=== PATIENT | male | born 1940 | race Caucasian/White ===

== ENCOUNTER → 2019-04-02 08:19 | Outpatient (CLI) | payer MEDICARE, SELFPAY ==
[2019-04-02 09:55] LABS: Alanine Aminotransferase 50 IU/L (21-72); Albumin 4.2 g/dL (3.5-5.0); Albumin Globulin Ratio 1.4 (1.0-2.8); Alkaline Phosphatase 81 U/L (38-126); Aspartate Aminotransferase 40 IU/L (17-59); Bilirubin Total 0.6 mg/dL (0.2-1.3); Blood Urea Nitrogen 22 mg/dL (9-20); Calcium 9.3 mg/dL (8.4-10.2); Carbon Dioxide 29 mmol/L (22-32); Chloride 101 mmol/L (98-107); Cholesterol 124 mg/dL (140-199); Estimated Glomerular Filt Rate > 60.0 mL/min (>60); Glucose 144 mg/dL (80-110); HDL Cholesterol 32 mg/dL (40-60); HEMOLYSIS < 15 (0-50); LDL Cholesterol Calculated 46 mg/dL (<100); Potassium 4.6 mmol/L (3.4-5.1); Sodium 140 mmol/L (137-145); Total Protein 7.2 g/dL (6.3-8.2); Triglycerides 232 mg/dL (35-150)
[2019-04-02 10:15] LABS: Free T4, Direct Thyroxine 1.04 ng/dL (0.78-2.19)
[2019-04-02 10:21] LABS: Microalbumi Creatinin Ratio Ur 83.7 ug/mg CR (<30); Microalbumin Urine Random 7.2 mg/dL (0-1.6)
[2019-04-02 10:29] LABS: Thyroid Stimulating Hormone 4.95 uIU/mL (0.47-4.68)
== END ==
PROVIDERS: PCP Internal Medicine; Visit Provider Internal Medicine
DX: I10 Essential (primary) hypertension (principal); E03.9 Hypothyroidism, unspecified; E11.9 Type 2 diabetes mellitus without complications
CPT/HCPCS: 36415; 80053; 80061; 82043; 82570; 83036; 84439; 84443

== ENCOUNTER → 2020-01-13 08:52 | Outpatient (CLI) | payer MEDICARE, SELFPAY ==
[2020-01-13 10:01] LABS: Hemoglobin A1C% w Est Avg Glu 6.6 % (4.0-6.0)
[2020-01-13 10:05] LABS: Alanine Aminotransferase 35 IU/L (<50); Albumin 3.9 g/dL (3.5-5.0); Albumin Globulin Ratio 1.4 (1.0-2.8); Alkaline Phosphatase 76 U/L (38-126); Aspartate Aminotransferase 34 IU/L (17-59); BUN Creatinine Ratio 15.3 (6-22); Bilirubin Total 0.4 mg/dL (0.2-1.3); Blood Urea Nitrogen 18 mg/dL (9-20); Calcium 9.7 mg/dL (8.4-10.2); Carbon Dioxide 26 mmol/L (22-32); Chloride 106 mmol/L (98-107); Cholesterol 113 mg/dL (140-199); Estimated Glomerular Filt Rate 59.7 mL/min (>60); Globulin 2.7 g/dL (1.7-4.1); Glucose 139 mg/dL (80-110); HDL Cholesterol 27 mg/dL (40-60); HEMOLYSIS < 15 (0-50); LDL Cholesterol Calculated 33 mg/dL (<100); Potassium 4.8 mmol/L (3.4-5.1); Sodium 139 mmol/L (137-145); Total Protein 6.6 g/dL (6.3-8.2); Triglycerides 265 mg/dL (35-150)
[2020-01-13 10:53] LABS: Free T4, Direct Thyroxine 1.36 ng/dL (0.78-2.19)
[2020-01-13 11:07] LABS: Thyroid Stimulating Hormone 3.32 uIU/mL (0.47-4.68)
== END ==
PROVIDERS: PCP Internal Medicine; Referring Provider Internal Medicine; Visit Provider Internal Medicine
DX: E03.9 Hypothyroidism, unspecified (principal); E11.9 Type 2 diabetes mellitus without complications; E78.2 Mixed hyperlipidemia; I10 Essential (primary) hypertension
CPT/HCPCS: 36415; 80053; 80061; 83036; 84439; 84443

== ENCOUNTER → 2020-06-01 08:23 | Outpatient (CLI) | payer MEDICARE, SELFPAY ==
[2020-06-01 08:58] LABS: Hemoglobin A1C% w Est Avg Glu 6.7 % (4.0-6.0)
[2020-06-01 09:28] LABS: Alanine Aminotransferase 32 IU/L (<50); Albumin 4.2 g/dL (3.5-5.0); Albumin Globulin Ratio 1.7 (1.0-2.8); Alkaline Phosphatase 75 U/L (38-126); Aspartate Aminotransferase 30 IU/L (17-59); BUN Creatinine Ratio 13.9 (6-22); Bilirubin Total 0.5 mg/dL (0.2-1.3); Blood Urea Nitrogen 15 mg/dL (9-20); Calcium 9.3 mg/dL (8.4-10.2); Carbon Dioxide 32 mmol/L (22-32); Chloride 102 mmol/L (98-107); Estimated Glomerular Filt Rate > 60.0 mL/min (>60); Globulin 2.5 g/dL (1.7-4.1); Glucose 124 mg/dL (80-110); HEMOLYSIS < 15 (0-50); Potassium 4.9 mmol/L (3.4-5.1); Sodium 140 mmol/L (137-145); Total Protein 6.7 g/dL (6.3-8.2)
== END ==
PROVIDERS: PCP Internal Medicine; Referring Provider Internal Medicine; Visit Provider Internal Medicine
DX: E03.9 Hypothyroidism, unspecified (principal); E11.9 Type 2 diabetes mellitus without complications; E78.2 Mixed hyperlipidemia; I10 Essential (primary) hypertension
CPT/HCPCS: 36415; 80053; 83036

== ENCOUNTER → 2020-10-26 07:00 | Outpatient (CLI) | payer MEDICARE, SELFPAY ==
[2020-10-26 08:14] LABS: Alanine Aminotransferase 26 IU/L (<50); Albumin Globulin Ratio 1.4 (1.0-2.8); Alkaline Phosphatase 65 U/L (38-126); Aspartate Aminotransferase 26 IU/L (17-59); BUN Creatinine Ratio 18.5 (6-22); Bilirubin Total 0.3 mg/dL (0.2-1.3); Blood Urea Nitrogen 20 mg/dL (9-20); Calcium 9.6 mg/dL (8.4-10.2); Carbon Dioxide 31 mmol/L (22-32); Chloride 103 mmol/L (98-107); Cholesterol 143 mg/dL (140-199); Estimated Glomerular Filt Rate > 60.0 mL/min (>60); Globulin 2.9 g/dL (1.7-4.1); Glucose 69 mg/dL (80-110); HDL Cholesterol 34 mg/dL (40-60); HEMOLYSIS < 15 (0-50); LDL Cholesterol Calculated 75 mg/dL (<100); Potassium 4.3 mmol/L (3.4-5.1); Sodium 141 mmol/L (137-145); Total Protein 6.9 g/dL (6.3-8.2); Triglycerides 172 mg/dL (35-150)
== END ==
PROVIDERS: PCP Internal Medicine; Referring Provider Internal Medicine; Visit Provider Internal Medicine
DX: E11.9 Type 2 diabetes mellitus without complications (principal); E78.2 Mixed hyperlipidemia; I10 Essential (primary) hypertension
CPT/HCPCS: 36415; 80053; 80061; 83036

== ENCOUNTER → 2020-11-16 12:22 | Outpatient (CLI) | payer MEDICARE, SELFPAY ==
--- NOTE | 2020-11-16 12:25 | DI.RAD.S_ITS ---
PROCEDURE: XR HIP W PEL IF DONE RT 2V INDICATIONS: right hip pain TECHNIQUE: AP pelvis with lateral view(s) of the right hip(s). COMPARISON: None. FINDINGS: Bones: No fractures or dislocations. Pelvic ring appears intact. No suspicious bony lesions. Soft tissues: The visualized bowel gas pattern is normal. No suspicious soft tissue calcifications. IMPRESSION: Mild right knee joint degenerative osteoarthritis, near symmetric with that on the left. Dictated by: René Coley M.D. on 11/16/2020 at 13:07 Approved by: René Coley M.D. on 11/16/2020 at 13:08
== END ==
PROVIDERS: PCP Internal Medicine; Referring Provider Chiropractor; Visit Provider Chiropractor
DX: M25.551 Pain in right hip (principal); M16.11 Unilateral primary osteoarthritis, right hip
CPT/HCPCS: 73502

== ENCOUNTER → 2020-11-19 08:47 | Outpatient (CLI) | payer MEDICARE, SELFPAY ==
[2020-11-19 09:47] LABS: COVID19 -Nasal RAPID Negative (Negative)
== END ==
PROVIDERS: PCP Internal Medicine; Referring Provider Internal Medicine; Visit Provider Internal Medicine
DX: Z20.822 Contact with and (suspected) exposure to COVID-19 (principal)
CPT/HCPCS: 87635; C9803

== ENCOUNTER → 2020-11-20 08:53 | Outpatient (CLI) | payer MEDICARE, SELFPAY ==
--- NOTE | 2020-11-25 11:09 | PM.PFT.1 ---
Pulmonary Function Test Referral & Results Date Patient Seen: 11/20/20 Requesting provider: Duglas Brice Results: The spirometry demonstrates an FVC of 2.76 L which is 64% of predicted. The FEV1 was measured at 2.20 L which is 72% of predicted. The FEV1/FVC ratio was 80 which is 110% of predicted. Following the administration of bronchodilator there was a 15% improvement in FEF 25-75%. Lung volumes show an SVC of 2.91 L which is 63% of predicted. The diffusing capacity was measured at 24.48 which is 72% of predicted. No hemoglobin value was provided, so no correction for potential anemia could be made, if appropriate. The maximum voluntary ventilation was normal Interpretation: This study demonstrates perhaps mild obstructive lung disease based on reduction FEV1 although FEV1/FVC ratio is preserved, there was minimal improvement following bronchodilator in small airway flow and shape a flow volume loop does support obstructive lung disease being present. There is a reduction in SVC suggesting mild restrictive lung disease that may explain most of the changes in the FEV1 above There is a moderate reduction in diffusing capacity suggesting element of disease at the capillary alveolar level Compared to PFTs performed in November 2015, current study is essentially unchanged although there is a minimal reduction in diffusing capacity compared to previous study
== END ==
PROVIDERS: PCP Internal Medicine; Referring Provider Internal Medicine; Visit Provider Internal Medicine
DX: J44.9 Chronic obstructive pulmonary disease, unspecified (principal)
CPT/HCPCS: 94060; 94726; 94729

== ENCOUNTER 2021-01-05 06:52 | Emergency (ER) | payer MEDICARE, SELFPAY ==
[2021-01-05 07:02] VITALS: BP 200/90; PULSE 89; RESP 20; TEMP 36.7; O2SAT 98; BMI 27.1
--- NOTE | 2021-01-05 07:04 | DI.RAD.S_ITS ---
PROCEDURE: XR CHEST 1V INDICATIONS: Chest pain TECHNIQUE: One view of the chest was acquired. COMPARISON: [facility], CHEST 2 VIEW, 04/26/2015, 8:20. [facility], CHEST 2 VIEW, 03/01/2012, 11:54. FINDINGS: Surgical changes and devices: None. Lungs and pleura: Lungs are clear. No pleural effusions or pneumothorax. Mediastinum: Mediastinal contours appear normal. Heart size is normal. Bones and chest wall: No suspicious bony lesions. Overlying soft tissues appear unremarkable. IMPRESSION: Normal for age, source of current chest pain symptoms is not seen. Dictated by: René Coley M.D. on 01/05/2021 at 8:20 Approved by: René Coley M.D. on 01/05/2021 at 8:20
--- NOTE | 2021-01-05 07:18 | ED_ITS ---
HPI - General Adult General Chief complaint: Chest Pain Stated complaint: SEVERE BACK AND CHEST PAIN Time Seen by Provider: 01/05/21 07:02 Source: patient Mode of arrival: Ambulatory Limitations: no limitations History of Present Illness HPI narrative: Patient is a 80-year-old male here for evaluation of left-sided back discomfort. He states is been going on for the past 3 days but is been worsening during this time. Does radiate around to the front of his chest. He states he has had a history of pleurisy in this feels very similar to that. It does hurt when he takes a deep breath. It hurts when he stands up straight. It does not get worse when you touch the area. Does seem to be localized to his shoulder blade on the left. Does have a history of high blood pressure. He did not take his medicines this morning. Afebrile. No specific trauma. Related Data Home Medications Medication Instructions Recorded Confirmed ASPIRIN (#ASPIRIN) 81 mg PO #0 03/01/12 11/03/20 albuterol sulfate 90 mcg/actuation 2 puff INHALATION Q4-6H PRN 11/06/18 11/03/20 aerosol inhaler insulin glargine 100 unit/mL (3 50 unit SUBCUT QPM #15 ml 11/06/18 11/03/20 mL) subcutaneous pen insulin lispro 100 unit/mL 20 unit SUBCUT QAC #15 ml 11/06/18 11/03/20 subcutaneous pen levothyroxine 50 mcg tablet 50 mcg PO DAILY #90 tab 11/06/18 11/03/20 losartan 100 mg tablet 100 mg PO DAILY #90 tab 11/06/18 11/03/20 metformin 1,000 mg tablet 1,000 mg PO BID #180 tab 11/06/18 11/03/20 simvastatin 40 mg tablet 40 mg PO DAILY #90 tab 11/06/18 11/03/20 zolpidem 10 mg tablet See Rx Instructions PO .COMPLEX 11/06/18 11/03/20 PRN tab sertraline 25 mg tablet 25 mg PO DAILY tab 04/08/19 11/03/20 carvedilol 3.125 mg tablet 3.125 mg PO BID tab 06/05/20 11/03/20 Previous Rx's Medication Instructions Recorded blood-glucose meter,continuous #1 ea 06/30/20 blood-glucose sensor #3 ea 06/30/20 blood-glucose transmitter #1 ea 06/30/20 fluticasone propionate 220 2 puff INHALATION BID #12 g 11/25/20 mcg/actuation HFA aerosol inhaler tramadol [Ultram] 50 mg PO Q8H PRN #14 tab 01/05/21 Allergies Allergy/AdvReac Type Severity Reaction Status Date / Time prednisone AdvReac Severe Made Verified 11/03/20 10:21 patient Hostile. Review of Systems Constitutional Constitutional: Denies headache(s) ENT Ears, Nose, Mouth, and Throat: Denies headache(s) Cardiovascular Cardiovascular: Reports chest pain (Chest discomfort that is radiating around from the back) Respiratory Respiratory: Denies cough and Reports pain on inspiration Gastrointestinal Gastrointestinal: Denies abdominal pain, Denies nausea and Denies vomiting Musculoskeletal Musculoskeletal: Reports back pain Integumentary/Breasts Skin/Breast: Denies rash Neurologic Neurologic: Denies behavioral changes and Denies headache(s) Psychiatric Psychiatric: Denies behavioral changes Hematologic/Lymphatic On Anticoagulants: No Allergic/Immunologic Allergic/Immunologic: Reports system reviewed and no additional complaints, except as documented Patient History Medical History (Updated 01/05/21 @ 09:18 by Milton Carvalho DO) Acquired hypothyroidism (11/26/15) Asthma Essential hypertension History of adenomatous polyp of colon Mixed hyperlipidemia Type 2 diabetes mellitus without complication (11/26/15) Social History Smoking Status: Never smoker Smoking Status: Never smoker alcohol intake frequency: 0-2 drinks per day Substance Use Type: does not use Exam Initial Vital Signs Initial Vital Signs: Vital Signs Temperature 98.0 F 01/05/21 07:02 Pulse Rate 89 01/05/21 07:02 Respiratory Rate 20 01/05/21 07:02 Blood Pressure 200/90 H 01/05/21 07:02 Pulse Oximetry 98 01/05/21 07:02 Const General: cooperative and comfortable Limitations: mental status not altered HENMT Head: normal to inspection and normocephalic Resp Effort & Inspection: normal respiratory effort Auscultation: clear to auscultation bilaterally Cardio Rate: regular rate Rhythm: regular rhythm Pulses: radial pulses present bilaterally GI Inspection: non-distended Palpation: soft Back/Spine/Pelvis Other: Patient's discomfort is localized during the inferior medial aspect of the left scapula. It is not reproducible with palpation. Skin Lesions: no lesions Rashes: no rashes Neuro General: patient alert and patient awake Cognition: normal cognition Speech: speech normal Extrem General: capillary refill normal Psych Appearance: grossly normal and well kempt Course Orders Ordered: ED Orders 01/05/21 07:04 XR chest 1V Stat EKG-12 Lead Stat 01/05/21 07:26 Complete Blood Count AUTO DIFF Stat Comprehensive Metabolic Panel Stat Lipase Stat Troponin & CK Cardiac Panel Stat 01/05/21 08:10 CT angio chest PE protocol Stat Discontinued Medications Ketorolac Tromethamine (Ketorolac 30 Mg/Ml Vial) 30 mg IV NOW ONE Stop: 01/05/21 07:21 Last Admin: 01/05/21 07:42 Dose: 30 mg Documented by: CECILE Vital Signs Vital signs: Vital Signs - 8 hr 01/05/21 07:02 Temperature 98.0 F Pulse Rate 89 Respiratory Rate 20 Blood Pressure 200/90 H Pulse Oximetry 98 Medical Decision Making Lab Data Lab results reviewed: Yes I reviewed the patient's lab results. Result diagrams: 01/05/21 07:26 01/05/21 07:26 Labs: Lab Results 01/05/21 01/05/21 Range/Units 07:26 07:26 WBC 6.4 (4.5-11.0) X10^3/uL RBC 5.05 (4.5-5.9) X10^6/uL Hgb 12.4 L (13.5-17.5) g/dL Hct 38.0 L (41-53) % MCV 75.3 L (80-100) fL MCH 24.5 L (26-34) PG MCHC 32.6 (30-36) % RDW 16.3 H (11.6-14.8) % Plt Count 192 (150-400) X10^3/uL Neut % (Auto) 66.3 (50-75) % Lymph % (Auto) 20.3 L (25-40) % Mora % (Auto) 9.8 (3-14) % Eos % (Auto) 3.0 (2-4) % Baso % (Auto) 0.6 (0-2) % Neut # (Auto) 4200 (2344-2329) /uL Lymph # (Auto) 1300 (9963-0838) /uL Mora # (Auto) 600 (0-900) /uL Eos # (Auto) 200 (0-450) /uL Baso # (Auto) 0 (0-100) /uL Sodium 141 (137-145) mmol/L Potassium 4.0 (3.4-5.1) mmol/L Chloride 106 (98-107) mmol/L Carbon Dioxide 26 (22-32) mmol/L BUN 20 (9-20) mg/dL Creatinine 1.05 (0.66-1.25) mg/dL Estimated GFR > 60.0 (>60) mL/min BUN/Creatinine Ratio 19.0 (6-22) Glucose 146 H (80-110) mg/dL Calcium 9.5 (8.4-10.2) mg/dL Total Bilirubin 0.3 (0.2-1.3) mg/dL AST 30 (17-59) IU/L ALT 25 (<50) IU/L Alkaline Phosphatase 68 (38-126) U/L Total Creatine Kinase 71 (55-170) U/L CK-MB (CK-2) TNP CK-MB (CK-2) Rel Index TNP Troponin I < 0.012 (0.01-0.034) ng/mL Total Protein 6.7 (6.3-8.2) g/dL Albumin 3.9 (3.5-5.0) g/dL Globulin 2.8 (1.7-4.1) g/dL Albumin/Globulin Ratio 1.4 (1.0-2.8) Lipase 48 (23-300) U/L Imaging Data Chest x-ray: Radiologist's Impression: No acute findings CT scan - chest: Radiologist's Impression: [address] [id number] Scan ReportSigned Patient: Mark Bains [facility]#: [id number]: 2Acct:[id number]/Sex: 80 / MDate of Service: 01/05/21Loc: EDAccession Number: [id number] Procedure: CT angio chest PE protocol Ordering Provider: Milton Carvalho D.O. PROCEDURE: CT ANGIO CHEST PE PROTOCOL INDICATIONS: Left sided pleuritic chest pain TECHNIQUE: After the administration of intravenous contrast, 2 mm thick sections acquired from the pulmonary apices to the posterior costophrenic angles. 3-dimensional maximum intensity projection (MIP) coronal and sagittal reformats were then acquired through the thorax. For radiation dose reduction, the following was used: automated exposure control, adjustment of mA and/or kV according to patient size. COMPARISON: None. FINDINGS: Image quality: Excellent. Pulmonary arteries: Pulmonary arteries are normal in size, and demonstrate no intraluminal filling defects to suggest central pulmonary embolism. Lungs and pleura: 4 mm subpleural nodule within the left upper lobe laterally. Lungs are otherwise clear. No pleural effusions or pneumothorax. Central and peripheral airways are patent. Mediastinum: Heart size is normal, without pericardial effusion. There is mild atherosclerotic calcification of the coronary vasculature. No mediastinal or hilar adenopathy. Thoracic aorta is normal in caliber and enhancement. Esophagus is normal in caliber. Small hiatal hernia. Bones and chest wall: No suspicious bony lesions. Ribs and thoracic spine a ppear intact throughout. Thyroid gland is within normal limits. No axillary or supraclavicular adenopathy. Abdomen: Visualized upper abdominal solid organs appear normal in the early arterial phase of enhancement. IMPRESSION: 1. No acute process. 2. No pulmonary embolus. 3. Left upper lobe pulmonary nodule. Follow-up is recommended as below. Fleischner Society criteria for SOLID lung nodule followup. Nodule size (mm)Low-risk patientHigh-risk patient<6 (single or multiple)No routine followup.Optional CT at 12 months. 6-8 (single or multiple)CT at 6-12 months, then optional CT at 18-24 mo.CT at 6-12 months, then CT at 18-24 months. >8 (single)CT, PET-CT, or biopsy at 3 months. Same as for low-risk pts. >8 (multiple)CT at 3-6 months, then optional CT at 18-24 mo.CT at 3-6 months, then CT at 18-24 months. Recommendations do not apply to lung cancer screening, patients with i mmunosuppression, or patients with known primary cancer. Dictated by: Chapis Black M.D. on 01/05/2021 at 8:27 Approved by: Chapis Black M.D. on 01/05/2021 at 8:30 ECG Data Attestation: I personally reviewed and interpreted this ECG as follows: Prior ECG tracings: not available for review Interpretation: Sinus rhythm Ventricular rate 84 Normal axis Normal QRS Normal QTC No ST T wave changes MDM Narrative Medical decision making narrative: Patient has had constant symptoms for 3 days and his troponin is negative. EKG is unremarkable. He is afebrile. Chest x- ray and CT scan of the chest are unremarkable. Patient has had pleurisy in the past and he states this feels like pleurisy to him. There is no indication for antibiotics. Low suspicion for ACS. This could be muscular. We did discuss the use of anti-inflammatories and will send home with medication to help with the symptoms are it is worse. He was given return precautions. He expressed understanding and agreement. Discharge Plan Departure Patient Disposition: Home Clinical Impression: Pleurisy Instructions: DI for Pleurisy Activity Restrictions/Additional Instructions: I recommend that you continue to your medications as directed. Also recommend that you continue with anti-inflammatories such as Motrin or Naprosyn. Contact your primary provider for follow-up. 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 Misc See Rx Instructions .ROUTE .MEDSUPPLY Qty: 1 RF: 0 (DME) Dexcom G6 Sensor Device See Rx Instructions .ROUTE .MEDSUPPLY Qty: 3 RF: 12 (DME) Dexcom G6 Transmitter Device See Rx Instructions .ROUTE .MEDSUPPLY Qty: 1 RF: 3 Flovent HFA 220 mcg/actuation HFA aerosol inhaler 2 puff inhalation BID Qty: 12 RF: 3 metformin 1,000 mg tablet 1,000 mg PO BID Qty: 180 RF: 0 levothyroxine 50 mcg tablet 50 mcg PO DAILY Qty: 90 RF: 0 simvastatin 40 mg tablet 40 mg PO DAILY Qty: 90 RF: 0 losartan 100 mg tablet 100 mg PO DAILY Qty: 90 RF: 0 insulin glargine 100 unit/mL (3 mL) insulin pen 50 unit SUBCUT QPM Qty: 15 RF: 0 insulin lispro 100 unit/mL insulin pen 20 unit SUBCUT QAC Qty: 15 RF: 0 albuterol sulfate [ProAir HFA] 90 mcg/actuation HFA aerosol inhaler 2 puff INHALATION Q4-6H PRN (Reason: shortness of breath or wheezing) RF: 0 zolpidem 10 mg tablet See Rx Instructions PO .COMPLEX PRN (Reason: insomnia) RF: 0 carvedilol 3.125 mg tablet 3.125 mg PO BID RF: 0 sertraline 25 mg tablet 25 mg PO DAILY RF: 0 Referrals: Duglas Brice MD [Primary Care Provider] -
[2021-01-05 07:34] LABS: Add Manual Diff / Slide Review NO; Basophils Absolute Auto 0 /uL (0-100); Basophils Percent Auto 0.6 % (0-2); Eosinophils Absolute Auto 200 /uL (0-450); Hemoglobin 12.4 g/dL (13.5-17.5); Lymphocytes Absolute Auto 1300 /uL (1100-4500); Lymphocytes Percent Auto 20.3 % (25-40); Mean Corpuscular HGB Conc 32.6 % (30-36); Mean Corpuscular Hemoglobin 24.5 PG (26-34); Mean Corpuscular Volume 75.3 fL (80-100); Monocytes Absolute Auto 600 /uL (0-900); Monocytes Percent Auto 9.8 % (3-14); Neutrophils Absolute Auto 4200 /uL (1500-7000); Neutrophils Percent Auto 66.3 % (50-75); Platelet Count 192 X10^3/uL (150-400); Red Blood Cell Count 5.05 X10^6/uL (4.5-5.9); Red Cell Distribution Width 16.3 % (11.6-14.8); White Blood Cell Count 6.4 X10^3/uL (4.5-11.0)
[2021-01-05] MEDS: KETOROLAC 30 MG/ML VIAL IV (07:42)
[2021-01-05 07:43] LABS: Albumin 3.9 g/dL (3.5-5.0); Albumin Globulin Ratio 1.4 (1.0-2.8); Alkaline Phosphatase 68 U/L (38-126); Aspartate Aminotransferase 30 IU/L (17-59); Bilirubin Total 0.3 mg/dL (0.2-1.3); Blood Urea Nitrogen 20 mg/dL (9-20); Calcium 9.5 mg/dL (8.4-10.2); Carbon Dioxide 26 mmol/L (22-32); Chloride 106 mmol/L (98-107); Creatine Kinase 71 U/L (55-170); Estimated Glomerular Filt Rate > 60.0 mL/min (>60); Globulin 2.8 g/dL (1.7-4.1); Glucose 146 mg/dL (80-110); HEMOLYSIS < 15 (0-50); Lipase 48 U/L (23-300); Sodium 141 mmol/L (137-145); Total Protein 6.7 g/dL (6.3-8.2)
[2021-01-05 07:44] LABS: Alanine Aminotransferase 25 IU/L (<50)
[2021-01-05 07:55] LABS: Troponin I < 0.012 ng/mL (0.01-0.034)
--- NOTE | 2021-01-05 08:10 | DI.CT.S_ITS ---
PROCEDURE: CT ANGIO CHEST PE PROTOCOL INDICATIONS: Left sided pleuritic chest pain TECHNIQUE: After the administration of intravenous contrast, 2 mm thick sections acquired from the pulmonary apices to the posterior costophrenic angles. 3-dimensional maximum intensity projection (MIP) coronal and sagittal reformats were then acquired through the thorax. For radiation dose reduction, the following was used: automated exposure control, adjustment of mA and/or kV according to patient size. COMPARISON: None. FINDINGS: Image quality: Excellent. Pulmonary arteries: Pulmonary arteries are normal in size, and demonstrate no intraluminal filling defects to suggest central pulmonary embolism. Lungs and pleura: 4 mm subpleural nodule within the left upper lobe laterally. Lungs are otherwise clear. No pleural effusions or pneumothorax. Central and peripheral airways are patent. Mediastinum: Heart size is normal, without pericardial effusion. There is mild atherosclerotic calcification of the coronary vasculature. No mediastinal or hilar adenopathy. Thoracic aorta is normal in caliber and enhancement. Esophagus is normal in caliber. Small hiatal hernia. Bones and chest wall: No suspicious bony lesions. Ribs and thoracic spine appear intact throughout. Thyroid gland is within normal limits. No axillary or supraclavicular adenopathy. Abdomen: Visualized upper abdominal solid organs appear normal in the early arterial phase of enhancement. IMPRESSION: 1. No acute process. 2. No pulmonary embolus. 3. Left upper lobe pulmonary nodule. Follow-up is recommended as below. Fleischner Society criteria for SOLID lung nodule followup. Nodule size (mm)Low-risk patientHigh-risk patient<6 (single or multiple)No routine followup.Optional CT at 12 months. 6-8 (single or multiple)CT at 6-12 months, then optional CT at 18-24 mo.CT at 6-12 months, then CT at 18-24 months. >8 (single)CT, PET-CT, or biopsy at 3 months. Same as for low-risk pts. >8 (multiple)CT at 3-6 months, then optional CT at 18-24 mo.CT at 3-6 months, then CT at 18-24 months. Recommendations do not apply to lung cancer screening, patients with immunosuppression, or patients with known primary cancer. Dictated by: Chapis Black M.D. on 01/05/2021 at 8:27 Approved by: Chapis Black M.D. on 01/05/2021 at 8:30
== END 2021-01-05 09:35 | disposition home or self-care (01) ==
PROVIDERS: Emergency Provider Emergency Medicine; PCP Internal Medicine
DX: R09.1 Pleurisy (principal); M54.9 Dorsalgia, unspecified
CPT/HCPCS: 36415; 71045; 71275; 80053; 82550; 83690; 84484; 85025; 93005; 96374; 99284; J1885; Q9967

== ENCOUNTER 2021-02-17 19:24 | Emergency (ER) | payer MEDICARE, SELFPAY ==
[2021-02-17 19:31] VITALS: BP 222/34; PULSE 95; RESP 22; TEMP 37.3; O2SAT 97
--- NOTE | 2021-02-17 19:35 | DI.RAD.S_ITS ---
PROCEDURE: XR CHEST 1V INDICATIONS: chest pain TECHNIQUE: One view of the chest was acquired. COMPARISON: [facility], CR, XR CHEST 1V, 01/05/2021, 7:11. FINDINGS: Surgical changes and devices: None. Lungs and pleura: Low lung volumes, however the lung browne are clear. No visible pneumothorax or pleural effusion. Mediastinum: Mediastinal contours appear normal. Heart size is stable, mildly enlarged. Bones and chest wall: No suspicious bony lesions. Overlying soft tissues appear unremarkable. IMPRESSION: 1. No acute cardiopulmonary disease. 2. Stable, mild cardiomegaly accentuated by low lung volumes. Dictated by: Cat Pack M.D. on 02/17/2021 at 20:47 Approved by: Cat Pack M.D. on 02/17/2021 at 20:47
[2021-02-17 20:01] LABS: Add Manual Diff / Slide Review NO; Basophils Absolute Auto 0 /uL (0-100); Basophils Percent Auto 0.4 % (0-2); Eosinophils Absolute Auto 200 /uL (0-450); Eosinophils Percent Auto 2.4 % (2-4); Hemoglobin 12.3 g/dL (13.5-17.5); Lymphocytes Absolute Auto 1800 /uL (1100-4500); Lymphocytes Percent Auto 22.7 % (25-40); Mean Corpuscular HGB Conc 32.4 % (30-36); Mean Corpuscular Hemoglobin 24.7 PG (26-34); Mean Corpuscular Volume 76.1 fL (80-100); Monocytes Absolute Auto 700 /uL (0-900); Monocytes Percent Auto 8.9 % (3-14); Neutrophils Absolute Auto 5100 /uL (1500-7000); Neutrophils Percent Auto 65.6 % (50-75); Platelet Count 196 X10^3/uL (150-400); Red Cell Distribution Width 15.8 % (11.6-14.8); White Blood Cell Count 7.8 X10^3/uL (4.5-11.0)
[2021-02-17] MEDS: ASPIRIN 81 MG CHEW TAB 324 MG PO (20:01)
[2021-02-17] MEDS: MORPHINE 4 MG/ML INJ IV (20:01)
--- NOTE | 2021-02-17 20:30 | ED_ITS ---
HPI - Chest Pain General Chief Complaint: Chest Pain Stated Complaint: severe back pain Time Seen by Provider: 02/17/21 19:55 Source: patient Mode of arrival: Ambulatory Limitations: no limitations History of Present Illness HPI narrative: 81-year-old male comes emergency department complaint of back pain. Patient has had back pain that is localized to 1/2 dollar area for about a month. He was told he had pleurisy. He was discharged on ibuprofen and tramadol. Patient has continued to have symptoms became significantly worse yesterday it has been constant. It radiates sort of down his left shoulder and blade and back it does not radiate to his front. He denies any radiation down his arm, shoulder or into his jaw. He states that if he takes a big breath it is painful in the back but not in his chest. He has not had any trauma or injuries. No fevers, chills, cold cough or congestion. Certain movements do make it worse. No shortness of breath. No nausea or vomiting. Patient did feel little bit clammy today when it was at its worse. He denies any abdominal pain. No numbness, tingling or weakness. 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 His only allergies are prednisone which makes him very angry. No prior surgeries. No tobacco, alcohol or illicit. His primary care is Dr. Brice. Related Data Home Medications Medication Instructions Recorded Confirmed ASPIRIN (#ASPIRIN) 81 mg PO #0 03/01/12 11/03/20 albuterol sulfate 90 mcg/actuation 2 puff INHALATION Q4-6H PRN 11/06/18 11/03/20 aerosol inhaler (ProAir HFA) Previous Rx's Medication Instructions Recorded blood-glucose meter,continuous #1 ea 06/30/20 (Dexcom G6 Site Safety Manager) blood-glucose sensor (Dexcom G6 #3 ea 06/30/20 Sensor) blood-glucose transmitter (Dexcom #1 ea 06/30/20 G6 Transmitter) fluticasone propionate 220 2 puff INHALATION BID #12 g 11/25/20 mcg/actuation HFA aerosol inhaler (Flovent HFA) tramadol 50 mg tablet (Ultram) 50 mg PO Q8H PRN #14 tab 01/05/21 B-D 5MM Pen [place] #400 ea 01/07/21 carvedilol 3.125 mg tablet 3.125 mg PO BID #180 tab 01/07/21 insulin glargine 100 unit/mL (3 50 unit SUBCUT QPM #45 ml 01/07/21 mL) subcutaneous pen insulin lispro 100 unit/mL 15 unit SUBCUT QAC #45 ml 01/07/21 subcutaneous pen levothyroxine 50 mcg tablet 50 mcg PO DAILY #90 tab 01/07/21 losartan 100 mg tablet 100 mg PO DAILY #90 tab 01/07/21 metformin 1,000 mg tablet 1,000 mg PO BID #180 tab 01/07/21 simvastatin 40 mg tablet 40 mg PO DAILY #90 tab 01/07/21 meloxicam 7.5 mg tablet (Mobic) 7.5 mg PO BID PRN #14 tab 02/17/21 gabapentin 300 mg capsule 300 mg PO BEDTIME #60 cap 02/25/21 Allergies Allergy/AdvReac Type Severity Reaction Status Date / Time prednisone AdvReac Severe Made Verified 02/25/21 14:16 patient Hostile. acetaminophen AdvReac Intermediate Brain fog Verified 02/25/21 14:55 [From Lorcet (hydrocodone)] hydrocodone AdvReac Intermediate Brain fog Verified 02/25/21 14:55 [From Lorcet (hydrocodone)] Review of Systems Review of Systems ROS Unobtainable: All systems reviewed & are unremarkable except as noted in HPI and below Patient History Medical History (Updated 02/19/21 @ 10:18 by Kathleen Hooker DO) Acquired hypothyroidism (11/26/15) Asthma Essential hypertension History of adenomatous polyp of colon Mixed hyperlipidemia Type 2 diabetes mellitus without complication (11/26/15) Social History Smoking Status: Never smoker Smoking Status: Never smoker alcohol intake frequency: 0-2 drinks per day Substance Use Type: does not use Exam Narrative Exam Narrative: GENERAL: Alert and oriented x three, male in moderate distress. HEENT: Head normocephalic, atraumatic, EOMI, pupils reactive, face symmetric, moist mucous membranes NECK: Supple, full range of motion CARDIOVASCULAR: Regular rate and rhythm without murmurs, rubs or gallops. RESPIRATORY: Breath sounds equal bilaterally, no wheezes rales or rhonchi. ABDOMEN: Soft, nontender. Normoactive bowel sounds all 4 quadrants. No guarding or rebound, rigidity, no mass : No CVA tenderness BACK: No cervical, thoracic or lumbar vertebral point tenderness. Patient has left midthoracic fullness and pain localized to a baseball sized area with some mild muscle spasm. Patient states it actually feels better when I pressed directly on that area. It is just medial and below the scapula. Patient has normal range of motion. Patient does appear uncomfortable with movement. Movement of upper extremities, normal sensation. EXTREMITIES: Normal range of motion, no clubbing or edema. Neurovascularly intact NEUROLOGICAL: Cranial nerves II through XII grossly intact. Moving all extremities SKIN: Warm, dry, no petechiae, no rashes or lesions. Initial Vital Signs Initial Vital Signs: Vital Signs Temperature 99.1 F 02/17/21 19:31 Pulse Rate 95 H 02/17/21 19:31 Respiratory Rate 22 02/17/21 19:31 Blood Pressure 222/34 H 02/17/21 19:31 Pulse Oximetry 97 02/17/21 19:31 Course Orders Ordered: Discontinued Medications Aspirin (Aspirin 81 Mg Chew Tab) 324 mg PO NOW ONE Stop: 02/17/21 19:56 Last Admin: 02/17/21 20:01 Dose: 324 mg Documented by: PEDRO Carvedilol (Carvedilol 3.125 Mg Tablet) 3.125 mg PO NOW ONE Stop: 02/17/21 21:58 Last Admin: 02/17/21 22:19 Dose: 3.125 mg Documented by: PEDRO Cyclobenzaprine HCl (Cyclobenzaprine 10 Mg Prepack) 1 bottle [facility] ONE Stop: 02/17/21 22:37 Last Admin: 02/17/21 22:42 Dose: 1 bottle Documented by: TRINITY Diazepam (Diazepam 5 Mg Tablet) 10 mg PO NOW ONE Stop: 02/17/21 20:45 Last Admin: 02/17/21 20:47 Dose: 10 mg Documented by: PEDRO Ketorolac Tromethamine (Ketorolac 30 Mg/Ml Vial) 15 mg IV NOW ONE Stop: 02/17/21 21:58 Last Admin: 02/17/21 22:05 Dose: 15 mg Documented by: PEDRO Morphine Sulfate (Morphine 4 Mg/Ml Inj) 4 mg IV NOW ONE Stop: 02/17/21 19:56 Last Admin: 02/17/21 20:01 Dose: 4 mg Documented by: PEDRO Vital Signs Vital signs: Vital Signs - 8 hr 02/17/21 19:31 02/17/21 21:50 Temperature 99.1 F Pulse Rate 95 H 87 Respiratory Rate 22 12 Blood Pressure 222/34 H 191/77 H Pulse Oximetry 97 98 MDM - Chest Pain Lab Data Result diagrams: 02/17/21 19:40 02/17/21 20:34 Labs: Lab Results 02/17/21 02/17/21 Range/Units 19:40 20:34 WBC 7.8 (4.5-11.0) X10^3/uL RBC 5.00 (4.5-5.9) X10^6/uL Hgb 12.3 L (13.5-17.5) g/dL Hct 38.0 L (41-53) % MCV 76.1 L (80-100) fL MCH 24.7 L (26-34) PG MCHC 32.4 (30-36) % RDW 15.8 H (11.6-14.8) % Plt Count 196 (150-400) X10^3/uL Neut % (Auto) 65.6 (50-75) % Lymph % (Auto) 22.7 L (25-40) % Gray % (Auto) 8.9 (3-14) % Eos % (Auto) 2.4 (2-4) % Baso % (Auto) 0.4 (0-2) % Neut # (Auto) 5100 (7876-9724) /uL Lymph # (Auto) 1800 (3013-1985) /uL Gray # (Auto) 700 (0-900) /uL Eos # (Auto) 200 (0-450) /uL Baso # (Auto) 0 (0-100) /uL Sodium 140 (137-145) mmol/L Potassium 4.3 (3.4-5.1) mmol/L Chloride 105 (98-107) mmol/L Carbon Dioxide 22 (22-32) mmol/L BUN 20 (9-20) mg/dL Creatinine 1.07 (0.66-1.25) mg/dL Estimated GFR > 60.0 (>60) mL/min BUN/Creatinine Ratio 18.7 (6-22) Glucose 156 H (80-110) mg/dL Calcium 9.1 (8.4-10.2) mg/dL Magnesium 1.5 L (1.6-2.3) mg/dL Total Bilirubin 0.3 (0.2-1.3) mg/dL AST 31 (17-59) IU/L ALT 24 (<50) IU/L Alkaline Phosphatase 65 (38-126) U/L Total Creatine Kinase 87 (55-170) U/L CK-MB (CK-2) TNP CK-MB (CK-2) Rel Index TNP Troponin I < 0.012 (0.01-0.034) ng/mL Total Protein 6.7 (6.3-8.2) g/dL Albumin 4.0 (3.5-5.0) g/dL Globulin 2.7 (1.7-4.1) g/dL Albumin/Globulin Ratio 1.5 (1.0-2.8) Lipase 37 (23-300) U/L Imaging Data Chest x-ray: Radiologist's Impression: [address] [id number] ReportSigned Patient: Mark Bains [facility]#: [id number]: 2Acct:[id number]/Sex: 81 / MDate of Service: 02/17/21Loc: EDAccession Number: [id number] Procedure: XR chest 1V Ordering Provider: Isabel Martins D.O. PROCEDURE: XR CHEST 1V INDICATIONS: chest pain TECHNIQUE: One view of the chest was acquired. COMPARISON: [facility], , XR CHEST 1V, 01/05/2021, 7:11. FINDINGS: Surgical changes and devices: None. Lungs and pleura: Low lung volumes, however the lung browne are clear. No visible pneumothorax or pleural effusion. Mediastinum: Mediastinal contours appear normal. Heart size is stable, mildly enlarged. Bones and chest wall: No suspicious bony lesions. Overlying soft tissues appear unremarkable. IMPRESSION: 1. No acute cardiopulmonary disease. 2. Stable, mild cardiomegaly accentuated by low lung volumes. Dictated by: Cat Pack M.D. on 02/17/2021 at 20:47 Approved by: Cat Pack M.D. on 02/17/2021 at 20:47 ECG Data Interpretation: Sinus rhythm left axis deviation, right bundle-branch block. Rate 80 6 W[place] 196 QRS of 132 and QTC of 464. Patient has prior EKG from 01/05/2021 which appears similar. [facility] Narrative Medical decision making narrative: Patient comes in with back pain and quite hypertensive. He actually had a CT angiography to evaluate for PE as well as aneurysm which did not show any acute changes at that time. Patient has not had his evening dose of medications. He is significantly uncomfortable but improves with direct palpation. Cardiac enzymes after greater than 12 hours of symptoms are negative with no new EKG changes. Negative chest x-ray no other lab findings describe his pain. Patient had some improvement with morphine and a little bit more with Valium but his best improvement was with Toradol. Did attempt still technique with minimal improvement. Patient has follow-up scheduled with Dr. Brice and other additional options discussed. Discharge Plan Departure Patient Disposition: Home Clinical Impression: Acute left-sided thoracic back pain Instructions: Thoracic Back Pain Activity Restrictions/Additional Instructions: Follow-up with your physician for recheck. Your blood pressure is quite elevated today. You be given 1 one of your home doses here in the emergency department and I would recommend you take your evening medications. You may take medication as prescribed for pain twice daily. May take muscle relaxer every 8 hours as needed. I would recommend trying massage therapy, possibly trigger point injection or warm tea for your symptoms to see if this is helpful. Please return for fevers, new or changing pain, shortness of breath, lightheadedness or passing out, persistent vomiting, coughing blood, new skin changes or other new or concerning symptoms. Prescriptions: New meloxicam [Mobic] 7.5 mg tablet 7.5 mg PO BID PRN (Reason: pain) Qty: 14 RF: 0 No Action ASPIRIN (#ASPIRIN) 81 mg PO Qty: 0 RF: 0 (DME) Dexcom G6 Site Safety Manager Misc See Rx Instructions .ROUTE .MEDSUPPLY Qty: 1 RF: 0 (DME) Dexcom G6 Sensor Device See Rx Instructions .ROUTE .MEDSUPPLY Qty: 3 RF: 12 (DME) Dexcom G6 Transmitter Device See Rx Instructions .ROUTE .MEDSUPPLY Qty: 1 RF: 3 Flovent HFA 220 mcg/actuation HFA aerosol inhaler 2 puff inhalation BID Qty: 12 RF: 3 insulin lispro 100 unit/mL insulin pen 15 unit SUBCUT QAC Qty: 45 RF: 6 insulin glargine 100 unit/mL (3 mL) insulin pen 50 unit SUBCUT QPM Qty: 45 RF: 6 (DME) B-D 5MM Pen [place] See Rx Instructions .Route .MEDSUPPLY Qty: 400 RF: 6 metformin 1,000 mg tablet 1,000 mg PO BID Qty: 180 RF: 3 losartan 100 mg tablet 100 mg PO DAILY Qty: 90 RF: 3 simvastatin 40 mg tablet 40 mg PO DAILY Qty: 90 RF: 3 levothyroxine 50 mcg tablet 50 mcg PO DAILY Qty: 90 RF: 3 carvedilol 3.125 mg tablet 3.125 mg PO BID Qty: 180 RF: 3 albuterol sulfate [ProAir HFA] 90 mcg/actuation HFA aerosol inhaler 2 puff INHALATION Q4-6H PRN (Reason: shortness of breath or wheezing) RF: 0 gabapentin 300 mg capsule 300 mg PO BEDTIME Qty: 60 RF: 3 tramadol [Ultram] 50 mg tablet 50 mg PO Q8H PRN (Reason: pain) Qty: 14 RF: 0 Referrals: Duglas Brice MD [Primary Care Provider] -
[2021-02-17] MEDS: diazePAM 5 MG TABLET 10 MG PO (20:47)
[2021-02-17 20:58] LABS: Alanine Aminotransferase 24 IU/L (<50); Albumin Globulin Ratio 1.5 (1.0-2.8); Alkaline Phosphatase 65 U/L (38-126); Aspartate Aminotransferase 31 IU/L (17-59); BUN Creatinine Ratio 18.7 (6-22); Bilirubin Total 0.3 mg/dL (0.2-1.3); Blood Urea Nitrogen 20 mg/dL (9-20); Calcium 9.1 mg/dL (8.4-10.2); Carbon Dioxide 22 mmol/L (22-32); Chloride 105 mmol/L (98-107); Creatine Kinase 87 U/L (55-170); Estimated Glomerular Filt Rate > 60.0 mL/min (>60); Globulin 2.7 g/dL (1.7-4.1); Glucose 156 mg/dL (80-110); HEMOLYSIS < 15 (0-50); Lipase 37 U/L (23-300); Magnesium 1.5 mg/dL (1.6-2.3); Potassium 4.3 mmol/L (3.4-5.1); Sodium 140 mmol/L (137-145); Total Protein 6.7 g/dL (6.3-8.2)
[2021-02-17 21:04] LABS: Troponin I < 0.012 ng/mL (0.01-0.034)
[2021-02-17 21:50] VITALS: BP 191/77; PULSE 87; RESP 12; O2SAT 98
[2021-02-17] MEDS: KETOROLAC 30 MG/ML VIAL 15 MG IV (22:05)
[2021-02-17] MEDS: carvediloL 3.125 MG TABLET PO (22:19)
[2021-02-17] MEDS: CYCLOBENZAPRINE 10 MG PREPACK 1 BOTTLE MISC (22:42)
[2021-02-17 22:57] VITALS: BP 162/78; PULSE 96; RESP 20; O2SAT 97
== END 2021-02-17 22:58 | disposition home or self-care (01) ==
PROVIDERS: Emergency Provider Emergency Medicine; PCP Internal Medicine
DX: M54.6 Pain in thoracic spine (principal); I10 Essential (primary) hypertension; I45.10 Unspecified right bundle-branch block
CPT/HCPCS: 36415; 71045; 80053; 82550; 83690; 83735; 84484; 85025; 93005; 93010; 96374; 96375; 99284; J1885; J2270

== ENCOUNTER 2021-02-19 08:03 | Emergency (ER) | payer MEDICARE, SELFPAY ==
--- NOTE | 2021-02-19 08:07 | ED_ITS ---
HPI - Back Pain/Injury General Chief Complaint: Back Pain/Injury Stated Complaint: Back Spasms Time Seen by Provider: 02/19/21 08:07 History of Present Illness HPI Narrative: Patient is a 81-year-old male who presents with left upper back pain ongoing for about 1 month. Seen and evaluated here 2 days ago he had cardiac workup including chest x-ray blood work and EKG diagnosed with muscle spasm discharge home with cyclobenzaprine. Presenting today with increased pain. He is currently quite sleepy but says the sign water pain. His pain sort of radiates out from a central area. Does not really go around his chest. He has no shortness of breath. He has no changes in bowel or bladder habits. No lower back pain it seems to be in his thoracic area. It is not reproduced with arm movement. No fever chills no clear vomiting Related Data Home Medications Medication Instructions Recorded Confirmed ASPIRIN (#ASPIRIN) 81 mg PO #0 03/01/12 11/03/20 albuterol sulfate 90 mcg/actuation 2 puff INHALATION Q4-6H PRN 11/06/18 11/03/20 aerosol inhaler (ProAir HFA) zolpidem 10 mg tablet See Rx Instructions PO .COMPLEX 11/06/18 11/03/20 PRN tab sertraline 25 mg tablet 25 mg PO DAILY tab 04/08/19 11/03/20 Previous Rx's Medication Instructions Recorded blood-glucose meter,continuous #1 ea 06/30/20 (Dexcom G6 Branch Maker) blood-glucose sensor (Dexcom G6 #3 ea 06/30/20 Sensor) blood-glucose transmitter (Dexcom #1 ea 06/30/20 G6 Transmitter) fluticasone propionate 220 2 puff INHALATION BID #12 g 11/25/20 mcg/actuation HFA aerosol inhaler (Flovent HFA) tramadol 50 mg tablet (Ultram) 50 mg PO Q8H PRN #14 tab 01/05/21 B-D 5MM Pen [place] #400 ea 01/07/21 carvedilol 3.125 mg tablet 3.125 mg PO BID #180 tab 01/07/21 insulin glargine 100 unit/mL (3 50 unit SUBCUT QPM #45 ml 01/07/21 mL) subcutaneous pen insulin lispro 100 unit/mL 15 unit SUBCUT QAC #45 ml 01/07/21 subcutaneous pen levothyroxine 50 mcg tablet 50 mcg PO DAILY #90 tab 01/07/21 losartan 100 mg tablet 100 mg PO DAILY #90 tab 01/07/21 metformin 1,000 mg tablet 1,000 mg PO BID #180 tab 01/07/21 simvastatin 40 mg tablet 40 mg PO DAILY #90 tab 01/07/21 meloxicam 7.5 mg tablet (Mobic) 7.5 mg PO BID PRN #14 tab 02/17/21 hydrocodone 5 mg-acetaminophen 325 1 tab PO Q6H PRN #10 tab 02/19/21 mg tablet Allergies Allergy/AdvReac Type Severity Reaction Status Date / Time prednisone AdvReac Severe Made Verified 02/17/21 19:36 patient Hostile. Review of Systems Review of Systems Narrative: GENERAL: Denies chills, fatigue, malaise, fever, sweats, travel HEENT: Denies sinus pain, ear pain, sore throat, difficulty swallowing, neck pain RESPIRATORY: Denies dyspnea, cough, wheezing, hemoptysis, sputum. CARDIOVASCULAR: See HPI GASTROINTESTINAL: Denies nausea, vomiting, abdominal pain, diarrhea, constipation, melena. : Denies dysuria, frequency, incontinence, hematuria, urinary retention, flank pain. MUSCULOSKELETAL: See HPI SKIN: No rash, no erythema, no pruritus NEUROLOGIC: Denies weakness, dizziness, headache, numbness, change in speech, confusion PSYCHIATRIC: No concerning psychosocial issues. 12 point review of systems is negative except for those stated above and HPI Patient History Medical History (Updated 02/19/21 @ 10:18 by Kathleen Hooker DO) Acquired hypothyroidism (11/26/15) Asthma Essential hypertension History of adenomatous polyp of colon Mixed hyperlipidemia Type 2 diabetes mellitus without complication (11/26/15) Social History Smoking Status: Never smoker Smoking Status: Never smoker alcohol intake frequency: 0-2 drinks per day Substance Use Type: does not use Exam Initial Vital Signs Initial Vital Signs: Vital Signs Temperature 98 F 02/19/21 08:16 Pulse Rate 73 02/19/21 08:16 Respiratory Rate 18 02/19/21 08:16 Blood Pressure 200/86 H 02/19/21 08:16 Pulse Oximetry 99 02/19/21 08:16 GENERAL: Alert 81 year male appears comfortable eyes are closed but easily answers questions and in no acute distress. HEENT: Head atraumatic,EOMI, pupils reactive, face symmetric, moist mucous membranes CARDIOVASCULAR: Regular rate and rhythm without murmurs, rubs or gallops. RESPIRATORY: Breath sounds equal bilaterally, no wheezes rales or rhonchi. BACK: No vertebral tenderness tender split shoulder blades some not reproducible. ABDOMEN: Soft, nontender. Normoactive bowel sounds all 4 quadrants. No guarding or rebound. EXTREMITIES: Normal range of motion, no clubbing or edema. Neurovascularly intact. NEUROLOGICAL: Alert and oriented x4.Normal gait and speech. SKIN: Warm, dry, no laceration, no petechiae, no rashes or lesions. Course Orders Ordered: Discontinued Medications Ketorolac Tromethamine (Ketorolac 30 Mg/Ml Vial) 30 mg IV NOW ONE Stop: 02/19/21 08:21 Last Admin: 02/19/21 08:53 Dose: 30 mg Documented by: RADHA Morphine Sulfate (Morphine 4 Mg/Ml Inj) 4 mg IV NOW ONE Stop: 02/19/21 08:21 Last Admin: 02/19/21 08:54 Dose: 4 mg Documented by: RADHA Vital Signs Vital signs: Vital Signs - 8 hr 02/19/21 08:16 02/19/21 08:19 02/19/21 09:00 Temperature 98 F Pulse Rate 73 70 69 Respiratory Rate 18 18 18 Blood Pressure 200/86 H 176/88 H 175/61 H Pulse Oximetry 99 99 99 02/19/21 09:45 Temperature Pulse Rate 73 Respiratory Rate 12 Blood Pressure 180/70 H Pulse Oximetry 100 MDM - Back Pain/Injury Lab Data Result diagrams: 02/19/21 08:24 02/19/21 08:24 Labs: Lab Results 02/19/21 02/19/21 Range/Units 08:24 08:24 WBC 7.0 (4.5-11.0) X10^3/uL RBC 5.08 (4.5-5.9) X10^6/uL Hgb 12.5 L (13.5-17.5) g/dL Hct 38.6 L (41-53) % MCV 75.9 L (80-100) fL MCH 24.6 L (26-34) PG MCHC 32.3 (30-36) % RDW 15.9 H (11.6-14.8) % Plt Count 168 (150-400) X10^3/uL Neut % (Auto) 69.3 (50-75) % Lymph % (Auto) 18.4 L (25-40) % [place] % (Auto) 8.7 (3-14) % Eos % (Auto) 3.2 (2-4) % Baso % (Auto) 0.4 (0-2) % Neut # (Auto) 4900 (8214-3217) /uL Lymph # (Auto) 1300 (2334-5344) /uL [place] # (Auto) 600 (0-900) /uL Eos # (Auto) 200 (0-450) /uL Baso # (Auto) 0 (0-100) /uL Sodium 139 (137-145) mmol/L Potassium 4.1 (3.4-5.1) mmol/L Chloride 104 (98-107) mmol/L Carbon Dioxide 28 (22-32) mmol/L BUN 20 (9-20) mg/dL Creatinine 1.16 (0.66-1.25) mg/dL Estimated GFR > 60.0 (>60) mL/min BUN/Creatinine Ratio 17.2 (6-22) Glucose 118 H (80-110) mg/dL Calcium 8.9 (8.4-10.2) mg/dL Total Bilirubin 0.4 (0.2-1.3) mg/dL AST 32 (17-59) IU/L ALT 26 (<50) IU/L Alkaline Phosphatase 61 (38-126) U/L Total Creatine Kinase 77 (55-170) U/L CK-MB (CK-2) TNP CK-MB (CK-2) Rel Index TNP Troponin I < 0.012 (0.01-0.034) ng/mL Total Protein 6.7 (6.3-8.2) g/dL Albumin 3.8 (3.5-5.0) g/dL Globulin 2.9 (1.7-4.1) g/dL Albumin/Globulin Ratio 1.3 (1.0-2.8) Lipase 64 D (23-300) U/L Imaging Data CT scan - abdomen/pelvis: Radiologist's Impression: PROCEDURE: CT ANGIO CHEST ABDOMEN PELVIS INDICATIONS: severe back pain TECHNIQUE: Precontrast 5 mm thick sections acquired from the lung apices to the iliac crests. After the administration of intravenous contrast, 2.5 mm thick sections again acquired from the lung apices to the iliac crests. Maximum intensity projection (MIP) oblique sagittal and coronal reformats were then acquired. For radiation dose reduction, the f ollowing was used: automated exposure control. COMPARISON: [facility], CT, CT ANGIO CHEST PE PROTOCOL, 01/05/2021, 8:11. [facility], CR, XR CHEST 1V, 02/17/2021, 20:09. FINDINGS: Image quality: Excellent. AORTA: The thoracoabdominal aorta is widely patent, with no significant s tenosis, dissection, or aneurysm. CHEST: Lungs and pleura: Mild diffuse ground-glass pulmonary opacity with basilar predominance. Azygos fissure. No change in subpleural 4 mm nodule within the left upper lobe laterally (series 6, image 82). Mild dependent bilateral lower lobe atelectasis. No pleural effusions or pneumothorax. Central and peripheral airways are patent and normal in caliber. Mediastinum: Heart size is normal. There is mild calcification of the coronary vasculature. No pericardial effusion. No mediastinal or hilar adenopathy by size criteria. Central pulmonary arteries are normal in size. Esophagus is normal in caliber. Small hiatal hernia.. Bones and chest wall: No axillary adenopathy by size criteria. Thyroid gland is grossly unremarkable . No suspicious bony lesions. No vertebral body compression fractures. ABDOMEN: Vasculature: Celiac trunk and mesenteric arteries are patent. Renal arteries are also patent. Solid organs: Liver is normal in size and enhancement. Gallbladder is within normal limits . Biliary system is non dilated. Pancreas enhances normally. Spleen is normal in size and enhancement. No adrenal nodules. Both kidneys are normal in size and enhancement, without hydronephrosis. Peritoneum and bowel: No free fluid or air. Bowel loops are normal in caliber and wall thickness. Nodes and vessels: No retroperitoneal or mesenteric adenopathy by size criteria. Inferior vena cava is normal in morphology. Miscellaneous: No ventral hernias. PELVIS: Genitourinary: Bladder wall thickness is normal. Miscellaneous: No inguinal hernias or adenopathy. No ventral hernias. Bones: No suspicious bony lesions. No vertebral body compression fractures. IMPRESSION: 1. Mild atypical pneumonia. 2. No evidence of aortic dissection. 3. No change in left upper lobe pulmonary nodule. Follow-up is recommended as below. 4. No change in small hiatal hernia. 5. Coronary artery disease. Fleischner Society criteria for SOLID lung nodule followup. Nodule size (mm)Low-risk patientHigh-risk patient<6 (single or multiple)No routine followup.Optional CT at 12 months. 6-8 (single or multiple)CT at 6-12 months, then optional CT at 18-24 mo.CT at 6-12 months, then CT at 18-24 months. >8 (si ngle)CT, PET-CT, or biopsy at 3 months. Same as for low-risk pts. >8 (multiple)CT at 3-6 months, then optional CT at 18-24 mo.CT at 3-6 months, then CT at 18-24 months. Recommendations do not apply to lung cancer screening, patients with immunosuppression, or patients with known primary cancer. Dictated by: Chapis Black M.D. on 02/19/2021 at 9:39 ECG Data Interpretation: Sinus rhythm rate 71 MA interval [address] changes right bundle-branch block noted MDM Narrative Medical decision making narrative: Patient having persistent back pain will do CT angio to rule out any other etiology. Patient's CT does show possible atypical pneumonia however patient has no cough weakness or fever this does not clinically correlate. Patient's pain is significantly better after medications in the emergency department. On Mobic and Valium for pain. However 20 was seen in December for the same he was started on tramadol. At this time will start him on hydrocodone to manage pain at home. Discharge Plan Departure Patient Disposition: Home Clinical Impression: Muscle spasm Instructions: DI for Back Spasm Activity Restrictions/Additional Instructions: *You have been diagnosed with back pain and muscle spasm *What to do: At this time I recommend heating pad massage and chiropractor appointment at schedule *Continue to take medications as directed Continue taking Valium and Mobic as previously prescribed Stop taking tramadol Start taking [place] 1 tablet every 6 hours if needed for severe pain --SENT TO [facility] *Follow up with your primary care provider in 2-3 days *Return to ER if you should have increasing pain, chest pain, shortness of breath, fever, cough or any new, worsening or concerning symptoms Prescriptions: New hydrocodone-acetaminophen 5-325 mg tablet 1 tab PO Q6H PRN (Reason: pain) Qty: 10 RF: 0 No Action ASPIRIN (#ASPIRIN) 81 mg PO Qty: 0 RF: 0 (DME) Dexcom G6 Branch Maker Misc See Rx Instructions .ROUTE .MEDSUPPLY Qty: 1 RF: 0 (DME) Dexcom G6 Sensor Device See Rx Instructions .ROUTE .MEDSUPPLY Qty: 3 RF: 12 (DME) Dexcom G6 Transmitter Device See Rx Instructions .ROUTE .MEDSUPPLY Qty: 1 RF: 3 Flovent HFA 220 mcg/actuation HFA aerosol inhaler 2 puff inhalation BID Qty: 12 RF: 3 insulin lispro 100 unit/mL insulin pen 15 unit SUBCUT QAC Qty: 45 RF: 6 insulin glargine 100 unit/mL (3 mL) insulin pen 50 unit SUBCUT QPM Qty: 45 RF: 6 (DME) B-D 5MM Pen [place] See Rx Instructions .Route .MEDSUPPLY Qty: 400 RF: 6 metformin 1,000 mg tablet 1,000 mg PO BID Qty: 180 RF: 3 losartan 100 mg tablet 100 mg PO DAILY Qty: 90 RF: 3 simvastatin 40 mg tablet 40 mg PO DAILY Qty: 90 RF: 3 levothyroxine 50 mcg tablet 50 mcg PO DAILY Qty: 90 RF: 3 carvedilol 3.125 mg tablet 3.125 mg PO BID Qty: 180 RF: 3 albuterol sulfate [ProAir HFA] 90 mcg/actuation HFA aerosol inhaler 2 puff INHALATION Q4-6H PRN (Reason: shortness of breath or wheezing) RF: 0 zolpidem 10 mg tablet See Rx Instructions PO .COMPLEX PRN (Reason: insomnia) RF: 0 sertraline 25 mg tablet 25 mg PO DAILY RF: 0 tramadol [Ultram] 50 mg tablet 50 mg PO Q8H PRN (Reason: pain) Qty: 14 RF: 0 meloxicam [Mobic] 7.5 mg tablet 7.5 mg PO BID PRN (Reason: pain) Qty: 14 RF: 0 Referrals: Duglas Brice MD [Primary Care Provider] -
[2021-02-19 08:16] VITALS: BP 200/86; PULSE 73; RESP 18; TEMP 36.6; O2SAT 99; BMI 27.1
[2021-02-19 08:19] VITALS: BP 176/88; PULSE 70; RESP 18; O2SAT 99
[2021-02-19 08:27] LABS: Add Manual Diff / Slide Review NO; Basophils Absolute Auto 0 /uL (0-100); Basophils Percent Auto 0.4 % (0-2); Eosinophils Absolute Auto 200 /uL (0-450); Eosinophils Percent Auto 3.2 % (2-4); Hematocrit 38.6 % (41-53); Hemoglobin 12.5 g/dL (13.5-17.5); Lymphocytes Absolute Auto 1300 /uL (1100-4500); Lymphocytes Percent Auto 18.4 % (25-40); Mean Corpuscular HGB Conc 32.3 % (30-36); Mean Corpuscular Hemoglobin 24.6 PG (26-34); Mean Corpuscular Volume 75.9 fL (80-100); Monocytes Absolute Auto 600 /uL (0-900); Monocytes Percent Auto 8.7 % (3-14); Neutrophils Absolute Auto 4900 /uL (1500-7000); Neutrophils Percent Auto 69.3 % (50-75); Platelet Count 168 X10^3/uL (150-400); Red Blood Cell Count 5.08 X10^6/uL (4.5-5.9); Red Cell Distribution Width 15.9 % (11.6-14.8)
[2021-02-19] MEDS: KETOROLAC 30 MG/ML VIAL IV (08:53)
[2021-02-19] MEDS: MORPHINE 4 MG/ML INJ IV (08:54)
[2021-02-19 09:00] VITALS: BP 175/61; PULSE 69; RESP 18; O2SAT 99
[2021-02-19 09:05] LABS: Alanine Aminotransferase 26 IU/L (<50); Albumin 3.8 g/dL (3.5-5.0); Albumin Globulin Ratio 1.3 (1.0-2.8); Alkaline Phosphatase 61 U/L (38-126); Aspartate Aminotransferase 32 IU/L (17-59); BUN Creatinine Ratio 17.2 (6-22); Bilirubin Total 0.4 mg/dL (0.2-1.3); Blood Urea Nitrogen 20 mg/dL (9-20); Calcium 8.9 mg/dL (8.4-10.2); Carbon Dioxide 28 mmol/L (22-32); Chloride 104 mmol/L (98-107); Creatine Kinase 77 U/L (55-170); Estimated Glomerular Filt Rate > 60.0 mL/min (>60); Globulin 2.9 g/dL (1.7-4.1); Glucose 118 mg/dL (80-110); HEMOLYSIS < 15 (0-50); Lipase 64 U/L (23-300); Potassium 4.1 mmol/L (3.4-5.1); Sodium 139 mmol/L (137-145); Total Protein 6.7 g/dL (6.3-8.2)
[2021-02-19 09:17] LABS: Troponin I < 0.012 ng/mL (0.01-0.034)
--- NOTE | 2021-02-19 09:19 | DI.CT.S_ITS ---
PROCEDURE: CT ANGIO CHEST ABDOMEN PELVIS INDICATIONS: severe back pain TECHNIQUE: Precontrast 5 mm thick sections acquired from the lung apices to the iliac crests. After the administration of intravenous contrast, 2.5 mm thick sections again acquired from the lung apices to the iliac crests. Maximum intensity projection (MIP) oblique sagittal and coronal reformats were then acquired. For radiation dose reduction, the following was used: automated exposure control. COMPARISON: [facility], CT, CT ANGIO CHEST PE PROTOCOL, 01/05/2021, 8:11. [facility], CR, XR CHEST 1V, 02/17/2021, 20:09. FINDINGS: Image quality: Excellent. AORTA: The thoracoabdominal aorta is widely patent, with no significant stenosis, dissection, or aneurysm. CHEST: Lungs and pleura: Mild diffuse ground-glass pulmonary opacity with basilar predominance. Azygos fissure. No change in subpleural 4 mm nodule within the left upper lobe laterally (series 6, image 82). Mild dependent bilateral lower lobe atelectasis. No pleural effusions or pneumothorax. Central and peripheral airways are patent and normal in caliber. Mediastinum: Heart size is normal. There is mild calcification of the coronary vasculature. No pericardial effusion. No mediastinal or hilar adenopathy by size criteria. Central pulmonary arteries are normal in size. Esophagus is normal in caliber. Small hiatal hernia.. Bones and chest wall: No axillary adenopathy by size criteria. Thyroid gland is grossly unremarkable . No suspicious bony lesions. No vertebral body compression fractures. ABDOMEN: Vasculature: Celiac trunk and mesenteric arteries are patent. Renal arteries are also patent. Solid organs: Liver is normal in size and enhancement. Gallbladder is within normal limits . Biliary system is non dilated. Pancreas enhances normally. Spleen is normal in size and enhancement. No adrenal nodules. Both kidneys are normal in size and enhancement, without hydronephrosis. Peritoneum and bowel: No free fluid or air. Bowel loops are normal in caliber and wall thickness. Nodes and vessels: No retroperitoneal or mesenteric adenopathy by size criteria. Inferior vena cava is normal in morphology. Miscellaneous: No ventral hernias. PELVIS: Genitourinary: Bladder wall thickness is normal. Miscellaneous: No inguinal hernias or adenopathy. No ventral hernias. Bones: No suspicious bony lesions. No vertebral body compression fractures. IMPRESSION: 1. Mild atypical pneumonia. 2. No evidence of aortic dissection. 3. No change in left upper lobe pulmonary nodule. Follow-up is recommended as below. 4. No change in small hiatal hernia. 5. Coronary artery disease. Fleischner Society criteria for SOLID lung nodule followup. Nodule size (mm)Low-risk patientHigh-risk patient<6 (single or multiple)No routine followup.Optional CT at 12 months. 6-8 (single or multiple)CT at 6-12 months, then optional CT at 18-24 mo.CT at 6-12 months, then CT at 18-24 months. >8 (single)CT, PET-CT, or biopsy at 3 months. Same as for low-risk pts. >8 (multiple)CT at 3-6 months, then optional CT at 18-24 mo.CT at 3-6 months, then CT at 18-24 months. Recommendations do not apply to lung cancer screening, patients with immunosuppression, or patients with known primary cancer. Dictated by: Chapis Black M.D. on 02/19/2021 at 9:39 Approved by: Chapis Black M.D. on 02/19/2021 at 9:42
[2021-02-19 09:45] VITALS: BP 180/70; PULSE 73; RESP 12; O2SAT 100
[2021-02-19 10:00] VITALS: BP 170/80; PULSE 72; RESP 12; O2SAT 100
== END 2021-02-19 10:36 | disposition home or self-care (01) ==
PROVIDERS: Emergency Provider Emergency Medicine; PCP Internal Medicine
DX: M62.830 Muscle spasm of back (principal); M54.6 Pain in thoracic spine
CPT/HCPCS: 36415; 71275; 74174; 80053; 82550; 83690; 84484; 85025; 93005; 93010; 96374; 96375; 99284; J1885; J2270; Q9967

== ENCOUNTER → 2021-03-16 08:01 | Outpatient (CLI) | payer MEDICARE, SELFPAY ==
[2021-03-16 09:13] LABS: Hemoglobin A1C% w Est Avg Glu 6.2 % (4.0-6.0)
[2021-03-16 09:40] LABS: Free T4, Direct Thyroxine 1.11 ng/dL (0.78-2.19)
[2021-03-16 09:46] LABS: Alanine Aminotransferase 23 IU/L (<50); Albumin 3.8 g/dL (3.5-5.0); Albumin Globulin Ratio 1.5 (1.0-2.8); Alkaline Phosphatase 76 U/L (38-126); Aspartate Aminotransferase 26 IU/L (17-59); BUN Creatinine Ratio 14.4 (6-22); Bilirubin Total 0.4 mg/dL (0.2-1.3); Blood Urea Nitrogen 18 mg/dL (9-20); Calcium 9.5 mg/dL (8.4-10.2); Carbon Dioxide 27 mmol/L (22-32); Chloride 108 mmol/L (98-107); Estimated Glomerular Filt Rate 55.7 mL/min (>60); Globulin 2.6 g/dL (1.7-4.1); Glucose 123 mg/dL (80-110); HEMOLYSIS < 15 (0-50); Potassium 4.6 mmol/L (3.4-5.1); Sodium 142 mmol/L (137-145); Total Protein 6.4 g/dL (6.3-8.2)
[2021-03-16 09:54] LABS: Thyroid Stimulating Hormone 2.44 uIU/mL (0.47-4.68)
== END ==
PROVIDERS: PCP Internal Medicine; Referring Provider Internal Medicine; Visit Provider Internal Medicine
DX: E03.9 Hypothyroidism, unspecified (principal); E11.9 Type 2 diabetes mellitus without complications; E78.2 Mixed hyperlipidemia; I10 Essential (primary) hypertension
CPT/HCPCS: 36415; 80053; 83036; 84439; 84443

== ENCOUNTER 2021-06-17 11:36 | Emergency (ER) | payer MEDICARE, SELFPAY ==
[2021-06-17 11:53] VITALS: BP 203/97; PULSE 89; RESP 18; TEMP 36.6; O2SAT 100; BMI 28.7
[2021-06-17 12:15] LABS: RBC Urine 0-1/HPF (0-5/HPF); Squamous Epithelial Cell Urine 1-5 /HPF (0-5/HPF); WBC Urine 5-10/HPF (0-5/HPF)
[2021-06-17 12:16] LABS: Bacteria Urine Few (2-10); Culture Indicated Urine Specimen Cultured
[2021-06-17 12:30] VITALS: BP 192/89; PULSE 82; RESP 15; O2SAT 99
--- NOTE | 2021-06-17 12:38 | ED.BACK ---
HPI - Back Pain/Injury General Chief Complaint: Back Pain/Injury Stated Complaint: BACK SPASMS Time Seen by Provider: 06/17/21 12:01 Source: patient Limitations: no limitations History of Present Illness HPI Narrative: Patient is a 81-year-old male with history of diabetes presenting with muscle spasm in his back. It has been ongoing for last 2-3 days. It hurts every time he takes a breath or moves. He has been taking ibuprofen without much relief. He has tried a heating pad which he says helps. It does not radiate around his chest he has no numbness or tingling his arms or. He denies any fever no abdominal pain no painful or frequent urination, and no lower back pain. He says that he has had this muscle spasm previously and feels similar however it is just going away. Related Data Home Medications Medication Instructions Recorded Confirmed ASPIRIN (#ASPIRIN) 81 mg PO #0 03/01/12 03/19/21 albuterol sulfate 90 mcg/actuation 2 puff INHALATION Q4-6H PRN 11/06/18 03/19/21 aerosol inhaler (ProAir HFA) Previous Rx's Medication Instructions Recorded blood-glucose meter,continuous #1 ea 06/30/20 (Dexcom G6 Alarm Investigator) blood-glucose sensor (Dexcom G6 #3 ea 06/30/20 Sensor) blood-glucose transmitter (Dexcom #1 ea 06/30/20 G6 Transmitter) carvedilol 3.125 mg tablet 3.125 mg PO BID #180 tab 01/07/21 insulin glargine 100 unit/mL (3 50 unit (0.5 mL) SUBCUT QPM #45 ml 01/07/21 mL) subcutaneous pen insulin lispro 100 unit/mL 15 unit (0.15 mL) SUBCUT QAC #45 ml 01/07/21 subcutaneous pen levothyroxine 50 mcg tablet 50 mcg PO DAILY #90 tab 01/07/21 losartan 100 mg tablet 100 mg PO DAILY #90 tab 01/07/21 metformin 1,000 mg tablet 1,000 mg PO BID #180 tab 01/07/21 simvastatin 40 mg tablet 40 mg PO DAILY #90 tab 01/07/21 gabapentin 300 mg capsule 300 mg PO BEDTIME #60 cap 02/25/21 oxycodone 5 mg tablet 5 mg PO Q6H PRN #20 tab 03/16/21 B-D 5MM Pen [place] #400 ea 03/19/21 cyclobenzaprine 5 mg tablet 5 mg PO TID PRN #30 tab 04/15/21 benzonatate 100 mg capsule 100 mg PO BID PRN #20 cap 05/10/21 (Sanya Alex) hydrocodone 5 mg-acetaminophen 325 1 tab PO Q6H PRN #10 tab 06/17/21 mg tablet Allergies Allergy/AdvReac Type Severity Reaction Status Date / Time prednisone AdvReac Severe Made Verified 03/19/21 11:17 patient Hostile. acetaminophen AdvReac Intermediate Brain fog Verified 03/19/21 11:17 [From Lorcet (hydrocodone)] hydrocodone AdvReac Intermediate Brain fog Verified 03/19/21 11:33 [From Lorcet (hydrocodone)] Review of Systems Review of Systems Narrative: GENERAL: Denies chills, fatigue, malaise, fever, sweats, travel HEENT: Denies sinus pain, ear pain, sore throat, difficulty swallowing, neck pain RESPIRATORY: Denies dyspnea, cough, wheezing, hemoptysis, sputum. CARDIOVASCULAR: Denies chest pain, palpitations, orthopnea, edema GASTROINTESTINAL: Denies nausea, vomiting, abdominal pain, diarrhea, constipation, melena. : Denies dysuria, frequency, incontinence, hematuria, urinary retention, flank pain. MUSCULOSKELETAL: See HPI SKIN: No rash, no erythema, no pruritus NEUROLOGIC: Denies weakness, dizziness, headache, numbness, change in speech, confusion PSYCHIATRIC: No concerning psychosocial issues. 12 point review of systems is negative except for those stated above and HPI Patient History Medical History (Updated 06/17/21 @ 12:54 by Kathleen Hooker DO) Acquired hypothyroidism (11/26/15) Asthma Essential hypertension History of adenomatous polyp of colon Mixed hyperlipidemia Type 2 diabetes mellitus without complication (11/26/15) Social History Smoking Status: Never smoker Smoking Status: Never smoker alcohol intake frequency: 0-2 drinks per day Substance Use Type: does not use Exam Initial Vital Signs Initial Vital Signs: Vital Signs Temperature 97.8 F 06/17/21 11:53 Pulse Rate 89 06/17/21 11:53 Respiratory Rate 18 06/17/21 11:53 Blood Pressure 203/97 H 06/17/21 11:53 Pulse Oximetry 100 06/17/21 11:53 GENERAL: Alert well-appearing 81-year-old male and in no acute distress. HEENT: Head atraumatic,EOMI, pupils reactive, face symmetric, moist mucous membranes CARDIOVASCULAR: Regular rate and rhythm without murmurs, rubs or gallops. RESPIRATORY: Breath sounds equal bilaterally, no wheezes rales or rhonchi. ABDOMEN: Soft, nontender. Normoactive bowel sounds all 4 quadrants. No guarding or rebound. BACK: Tender reproducible back pain left thoracic side, no vertebral tenderness no step-off EXTREMITIES: Normal range of motion, no clubbing or edema. Neurovascularly intact NEUROLOGICAL: Alert and oriented x4.Normal gait and speech. SKIN: Warm, dry, no laceration, no petechiae, no rashes or lesions. Course Orders Ordered: ED Orders 06/17/21 11:50 Urine Culture Stat Urine Microscopic Stat Discontinued Medications Ketorolac Tromethamine (Ketorolac 30 Mg/Ml Vial) 30 mg IM NOW ONE Stop: 06/17/21 12:47 Last Admin: 06/17/21 12:54 Dose: 30 mg Documented by: RYAN Vital Signs Vital signs: Vital Signs - 8 hr 06/17/21 11:53 06/17/21 12:30 06/17/21 13:07 Temperature 97.8 F Pulse Rate 89 82 Respiratory Rate 18 15 Blood Pressure 203/97 H 192/89 H 181/83 H Pulse Oximetry 100 99 MDM - Back Pain/Injury Lab Data Labs: Lab Results 06/17/21 Range/Units 11:50 Urine RBC 0-1/hpf (0-5/HPF) Urine WBC 5-10/hpf H (0-5/HPF) Ur Squamous Epith Cells 1-5 /hpf (0-5/HPF) Urine Bacteria Few (2-10) H (None) Ur Culture Indicated? Specimen cultured Urine Dip Bedside Urine Glucose Negative Bedside Urine Bilirubin - Negative Bedside Urine Ketone - Negative Urine Specific [place] 1.025 Bedside Urine Occult Blood - Negative Bedside Urine pH 6.0 Bedside Urine Protein + 30 Bedside Urine Urobilinogen 0.2 Bedside Urine Nitrite - Negative Bedside Urine Leukocytes - Negative Esterase MDM Narrative Medical decision making narrative: Patient is not having tender symptoms of UTI. He has no painful or frequent urination he has no flank pain. At this time wait for culture I have explained this to him and he understands and agrees. He is given toward the emergency department for muscle spasm. He states cyclobenzaprine all ready at night to help him sleep. Recommend he take it during the day if needed for muscle spasm. Pain is certainly reproducible with movement breathing is consistent with muscle spasm. This is unlikely to be cardiac in nature. I do not suspect dissection, although it was considered. Discharge Plan Departure Patient Disposition: Home Clinical Impression: Muscle spasm Instructions: DI for Back Spasm Activity Restrictions/Additional Instructions: *You have been diagnosed with back spasm *What to do: At this time I recommend heating pad, light stretching, *Continue to take medications as directed Ibuprofen 600 mg every 6 hours if needed for [id number] [place] 1 tablet every 6 hours only if needed for severe pain--> [facility] [place] Cyclobenzaprine 5 mg every 8 hours as needed for muscle spasm *Follow up with your primary care provider in 2-3 days *Return to ER if you should have increasing pain, chest pain, shortness breath, or any new, worsening or concerning symptoms CONTROLLED SUBSTANCE DISCHARGE (Narcotoic/benzodiazepine/Flexeril/Phenergan) 1. You have been prescribed narcotic medications, it does have acetaminophen/Tylenol/paracetamol in it, DO NOT TAKE MORE THAN 4,00mg in 24 hours of Tylenol. TRAMADOL DOES NOT CONTAIN TYLENOL 2. Please understand that we cannot provide further refills of narcotics, benzodiazepines or controlled substances through the ED and her pain management will need to be through your provider. 3. While on these medications you cannot drive or operate heavy machinery. 4. You cannot sign legal documents or perform any duties such as this. 5. As long as you're taking opiate pain medications he should also be taking a stool softener such as Colace, Dulcolax, MiraLAX or prune juice, to help avoid constipation. Prescriptions: New hydrocodone-acetaminophen 5-325 mg tablet 1 tab PO Q6H PRN (Reason: pain) Qty: 10 0RF No Action benzonatate [Tessalon Perles] 100 mg capsule 100 mg PO BID PRN (Reason: cough) Qty: 20 0RF ASPIRIN (#ASPIRIN) 81 mg PO Qty: 0 0RF (DME) Dexcom G6 Alarm Investigator Misc See Rx Instructions .ROUTE .MEDSUPPLY Qty: 1 0RF Rx Instructions: As directed (DME) Dexcom G6 Sensor Device See Rx Instructions .ROUTE .MEDSUPPLY Qty: 3 12RF Rx Instructions: As directed (DME) Dexcom G6 Transmitter Device See Rx Instructions .ROUTE .MEDSUPPLY Qty: 1 3RF Rx Instructions: As directed insulin lispro 100 unit/mL insulin pen 15 unit SUBCUT QAC Qty: 45 6RF insulin glargine 100 unit/mL (3 mL) insulin pen 50 unit SUBCUT QPM Qty: 45 6RF metformin 1,000 mg tablet 1,000 mg PO BID Qty: 180 3RF losartan 100 mg tablet 100 mg PO DAILY Qty: 90 3RF simvastatin 40 mg tablet 40 mg PO DAILY Qty: 90 3RF levothyroxine 50 mcg tablet 50 mcg PO DAILY Qty: 90 3RF carvedilol 3.125 mg tablet 3.125 mg PO BID Qty: 180 3RF oxycodone 5 mg tablet 5 mg PO Q6H PRN (Reason: pain) Qty: 20 0RF cyclobenzaprine 5 mg tablet 5 mg PO TID PRN (Reason: muscle spasm) Qty: 30 0RF albuterol sulfate [ProAir HFA] 90 mcg/actuation HFA aerosol inhaler 2 puff INHALATION Q4-6H PRN (Reason: shortness of breath or wheezing) 0RF gabapentin 300 mg capsule 300 mg PO BEDTIME Qty: 60 3RF (DME) B-D 5MM Pen [place] See Rx Instructions .Route .MEDSUPPLY Qty: 400 6RF Rx Instructions: Use 4x a day or as instructed by PCP. Referrals: Duglas Brice MD [Primary Care Provider] -
[2021-06-17] MEDS: KETOROLAC 30 MG/ML VIAL IM (12:54)
[2021-06-17 13:07] VITALS: BP 181/83
== END 2021-06-17 13:10 | disposition home or self-care (01) ==
PROVIDERS: Emergency Medicine; Emergency Provider Emergency Medicine; PCP Internal Medicine
DX: M62.830 Muscle spasm of back (principal)
CPT/HCPCS: 81003; 81015; 87077; 87086; 87186; 96372; 99283; J1885

== ENCOUNTER → 2021-07-14 09:51 | Outpatient (CLI) | payer MEDICARE, SELFPAY | PROVIDERS: PCP Internal Medicine; Visit Provider Physician Assistant | DX: R30.0 Dysuria (principal) | CPT/HCPCS: 87077; 87086; 87147; 87186 ==

== ENCOUNTER → 2021-09-07 08:18 | Outpatient (CLI) | payer MEDICARE, SELFPAY ==
[2021-09-07 09:42] LABS: Hemoglobin A1C% w Est Avg Glu 6.3 % (4.0-6.0)
[2021-09-07 10:07] LABS: Alanine Aminotransferase 27 IU/L (<50); Albumin 3.9 g/dL (3.5-5.0); Albumin Globulin Ratio 1.6 (1.0-2.8); Alkaline Phosphatase 61 U/L (38-126); Aspartate Aminotransferase 28 IU/L (17-59); BUN Creatinine Ratio 17.8 (6-22); Bilirubin Total 0.4 mg/dL (0.2-1.3); Blood Urea Nitrogen 18 mg/dL (9-20); Calcium 10.4 mg/dL (8.4-10.2); Carbon Dioxide 31 mmol/L (22-32); Chloride 103 mmol/L (98-107); Estimated Glomerular Filt Rate > 60.0 mL/min (>60); Globulin 2.5 g/dL (1.7-4.1); Glucose 129 mg/dL (80-110); HEMOLYSIS < 15 (0-50); Potassium 4.3 mmol/L (3.4-5.1); Sodium 138 mmol/L (137-145); Total Protein 6.4 g/dL (6.3-8.2)
[2021-09-07 10:24] LABS: Free T4, Direct Thyroxine 0.97 ng/dL (0.78-2.19)
[2021-09-07 10:38] LABS: Thyroid Stimulating Hormone 4.04 uIU/mL (0.47-4.68)
== END ==
PROVIDERS: Family Provider Internal Medicine; PCP Internal Medicine; Referring Provider Internal Medicine; Visit Provider Internal Medicine
DX: E11.9 Type 2 diabetes mellitus without complications (principal); E78.2 Mixed hyperlipidemia; E03.9 Hypothyroidism, unspecified; I10 Essential (primary) hypertension
CPT/HCPCS: 36415; 80053; 83036; 84439; 84443

== ENCOUNTER 2021-10-06 10:30 | Outpatient (RCR) | payer MEDICARE, SELFPAY ==
--- NOTE | 2021-08-13 14:39 | PT.OIE ---
Current Diagnoses Pain in left shoulder (08/13/21) Stiffness of left shoulder, not elsewhere classified (08/13/21) Sacroiliitis, not elsewhere classified (08/13/21) Strain of muscle(s) and tendon(s) of the rotator cuff of left shoulder, subsequent encounter (08/13/21) Past Medical History (Last Updated 07/14/21 @ 10:13 by Olamide Mcbride PA-C) Acquired hypothyroidism (11/26/15) Asthma Bilateral sacroiliitis Essential hypertension History of adenomatous polyp of colon Mixed hyperlipidemia Type 2 diabetes mellitus without complication (11/26/15) Visit Care Team Role Provider Type Duglas Brice MD Family Provider Physician Primary Care Provider Specialty: Internal Medicine Address: [address] [place] [address], [address], [address] Email: [email or web address] Olamide Mcbride PA-C Attending Provider Advanced [employer] Referring Provider Specialty: Internal Medicine Address: [address] [place] [address], [place], [address] Email: [email or web address] Physical Therapy Initial Evaluation PT-OP-A Visit Information Start: 08/13/21 13:13 Freq: Status: Active Protocol: Document 08/13/21 11:15 DCW (Rec: 08/13/21 13:18 DCW [id number]) Out-Patient Physical Therapy Visit Information Visit Information Visit Type Initial Evaluation Visit Start Time 11:15 Visit Stop Time 12:00 Total Visit Minutes 45 Visit Number 1 Number of CHIEF SERVICE OBSERVER Visits 0 Evaluation Information Evaluation Date 08/13/21 PT-OP-B Current Condition Start: 08/13/21 13:13 Freq: Status: Active Protocol: Document 08/13/21 11:15 DCW (Rec: 08/13/21 13:38 DCW [id number]) Current Condition History of Current Condition Onset Date s/p four months Current Complaints pain/tightness under left shoulder blade History of Current Condition Pt is a 81 year old male with a four month history of left shoulder pain. 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 Pt reports the pain has been fairly constant since that time. Notes he is still able to do what he wants, the pain isn't limiting. Feels better laying on a firm surface. Admits he tried to see a chiropractor, but feels that might have made it worse. Notes he has no other injury history, never needed a stitch or broken a bone, and this might be the worst I've ever been injured. Treatment Goals Patient/Caregiver Goals Eliminate shoulder pain Prior Functional Status Baseline Function- ADL's Independent Baseline Function- Mobility Independent PT-OP-C Subjective Start: 08/13/21 13:13 Freq: Status: Active Protocol: Document 08/13/21 11:15 DCW (Rec: 08/13/21 13:38 DCW [id number]) OP-PT Subjective Patient Comments Patient Comments I don't know, but it felt like something tore in my shoulder. Patient Reported Progress Same OP-PT Pain Assessment Pain Assessment Grid Paper Pain Assessment Grid Completed Yes Location Left Posterior Shoulder Pain Location Details Under the shoulder blade Intensity 4 Scale Used Numeric (0 - 10) Description Sharp,Stabbing PT-OP-E Functional Tests Start: 08/13/21 13:13 Freq: Status: Active Protocol: Document 08/13/21 11:15 DCW (Rec: 08/13/21 13:38 DCW [id number]) Functional Tests Apley's Scratch Test Action 1- Left Posterior opposite shoulder Action 1- Right Posterior opposite shoulder Action 2- Left T4 Action 2- Right T4 Action 3- Left T8 Action 3- Right T10 PT-OP-F Manual Assessment Start: 08/13/21 13:13 Freq: Status: Active Protocol: Document 08/13/21 11:15 DCW (Rec: 08/13/21 13:38 DC [id number]) Manual Assessments Soft Tissue Assessment Soft Tissue Mobility Assessment Moderate tone and tenderness to palpation 3/4: Wincing and withdraw left subscapularis, left rhomboids Tenderness to palpation 2/4: Pain with wincing left infraspinatus PT-OP-K Range of Motion Start: 08/13/21 13:13 Freq: Status: Active Protocol: Document 08/13/21 11:15 DCW (Rec: 08/13/21 13:38 DCW [id number]) Shoulder Goniometric Range of Motion Shoulder Left Active Shoulder ROM WFL Yes Testing Position Sitting Flexion 170 Abduction 180 PT-OP-L Special Tests Start: 08/13/21 13:13 Freq: Status: Active Protocol: Document 08/13/21 11:15 DCW (Rec: 08/13/21 13:38 DCW [id number]) Special Tests Shoulder Special Tests Painful Arc Test Results Negative Passive ER Rotator Cuff Test Results Positive L Lift-Off Rotator Cuff Test Results Negative [place] Impingement Test Results Positive L Grind Labrum Test Results Negative Empty Can Test Results Positive L Drop Arm Rotator Cuff Test Results Negative Belly Press Test Results Negative Apprehension Test Test Results Positive L Anterior Draw Test Results Negative PT-OP-M Strength Start: 08/13/21 13:13 Freq: Status: Active Protocol: Document 08/13/21 11:15 DCW (Rec: 08/13/21 13:38 DCW [id number]) Shoulder Strength Shoulder Manual Muscle Testing Left Flexion 4+ Good+ Abduction (C5) 4+ Good+ External Rotation 4+ Good+ Internal Rotation 4+ Good+ Horizontal Abduction 4+ Good+ PT-OP-Q Treatments Start: 08/13/21 13:13 Freq: Status: Active Protocol: Document 08/13/21 11:15 DCW (Rec: 08/13/21 13:18 DCW [id number]) Therapeutic Exercises Standing Exercises 2 Standing Exercise Name Rows Side left Resistance Lv 2 Equipment Used T-band 1 Standing Exercise Name Shoulder IR/ER Side left Resistance Lv 2 Equipment Used T-band PT-OP-T Assessment and Plan Start: 08/13/21 13:13 Freq: Status: Active Protocol: Document 08/13/21 11:15 DCW (Rec: 08/13/21 13:55 DCW [id number]) Physical Therapy Assessment Rehab Potential Rehabilitation Potential Excellent Evaluation Complexity Number of Personal Factors/Comorbidities 0 Number of Body Systems Impaired 1-2 Clinical Presentation at Evaluation Stable Impairments Impairments Pain,Soft Tissue Mobility,Tone Goals Two Impairment Pt experiences increased pain with resisted external and internal rotation Jail Goal (LTG) Pt to don/doff jacket with no increased shoulder pain LTG Duration 10/11/21 One Impairment Pt does not have an appropriate home exercise program Short Term Goal (STG) Pt to be independent and compliant with an appropriate HEP STG Duration 09/13/21 Assessment Summary Assessment Pt presents with signs and symptoms consistent with a subscapularis sprain. Currently no indication of loss of ROM or strength, but increased pain with stretching or palpation of the subscap. Pt should benefit from skilled therapy focusing on strengthening and stabilization of the shoulder girdle and parascapular muscles, as well as STM and stretching to decrease tone and tenderness. Pt motivated to perform HEP, noted he is willing to work hard for recovery. Physical Therapy Plan Frequency and Duration Frequency of Treatment 2x/Week Duration of Treatment Two months Plan of Care Start Date 08/13/21 Plan of Care End Date 10/11/21 Therapeutic Interventions Therapeutic Interventions Home Exercise Program,Joint Mobilizations,Manual Therapy, Patient/Caregiver Education, Self-Care/Home Management,Soft Tissue Mobilization, Therapeutic Exercises Modalities Cold Pack/Ice Massage,Electric Stimulation,Hot Packs, Ultrasound Next Visit Focus/Plan Next Note Type Treatment Note Next Visit Plan STM, Shoulder strengthening/ stabilization
--- NOTE | 2021-08-13 14:39 | PT.OPPOC ---
Physical, Occupational & Speech Therapy At [facility] Current Diagnoses Pain in left shoulder (08/13/21) Stiffness of left shoulder, not elsewhere classified (08/13/21) Sacroiliitis, not elsewhere classified (08/13/21) Strain of muscle(s) and tendon(s) of the rotator cuff of left shoulder, subsequent encounter (08/13/21) Visit Care Team Role Provider Type Duglas Brice MD Family Provider Physician Primary Care Provider Specialty: Internal Medicine Address: [address] [place] [address], [address], [address] Email: [email or web address] Olamide Mcbride PA-C Attending Provider Advanced Site Monitor Referring Provider Specialty: Internal Medicine Address: [address] [place] [address], [facility] [place], [facility] Email: [email or web address] Plan Of Care PT-OP-T Assessment and Plan Start: 08/13/21 13:13 Freq: Status: Active Protocol: Document 08/13/21 11:15 DCW (Rec: 08/13/21 13:55 DCW [id number]) Physical Therapy Assessment Rehab Potential Rehabilitation Potential Excellent Evaluation Complexity Number of Personal Factors/Comorbidities 0 Number of Body Systems Impaired 1-2 Clinical Presentation at Evaluation Stable Impairments Impairments Pain,Soft Tissue Mobility,Tone Goals Two Impairment Pt experiences increased pain with resisted external and internal rotation Machine Rug Cleaner Goal (LTG) Pt to don/doff jacket with no increased shoulder pain LTG Duration 10/11/21 One Impairment Pt does not have an appropriate home exercise program Short Term Goal (STG) Pt to be independent and compliant with an appropriate HEP STG Duration 09/13/21 Assessment Summary Assessment Pt presents with signs and symptoms consistent with a subscapularis sprain. Currently no indication of loss of ROM or strength, but increased pain with stretching or palpation of the subscap. Pt should benefit from skilled therapy focusing on strengthening and stabilization of the shoulder girdle and parascapular muscles, as well as STM and stretching to decrease tone and tenderness. Pt motivated to perform HEP, noted he is willing to work hard for recovery. Physical Therapy Plan Frequency and Duration Frequency of Treatment 2x/Week Duration of Treatment Two months Plan of Care Start Date 08/13/21 Plan of Care End Date 10/11/21 Therapeutic Interventions Therapeutic Interventions Home Exercise Program,Joint Mobilizations,Manual Therapy, Patient/Caregiver Education, Self-Care/Home Management,Soft Tissue Mobilization, Therapeutic Exercises Modalities Cold Pack/Ice Massage,Electric Stimulation,Hot Packs, Ultrasound Next Visit Focus/Plan Next Note Type Treatment Note Next Visit Plan STM, Shoulder strengthening/ stabilization Plan of Care Dates Plan of Care Start Date 08/13/21 Plan of Care End Date 10/11/21 Electronically Signed by: Patrick Aguilar, PT 08/13/21 [id number] Please Sign and Return: I have reviewed this Plan of Care and certify that the skilled therapy services above are required to meet the patient?s needs. Physician Signature Date Printed Name and Credentials Clinical Instructor Signature Printed Name and Credentials
--- NOTE | 2021-08-16 12:00 | PT.OTN ---
Current Diagnoses Pain in left shoulder (08/16/21) Stiffness of left shoulder, not elsewhere classified (08/16/21) Sacroiliitis, not elsewhere classified (08/16/21) Strain of muscle(s) and tendon(s) of the rotator cuff of left shoulder, subsequent encounter (08/16/21) Physical Therapy Treatment Note PT-OP-A Visit Information Start: 08/13/21 13:13 Freq: Status: Active Protocol: Document 08/16/21 11:20 DCW (Rec: 08/16/21 12:00 DCW [id number]) Out-Patient Physical Therapy Visit Information Visit Information Visit Type Treatment Note Visit Start Time 11:20 Visit Stop Time 12:00 Total Visit Minutes 40 Visit Number 2 Number of LEATHER WORKER Visits 0 Evaluation Information Evaluation Date 08/13/21 PT-OP-B Current Condition Start: 08/13/21 13:13 Freq: Status: Active Protocol: Document 08/13/21 11:15 DCW (Rec: 08/13/21 13:38 DCW [id number]) Current Condition History of Current Condition Onset Date s/p four months Current Complaints pain/tightness under left shoulder blade History of Current Condition Pt is a 81 year old male with a four month history of left shoulder pain. 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 Pt reports the pain has been fairly constant since that time. Notes he is still able to do what he wants, the pain isn't limiting. Feels better laying on a firm surface. Admits he tried to see a chiropractor, but feels that might have made it worse. Notes he has no other injury history, never needed a stitch or broken a bone, and this might be the worst I've ever been injured. Treatment Goals Patient/Caregiver Goals Eliminate shoulder pain Prior Functional Status Baseline Function- ADL's Independent Baseline Function- Mobility Independent PT-OP-C Subjective Start: 08/13/21 13:13 Freq: Status: Active Protocol: Document 08/16/21 11:20 DCW (Rec: 08/16/21 12:00 DCW [id number]) OP-PT Subjective Patient Comments Patient Comments Pt notes he has had some increased pain when attempting HEP, and has also noticed that he has increased pain when he exhales. PT-OP-E Functional Tests Start: 08/13/21 13:13 Freq: Status: Active Protocol: Document 08/13/21 11:15 DCW (Rec: 08/13/21 13:38 DCW [id number]) Functional Tests Apley's Scratch Test Action 1- Left Posterior opposite shoulder Action 1- Right Posterior opposite shoulder Action 2- Left T4 Action 2- Right T4 Action 3- Left T8 Action 3- Right T10 PT-OP-F Manual Assessment Start: 08/13/21 13:13 Freq: Status: Active Protocol: Document 08/13/21 11:15 DCW (Rec: 08/13/21 13:38 DCW [id number]) Manual Assessments Soft Tissue Assessment Soft Tissue Mobility Assessment Moderate tone and tenderness to palpation 3/4: Wincing and withdraw left subscapularis, left rhomboids Tenderness to palpation 2/4: Pain with wincing left infraspinatus PT-OP-K Range of Motion Start: 08/13/21 13:13 Freq: Status: Active Protocol: Document 08/13/21 11:15 DCW (Rec: 08/13/21 13:38 DCW [id number]) Shoulder Goniometric Range of Motion Shoulder Left Active Shoulder ROM WFL Yes Testing Position Sitting Flexion 170 Abduction 180 PT-OP-L Special Tests Start: 08/13/21 13:13 Freq: Status: Active Protocol: Document 08/13/21 11:15 DCW (Rec: 08/13/21 13:38 DCW [id number]) Special Tests Shoulder Special Tests Painful Arc Test Results Negative Passive ER Rotator Cuff Test Results Positive L Lift-Off Rotator Cuff Test Results Negative Hutchison Ney Impingement Test Results Positive L Grind Labrum Test Results Negative Empty Can Test Results Positive L Drop Arm Rotator Cuff Test Results Negative Belly Press Test Results Negative Apprehension Test Test Results Positive L Anterior Draw Test Results Negative PT-OP-M Strength Start: 08/13/21 13:13 Freq: Status: Active Protocol: Document 08/13/21 11:15 DCW (Rec: 08/13/21 13:38 DCW [id number]) Shoulder Strength Shoulder Manual Muscle Testing Left Flexion 4+ Good+ Abduction (C5) 4+ Good+ External Rotation 4+ Good+ Internal Rotation 4+ Good+ Horizontal Abduction 4+ Good+ PT-OP-Q Treatments Start: 08/13/21 13:13 Freq: Status: Active Protocol: Document 08/16/21 11:20 DCW (Rec: 08/16/21 12:00 DCW [id number]) Cardio Equipment Upper Body Ergometer (UBE) Duration (Minutes) 5 RPM 60 Seat Position 13 Height 2.5 Therapeutic Exercises Supine Exercises 2 Supine Exercise Name Horizontal adduction Side bilateral Resistance 3# 1 Supine Exercise Name Serratus punch Side bilateral Manual Therapy Treatment Soft Tissue Mobilization 3 Body Location L Infraspinatus Mobilization Type Strumming,Sustained Pressure 2 Body Location L Rhomboids Mobilization Type Strumming,Sustained Pressure 1 Body Location L Subscap Mobilization Type Strumming,Sustained Pressure Joint Mobilizations 1 Joint L scapulothoracic Direction Lateral Grade III Body Position Supine PT-OP-T Assessment and Plan Start: 08/13/21 13:13 Freq: Status: Active Protocol: Document 08/16/21 11:20 DCW (Rec: 08/16/21 12:00 DCW [id number]) Physical Therapy Assessment Impairments Impairments Pain,Soft Tissue Mobility,Tone Goals Two Impairment Pt experiences increased pain with resisted external and internal rotation Analytical Scientist Goal (LTG) Pt to don/doff jacket with no increased shoulder pain LTG Duration 10/11/21 One Impairment Pt does not have an appropriate home exercise program Short Term Goal (STG) Pt to be independent and compliant with an appropriate HEP STG Duration 09/13/21 Assessment Summary Assessment Pt tolerated treatment very well today, felt significant improvement with shoulder pain following STM, motivated to perform new exercises in HEP Physical Therapy Plan Frequency and Duration Frequency of Treatment 2x/Week Duration of Treatment Two months Plan of Care Start Date 08/13/21 Plan of Care End Date 10/11/21 Therapeutic Interventions Therapeutic Interventions Home Exercise Program,Joint Mobilizations,Manual Therapy, Patient/Caregiver Education, Self-Care/Home Management,Soft Tissue Mobilization, Therapeutic Exercises Modalities Cold Pack/Ice Massage,Electric Stimulation,Hot Packs, Ultrasound Next Visit Focus/Plan Next Note Type Treatment Note Next Visit Plan STM, Shoulder strengthening/ stabilization
--- NOTE | 2021-08-20 11:22 | PT-OP ANOTE ---
Pt arrived for his 08/20/21 visit, however noted that after both his initial evaluation and his follow up visit earlier this week, he felt significantly worse. Spoke with his PCP, got a referral to see an orthopedic surgeon, and has an MRI scheduled for 08/24/21. At this time, pt would like to cancel today's visit, as well as his two appointments next week, until he can get his MRI and get the results, and then continue therapy if recommended.
--- NOTE | 2021-08-30 12:00 | PT.OTN ---
Current Diagnoses Pain in left shoulder (08/30/21) Stiffness of left shoulder, not elsewhere classified (08/30/21) Sacroiliitis, not elsewhere classified (08/30/21) Strain of muscle(s) and tendon(s) of the rotator cuff of left shoulder, subsequent encounter (08/30/21) Physical Therapy Treatment Note PT-OP-A Visit Information Start: 08/13/21 13:13 Freq: Status: Active Protocol: Document 08/30/21 11:15 DCW (Rec: 08/30/21 12:00 DCW [id number]) Out-Patient Physical Therapy Visit Information Visit Information Visit Type Treatment Note Visit Start Time 11:15 Visit Stop Time 12:00 Total Visit Minutes 45 Visit Number 3 Number of PANTS PRESSER AUTOMATIC Visits 0 Evaluation Information Evaluation Date 08/13/21 PT-OP-B Current Condition Start: 08/13/21 13:13 Freq: Status: Active Protocol: Document 08/13/21 11:15 DCW (Rec: 08/13/21 13:38 DCW [id number]) Current Condition History of Current Condition Onset Date s/p four months Current Complaints pain/tightness under left shoulder blade History of Current Condition Pt is a 81 year old male with a four month history of left shoulder pain. 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 Pt reports the pain has been fairly constant since that time. Notes he is still able to do what he wants, the pain isn't limiting. Feels better laying on a firm surface. Admits he tried to see a chiropractor, but feels that might have made it worse. Notes he has no other injury history, never needed a stitch or broken a bone, and this might be the worst I've ever been injured. Treatment Goals Patient/Caregiver Goals Eliminate shoulder pain Prior Functional Status Baseline Function- ADL's Independent Baseline Function- Mobility Independent PT-OP-C Subjective Start: 08/13/21 13:13 Freq: Status: Active Protocol: Document 08/30/21 11:15 DCW (Rec: 08/30/21 12:00 DCW [id number]) OP-PT Subjective Patient Comments Patient Comments Pt reports he has been performing his HEP with no problem, notes his pain is about 50% of what it was, but it's still there. Arrives with new referral from a different physician, however still same focus from initial eval. PT-OP-E Functional Tests Start: 08/13/21 13:13 Freq: Status: Active Protocol: Document 08/13/21 11:15 DCW (Rec: 08/13/21 13:38 DCW [id number]) Functional Tests Apley's Scratch Test Action 1- Left Posterior opposite shoulder Action 1- Right Posterior opposite shoulder Action 2- Left T4 Action 2- Right T4 Action 3- Left T8 Action 3- Right T10 PT-OP-F Manual Assessment Start: 08/13/21 13:13 Freq: Status: Active Protocol: Document 08/13/21 11:15 DCW (Rec: 08/13/21 13:38 DCW [id number]) Manual Assessments Soft Tissue Assessment Soft Tissue Mobility Assessment Moderate tone and tenderness to palpation 3/4: Wincing and withdraw left subscapularis, left rhomboids Tenderness to palpation 2/4: Pain with wincing left infraspinatus PT-OP-K Range of Motion Start: 08/13/21 13:13 Freq: Status: Active Protocol: Document 08/13/21 11:15 DCW (Rec: 08/13/21 13:38 DCW [id number]) Shoulder Goniometric Range of Motion Shoulder Left Active Shoulder ROM WFL Yes Testing Position Sitting Flexion 170 Abduction 180 PT-OP-L Special Tests Start: 08/13/21 13:13 Freq: Status: Active Protocol: Document 08/13/21 11:15 DCW (Rec: 08/13/21 13:38 DCW [id number]) Special Tests Shoulder Special Tests Painful Arc Test Results Negative Passive ER Rotator Cuff Test Results Positive L Lift-Off Rotator Cuff Test Results Negative Hutchison Ney Impingement Test Results Positive L Grind Labrum Test Results Negative Empty Can Test Results Positive L Drop Arm Rotator Cuff Test Results Negative Belly Press Test Results Negative Apprehension Test Test Results Positive L Anterior Draw Test Results Negative PT-OP-M Strength Start: 08/13/21 13:13 Freq: Status: Active Protocol: Document 08/13/21 11:15 DCW (Rec: 08/13/21 13:38 DCW [id number]) Shoulder Strength Shoulder Manual Muscle Testing Left Flexion 4+ Good+ Abduction (C5) 4+ Good+ External Rotation 4+ Good+ Internal Rotation 4+ Good+ Horizontal Abduction 4+ Good+ PT-OP-Q Treatments Start: 08/13/21 13:13 Freq: Status: Active Protocol: Document 08/30/21 11:15 DCW (Rec: 08/30/21 12:00 DCW [id number]) Cardio Equipment Upper Body Ergometer (UBE) Duration (Minutes) 5 RPM 60 Seat Position 13 Height 2.5 Therapeutic Exercises Supine Exercises 3 Supine Exercise Name Shoulder flexion Side bilateral Resistance 2# 2 Supine Exercise Name Horizontal adduction Side bilateral Resistance 2# 1 Supine Exercise Name Serratus punch Side bilateral Resistance 2# Prone Exercises 1 Prone Exercise Name I's, Y's, and T's Side bilateral Resistance 2# Standing Exercises 4 Standing Exercise Name Shoulder Adduction Side bilateral Resistance Lv 3 3 Standing Exercise Name Shoulder extension Side bilateral Resistance Lv 3 Manual Therapy Treatment Soft Tissue Mobilization 1 Body Location L Subscap Mobilization Type Strumming,Sustained Pressure Joint Mobilizations 1 Joint L scapulothoracic Direction Lateral Grade III Body Position Supine PT-OP-T Assessment and Plan Start: 08/13/21 13:13 Freq: Status: Active Protocol: Document 08/30/21 11:15 DCW (Rec: 08/30/21 12:00 DCW [id number]) Physical Therapy Assessment Impairments Impairments Pain,Soft Tissue Mobility,Tone Goals Two Impairment Pt experiences increased pain with resisted external and internal rotation Usp Goal (LTG) Pt to don/doff jacket with no increased shoulder pain LTG Duration 10/11/21 One Impairment Pt does not have an appropriate home exercise program Short Term Goal (STG) Pt to be independent and compliant with an appropriate HEP STG Duration 09/13/21 Assessment Summary Assessment Pt feeling much better this visit, able to fully participate in activities, some mild soreness with STM, but very happy with his lack of pain during strengthening exercises. Physical Therapy Plan Frequency and Duration Frequency of Treatment 2x/Week Duration of Treatment Two months Plan of Care Start Date 08/13/21 Plan of Care End Date 10/11/21 Therapeutic Interventions Therapeutic Interventions Home Exercise Program,Joint Mobilizations,Manual Therapy, Patient/Caregiver Education, Self-Care/Home Management,Soft Tissue Mobilization, Therapeutic Exercises Modalities Cold Pack/Ice Massage,Electric Stimulation,Hot Packs, Ultrasound Next Visit Focus/Plan Next Note Type Treatment Note Next Visit Plan STM, Shoulder strengthening/ stabilization
--- NOTE | 2021-09-03 11:18 | PT.OTN ---
Current Diagnoses Pain in left shoulder (09/03/21) Stiffness of left shoulder, not elsewhere classified (09/03/21) Sacroiliitis, not elsewhere classified (09/03/21) Strain of muscle(s) and tendon(s) of the rotator cuff of left shoulder, subsequent encounter (09/03/21) Physical Therapy Treatment Note PT-OP-A Visit Information Start: 08/13/21 13:13 Freq: Status: Active Protocol: Document 09/03/21 10:33 SP (Rec: 09/03/21 11:32 SP [id number]) Out-Patient Physical Therapy Visit Information Visit Information Visit Type Treatment Note Visit Start Time 10:35 Visit Stop Time 11:18 Total Visit Minutes 43 Visit Number 4 Number of MACHINE TOOL DESIGNER Visits 1 Evaluation Information Evaluation Date 08/13/21 PT-OP-B Current Condition Start: 08/13/21 13:13 Freq: Status: Active Protocol: Document 08/13/21 11:15 DCW (Rec: 08/13/21 13:38 DCW [id number]) Current Condition History of Current Condition Onset Date s/p four months Current Complaints pain/tightness under left shoulder blade History of Current Condition Pt is a 81 year old male with a four month history of left shoulder pain. 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 Pt reports the pain has been fairly constant since that time. Notes he is still able to do what he wants, the pain isn't limiting. Feels better laying on a firm surface. Admits he tried to see a chiropractor, but feels that might have made it worse. Notes he has no other injury history, never needed a stitch or broken a bone, and this might be the worst I've ever been injured. Treatment Goals Patient/Caregiver Goals Eliminate shoulder pain Prior Functional Status Baseline Function- ADL's Independent Baseline Function- Mobility Independent PT-OP-C Subjective Start: 08/13/21 13:13 Freq: Status: Active Protocol: Document 09/03/21 10:33 SP (Rec: 09/03/21 11:32 SP [id number]) OP-PT Subjective Patient Comments Patient Comments Pt states constant dull ache started in L shld blade and migrated to R upper shoulder blade and working down between shld blades. Pt states starting trigger pt injections starting next Tues 2x/wk for 3 week. Was told to ask PT to focus on more stretching and ROM than strengthening. PT-OP-E Functional Tests Start: 08/13/21 13:13 Freq: Status: Active Protocol: Document 08/13/21 11:15 DCW (Rec: 08/13/21 13:38 DCW [id number]) Functional Tests Apley's Scratch Test Action 1- Left Posterior opposite shoulder Action 1- Right Posterior opposite shoulder Action 2- Left T4 Action 2- Right T4 Action 3- Left T8 Action 3- Right T10 PT-OP-F Manual Assessment Start: 08/13/21 13:13 Freq: Status: Active Protocol: Document 08/13/21 11:15 DCW (Rec: 08/13/21 13:38 DCW [id number]) Manual Assessments Soft Tissue Assessment Soft Tissue Mobility Assessment Moderate tone and tenderness to palpation 3/4: Wincing and withdraw left subscapularis, left rhomboids Tenderness to palpation 2/4: Pain with wincing left infraspinatus PT-OP-K Range of Motion Start: 08/13/21 13:13 Freq: Status: Active Protocol: Document 08/13/21 11:15 DCW (Rec: 08/13/21 13:38 DCW [id number]) Shoulder Goniometric Range of Motion Shoulder Left Active Shoulder ROM WFL Yes Testing Position Sitting Flexion 170 Abduction 180 PT-OP-L Special Tests Start: 08/13/21 13:13 Freq: Status: Active Protocol: Document 08/13/21 11:15 DCW (Rec: 08/13/21 13:38 DCW [id number]) Special Tests Shoulder Special Tests Painful Arc Test Results Negative Passive ER Rotator Cuff Test Results Positive L Lift-Off Rotator Cuff Test Results Negative Hutchison Ney Impingement Test Results Positive L Grind Labrum Test Results Negative Empty Can Test Results Positive L Drop Arm Rotator Cuff Test Results Negative Belly Press Test Results Negative Apprehension Test Test Results Positive L Anterior Draw Test Results Negative PT-OP-M Strength Start: 08/13/21 13:13 Freq: Status: Active Protocol: Document 08/13/21 11:15 DCW (Rec: 08/13/21 13:38 DCW [id number]) Shoulder Strength Shoulder Manual Muscle Testing Left Flexion 4+ Good+ Abduction (C5) 4+ Good+ External Rotation 4+ Good+ Internal Rotation 4+ Good+ Horizontal Abduction 4+ Good+ PT-OP-Q Treatments Start: 08/13/21 13:13 Freq: Status: Active Protocol: Document 09/03/21 10:33 SP (Rec: 09/03/21 11:32 SP [id number]) Cardio Equipment Upper Body Ergometer (UBE) Duration (Minutes) 6 RPM 70 Seat Position 14 Height 2.5 Other 1 min f/b Therapeutic Exercises Supine Exercises pec stretch Supine Exercise Name added to HEP, various ranges tolerance w/ LB toward table awareness Side bilateral Resistance AROM Reps/Minutes 5 min total Comments good feedback response, decreased pec tightness, understood painfree range cervical chin tuck Supine Exercise Name added to HEP for flexibility Resistance AROM Equipment Used knees bent, head on table Reps/Minutes 5 reps x5 sec Comments good feedback back neck stretch, cued jaw relaxed Sidelying Exercises open book Sidelying Exercise Name added to HEP for flexibility Side bilateral Resistance AROM Reps/Minutes x5 Comments cued head with arm, good painfree response Standing Exercises cross body stretch Side left Reps/Minutes 15s hold x3 Comments tolerant range Other Exercises self STMs Other Exercise Name UT, interscap, post neck muscles Side bilateral Equipment Used tennis ball in sock, theracane Comments sustained pressure, MWM head nod/turn w/ TC, ball scap mms Self-Care/Home Management Treatment Education Patient Education Home Exercise Program,Pain Management,Posture Other Education Discussion on use of pillows for alignment sidesleeping, uses body pillow. Initiated self STMs theracane and ball on wall, flexibilty ROM HEP this tx with good feedback reduced tension and pain had when arrived. PT-OP-T Assessment and Plan Start: 08/13/21 13:13 Freq: Status: Active Protocol: Document 09/03/21 10:33 SP (Rec: 09/03/21 11:32 SP [id number]) Physical Therapy Assessment Goals Two Impairment Pt experiences increased pain with resisted external and internal rotation Detention Goal (LTG) Pt to don/doff jacket with no increased shoulder pain LTG Duration 10/11/21 One Impairment Pt does not have an appropriate home exercise program Short Term Goal (STG) Pt to be independent and compliant with an appropriate HEP STG Duration 09/13/21 Assessment Summary Assessment Pt reported felt self STMs ball and theracane helpe alot, pain in shld went away and able to stand up straighter. Tx focused on flexibility with improved self application carryover, cued as needed for set up, painfree range. Pt will have trigger pt injections next week and flexibility HEP given today help support this tx. Physical Therapy Plan Frequency and Duration Frequency of Treatment 2x/Week Duration of Treatment Two months Plan of Care Start Date 08/13/21 Plan of Care End Date 10/11/21 Therapeutic Interventions Therapeutic Interventions Home Exercise Program,Joint Mobilizations,Manual Therapy, Patient/Caregiver Education, Self-Care/Home Management,Soft Tissue Mobilization, Therapeutic Exercises Modalities Cold Pack/Ice Massage,Electric Stimulation,Hot Packs, Ultrasound Next Visit Focus/Plan Next Note Type Treatment Note Next Visit Plan Assess self STMs & flexibiltiy HEP added last tx. POC: STM, Shoulder strengthening/stabilization
--- NOTE | 2021-09-06 11:17 | PT.OTN ---
Current Diagnoses Pain in left shoulder (09/06/21) Stiffness of left shoulder, not elsewhere classified (09/06/21) Sacroiliitis, not elsewhere classified (09/06/21) Strain of muscle(s) and tendon(s) of the rotator cuff of left shoulder, subsequent encounter (09/06/21) Physical Therapy Treatment Note PT-OP-A Visit Information Start: 08/13/21 13:13 Freq: Status: Active Protocol: Document 09/06/21 10:30 SP (Rec: 09/06/21 11:37 SP [id number]) Out-Patient Physical Therapy Visit Information Visit Information Visit Type Treatment Note Visit Note Appt for Trigger pt injections tomorrow. Visit Start Time 10:30 Visit Stop Time 11:17 Total Visit Minutes 47 Visit Number 5 Number of E [employer]GER Visits 2 Evaluation Information Evaluation Date 08/13/21 PT-OP-B Current Condition Start: 08/13/21 13:13 Freq: Status: Active Protocol: Document 08/13/21 11:15 DCW (Rec: 08/13/21 13:38 DCW [id number]) Current Condition History of Current Condition Onset Date s/p four months Current Complaints pain/tightness under left shoulder blade History of Current Condition Pt is a 81 year old male with a four month history of left shoulder pain. 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 Pt reports the pain has been fairly constant since that time. Notes he is still able to do what he wants, the pain isn't limiting. Feels better laying on a firm surface. Admits he tried to see a chiropractor, but feels that might have made it worse. Notes he has no other injury history, never needed a stitch or broken a bone, and this might be the worst I've ever been injured. Treatment Goals Patient/Caregiver Goals Eliminate shoulder pain Prior Functional Status Baseline Function- ADL's Independent Baseline Function- Mobility Independent PT-OP-C Subjective Start: 08/13/21 13:13 Freq: Status: Active Protocol: Document 09/06/21 10:30 SP (Rec: 09/06/21 11:37 SP [id number]) OP-PT Subjective Patient Comments Patient Comments Pt stated his pain is 80% resolved. He stated is sore but doing well. Compliant with 8 HEP exercises 3x/day. Pt stated that the theracane was very helpful and ordered one for home but hasn't gotten here yet. Pt stated getting his first trigger point injection tomorrow. PT-OP-E Functional Tests Start: 08/13/21 13:13 Freq: Status: Active Protocol: Document 08/13/21 11:15 DCW (Rec: 08/13/21 13:38 [facility] [id number]) Functional Tests Apley's Scratch Test Action 1- Left Posterior opposite shoulder Action 1- Right Posterior opposite shoulder Action 2- Left T4 Action 2- Right T4 Action 3- Left T8 Action 3- Right T10 PT-OP-F Manual Assessment Start: 08/13/21 13:13 Freq: Status: Active Protocol: Document 08/13/21 11:15 DCW (Rec: 08/13/21 13:38 DC [id number]) Manual Assessments Soft Tissue Assessment Soft Tissue Mobility Assessment Moderate tone and tenderness to palpation 3/4: Wincing and withdraw left subscapularis, left rhomboids Tenderness to palpation 2/4: Pain with wincing left infraspinatus PT-OP-K Range of Motion Start: 08/13/21 13:13 Freq: Status: Active Protocol: Document 08/13/21 11:15 DCW (Rec: 08/13/21 13:38 [facility] [id number]) Shoulder Goniometric Range of Motion Shoulder Left Active Shoulder ROM WFL Yes Testing Position Sitting Flexion 170 Abduction 180 PT-OP-L Special Tests Start: 08/13/21 13:13 Freq: Status: Active Protocol: Document 08/13/21 11:15 DCW (Rec: 08/13/21 13:38 [facility] [id number]) Special Tests Shoulder Special Tests Painful Arc Test Results Negative Passive ER Rotator Cuff Test Results Positive L Lift-Off Rotator Cuff Test Results Negative Hutchison Ney Impingement Test Results Positive L Grind Labrum Test Results Negative Empty Can Test Results Positive L Drop Arm Rotator Cuff Test Results Negative Belly Press Test Results Negative Apprehension Test Test Results Positive L Anterior Draw Test Results Negative PT-OP-M Strength Start: 08/13/21 13:13 Freq: Status: Active Protocol: Document 08/13/21 11:15 DCW (Rec: 08/13/21 13:38 DCW [id number]) Shoulder Strength Shoulder Manual Muscle Testing Left Flexion 4+ Good+ Abduction (C5) 4+ Good+ External Rotation 4+ Good+ Internal Rotation 4+ Good+ Horizontal Abduction 4+ Good+ PT-OP-Q Treatments Start: 08/13/21 13:13 Freq: Status: Active Protocol: Document 09/06/21 10:30 SP (Rec: 09/06/21 11:37 SP [id number]) Cardio Equipment Upper Body Ergometer (UBE) Duration (Minutes) 6 RPM 65 Seat Position 12 Height 2.5 Other 1 min f/b Therapeutic Exercises Supine Exercises pec stretch Supine Exercise Name added to HEP, various ranges tolerance w/ LB toward table awareness Side bilateral Resistance AROM Reps/Minutes 5 min total, 20 sec each position Comments good feedback response, decreased pec tightness, understood painfree range cervical chin tuck Supine Exercise Name reviewed HEP for flexibility Resistance AROM Equipment Used knees bent, head on table Reps/Minutes 5 reps x5 sec Comments cued slow, small gentle range, no lift head 3 Supine Exercise Name Shoulder flexion Side bilateral Resistance 2# DB Reps/Minutes x10 Comments cued painfree ROM, no UT recruitment 2 Supine Exercise Name Horizontal adduction/ ABD Side bilateral Resistance 2# DB Reps/Minutes x10 Comments cued slow painfree ROM, no UT recruitment 1 Supine Exercise Name Serratus punch Side bilateral Resistance 2# Reps/Minutes x10 Comments cued slow 1 punch, no UT recruitment Sidelying Exercises open book Sidelying Exercise Name reviewed HEP for flexibility Side bilateral Resistance AROM Reps/Minutes x5, pause 2 sec end feel Comments cued head with arm, good painfree response Sitting Exercises UT, Lev Scap stretch Sitting Exercise Name added to HEP Side left Reps/Minutes 20s hold x3 Comments cued slow, painfree to low pain range. Standing Exercises cross body stretch Side left Reps/Minutes 20s hold x3 Comments tolerant painfree range 4 Standing Exercise Name Shoulder Adduction Side bilateral Resistance Lv 2>3 Reps/Minutes 2x10 Comments cued tall posture, scap retract/ depressed stability con/eccentric 3 Standing Exercise Name Shoulder extension Side bilateral Resistance Lv 2>3 Reps/Minutes x10 reps each Comments cued tall posture, scap retract/ depressed stability con/eccentric Other Exercises self STMs Other Exercise Name UT, interscap, post neck muscles Side bilateral Equipment Used tennis ball in sock, theracane Comments sustained pressure, MWM head nod/turn w/ TC, ball scap mms Self-Care/Home Management Treatment Education Patient Education Home Exercise Program,Pain Management,Posture Other Education Time spent discussing limit time and repetitions of stretching and exercises to decrease soreness and allow painfree ROM and start of strengthening. Recommended bringing exercises/ stretch images to Trigger Point injection appt tomorrow to inquire if ok to continue in PT for coordination recommendations. Pt verbalized understanding. PT-OP-T Assessment and Plan Start: 08/13/21 13:13 Freq: Status: Active Protocol: Document 09/06/21 10:30 SP (Rec: 09/06/21 11:37 SP [id number]) Physical Therapy Assessment Goals Two Impairment Pt experiences increased pain with resisted external and internal rotation Set Staff Fitter Goal (LTG) Pt to don/doff jacket with no increased shoulder pain 09/06/21: progressing: pt reported able to reach behind back better to get shirt/ jacket on. LTG Duration 10/11/21 (progressing 09/06/21) One Impairment Pt does not have an appropriate home exercise program Short Term Goal (STG) Pt to be independent and compliant with an appropriate HEP 09/06/21: progressing: reviewing set up/ proper form with cues and keep to reps/ amt hold stretching so not over do and cause increased soreness. STG Duration 09/13/21: Assessment Summary Assessment Pt improved understanding post education of limit reps/ amt hold for stretching as instructed for painfree ROM and start strengthening tolerance and benefits. Cued as needed for scap retract/ depress and alignment. Pt had no pain during ther ex. range. Initiated neck stretching and reviewed shld/scap complex ROM. Pt states no tightness leaving. Physical Therapy Plan Frequency and Duration Frequency of Treatment 2x/Week Duration of Treatment Two months Plan of Care Start Date 08/13/21 Plan of Care End Date 10/11/21 Therapeutic Interventions Therapeutic Interventions Home Exercise Program,Joint Mobilizations,Manual Therapy, Patient/Caregiver Education, Self-Care/Home Management,Soft Tissue Mobilization, Therapeutic Exercises Modalities Cold Pack/Ice Massage,Electric Stimulation,Hot Packs, Ultrasound Next Visit Focus/Plan Next Note Type Treatment Note Next Visit Plan *Check in on trigger pt injections having tomorrow and feedback for allowance for PT instructions given. Next tx: manual if needed vs self STMs theracane, ball wall . Assess stretching/ strengthening HEP. POC: STM, Shoulder strengthening/stabilization
--- NOTE | 2021-09-08 11:16 | PT.OTN ---
Current Diagnoses Pain in left shoulder (09/08/21) Stiffness of left shoulder, not elsewhere classified (09/08/21) Sacroiliitis, not elsewhere classified (09/08/21) Strain of muscle(s) and tendon(s) of the rotator cuff of left shoulder, subsequent encounter (09/08/21) Physical Therapy Treatment Note PT-OP-A Visit Information Start: 08/13/21 13:13 Freq: Status: Active Protocol: Document 09/08/21 10:30 DCW (Rec: 09/08/21 11:16 DCW [id number]) Out-Patient Physical Therapy Visit Information Visit Information Visit Type Treatment Note Visit Start Time 10:30 Visit Stop Time 11:15 Total Visit Minutes 45 Visit Number 6 Number of SHRIMP HEADER Visits 0 Evaluation Information Evaluation Date 08/13/21 PT-OP-B Current Condition Start: 08/13/21 13:13 Freq: Status: Active Protocol: Document 08/13/21 11:15 DCW (Rec: 08/13/21 13:38 DCW [id number]) Current Condition History of Current Condition Onset Date s/p four months Current Complaints pain/tightness under left shoulder blade History of Current Condition Pt is a 81 year old male with a four month history of left shoulder pain. 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 Pt reports the pain has been fairly constant since that time. Notes he is still able to do what he wants, the pain isn't limiting. Feels better laying on a firm surface. Admits he tried to see a chiropractor, but feels that might have made it worse. Notes he has no other injury history, never needed a stitch or broken a bone, and this might be the worst I've ever been injured. Treatment Goals Patient/Caregiver Goals Eliminate shoulder pain Prior Functional Status Baseline Function- ADL's Independent Baseline Function- Mobility Independent PT-OP-C Subjective Start: 08/13/21 13:13 Freq: Status: Active Protocol: Document 09/08/21 10:30 DCW (Rec: 09/08/21 11:16 DCW [id number]) OP-PT Subjective Patient Comments Patient Comments Pt reports that after his trigger point injections yesterday, he was instructed to avoid the strengthening exercises, and just focus on stretching and STM. PT-OP-E Functional Tests Start: 08/13/21 13:13 Freq: Status: Active Protocol: Document 08/13/21 11:15 DCW (Rec: 08/13/21 13:38 DCW [id number]) Functional Tests Apley's Scratch Test Action 1- Left Posterior opposite shoulder Action 1- Right Posterior opposite shoulder Action 2- Left T4 Action 2- Right T4 Action 3- Left T8 Action 3- Right T10 PT-OP-F Manual Assessment Start: 08/13/21 13:13 Freq: Status: Active Protocol: Document 08/13/21 11:15 DCW (Rec: 08/13/21 13:38 DCW [id number]) Manual Assessments Soft Tissue Assessment Soft Tissue Mobility Assessment Moderate tone and tenderness to palpation 3/4: Wincing and withdraw left subscapularis, left rhomboids Tenderness to palpation 2/4: Pain with wincing left infraspinatus PT-OP-K Range of Motion Start: 08/13/21 13:13 Freq: Status: Active Protocol: Document 08/13/21 11:15 DCW (Rec: 08/13/21 13:38 DCW [id number]) Shoulder Goniometric Range of Motion Shoulder Left Active Shoulder ROM WFL Yes Testing Position Sitting Flexion 170 Abduction 180 PT-OP-L Special Tests Start: 08/13/21 13:13 Freq: Status: Active Protocol: Document 08/13/21 11:15 DCW (Rec: 08/13/21 13:38 DCW [id number]) Special Tests Shoulder Special Tests Painful Arc Test Results Negative Passive ER Rotator Cuff Test Results Positive L Lift-Off Rotator Cuff Test Results Negative Hutchison Ney Impingement Test Results Positive L Grind Labrum Test Results Negative Empty Can Test Results Positive L Drop Arm Rotator Cuff Test Results Negative Belly Press Test Results Negative Apprehension Test Test Results Positive L Anterior Draw Test Results Negative PT-OP-M Strength Start: 08/13/21 13:13 Freq: Status: Active Protocol: Document 08/13/21 11:15 DCW (Rec: 08/13/21 13:38 DCW [id number]) Shoulder Strength Shoulder Manual Muscle Testing Left Flexion 4+ Good+ Abduction (C5) 4+ Good+ External Rotation 4+ Good+ Internal Rotation 4+ Good+ Horizontal Abduction 4+ Good+ PT-OP-Q Treatments Start: 08/13/21 13:13 Freq: Status: Active Protocol: Document 09/08/21 10:30 DCW (Rec: 09/08/21 11:16 DCW [id number]) Therapeutic Exercises Supine Exercises pec stretch Side bilateral Resistance AROM Reps/Minutes 5 min total, 20 sec each position Comments good feedback response, decreased pec tightness, understood painfree range Standing Exercises cross body stretch Side left Reps/Minutes 20s hold x3 Comments tolerant painfree range Manual Therapy Treatment Soft Tissue Mobilization 3 Body Location L Infraspinatus Mobilization Type Strumming,Sustained Pressure 2 Body Location L Rhomboids Mobilization Type Strumming,Sustained Pressure 1 Body Location L Subscap Mobilization Type Strumming,Sustained Pressure Joint Mobilizations 1 Joint L scapulothoracic Direction Lateral Grade III Body Position Supine Manual Techniques 1 Type Scapular PNF PT-OP-T Assessment and Plan Start: 08/13/21 13:13 Freq: Status: Active Protocol: Document 09/08/21 10:30 DCW (Rec: 09/08/21 11:16 DCW [id number]) Physical Therapy Assessment Goals Two Impairment Pt experiences increased pain with resisted external and internal rotation Fci Goal (LTG) Pt to don/doff jacket with no increased shoulder pain 09/06/21: progressing: pt reported able to reach behind back better to get shirt/ jacket on. LTG Duration 10/11/21 (progressing 09/06/21) One Impairment Pt does not have an appropriate home exercise program Short Term Goal (STG) Pt to be independent and compliant with an appropriate HEP 09/06/21: progressing: reviewing set up/ proper form with cues and keep to reps/ amt hold stretching so not over do and cause increased soreness. STG Duration 09/13/21: Assessment Summary Assessment Pt doing very well with shoulder pain levels and mobility, very happy with his recent progress. Reconfirmed pt is not to overdo his exercises at home, and currently to not perform any strengthening following trigger point injections. Physical Therapy Plan Frequency and Duration Frequency of Treatment 2x/Week Duration of Treatment Two months Plan of Care Start Date 08/13/21 Plan of Care End Date 10/11/21 Therapeutic Interventions Therapeutic Interventions Home Exercise Program,Joint Mobilizations,Manual Therapy, Patient/Caregiver Education, Self-Care/Home Management,Soft Tissue Mobilization, Therapeutic Exercises Modalities Cold Pack/Ice Massage,Electric Stimulation,Hot Packs, Ultrasound Next Visit Focus/Plan Next Note Type Treatment Note Next Visit Plan *Check in on trigger pt injections having tomorrow and feedback for allowance for PT instructions given. Next tx: manual if needed vs self STMs theracane, ball wall . Assess stretching/ strengthening HEP. POC: STM, Shoulder strengthening/stabilization
--- NOTE | 2021-09-13 11:20 | PT.OTN ---
Current Diagnoses Pain in left shoulder (09/13/21) Stiffness of left shoulder, not elsewhere classified (09/13/21) Sacroiliitis, not elsewhere classified (09/13/21) Strain of muscle(s) and tendon(s) of the rotator cuff of left shoulder, subsequent encounter (09/13/21) Physical Therapy Treatment Note PT-OP-A Visit Information Start: 08/13/21 13:13 Freq: Status: Active Protocol: Document 09/13/21 10:30 SP (Rec: 09/13/21 11:42 SP [id number]) Out-Patient Physical Therapy Visit Information Visit Information Visit Type Treatment Note Visit Start Time 10:30 Visit Stop Time 11:20 Total Visit Minutes 50 Visit Number 7 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 Pt reports the pain has been fairly constant since that time. Notes he is still able to do what he wants, the pain isn't limiting. Feels better laying on a firm surface. Admits he tried to see a chiropractor, but feels that might have made it worse. Notes he has no other injury history, never needed a stitch or broken a bone, and this might be the worst I've ever been injured. Treatment Goals Patient/Caregiver Goals Eliminate shoulder pain Prior Functional Status Baseline Function- ADL's Independent Baseline Function- Mobility Independent PT-OP-C Subjective Start: 08/13/21 13:13 Freq: Status: Active Protocol: Document 09/13/21 10:30 SP (Rec: 09/13/21 11:42 SP [id number]) OP-PT Subjective Patient Comments Patient Comments Pt states was able to sleep 10 hrs straight. His L UT hurts today. He reports feeling alot better, not 100% yet. Got his theracane but no booklet came with it, playing with it. Having more trigger pt injections tomorrow. The moist heat helps alot. PT-OP-E Functional Tests Start: 08/13/21 13:13 Freq: Status: Active Protocol: Document 08/13/21 11:15 DCW (Rec: 08/13/21 13:38 DCW [id number]) Functional Tests Apley's Scratch Test Action 1- Left Posterior opposite shoulder Action 1- Right Posterior opposite shoulder Action 2- Left T4 Action 2- Right T4 Action 3- Left T8 Action 3- Right T10 PT-OP-F Manual Assessment Start: 08/13/21 13:13 Freq: Status: Active Protocol: Document 08/13/21 11:15 DCW (Rec: 08/13/21 13:38 DCW [id number]) Manual Assessments Soft Tissue Assessment Soft Tissue Mobility Assessment Moderate tone and tenderness to palpation 3/4: Wincing and withdraw left subscapularis, left rhomboids Tenderness to palpation 2/4: Pain with wincing left infraspinatus PT-OP-K Range of Motion Start: 08/13/21 13:13 Freq: Status: Active Protocol: Document 08/13/21 11:15 DCW (Rec: 08/13/21 13:38 DCW [id number]) Shoulder Goniometric Range of Motion Shoulder Left Active Shoulder ROM WFL Yes Testing Position Sitting Flexion 170 Abduction 180 PT-OP-L Special Tests Start: 08/13/21 13:13 Freq: Status: Active Protocol: Document 08/13/21 11:15 DCW (Rec: 08/13/21 13:38 DCW [id number]) Special Tests Shoulder Special Tests Painful Arc Test Results Negative Passive ER Rotator Cuff Test Results Positive L Lift-Off Rotator Cuff Test Results Negative Hutchison Ney Impingement Test Results Positive L Grind Labrum Test Results Negative Empty Can Test Results Positive L Drop Arm Rotator Cuff Test Results Negative Belly Press Test Results Negative Apprehension Test Test Results Positive L Anterior Draw Test Results Negative PT-OP-M Strength Start: 08/13/21 13:13 Freq: Status: Active Protocol: Document 08/13/21 11:15 DCW (Rec: 08/13/21 13:38 DCW [id number]) Shoulder Strength Shoulder Manual Muscle Testing Left Flexion 4+ Good+ Abduction (C5) 4+ Good+ External Rotation 4+ Good+ Internal Rotation 4+ Good+ Horizontal Abduction 4+ Good+ PT-OP-Q Treatments Start: 08/13/21 13:13 Freq: Status: Active Protocol: Document 09/13/21 10:30 SP (Rec: 09/13/21 11:42 SP [id number]) Therapeutic Exercises Supine Exercises pec stretch Supine Exercise Name AROM various snow angle UE positions, scap retraction Side bilateral Resistance AROM (cued no UT recruitment) Equipment Used over noodle Reps/Minutes x8 reps AROM, 5 sec hold x5 ( knees bent, cued low ribcage toward floor) Comments good feedback response, decreased pec tightness, understood painfree range cervical chin tuck Supine Exercise Name reviewed HEP for flexibility Resistance AROM Equipment Used knees bent, head on table Reps/Minutes 5 reps x5 sec Comments cued slow, small gentle range, no lift head 3 Supine Exercise Name Shoulder flexion- HEP review Side bilateral Resistance 2# DB Reps/Minutes x10 Comments cued painfree ROM stretch, no UT recruitment 2 Supine Exercise Name Horizontal adduction/ ABD Side bilateral Resistance 2# DB Reps/Minutes x10 Comments cued slow painfree ROM stretch , no UT recruitment Sidelying Exercises shld ER Side left Resistance AROM Reps/Minutes 2x8 reps Comments cued scap retract/ depress awareness, no UT recruit open book Sidelying Exercise Name reviewed HEP for flexibility- not performed last tx, recheck next tx Side bilateral Resistance AROM Reps/Minutes x5, pause 2 sec end feel Comments cued head with arm, good painfree response Other Exercises self STMs Other Exercise Name UT, interscap, post neck muscles Side bilateral Resistance seated Equipment Used theracane Comments sustained pressure, MWM head nod/turn w/ TC, ball scap mms Manual Therapy Treatment Soft Tissue Mobilization cervical Body Location scalene, SCM, subocc, SOR Mobilization Type Cross-Friction,Myofascial Release,Rolling,Sustained Pressure,Other Intensity/Depth Moderate Body Position Hooklying Comments manual and discussion on self STMs: pincher knead and sustained pressure MWM head nod/ turns 3 Body Location L Infraspinatus Mobilization Type Strumming,Sustained Pressure 2 Body Location L Rhomboids Mobilization Type Strumming,Sustained Pressure 1 Body Location L Subscap Mobilization Type Strumming,Sustained Pressure Joint Mobilizations 1 Joint L scapulothoracic Direction Lateral Grade II Body Position Supine Comments manual and cued AROM retract/ depression. pt challenged with scap retract/depress contact cues for rhomboid and LT facilitation, no UT/ pec recruitment. 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 PT-OP-T Assessment and Plan Start: 08/13/21 13:13 Freq: Status: Active Protocol: Document 09/13/21 10:30 SP (Rec: 09/13/21 11:42 SP [id number]) Physical Therapy Assessment Goals Two Impairment Pt experiences increased pain with resisted external and internal rotation Penitentiary Goal (LTG) Pt to don/doff jacket with no increased shoulder pain 09/06/21: progressing: pt reported able to reach behind back better to get shirt/ jacket on. LTG Duration 10/11/21 (progressing 09/06/21) One Impairment Pt does not have an appropriate home exercise program Short Term Goal (STG) Pt to be independent and compliant with an appropriate HEP 09/06/21: progressing: reviewing set up/ proper form with cues and keep to reps/ amt hold stretching so not over do and cause increased soreness. 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 Provided pic of amount poundage forward posture on spine for feedback importance of postural alignment and HEP given for painfree functional movement. 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 Manual/self STMs, review Stretching/ AROM HEP and posture awareness. *Check in on trigger pt injections (Again tomorrow ). POC: STM, Shoulder strengthening/stabilization
--- NOTE | 2021-09-20 11:15 | PT.OTN ---
Current Diagnoses Pain in left shoulder (09/20/21) Stiffness of left shoulder, not elsewhere classified (09/20/21) Sacroiliitis, not elsewhere classified (09/20/21) Strain of muscle(s) and tendon(s) of the rotator cuff of left shoulder, subsequent encounter (09/20/21) Physical Therapy Treatment Note PT-OP-A Visit Information Start: 08/13/21 13:13 Freq: Status: Active Protocol: Document 09/20/21 10:32 SP (Rec: 09/20/21 11:31 SP [id number]) Out-Patient Physical Therapy Visit Information Visit Information Visit Type Treatment Note Visit Start Time 10:32 Visit Stop Time 11:15 Total Visit Minutes 43 Visit Number 8 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 Pt reports the pain has been fairly constant since that time. Notes he is still able to do what he wants, the pain isn't limiting. Feels better laying on a firm surface. Admits he tried to see a chiropractor, but feels that might have made it worse. Notes he has no other injury history, never needed a stitch or broken a bone, and this might be the worst I've ever been injured. Treatment Goals Patient/Caregiver Goals Eliminate shoulder pain Prior Functional Status Baseline Function- ADL's Independent Baseline Function- Mobility Independent PT-OP-C Subjective Start: 08/13/21 13:13 Freq: Status: Active Protocol: Document 09/20/21 10:32 SP (Rec: 09/20/21 11:31 SP [id number]) OP-PT Subjective Patient Comments Patient Comments Sleeping fine, not as much pain horizontal but once vertical standing continues to have pain. Pressure and heat seems to help, using the theracane and very helpful. Went out to walk dog cautious slippery ice and noted tightened up L shld went up to L side neck and hasn't gone away. Has more trigger point injections this week. Pt states is going to ask for an MRI to see if something else going on in L shld. States doing stretches every other day, 2x/day and pain has eased up alot. Pt states was really stiff and pain post last tx after laying on noodle. Saw GP last Mon and got good report PT-OP-E Functional Tests Start: 08/13/21 13:13 Freq: Status: Active Protocol: Document 08/13/21 11:15 DCW (Rec: 08/13/21 13:38 DCW [id number]) Functional Tests Apley's Scratch Test Action 1- Left Posterior opposite shoulder Action 1- Right Posterior opposite shoulder Action 2- Left T4 Action 2- Right T4 Action 3- Left T8 Action 3- Right T10 PT-OP-F Manual Assessment Start: 08/13/21 13:13 Freq: Status: Active Protocol: Document 08/13/21 11:15 DCW (Rec: 08/13/21 13:38 DCW [id number]) Manual Assessments Soft Tissue Assessment Soft Tissue Mobility Assessment Moderate tone and tenderness to palpation 3/4: Wincing and withdraw left subscapularis, left rhomboids Tenderness to palpation 2/4: Pain with wincing left infraspinatus PT-OP-K Range of Motion Start: 08/13/21 13:13 Freq: Status: Active Protocol: Document 08/13/21 11:15 DCW (Rec: 08/13/21 13:38 DCW [id number]) Shoulder Goniometric Range of Motion Shoulder Left Active Shoulder ROM WFL Yes Testing Position Sitting Flexion 170 Abduction 180 PT-OP-L Special Tests Start: 08/13/21 13:13 Freq: Status: Active Protocol: Document 08/13/21 11:15 DCW (Rec: 08/13/21 13:38 DCW [id number]) Special Tests Shoulder Special Tests Painful Arc Test Results Negative Passive ER Rotator Cuff Test Results Positive L Lift-Off Rotator Cuff Test Results Negative Hutchison Ney Impingement Test Results Positive L Grind Labrum Test Results Negative Empty Can Test Results Positive L Drop Arm Rotator Cuff Test Results Negative Belly Press Test Results Negative Apprehension Test Test Results Positive L Anterior Draw Test Results Negative PT-OP-M Strength Start: 08/13/21 13:13 Freq: Status: Active Protocol: Document 08/13/21 11:15 DCW (Rec: 08/13/21 13:38 DCW [id number]) Shoulder Strength Shoulder Manual Muscle Testing Left Flexion 4+ Good+ Abduction (C5) 4+ Good+ External Rotation 4+ Good+ Internal Rotation 4+ Good+ Horizontal Abduction 4+ Good+ PT-OP-Q Treatments Start: 08/13/21 13:13 Freq: Status: Active Protocol: Document 09/20/21 10:32 SP (Rec: 09/20/21 11:31 SP [id number]) Therapeutic Exercises Supine Exercises pec stretch Supine Exercise Name AROM various snow angle UE positions, scap retraction Side bilateral Resistance AROM (cued no UT recruitment) Equipment Used on plinth Reps/Minutes x3 reps 30sec Comments good feedback response, decreased pec tightness, understood painfree range 3 Supine Exercise Name Shoulder flexion- HEP review Side bilateral Resistance 2# DB LUE, #3 DB RUE Reps/Minutes x10 Comments cued painfree ROM stretch, no UT recruitment (159 deg LUE/ 180 deg RUE: FF) 2 Supine Exercise Name Horizontal adduction/ ABD Side bilateral Resistance 2# DB Reps/Minutes x10 Comments cued slow painfree ROM stretch , no UT recruitment Sidelying Exercises open book Sidelying Exercise Name reviewed HEP for flexibility- not performed last tx, recheck next tx Side bilateral Resistance #2 DB Reps/Minutes x8, pause 2 sec end feel Comments cued head with arm, good painfree stretch mid back and pec Other Exercises self STMs Other Exercise Name L Rhomboid, Low Trap Side bilateral Resistance seated Equipment Used theracane Reps/Minutes 4 min total Comments sustained pressure, MWM scap protract/retract/ elev/depress Manual Therapy Treatment Soft Tissue Mobilization cervical Body Location L scalene, SCM, subocc, SOR Mobilization Type Cross-Friction,Myofascial Release,Rolling,Sustained Pressure,Other Intensity/Depth Moderate Body Position Hooklying Comments manual and discussion on self STMs: pincher knead and sustained pressure MWM head nod/ turns 3 Body Location L Infraspinatus, Lower Trap, paraspinal Mobilization Type Strumming,Sustained Pressure Body Position Sidelying Comments manual- good feedback response lessened tightness 2 Body Location L Rhomboids Mobilization Type Strumming,Sustained Pressure Body Position Sidelying Comments manual- good feedback response lessened tightness Manual Techniques 1 Type L Scapular PNF Body Position Sidelying Comments focused retract/ depress, cued no UT recruitment PT-OP-T Assessment and Plan Start: 08/13/21 13:13 Freq: Status: Active Protocol: Document 09/20/21 10:32 SP (Rec: 09/20/21 11:31 SP [id number]) Physical Therapy Assessment Goals Two Impairment Pt experiences increased pain with resisted external and internal rotation Mcc Goal (LTG) Pt to don/doff jacket with no increased shoulder pain 09/06/21: progressing: pt reported able to reach behind back better to get shirt/ jacket on. LTG Duration 10/11/21 (progressing 09/06/21) One Impairment Pt does not have an appropriate home exercise program Short Term Goal (STG) Pt to be independent and compliant with an appropriate HEP 09/06/21: progressing: reviewing set up/ proper form with cues and keep to reps/ amt hold stretching so not over do and cause increased soreness. STG Duration 09/13/21: Assessment Summary Assessment Pt improving in supine ROM but continues have pain in standing. Pt good feedback response to manual, HEP review: ROM stretching w/ DB. Assessed FF at wall [place] but caused pain in L shld so stopped. Good demonstration proper use of theracane L posterior scap self STMs including MWM form for pain and decrease tightness relief. Physical Therapy Plan Frequency and Duration Frequency of Treatment 2x/Week Duration of Treatment Two months Plan of Care Start Date 08/13/21 Plan of Care End Date 10/11/21 Therapeutic Interventions Therapeutic Interventions Home Exercise Program,Joint Mobilizations,Manual Therapy, Patient/Caregiver Education, Self-Care/Home Management,Soft Tissue Mobilization, Therapeutic Exercises Modalities Cold Pack/Ice Massage,Electric Stimulation,Hot Packs, Ultrasound Next Visit Focus/Plan Next Note Type Treatment Note Next Visit Plan Next tx: TS ext ROM. 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 AROM HEP and posture awareness. *Check in on trigger pt injections (Again this week, might be the last ones). POC: STM, Shoulder strengthening/stabilization
--- NOTE | 2021-09-22 11:13 | PT.OTN ---
Current Diagnoses Pain in left shoulder (09/22/21) Stiffness of left shoulder, not elsewhere classified (09/22/21) Sacroiliitis, not elsewhere classified (09/22/21) Strain of muscle(s) and tendon(s) of the rotator cuff of left shoulder, subsequent encounter (09/22/21) Physical Therapy Treatment Note PT-OP-A Visit Information Start: 08/13/21 13:13 Freq: Status: Active Protocol: Document 09/22/21 10:30 DCW (Rec: 09/22/21 11:13 DCW [id number]) Out-Patient Physical Therapy Visit Information Visit Information Visit Type Treatment Note Visit Start Time 10:30 Visit Stop Time 11:20 Total Visit Minutes 45 Visit Number 9 Number of PUBLIC RELATIONS ACCOUNT SUPERVISOR Visits 0 Evaluation Information Evaluation Date 08/13/21 PT-OP-B Current Condition Start: 08/13/21 13:13 Freq: Status: Active Protocol: Document 08/13/21 11:15 DCW (Rec: 08/13/21 13:38 DCW [id number]) Current Condition History of Current Condition Onset Date s/p four months Current Complaints pain/tightness under left shoulder blade History of Current Condition Pt is a 81 year old male with a four month history of left shoulder pain. 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 Pt reports the pain has been fairly constant since that time. Notes he is still able to do what he wants, the pain isn't limiting. Feels better laying on a firm surface. Admits he tried to see a chiropractor, but feels that might have made it worse. Notes he has no other injury history, never needed a stitch or broken a bone, and this might be the worst I've ever been injured. Treatment Goals Patient/Caregiver Goals Eliminate shoulder pain Prior Functional Status Baseline Function- ADL's Independent Baseline Function- Mobility Independent PT-OP-C Subjective Start: 08/13/21 13:13 Freq: Status: Active Protocol: Document 09/22/21 10:30 DCW (Rec: 09/22/21 11:13 DCW [id number]) OP-PT Subjective Patient Comments Patient Comments Pt notes that he is moving better, sleeping better, just doing well right now overall, just a little sore where his injections were yesterday PT-OP-E Functional Tests Start: 08/13/21 13:13 Freq: Status: Active Protocol: Document 08/13/21 11:15 DCW (Rec: 08/13/21 13:38 DCW [id number]) Functional Tests Apley's Scratch Test Action 1- Left Posterior opposite shoulder Action 1- Right Posterior opposite shoulder Action 2- Left T4 Action 2- Right T4 Action 3- Left T8 Action 3- Right T10 PT-OP-F Manual Assessment Start: 08/13/21 13:13 Freq: Status: Active Protocol: Document 08/13/21 11:15 DCW (Rec: 08/13/21 13:38 DCW [id number]) Manual Assessments Soft Tissue Assessment Soft Tissue Mobility Assessment Moderate tone and tenderness to palpation 3/4: Wincing and withdraw left subscapularis, left rhomboids Tenderness to palpation 2/4: Pain with wincing left infraspinatus PT-OP-K Range of Motion Start: 08/13/21 13:13 Freq: Status: Active Protocol: Document 08/13/21 11:15 DCW (Rec: 08/13/21 13:38 DCW [id number]) Shoulder Goniometric Range of Motion Shoulder Left Active Shoulder ROM WFL Yes Testing Position Sitting Flexion 170 Abduction 180 PT-OP-L Special Tests Start: 08/13/21 13:13 Freq: Status: Active Protocol: Document 08/13/21 11:15 DCW (Rec: 08/13/21 13:38 DCW [id number]) Special Tests Shoulder Special Tests Painful Arc Test Results Negative Passive ER Rotator Cuff Test Results Positive L Lift-Off Rotator Cuff Test Results Negative Hutchison Ney Impingement Test Results Positive L Grind Labrum Test Results Negative Empty Can Test Results Positive L Drop Arm Rotator Cuff Test Results Negative Belly Press Test Results Negative Apprehension Test Test Results Positive L Anterior Draw Test Results Negative PT-OP-M Strength Start: 08/13/21 13:13 Freq: Status: Active Protocol: Document 08/13/21 11:15 DCW (Rec: 08/13/21 13:38 DCW [id number]) Shoulder Strength Shoulder Manual Muscle Testing Left Flexion 4+ Good+ Abduction (C5) 4+ Good+ External Rotation 4+ Good+ Internal Rotation 4+ Good+ Horizontal Abduction 4+ Good+ PT-OP-Q Treatments Start: 08/13/21 13:13 Freq: Status: Active Protocol: Document 09/22/21 10:30 DCW (Rec: 09/22/21 11:13 DCW [id number]) Therapeutic Exercises Supine Exercises pec stretch Supine Exercise Name AROM various snow angle UE positions, scap retraction Side bilateral Resistance AROM (cued no UT recruitment) Equipment Used on plinth Reps/Minutes x3 reps 30sec Comments good feedback response, decreased pec tightness, understood painfree range 3 Supine Exercise Name Shoulder flexion Side bilateral Resistance 3# Reps/Minutes x10 Comments cued painfree ROM stretch, no UT recruitment 2 Supine Exercise Name Horizontal adduction/ ABD Side bilateral Resistance 3# Reps/Minutes x10 Comments cued slow painfree ROM stretch , no UT recruitment Sidelying Exercises shld ER Side left Resistance AROM Reps/Minutes 2x8 reps Comments cued scap retract/ depress awareness, no UT recruit Manual Therapy Treatment Soft Tissue Mobilization cervical Body Location scalene, SCM, subocc, SOR Mobilization Type Cross-Friction,Myofascial Release,Rolling,Sustained Pressure,Other Intensity/Depth Moderate Body Position Hooklying 3 Body Location L Infraspinatus Mobilization Type Strumming,Sustained Pressure 2 Body Location L Rhomboids Mobilization Type Strumming,Sustained Pressure 1 Body Location L Subscap Mobilization Type Strumming,Sustained Pressure Joint Mobilizations 1 Joint L scapulothoracic Direction Lateral Grade II Body Position Supine Comments manual and cued AROM retract/ depression. pt challenged with scap retract/depress contact cues for rhomboid and LT facilitation, no UT/ pec recruitment. PT-OP-T Assessment and Plan Start: 08/13/21 13:13 Freq: Status: Active Protocol: Document 09/22/21 10:30 DCW (Rec: 09/22/21 11:13 [facility] [id number]) Physical Therapy Assessment Goals Two Impairment Pt experiences increased pain with resisted external and internal rotation Alf Goal (LTG) Pt to don/doff jacket with no increased shoulder pain 09/06/21: progressing: pt reported able to reach behind back better to get shirt/ jacket on. LTG Duration 10/11/21 (progressing 09/06/21) One Impairment Pt does not have an appropriate home exercise program Short Term Goal (STG) Pt to be independent and compliant with an appropriate HEP 09/06/21: progressing: reviewing set up/ proper form with cues and keep to reps/ amt hold stretching so not over do and cause increased soreness. STG Duration 09/13/21: Assessment Summary Assessment Pt showing good improvement with cervical and scapular mobility, responding well to HEP and self-STM. 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 AROM HEP and posture awareness. *Check in on trigger pt injections (Again this week, might be the last ones). POC: STM, Shoulder strengthening/stabilization
--- NOTE | 2021-09-27 17:01 | PT-OP ANOTE ---
No showed to 09/27/21 appointment
--- NOTE | 2021-09-29 11:13 | PT.OTN ---
Current Diagnoses Pain in left shoulder (09/29/21) Stiffness of left shoulder, not elsewhere classified (09/29/21) Sacroiliitis, not elsewhere classified (09/29/21) Strain of muscle(s) and tendon(s) of the rotator cuff of left shoulder, subsequent encounter (09/29/21) Physical Therapy Treatment Note PT-OP-A Visit Information Start: 08/13/21 13:13 Freq: Status: Active Protocol: Document 09/29/21 10:30 DCW (Rec: 09/29/21 11:12 DCW [id number]) Out-Patient Physical Therapy Visit Information Visit Information Visit Type Treatment Note Visit Start Time 10:30 Visit Stop Time 11:20 Total Visit Minutes 45 Visit Number 10 Number of INFORMATION CLERK BROKERAGE Visits 0 Evaluation Information Evaluation Date 08/13/21 PT-OP-B Current Condition Start: 08/13/21 13:13 Freq: Status: Active Protocol: Document 08/13/21 11:15 DCW (Rec: 08/13/21 13:38 DCW [id number]) Current Condition History of Current Condition Onset Date s/p four months Current Complaints pain/tightness under left shoulder blade History of Current Condition Pt is a 81 year old male with a four month history of left shoulder pain. 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 Pt reports the pain has been fairly constant since that time. Notes he is still able to do what he wants, the pain isn't limiting. Feels better laying on a firm surface. Admits he tried to see a chiropractor, but feels that might have made it worse. Notes he has no other injury history, never needed a stitch or broken a bone, and this might be the worst I've ever been injured. Treatment Goals Patient/Caregiver Goals Eliminate shoulder pain Prior Functional Status Baseline Function- ADL's Independent Baseline Function- Mobility Independent PT-OP-C Subjective Start: 08/13/21 13:13 Freq: Status: Active Protocol: Document 09/29/21 10:30 DCW (Rec: 09/29/21 11:12 DCW [id number]) OP-PT Subjective Patient Comments Patient Comments I'm doing really really good. I've have zero pain for about four days now. PT-OP-E Functional Tests Start: 08/13/21 13:13 Freq: Status: Active Protocol: Document 08/13/21 11:15 DCW (Rec: 08/13/21 13:38 DCW [id number]) Functional Tests Apley's Scratch Test Action 1- Left Posterior opposite shoulder Action 1- Right Posterior opposite shoulder Action 2- Left T4 Action 2- Right T4 Action 3- Left T8 Action 3- Right T10 PT-OP-F Manual Assessment Start: 08/13/21 13:13 Freq: Status: Active Protocol: Document 08/13/21 11:15 DCW (Rec: 08/13/21 13:38 DCW [id number]) Manual Assessments Soft Tissue Assessment Soft Tissue Mobility Assessment Moderate tone and tenderness to palpation 3/4: Wincing and withdraw left subscapularis, left rhomboids Tenderness to palpation 2/4: Pain with wincing left infraspinatus PT-OP-K Range of Motion Start: 08/13/21 13:13 Freq: Status: Active Protocol: Document 08/13/21 11:15 DCW (Rec: 08/13/21 13:38 [facility] [id number]) Shoulder Goniometric Range of Motion Shoulder Left Active Shoulder ROM WFL Yes Testing Position Sitting Flexion 170 Abduction 180 PT-OP-L Special Tests Start: 08/13/21 13:13 Freq: Status: Active Protocol: Document 09/29/21 10:30 DCW (Rec: 09/29/21 11:13 DCW [id number]) Special Tests Shoulder Special Tests Painful Arc Test Results Negative Passive ER Rotator Cuff Test Results Negative Lift-Off Rotator Cuff Test Results Negative Hutchison Ney Impingement Test Results Negative Grind Labrum Test Results Negative Empty Can Test Results Negative Drop Arm Rotator Cuff Test Results Negative Belly Press Test Results Negative Apprehension Test Test Results Negative Anterior Draw Test Results Negative PT-OP-M Strength Start: 08/13/21 13:13 Freq: Status: Active Protocol: Document 08/13/21 11:15 DCW (Rec: 08/13/21 13:38 DCW [id number]) Shoulder Strength Shoulder Manual Muscle Testing Left Flexion 4+ Good+ Abduction (C5) 4+ Good+ External Rotation 4+ Good+ Internal Rotation 4+ Good+ Horizontal Abduction 4+ Good+ PT-OP-Q Treatments Start: 08/13/21 13:13 Freq: Status: Active Protocol: Document 09/29/21 10:30 DCW (Rec: 09/29/21 11:12 TXW [id number]) Manual Therapy Treatment Soft Tissue Mobilization cervical Body Location scalene, SCM, subocc, SOR Mobilization Type Cross-Friction,Myofascial Release,Rolling,Sustained Pressure,Other Intensity/Depth Moderate Body Position Hooklying 3 Body Location L Infraspinatus Mobilization Type Strumming,Sustained Pressure 2 Body Location L Rhomboids Mobilization Type Strumming,Sustained Pressure 1 Body Location L Subscap Mobilization Type Strumming,Sustained Pressure Joint Mobilizations 1 Joint L scapulothoracic Direction Lateral Grade II Body Position Supine Comments manual and cued AROM retract/ depression. pt challenged with scap retract/depress contact cues for rhomboid and LT facilitation, no UT/ pec recruitment. Other Other Manual Treatments Testing PT-OP-T Assessment and Plan Start: 08/13/21 13:13 Freq: Status: Active Protocol: Document 09/29/21 10:30 DCW (Rec: 09/29/21 11:12 [facility] [id number]) Physical Therapy Assessment Goals Two Impairment Pt experiences increased pain with resisted external and internal rotation Meat Packer Goal (LTG) Pt to don/doff jacket with no increased shoulder pain 09/06/21: progressing: pt reported able to reach behind back better to get shirt/ jacket on. LTG Duration Met One Impairment Pt does not have an appropriate home exercise program Short Term Goal (STG) Pt to be independent and compliant with an appropriate HEP 09/06/21: progressing: reviewing set up/ proper form with cues and keep to reps/ amt hold stretching so not over do and cause increased soreness. STG Duration Met Assessment Summary Assessment Pt doing very well, approaching discharge, has met goals. Would like one more visit after his trigger point injections next week, to ensure everything is still feeling okay, and pt will then likely discharge. Physical Therapy Plan Frequency and Duration Frequency of Treatment 2x/Week Duration of Treatment Two months Plan of Care Start Date 08/13/21 Plan of Care End Date 10/11/21 Therapeutic Interventions Therapeutic Interventions Home Exercise Program,Joint Mobilizations,Manual Therapy, Patient/Caregiver Education, Self-Care/Home Management,Soft Tissue Mobilization, Therapeutic Exercises Modalities Cold Pack/Ice Massage,Electric Stimulation,Hot Packs, Ultrasound Next Visit Focus/Plan Next Note Type Treatment Note Next Visit Plan Next tx: review HEP, check effectiveness of trigger point injections
--- NOTE | 2021-10-06 10:52 | PT.OTN ---
Current Diagnoses Pain in left shoulder (10/06/21) Stiffness of left shoulder, not elsewhere classified (10/06/21) Sacroiliitis, not elsewhere classified (10/06/21) Strain of muscle(s) and tendon(s) of the rotator cuff of left shoulder, subsequent encounter (10/06/21) Physical Therapy Treatment Note PT-OP-A Visit Information Start: 08/13/21 13:13 Freq: Status: Active Protocol: Document 10/06/21 10:30 DCW (Rec: 10/06/21 10:52 DC [id number]) Out-Patient Physical Therapy Visit Information Visit Information Visit Type Discharge Summary Visit Start Time 10:30 Visit Stop Time 10:45 Total Visit Minutes 15 Visit Number 11 Number of RECORDS TECHNICIAN Visits 0 Evaluation Information Evaluation Date 08/13/21 PT-OP-B Current Condition Start: 08/13/21 13:13 Freq: Status: Active Protocol: Document 08/13/21 11:15 DCW (Rec: 08/13/21 13:38 DCW [id number]) Current Condition History of Current Condition Onset Date s/p four months Current Complaints pain/tightness under left shoulder blade History of Current Condition Pt is a 81 year old male with a four month history of left shoulder pain. 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 Pt reports the pain has been fairly constant since that time. Notes he is still able to do what he wants, the pain isn't limiting. Feels better laying on a firm surface. Admits he tried to see a chiropractor, but feels that might have made it worse. Notes he has no other injury history, never needed a stitch or broken a bone, and this might be the worst I've ever been injured. Treatment Goals Patient/Caregiver Goals Eliminate shoulder pain Prior Functional Status Baseline Function- ADL's Independent Baseline Function- Mobility Independent PT-OP-C Subjective Start: 08/13/21 13:13 Freq: Status: Active Protocol: Document 10/06/21 10:30 DCW (Rec: 10/06/21 10:52 DCW [id number]) OP-PT Subjective Patient Comments Patient Comments I have a little pain today, but really only from my trigger point injection yesterday. Between my last therapy appointment and my injection, there was zero pain . PT-OP-E Functional Tests Start: 08/13/21 13:13 Freq: Status: Active Protocol: Document 10/06/21 10:30 DCW (Rec: 10/06/21 10:44 DCW [id number]) Functional Tests Apley's Scratch Test Action 1- Left Posterior opposite shoulder Action 1- Right Posterior opposite shoulder Action 2- Left T4 Action 2- Right T4 Action 3- Left T6 Action 3- Right T10 PT-OP-F Manual Assessment Start: 08/13/21 13:13 Freq: Status: Active Protocol: Document 10/06/21 10:30 DCW (Rec: 10/06/21 10:44 DCW [id number]) Manual Assessments Soft Tissue Assessment Soft Tissue Mobility Assessment Mild tone and tenderness to palpation 1/: along trigger point injection sites from yesterday. PT-OP-K Range of Motion Start: 08/13/21 13:13 Freq: Status: Active Protocol: Document 10/06/21 10:30 DCW (Rec: 10/06/21 10:44 DCW [id number]) Shoulder Goniometric Range of Motion Shoulder Left Active Shoulder ROM WFL Yes Testing Position Sitting Flexion 180 Extension 180 PT-OP-L Special Tests Start: 08/13/21 13:13 Freq: Status: Active Protocol: Document 10/06/21 10:30 DCW (Rec: 10/06/21 10:44 DCW [id number]) Special Tests Shoulder Special Tests Painful Arc Test Results Negative Passive ER Rotator Cuff Test Results Negative Lift-Off Rotator Cuff Test Results Negative Hutchison Ney Impingement Test Results Negative Grind Labrum Test Results Negative Empty Can Test Results Negative Drop Arm Rotator Cuff Test Results Negative Belly Press Test Results Negative Apprehension Test Test Results Negative Anterior Draw Test Results Negative PT-OP-M Strength Start: 08/13/21 13:13 Freq: Status: Active Protocol: Document 10/06/21 10:30 DCW (Rec: 10/06/21 10:44 DCW [id number]) Shoulder Strength Shoulder Manual Muscle Testing Left Flexion 5 Normal Abduction (C5) 5 Normal External Rotation 5 Normal Internal Rotation 5 Normal Horizontal Abduction 5 Normal Horizontal Adduction 5 Normal PT-OP-Q Treatments Start: 08/13/21 13:13 Freq: Status: Active Protocol: Document 10/06/21 10:30 DCW (Rec: 10/06/21 10:52 [facility] [id number]) Manual Therapy Treatment Manual Techniques 1 Type Testing Comments MMT, ROM, Special testing PT-OP-T Assessment and Plan Start: 08/13/21 13:13 Freq: Status: Active Protocol: Document 10/06/21 10:30 DCW (Rec: 10/06/21 10:52 [facility] [id number]) Physical Therapy Assessment Goals Two Impairment Pt experiences increased pain with resisted external and internal rotation Assisted Goal (LTG) Pt to don/doff jacket with no increased shoulder pain 09/06/21: progressing: pt reported able to reach behind back better to get shirt/ jacket on. LTG Duration Met One Impairment Pt does not have an appropriate home exercise program Short Term Goal (STG) Pt to be independent and compliant with an appropriate HEP 09/06/21: progressing: reviewing set up/ proper form with cues and keep to reps/ amt hold stretching so not over do and cause increased soreness. STG Duration Met Progress Towards Goals Progress Towards Goals Goals Met Assessment Summary Assessment Pt has met all goals, feels great, appropriate for discharge at this time. Pt reports his is concerned that his pain will return and inturrupt their travel plans this summer. Pt informed that he can easily return to PT with a new referral if needed. Physical Therapy Plan Frequency and Duration Frequency of Treatment 2x/Week Duration of Treatment Two months Plan of Care Start Date 08/13/21 Plan of Care End Date 10/11/21 Therapeutic Interventions Therapeutic Interventions Home Exercise Program,Joint Mobilizations,Manual Therapy, Patient/Caregiver Education, Self-Care/Home Management,Soft Tissue Mobilization, Therapeutic Exercises Modalities Cold Pack/Ice Massage,Electric Stimulation,Hot Packs, Ultrasound Discharge Physical Therapy Discharge Reasons Goals Met Next Visit Focus/Plan Next Note Type Discharge Summary
== END 2021-10-07 09:02 ==
LOC: PHYS 10:30
PROVIDERS: Family Provider Internal Medicine; PCP Internal Medicine; Referring Provider Physician Assistant; Visit Provider Physician Assistant
DX: M25.512 Pain in left shoulder (principal); M25.612 Stiffness of left shoulder, not elsewhere classified; S46.012D Strain of muscle(s) and tendon(s) of the rotator cuff of left shoulder, subsequent encounter; M46.1 Sacroiliitis, not elsewhere classified
CPT/HCPCS: 97110; 97140; 97161; 97535

== ENCOUNTER → 2021-10-23 13:09 | Outpatient (CLI) | payer MEDICARE, SELFPAY ==
--- NOTE | 2021-10-23 | DI.MRI.S_ITS ---
PROCEDURE: MR CERVICAL SPINE WO CON INDICATIONS: Spinal stenosis, cervical region TECHNIQUE: Noncontrast sagittal T1 spin echo and T2 fast spin echo, sagittal STIR, foraminal oblique sagittal T2 fast spin echo, and axial gradient echo or T2 fast spin echo through the cervical spine. COMPARISON: None. FINDINGS: Image quality: Excellent. Alignment and Curvature: There is normal bony alignment. Bone Marrow: Marrow demonstrates normal overall signal. Spinal Cord: Visualized spinal cord has normal size and signal. No cerebellar tonsillar herniation. Paraspinous Soft Tissues: No paravertebral masses. Prevertebral soft tissues are normal in thickness. C2-C3: Loss of disc signal. Mild, diffuse disc bulge. No central stenosis. Mild right severe left facet hypertrophy. Severe left neural foraminal narrowing with compression of the exiting left C3 nerve root. C3-C4: Loss of disc signal. Mild, diffuse disc bulge. Moderate bilateral facet hypertrophy. No central stenosis. Moderate bilateral neural foraminal narrowing. No neural compression. C4-C5: Loss of disc signal. Mild, diffuse disc bulge. Mild right and severe left facet hypertrophy. Mild narrowing of the central canal. Moderate right and severe left neural foraminal narrowing with compression of the exiting left C5 nerve root. C5-C6: Loss of disc signal. Mild to moderate diffuse disc bulge. Mild ligamentum flavum hypertrophy. Moderate bilateral facet hypertrophy. Moderate right and mild left uncovertebral joint hypertrophy. Moderate narrowing of the central canal. Severe bilateral neural foraminal narrowing with compression of the exiting C6 nerve roots. C6-C7: Loss of disc signal and height. Mild to moderate diffuse disc bulge. Mild bilateral facet hypertrophy. Mild bilateral uncovertebral joint hypertrophy. Moderate right and severe left neural foraminal narrowing with compression of the exiting left C7 nerve root. C7-T1: Loss of disc signal. No central stenosis. No neural foraminal narrowing. No neural compression. IMPRESSION: 1. Multilevel degenerative disc disease. 2. Multilevel facet and uncovertebral arthropathy. 3. No severe central canal narrowing. 4. Severe left C2-C3, C4-C5 and C6-C7 neural foraminal narrowing with compression of the exiting left C3, C5 and C7 nerve roots. Severe bilateral C5-C6 neural foraminal narrowing with compression of the exiting bilateral C6 nerve roots. Dictated by: Sharon Lantigua MD, PhD on 10/25/2021 at 10:56 Approved by: Sharon Lantigua MD, PhD on 10/25/2021 at 11:02
== END ==
PROVIDERS: Family Provider Internal Medicine; PCP Internal Medicine; Referring Provider Physical Medicine & Rehabilitation Pain Medicine; Visit Provider Physical Medicine & Rehabilitation Pain Medicine
DX: M47.812 Spondylosis without myelopathy or radiculopathy, cervical region (principal); M48.02 Spinal stenosis, cervical region; M50.31 Other cervical disc degeneration, high cervical region
CPT/HCPCS: 72141

== ENCOUNTER 2021-11-01 09:34 | Emergency (ER) | payer MEDICARE, SELFPAY ==
[2021-11-01] VITALS (8 sets, daily range): BP systolic 165–194; BP diastolic 71–90; PULSE 78–89; RESP 14–16; TEMP 36.3; O2SAT 97–100; BMI 27.1
[2021-11-01 10:11] LABS: Add Manual Diff / Slide Review NO; Basophils Absolute Auto 0 /uL (0-100); Basophils Percent Auto 0.5 % (0-2); Eosinophils Absolute Auto 100 /uL (0-450); Eosinophils Percent Auto 1.5 % (2-4); Hematocrit 38.3 % (41-53); Hemoglobin 12.7 g/dL (13.5-17.5); Lymphocytes Absolute Auto 1400 /uL (1100-4500); Lymphocytes Percent Auto 20.5 % (25-40); Mean Corpuscular Hemoglobin 24.4 PG (26-34); Mean Corpuscular Volume 73.8 fL (80-100); Monocytes Absolute Auto 700 /uL (0-900); Neutrophils Absolute Auto 4700 /uL (1500-7000); Neutrophils Percent Auto 67.5 % (50-75); Platelet Count 167 X10^3/uL (150-400); Red Blood Cell Count 5.19 X10^6/uL (4.5-5.9)
[2021-11-01] MEDS: ONDANSETRON 4 MG/2 ML INJ IV (10:14)
[2021-11-01] MEDS: SODIUM CHLORIDE 0.9% 1,000 ML 1000 ML IV (10:15)
[2021-11-01 10:17] LABS: Alanine Aminotransferase 36 IU/L (<50); Albumin 4.1 g/dL (3.5-5.0); Albumin Globulin Ratio 1.5 (1.0-2.8); Alkaline Phosphatase 79 U/L (38-126); Aspartate Aminotransferase 36 IU/L (17-59); BUN Creatinine Ratio 20.9 (6-22); Bilirubin Total 0.9 mg/dL (0.2-1.3); Blood Urea Nitrogen 23 mg/dL (9-20); Calcium 8.8 mg/dL (8.4-10.2); Carbon Dioxide 26 mmol/L (22-32); Chloride 102 mmol/L (98-107); Estimated Glomerular Filt Rate > 60.0 mL/min (>60); Globulin 2.8 g/dL (1.7-4.1); Glucose 127 mg/dL (80-110); HEMOLYSIS < 15 (0-50); Lipase 51 U/L (23-300); Sodium 135 mmol/L (137-145); Total Protein 6.9 g/dL (6.3-8.2)
--- NOTE | 2021-11-01 10:29 | ED.NAVMDI ---
HPI - Nausea/Vomiting/Diarrhea General Chief complaint: Nausea/Vomiting/Diarrhea Stated complaint: Back pain, vomiting, dehydrated Time Seen by Provider: 11/01/21 10:29 Source: patient and family Mode of arrival: Wheelchair Limitations: no limitations History of Present Illness HPI Narrative: This is a 81-year-old male comes emergency department with complaint of back pain which has been present for 8 months. Patient states he has had cervical as well as thoracic and lumbar back pain and spasms. He had an MRI a week ago which showed severe foraminal narrowing but no central narrowing of the C-spine. Patient states that he was given hydrocodone which made him ?crazy? and he has tried Tylenol, gabapentin, meloxicam and multiple other medications which have been not successful. Patient states he started having nausea over the last several days and then developed vomiting last night as well as diarrhea he had for 5 episodes. She denies any bright red blood or melena. He states he did note some dysuria, some decrease in output but states his urine has not been dark. He has had little bit of increase of lower back discomfort but states it always hurts. He states that his neck and back pain is usually worsened by walking for prolonged periods. He has an appointment tomorrow with Dr. Lara for evaluation. Has a history of hypertension, insulin-dependent diabetes in his long and short-acting insulin states he usually has tight glucose control, no dyslipidemia is chronic kidney disease. No prior surgeries. Patient denies any other allergies to medications. No tobacco, occasional alcohol, he has tried marijuana but states it also makes him crazy?. His primary care is Dr. Brice. Related Data Home Medications Medication Instructions Recorded Confirmed ASPIRIN (#ASPIRIN) 81 mg PO #0 03/01/12 09/17/21 Previous Rx's Medication Instructions Recorded blood-glucose meter,continuous #1 ea 06/30/20 (Dexcom G6 Cable Puller) insulin glargine 100 unit/mL (3 50 unit (0.5 mL) SUBCUT QPM #45 ml 01/07/21 mL) subcutaneous pen losartan 100 mg tablet 100 mg PO DAILY #90 tab 01/07/21 metformin 1,000 mg tablet 1,000 mg PO BID #180 tab 01/07/21 simvastatin 40 mg tablet 40 mg PO DAILY #90 tab 01/07/21 B-D 5MM Pen [place] #400 ea 03/19/21 blood-glucose transmitter (Dexcom #1 ea 06/21/21 G6 Transmitter) blood-glucose sensor (Dexcom G6 #3 ea 06/28/21 Sensor) cyclobenzaprine 5 mg tablet 5 mg PO TID PRN #30 tab 07/12/21 albuterol sulfate 90 mcg/actuation 2 puff INHALATION Q4-6H PRN #8.5 g 08/16/21 aerosol inhaler (ProAir HFA) carvedilol 6.25 mg tablet 6.25 mg PO BID #180 tab 09/17/21 gabapentin 300 mg capsule 300 mg PO BEDTIME #60 cap 09/17/21 hydroxyzine pamoate 25 mg capsule 25 - 50 mg PO DAILY PRN #60 cap 09/17/21 insulin lispro 100 unit/mL 15 unit (0.15 mL) SUBCUT QAC #45 ml 09/29/21 subcutaneous pen levothyroxine 50 mcg tablet 50 mcg PO DAILY #90 tab 10/07/21 ondansetron 4 mg disintegrating 4 mg PO Q6H PRN #7 tab 11/01/21 tablet oxycodone 5 mg tablet 5 mg PO Q6H PRN #10 tab 11/01/21 Allergies Allergy/AdvReac Type Severity Reaction Status Date / Time prednisone AdvReac Severe Made Verified 11/01/21 10:01 patient Hostile. Review of Systems Review of Systems ROS Unobtainable: All systems reviewed & are unremarkable except as noted in HPI and below Patient History Medical History Acquired hypothyroidism (11/26/15) Asthma Essential hypertension History of adenomatous polyp of colon Mixed hyperlipidemia Type 2 diabetes mellitus without complication (11/26/15) Social History Smoking Status: Never smoker Smoking Status: Never smoker alcohol intake frequency: 0-2 drinks per day Substance Use Type: does not use Exam Narrative Exam Narrative: GENERAL: Alert and oriented x three, male in mild distress. HEENT: Head normocephalic, atraumatic, EOMI, pupils reactive, face symmetric, moist mucous membranes NECK: Supple, full range of motion, no cervical vertebral tenderness. CARDIOVASCULAR: Regular rate and rhythm without murmurs, rubs or gallops. RESPIRATORY: Breath sounds equal bilaterally, no wheezes rales or rhonchi. ABDOMEN: Soft, nontender. patient appears distended. Normoactive bowel sounds all 4 quadrants. No guarding or rebound, rigidity, no mass : No CVA tenderness EXTREMITIES: Normal range of motion, no clubbing or edema. Neurovascularly intact NEUROLOGICAL: Cranial nerves II through XII grossly intact. Moving all extremities SKIN: Warm, dry, no petechiae, no rashes or lesions. Initial Vital Signs Initial Vital Signs: Vital Signs Temperature 97.4 F L 11/01/21 09:45 Pulse Rate 89 11/01/21 09:45 Respiratory Rate 14 11/01/21 09:45 Blood Pressure 194/90 H 11/01/21 09:45 Pulse Oximetry 99 11/01/21 09:45 Course Orders Ordered: ED Orders 11/01/21 09:55 Complete Blood Count AUTO DIFF Stat Comprehensive Metabolic Panel Stat Lipase Stat 11/01/21 10:02 EKG-12 Lead Stat 11/01/21 10:41 CT abdomen pelvis w con Stat Discontinued Medications Sodium Chloride (Normal Saline 0.9%) 1,000 mls @ 1,000 mls/hr IV BOLUS ONE Stop: 11/01/21 11:01 Last Infusion: 11/01/21 12:18 Dose: 0 mls/hr Documented by: Admin: 11/01/21 10:15 Dose: 1,000 mls/hr Documented by: ETHEL Morphine Sulfate (Morphine 4 Mg/Ml Inj) 4 mg IV NOW ONE Stop: 11/01/21 10:42 Last Admin: 11/01/21 10:48 Dose: 4 mg Documented by: ETHEL Ondansetron HCl (Ondansetron 4 Mg/2 Ml Inj) 4 mg IV NOW ONE Stop: 11/01/21 10:03 Last Admin: 11/01/21 10:14 Dose: 4 mg Documented by: ETHEL Oxycodone HCl (Oxycodone Ir 5 Mg Tablet) 5 mg PO NOW ONE Stop: 11/01/21 12:09 Last Admin: 11/01/21 12:16 Dose: 5 mg Documented by: ELIEZER Reevaluation(s) Reevaluation #1: Patient is feeling improved with medications. Had some recurrence of his back pain and was given oral dose of pain medication. Reviewed his labs and imaging today. Patient has follow-up tomorrow with his spinal surgeon and was encouraged to keep this appointment he is tolerating orals here in the department. Vital Signs Vital signs: Vital Signs - 8 hr 11/01/21 10:30 11/01/21 11:41 11/01/21 11:43 Pulse Rate 78 85 86 Respiratory Rate 16 Blood Pressure 186/84 H 168/78 H Pulse Oximetry 97 100 11/01/21 12:00 11/01/21 12:18 11/01/21 12:27 Pulse Rate 84 82 83 Respiratory Rate Blood Pressure 179/85 H Pulse Oximetry 99 98 98 MDM - Nausea/Vomiting/Diarrhea Lab Data Result diagrams: 11/01/21 09:55 11/01/21 09:55 Labs: Lab Results 11/01/21 11/01/21 Range/Units 09:55 09:55 WBC 7.0 (4.5-11.0) X10^3/uL RBC 5.19 (4.5-5.9) X10^6/uL Hgb 12.7 L (13.5-17.5) g/dL Hct 38.3 L (41-53) % MCV 73.8 L (80-100) fL MCH 24.4 L (26-34) PG MCHC 33.0 (30-36) % RDW 17.0 H (11.6-14.8) % Plt Count 167 (150-400) X10^3/uL Neut % (Auto) 67.5 (50-75) % Lymph % (Auto) 20.5 L (25-40) % [place] % (Auto) 10.0 (3-14) % Eos % (Auto) 1.5 L (2-4) % Baso % (Auto) 0.5 (0-2) % Neut # (Auto) 4700 (9198-6669) /uL Lymph # (Auto) 1400 (8674-2122) /uL [place] # (Auto) 700 (0-900) /uL Eos # (Auto) 100 (0-450) /uL Baso # (Auto) 0 (0-100) /uL Sodium 135 L (137-145) mmol/L Potassium 4.0 (3.4-5.1) mmol/L Chloride 102 (98-107) mmol/L Carbon Dioxide 26 (22-32) mmol/L BUN 23 H (9-20) mg/dL Creatinine 1.10 (0.66-1.25) mg/dL Estimated GFR > 60.0 (>60) mL/min BUN/Creatinine Ratio 20.9 (6-22) Glucose 127 H (80-110) mg/dL Calcium 8.8 (8.4-10.2) mg/dL Total Bilirubin 0.9 (0.2-1.3) mg/dL AST 36 (17-59) IU/L ALT 36 (<50) IU/L Alkaline Phosphatase 79 (38-126) U/L Total Protein 6.9 (6.3-8.2) g/dL Albumin 4.1 (3.5-5.0) g/dL Globulin 2.8 (1.7-4.1) g/dL Albumin/Globulin Ratio 1.5 (1.0-2.8) Lipase 51 (23-300) U/L Urine Dip Bedside Urine Glucose Negative Bedside Urine Bilirubin - Negative Bedside Urine Ketone - Negative Urine Specific [place] 1.015 Bedside Urine Occult Blood - Negative Bedside Urine pH 7.0 Bedside Urine Protein - Negative Bedside Urine Urobilinogen - Negative Bedside Urine Nitrite - Negative Bedside Urine Leukocytes - Negative Esterase Imaging Data CT scan - abdomen/pelvis: Radiologist's Impression: Launch?Image [address] [address] [address] Scan Report Signed Patient: Mark Bains MR#: [id number] : 1940 Acct:[id number] Age/Sex: 81 / M Date of Service: 11/01/21 Loc: ED Accession Number: [id number] ?? Procedure: CT abdomen pelvis w con Ordering Provider: Isabel Martins D.O. PROCEDURE:? CT ABDOMEN PELVIS W CON ? INDICATIONS:? vomiting/diarrhea ? TECHNIQUE:? After the administration of intravenous contrast, axial sections acquired from the lung bases to the pubic symphysis.? Coronal and sagittal reformats were performed.? For radiation dose reduction, the following was used:? automated exposure control, adjustment of mA and/or kV according to patient size.? ? COMPARISON:? [facility], CT, CT ANGIO CHEST ABDOMEN PELVIS, 02/19/2021, 9:21. ? FINDINGS:? Image quality:? Excellent.? ? Lung bases:? Unremarkable. Heart:? No significant findings. ? ABDOMEN: Liver:? Decreased attenuation of the liver is consistent with fatty infiltration. Gallbladder:? Unremarkable. Biliary ducts:? Unremarkable.? ? Pancreas:? Unremarkable.? ? Spleen:? Unremarkable.? ? Adrenal Glands:? Unremarkable.? ? Kidneys and Ureters:? Unremarkable.? ? ? Stomach and Bowel:? A few diverticula are seen in the colon without signs of acute diverticulitis.? Normal appendix.? No signs of bowel obstruction.? There is a small hiatal hernia.? A few diverticula are also seen in the jejunum without associated inflammatory changes. Peritoneum:? No abnormal intraperitoneal fluid.? No free air.? ? Ventral Wall: ? No hernias.? Abdominal Nodes:? No retroperitoneal or mesenteric adenopathy by size criteria.? Vessels:? Aorta and inferior vena cava are normal in size.? ? PELVIS: Pelvic Organs:? Mild prostatomegaly.? ? Bladder:? Unremarkable.? ? Pelvic Nodes: No enlarged lymph nodes.? Miscellaneous: No hernias are seen. ? ? ? Bones:? Degenerative changes are seen in the included spine. ? ? IMPRESSION:? 1. No acute abnormality identified in the abdomen or pelvis. 2. Colonic and small bowel diverticulosis without signs of acute diverticulitis. 3. Small hiatal hernia. 4. Diffuse hepatic steatosis.? ? ? Dictated by: Edgar Lucero M.D. on 11/01/2021 at 11:11 ? ? Approved by: Edgar Lucero M.D. on 11/01/2021 at 11:19? ECG Data Attestation: I personally reviewed and interpreted this ECG as follows: Interpretation: Sinus rhythm, right bundle-branch block. Rate 85 [place] 194 QRS of 134 and QTC 454. Patient has acute changes from 02/19/2021 which he has a right bundle branch block and no acute ST changes noted. MDM Narrative Medical decision making narrative: This is a 81-year-old male with acute on chronic cervical and low back pain. Patient has been having vomiting and diarrhea overnight but started with nausea for several days. He is hypertensive but has had trouble keeping down medications. Plan for fluids, labs show an elevated BUN and baseline anemia. CT abdomen pelvis as he does appear somewhat distended although nontender. Patient has also had some dysuria so plan for urine analysis. Patient abdominal labs are normal. CT abdomen pelvis for his nausea and vomiting or diarrhea. Patient has some diverticulosis but no signs of diverticulitis, patent steatosis. Plan for discharge home with oral pain medication to help control his neck and back pain. He has follow-up with this spinal surgeon. Discharge Plan Departure Patient Disposition: Home Clinical Impression: Nausea vomiting and diarrhea Instructions: DI for Vomiting -- Adult Activity Restrictions/Additional Instructions: Follow-up with your physician for recheck. Please follow-up with your appointment with Dr. Castellano tomorrow for your back. You may take Zofran 1 tablet every 6 hours as needed. You may try oxycodone 1 tablet every 6 hours as needed for your neck and back pain. This is a narcotic you may have similar responses as to hydrocodone. This medication can make you sleepy do not drive, perform hazardous activities or make any major decisions while taking it. This medication will make you constipated please take a stool softener once to twice daily until stools are soft and regular. [facility] [place]. Please return for fevers, persistent vomiting, black or bloody stools, new or worsening abdominal pain, lightheadedness or passing out, new numbness, weakness or loss of sensation, loss of bowel or bladder control or other new or concerning symptoms. Prescriptions: New ondansetron 4 mg tablet,disintegrating 4 mg PO Q6H PRN (Reason: nausea and vomiting) Qty: 7 0RF oxycodone 5 mg tablet 5 mg PO Q6H PRN (Reason: pain) Qty: 10 0RF No Action ASPIRIN (#ASPIRIN) 81 mg PO Qty: 0 0RF (DME) Dexcom G6 Cable Puller Misc See Rx Instructions .ROUTE .MEDSUPPLY Qty: 1 0RF Rx Instructions: As directed insulin glargine 100 unit/mL (3 mL) insulin pen 50 unit SUBCUT QPM Qty: 45 6RF metformin 1,000 mg tablet 1,000 mg PO BID Qty: 180 3RF losartan 100 mg tablet 100 mg PO DAILY Qty: 90 3RF simvastatin 40 mg tablet 40 mg PO DAILY Qty: 90 3RF (DME) Dexcom G6 Transmitter Device See Rx Instructions .ROUTE .MEDSUPPLY Qty: 1 3RF Rx Instructions: As directed (DME) Dexcom G6 Sensor Device See Rx Instructions .ROUTE .MEDSUPPLY Qty: 3 12RF Rx Instructions: As directed cyclobenzaprine 5 mg tablet 5 mg PO TID PRN (Reason: muscle spasm) Qty: 30 0RF albuterol sulfate [ProAir HFA] 90 mcg/actuation HFA aerosol inhaler 2 puff INHALATION Q4-6H PRN (Reason: shortness of breath or wheezing) Qty: 8.5 12RF insulin lispro 100 unit/mL insulin pen 15 unit SUBCUT QAC Qty: 45 6RF levothyroxine 50 mcg tablet 50 mcg PO DAILY Qty: 90 3RF (DME) B-D 5MM Pen [place] See Rx Instructions .Route .MEDSUPPLY Qty: 400 6RF Rx Instructions: Use 4x a day or as instructed by PCP. hydroxyzine pamoate 25 mg capsule 25 - 50 mg PO DAILY PRN (Reason: back pain) Qty: 60 3RF carvedilol 6.25 mg tablet 6.25 mg PO BID Qty: 180 3RF Rx Instructions: must administer with a meal/food gabapentin 300 mg capsule 300 mg PO BEDTIME Qty: 60 3RF Referrals: Duglas Brice MD [Primary Care Provider] -
--- NOTE | 2021-11-01 10:41 | DI.CT.S_ITS ---
PROCEDURE: CT ABDOMEN PELVIS W CON INDICATIONS: vomiting/diarrhea TECHNIQUE: After the administration of intravenous contrast, axial sections acquired from the lung bases to the pubic symphysis. Coronal and sagittal reformats were performed. For radiation dose reduction, the following was used: automated exposure control, adjustment of mA and/or kV according to patient size. COMPARISON: [facility], CT, CT ANGIO CHEST ABDOMEN PELVIS, 02/19/2021, 9:21. FINDINGS: Image quality: Excellent. Lung bases: Unremarkable. Heart: No significant findings. ABDOMEN: Liver: Decreased attenuation of the liver is consistent with fatty infiltration. Gallbladder: Unremarkable. Biliary ducts: Unremarkable. Pancreas: Unremarkable. Spleen: Unremarkable. Adrenal Glands: Unremarkable. Kidneys and Ureters: Unremarkable. Stomach and Bowel: A few diverticula are seen in the colon without signs of acute diverticulitis. Normal appendix. No signs of bowel obstruction. There is a small hiatal hernia. A few diverticula are also seen in the jejunum without associated inflammatory changes. Peritoneum: No abnormal intraperitoneal fluid. No free air. Ventral Wall: No hernias. Abdominal Nodes: No retroperitoneal or mesenteric adenopathy by size criteria. Vessels: Aorta and inferior vena cava are normal in size. PELVIS: Pelvic Organs: Mild prostatomegaly. Bladder: Unremarkable. Pelvic Nodes: No enlarged lymph nodes. Miscellaneous: No hernias are seen. Bones: Degenerative changes are seen in the included spine. IMPRESSION: 1. No acute abnormality identified in the abdomen or pelvis. 2. Colonic and small bowel diverticulosis without signs of acute diverticulitis. 3. Small hiatal hernia. 4. Diffuse hepatic steatosis. Dictated by: Edgar Lucero M.D. on 11/01/2021 at 11:11 Approved by: Edgar Lucero M.D. on 11/01/2021 at 11:19
[2021-11-01] MEDS: MORPHINE 4 MG/ML INJ IV (10:48)
[2021-11-01] MEDS: OXYCODONE IR 5 MG TABLET PO (12:16)
== END 2021-11-01 12:34 | disposition home or self-care (01) ==
PROVIDERS: Emergency Provider Emergency Medicine; Family Provider Internal Medicine; PCP Internal Medicine
DX: R11.2 Nausea with vomiting, unspecified (principal); R19.7 Diarrhea, unspecified; M54.2 Cervicalgia; M54.50 Low back pain, unspecified; I10 Essential (primary) hypertension; Z79.899 Other long term (current) drug therapy
CPT/HCPCS: 36415; 74177; 80053; 81003; 83690; 85025; 93005; 93010; 96361; 96374; 96375; 99284; J2270; J2405

== ENCOUNTER → 2022-02-25 14:30 | Outpatient (CLI) | payer MEDICARE, SELFPAY ==
[2022-02-25 17:13] LABS: Alanine Aminotransferase 40 IU/L (<50); Albumin Globulin Ratio 1.8 (1.0-2.8); Alkaline Phosphatase 70 U/L (38-126); Aspartate Aminotransferase 39 IU/L (17-59); BUN Creatinine Ratio 13.9 (6-22); Bilirubin Total 0.5 mg/dL (0.2-1.3); Blood Urea Nitrogen 16 mg/dL (9-20); Calcium 8.7 mg/dL (8.4-10.2); Carbon Dioxide 29 mmol/L (22-32); Chloride 104 mmol/L (98-107); Cholesterol 127 mg/dL (140-199); Estimated Glomerular Filt Rate > 60 mL/min (>60); Globulin 2.2 g/dL (1.7-4.1); Glucose 94 mg/dL (80-110); HDL Cholesterol 29 mg/dL (40-60); HEMOLYSIS < 15 (0-50); Potassium 4.4 mmol/L (3.4-5.1); Sodium 140 mmol/L (137-145); Total Protein 6.2 g/dL (6.3-8.2); Triglycerides 423 mg/dL (35-150)
[2022-02-25 17:30] LABS: Hemoglobin A1C% w Est Avg Glu 6.5 % (4.0-6.0)
== END ==
PROVIDERS: Family Provider Internal Medicine; PCP Internal Medicine; Referring Provider Internal Medicine; Visit Provider Internal Medicine
DX: E11.9 Type 2 diabetes mellitus without complications (principal); E78.2 Mixed hyperlipidemia; I10 Essential (primary) hypertension
CPT/HCPCS: 36415; 80053; 80061; 83036

== ENCOUNTER → 2022-04-29 08:09 | Outpatient (CLI) | payer MEDICARE, SELFPAY | PROVIDERS: Family Provider Internal Medicine; PCP Internal Medicine; Visit Provider Nurse Practitioner Critical Care Medicine | DX: N39.0 Urinary tract infection, site not specified (principal) | CPT/HCPCS: 87077; 87086; 87186 ==

== ENCOUNTER → 2022-06-05 11:29 | Outpatient (CLI) | payer MEDICARE, SELFPAY | PROVIDERS: Family Provider Internal Medicine; PCP Internal Medicine; Visit Provider Physician Assistant | DX: N39.0 Urinary tract infection, site not specified (principal) | CPT/HCPCS: 87077; 87086; 87186 ==

== ENCOUNTER → 2022-06-15 15:19 | Outpatient (CLI) | payer MEDICARE, SELFPAY | PROVIDERS: Family Provider Internal Medicine; PCP Internal Medicine; Visit Provider Nurse Practitioner Family | DX: R30.0 Dysuria (principal) | CPT/HCPCS: 87086 ==

== ENCOUNTER 2022-07-14 18:06 | Emergency (ER) | payer MEDICARE, SELFPAY ==
[2022-07-14] VITALS (20 sets, daily range): BP systolic 146–199; BP diastolic 72–95; PULSE 85–105; RESP 18; TEMP 36.6; O2SAT 94–97; BMI 27.1
--- NOTE | 2022-07-14 19:05 | ED.BACK ---
HPI - Back Pain/Injury General Chief Complaint: Back Pain/Injury Stated Complaint: Back Pain, 05/09 Time Seen by Provider: 07/14/22 19:05 Source: patient, family and EMS Mode of arrival: EMS Limitations: no limitations History of Present Illness HPI Narrative: This is an 82-year-old male with known severe cervical foraminal stenosis, diabetes, dyslipidemia, hypertension and chronic thoracic back pain. Patient states his back pain has been persistent he follows with a chiropractor as well as orthopedic surgeon and had trigger point injections yesterday at the site of pain at the left thoracic region, he also saw his chiropractor today. He states that they did seem to make anything worse they usually will get very short term relief and then pain returned. He takes hydroxyzine and tizanidine for pain. He is not on any prescription narcotics he states he is had them before in the past but not regularly. He is also seen a neurologist. Patient denies fevers or chills. He is had some recent mild nausea and decrease in appetite, he denies any vomiting, he denies any new numbness, tingling or weakness in his lower extremities, no loss of bowel or bladder control. He is unaware of any urinary retention issues. Patient states this is the same location of his pain as usual. He received ketamine 15 mg from EMS EN route and he was able to stand and ambulate to their gurney. He denies any other recent new trauma or injury or other changes. Related Data Home Medications Medication Instructions Recorded Confirmed ASPIRIN (#ASPIRIN) 81 mg PO ##0 03/01/12 06/15/22 Previous Rx's Medication Instructions Recorded blood-glucose meter,continuous #1 ea 06/30/20 (Dexcom G6 New Car Inspector [facility] [place] B-D 5MM Pen [place] #400 ea 03/19/21 albuterol sulfate 90 mcg/actuation 2 puff inhalation Q4-6H PRN 08/16/21 aerosol inhaler (ProAir HFA) shortness of breath or wheezing #8.5 grams levothyroxine 50 mcg tablet 50 mcg PO DAILY #90 tabs 10/07/21 ondansetron 4 mg disintegrating 4 mg PO Q6H PRN nausea and 11/01/21 tablet vomiting #7 tabs gabapentin 300 mg capsule 300 mg PO BID #180 caps 11/12/21 benzonatate 100 mg capsule 100 mg PO BID PRN cough #20 caps 01/15/22 carvedilol 3.125 mg tablet 3.125 mg PO BID #180 tabs 02/02/22 simvastatin 40 mg tablet 40 mg PO DAILY #90 tabs 02/02/22 metformin 1,000 mg tablet 1,000 mg PO BID #180 tabs 02/11/22 insulin lispro 100 unit/mL 15 unit (0.15 mL) SUBCUT QAC #60 mL 02/25/22 subcutaneous pen losartan 100 mg tablet 100 mg PO DAILY #90 tabs 03/30/22 cyclobenzaprine 5 mg tablet 5 mg PO TID PRN muscle spasm #30 04/05/22 tabs insulin glargine 100 unit/mL (3 50 unit (0.5 mL) SUBCUT QPM #45 mL 05/24/22 mL) subcutaneous pen hydroxyzine pamoate 25 mg capsule 25 - 50 mg PO DAILY PRN back pain 06/02/22 #60 caps blood-glucose transmitter (Dexcom #1 ea 06/22/22 G6 Transmitter device) blood-glucose sensor (Dexcom G6 #3 ea 06/29/22 Sensor device) nitrofurantoin 100 mg PO Q12H 7 days #14 caps 07/14/22 monohydrate/macrocrystals 100 mg capsule (Macrobid) oxycodone 5 mg tablet 5 mg PO QID PRN pain #10 tabs 07/14/22 Allergies Allergy/AdvReac Type Severity Reaction Status Date / Time prednisone AdvReac Severe Made Verified 06/15/22 15:22 patient Hostile. Review of Systems Review of Systems ROS Unobtainable: All systems reviewed & are unremarkable except as noted in HPI and below Patient History Medical History Acquired hypothyroidism (11/26/15) Asthma Essential hypertension History of adenomatous polyp of colon Mixed hyperlipidemia Spinal stenosis Type 2 diabetes mellitus without complication (11/26/15) Social History Smoking Status: Never smoker Smoking Status: Never smoker alcohol intake frequency: 0-2 drinks per day Substance Use Type: does not use Exam Narrative Exam Narrative: GEN: well nourished, well appearing male, alert and oriented x 3, patient appears to be in moderate distress. HEENT: Atraumatic, pupils are equal round reactive to light, extraocular movements are intact, nares are clear. HEART: Regular rate and rhythm without murmur, clicks, rubs. pulses are equal in upper and lower extremities LUNGS:Lungs clear to auscultation, no wheezes, rales, crackles, chest moves symmetrically ABD:bowel sounds normal, soft, non-tender, no guarding, rebound, rigidity, no masses noted, no hepatosplenomegaly :No CVA tenderness BACK: No cervical, thoracic or lumbar vertebral point tenderness. Patient has tenderness at the T4-5 thoracic range about 3 cm to the left of the spinal column, there is a small circular Band-Aid in place over the site of the injection with no erythema, warmth or drainage, no induration, no swelling or other changes. Patient has normal range of motion. Patient's gait is [antalgic/normal]. Rectal exam is [normal sphincter tone/decreased tone/no tone/deferred or refused]. Muscle strength is 5/5 in upper and lower extremities. Dorsalis pedis and tibialis pulses are 2+ and lower extremities. Sensation is intact in the lower extremities. MSCL: Non-tender, no muscle atrophy, muscles strength 5/5 upper and lower extremities, full range of motion, normal gait NEURO:CN 2-12 intact, sensation normal Initial Vital Signs Initial Vital Signs: Vital Signs Temperature 98 F 07/14/22 18:15 Pulse Rate 91 H 07/14/22 18:15 Respiratory Rate 18 07/14/22 18:15 Blood Pressure 151/95 H 07/14/22 18:15 Pulse Oximetry 96 07/14/22 18:15 Oxygen Delivery Method 07/14/22 18:15 Course Orders Ordered: Discontinued Medications Diazepam (Diazepam 5 Mg Tablet) 5 mg PO NOW ONE Stop: 07/14/22 20:31 Last Admin: 07/14/22 20:36 Dose: 5 mg Documented By: TIA Levetiracetam 1,000 mg/ Sodium (Chloride) 110 mls @ 440 mls/hr IV NOW ONE Stop: 07/14/22 20:04 Ketorolac Tromethamine (Ketorolac 30 Mg/Ml Vial) 15 mg IV NOW ONE Stop: 07/14/22 20:04 Last Admin: 07/14/22 20:30 Dose: Not Given Documented By: RB Morphine Sulfate (Morphine 4 Mg/Ml Inj) 4 mg IV NOW ONE Stop: 07/14/22 19:16 Last Admin: 07/14/22 19:51 Dose: 4 mg Documented By: RB Oxycodone HCl (Oxycodone Ir 5 Mg Tablet) 5 mg PO NOW ONE Stop: 07/14/22 21:50 Last Admin: 07/14/22 22:06 Dose: 5 mg Documented By: RB Reevaluation(s) Reevaluation #1: Patient is feeling improved. He normally takes a muscle relaxer in the evening. He feels more like he has been punched in the back at this point. Time: 20:30 Vital Signs Vital signs: Vital Signs - 8 hr 07/14/22 18:15 07/14/22 18:21 07/14/22 18:21 Temperature 98 F Pulse Rate 91 H 93 H Respiratory Rate 18 Blood Pressure 151/95 H 151/95 H Pulse Oximetry 96 96 Oxygen Delivery Method Room Air 07/14/22 18:30 07/14/22 18:30 07/14/22 19:00 Temperature Pulse Rate 90 89 Respiratory Rate Blood Pressure 199/88 H Pulse Oximetry 97 97 Oxygen Delivery Method 07/14/22 19:01 07/14/22 19:01 07/14/22 19:30 Temperature Pulse Rate 88 Respiratory Rate Blood Pressure 172/79 H 185/90 H Pulse Oximetry 97 Oxygen Delivery Method 07/14/22 19:30 07/14/22 19:56 07/14/22 19:56 Temperature Pulse Rate 85 89 Respiratory Rate Blood Pressure 184/74 H Pulse Oximetry 96 96 Oxygen Delivery Method 07/14/22 20:00 07/14/22 20:01 07/14/22 20:01 Temperature Pulse Rate 95 H 93 H Respiratory Rate Blood Pressure 195/81 H Pulse Oximetry 97 97 Oxygen Delivery Method 07/14/22 20:10 07/14/22 20:10 07/14/22 20:20 Temperature Pulse Rate 90 89 Respiratory Rate Blood Pressure 178/79 H Pulse Oximetry 96 95 Oxygen Delivery Method 07/14/22 20:20 07/14/22 20:27 07/14/22 20:27 Temperature Pulse Rate 93 H Respiratory Rate Blood Pressure 176/82 H 169/77 H Pulse Oximetry 96 Oxygen Delivery Method 07/14/22 20:30 07/14/22 20:30 07/14/22 21:00 Temperature Pulse Rate 93 H 89 Respiratory Rate Blood Pressure 165/92 H Pulse Oximetry 96 95 Oxygen Delivery Method 07/14/22 21:30 Temperature Pulse Rate 87 Respiratory Rate Blood Pressure Pulse Oximetry 94 Oxygen Delivery Method MDM - Back Pain/Injury Lab Data Labs: Lab Results 07/14/22 Range/Units 20:40 Urine RBC None seen (0-5/HPF) Urine WBC 5-10/hpf H (0-5/HPF) Urine Bacteria Occasional (0-1) (None) Urine Dip Bedside Urine Glucose Negative Bedside Urine Bilirubin - Negative Bedside Urine Ketone +/- 5 Urine Specific [place] 1.015 Bedside Urine Occult Blood - Negative Bedside Urine pH 6.0 Bedside Urine Protein - Negative Bedside Urine Urobilinogen 0.2 Bedside Urine Nitrite - Negative Bedside Urine Leukocytes ++ 125 Esterase Imaging Data thoracic spine CT: Radiologist's Impression: Close Thoracic Spine CT (Signed) Humberto Brock - 07/14/22 Launch?[place] [address] CT Scan Report Signed Patient: Mark Bains MR#: [id number] : 1940 Acct:[id number] Age/Sex: 82 / M Date of Service: 07/14/22 Loc: ED Accession Number: [id number] ?? Procedure: CT thoracic spine wo con Ordering Provider: Isabel Martins D.O. PROCEDURE:? CT THORACIC SPINE WO CON ? INDICATIONS:? left thoracic pain (3cm to left of spine) thoracic 4/5 range ? TECHNIQUE:? Noncontrast 3 mm thick sections acquired through the region of interest in the thoracic spine.? Sagittal and coronal reformats were then constructed.? For radiation dose reduction, the following was used:? automated exposure control.? ? COMPARISON:? [facility], CT, CT ANGIO CHEST ABDOMEN PELVIS, 02/19/2021, 9:21. ? FINDINGS:? Image quality:? There is mild motion artifact. ? Bones:? There is preserved overall bony alignment.? No acute vertebral body compression fractures.? Visualized ribs appear intact.? No suspicious sclerotic or lytic bony lesions.? Central spinal canal is of normal overall caliber.? ? Soft tissues:? No paravertebral masses or hematomas.? Visualized lungs appear clear, with evaluation limited by respiratory motion artifact.? ? IMPRESSION:? ? 1.? No fracture or subluxation. ? ? Dictated by: Humberto Brock M.D. on 07/14/2022 at 21:34 ? ? Approved by: Humberto Brock M.D. on 07/14/2022 at 21:42?? [facility] Narrative Medical decision making narrative: This is a 82-year-old male with acute on chronic back pain in his typical site no obvious signs of infection, patient did have trigger point injection yesterday as well as chiropractic treatment today, he is had CT a to rule out dissection 02/16/2021-at that time no evidence of aortic change, had left upper lobe pulmonary nodule and no clear bony changes at that time, and had cervical spine MRI and 10/17/2021 which showed severe foraminal stenosis but no spinal canal stenosis. Thoracic spine CT was ordered, does not show any acute changes. Patient's exam overall does not show other acute changes such as infection, acute neurologic or spinal cord impingement and patient feels much better after medication he is able to move much more normally. He is follow-up in 10 days with his physician, plan for short course of narcotic pain medication on top of his normal medications and follow-up. He did note some dysuria with urination has leuks on his urine and was started on antibiotic. Discharge Plan Departure Patient Disposition: Home Clinical Impression: Chronic left-sided thoracic back pain Instructions: DI for Thoracic Back Pain Activity Restrictions/Additional Instructions: Follow-up with your physician at your appointment. Your CT of your thoracic spine does not show any clear changes, it may be worthwhile to discuss if a MRI of your thoracic spine would be helpful. Your urine does show signs of infection today, you have been sent a prescription for antibiotics. If you have frequent recurrent bladder infections it would probably be helpful to follow-up with urology. You may take ibuprofen if tolerated up to 600 mg every 6 hours. You may take oxycodone 1-2 tablets every 6 hours as needed for pain. Take antibiotics until completely gone. You may continue your home medications as prescribed. Prescription sent to [facility] in [place]. Please return for fevers, rapidly worsening back pain, new weakness numbness, loss of bowel or bladder control, warmth, redness signs of infection, new chest pain or shortness of breath or other new or concerning changes. Prescriptions: New nitrofurantoin monohyd/m-cryst [Macrobid] 100 mg capsule 100 mg PO Q12H 7 Days Qty: 14 0RF Rx Instructions: must administer with a meal/food oxycodone 5 mg tablet 5 mg PO QID PRN (Reason: pain) Qty: 10 0RF No Action benzonatate 100 mg capsule 100 mg PO BID PRN (Reason: cough) Qty: 20 0RF ASPIRIN (#ASPIRIN) 81 mg PO Qty: 0 (DME) Dexcom G6 New Car Inspector Misc See Rx Instructions .ROUTE .MEDSUPPLY Qty: 1 0RF Rx Instructions: As directed albuterol sulfate [ProAir HFA] 90 mcg/actuation HFA aerosol inhaler 2 puff INHALATION Q4-6H PRN (Reason: shortness of breath or wheezing) Qty: 8.5 12RF levothyroxine 50 mcg tablet 50 mcg PO DAILY Qty: 90 3RF simvastatin 40 mg tablet 40 mg PO DAILY Qty: 90 3RF carvedilol 3.125 mg tablet 3.125 mg PO BID Qty: 180 3RF Label Comments: TAKE 1 TABLET BY MOUTH TWICE DAILY metformin 1,000 mg tablet 1,000 mg PO BID Qty: 180 3RF insulin lispro 100 unit/mL insulin pen 15 unit SUBCUT QAC Qty: 60 6RF Rx Instructions: Please have pt inject every 4 hours which is up to 6 times per day. losartan 100 mg tablet 100 mg PO DAILY Qty: 90 3RF cyclobenzaprine 5 mg tablet 5 mg PO TID PRN (Reason: muscle spasm) Qty: 30 0RF insulin glargine 100 unit/mL (3 mL) insulin pen 50 unit SUBCUT QPM Qty: 45 6RF hydroxyzine pamoate 25 mg capsule 25 - 50 mg PO DAILY PRN (Reason: back pain) Qty: 60 3RF (DME) Dexcom G6 Transmitter Device See Rx Instructions .ROUTE .MEDSUPPLY Qty: 1 3RF Rx Instructions: As directed (DME) Dexcom G6 Sensor Device See Rx Instructions .ROUTE .MEDSUPPLY Qty: 3 12RF Rx Instructions: As directed gabapentin 300 mg capsule 300 mg PO BID Qty: 180 3RF (DME) B-D 5MM Pen [place] See Rx Instructions .Route .MEDSUPPLY Qty: 400 6RF Rx Instructions: Use 4x a day or as instructed by PCP. ondansetron 4 mg tablet,disintegrating 4 mg PO Q6H PRN (Reason: nausea and vomiting) Qty: 7 0RF Referrals: Duglas Brice MD [Primary Care Provider] - Visit Report Forms: Patient Portal/API
--- NOTE | 2022-07-14 19:15 | DI.CT.S_ITS ---
PROCEDURE: CT THORACIC SPINE WO CON INDICATIONS: left thoracic pain (3cm to left of spine) thoracic 4/5 range TECHNIQUE: Noncontrast 3 mm thick sections acquired through the region of interest in the thoracic spine. Sagittal and coronal reformats were then constructed. For radiation dose reduction, the following was used: automated exposure control. COMPARISON: [facility], CT, CT ANGIO CHEST ABDOMEN PELVIS, 02/19/2021, 9:21. FINDINGS: Image quality: There is mild motion artifact. Bones: There is preserved overall bony alignment. No acute vertebral body compression fractures. Visualized ribs appear intact. No suspicious sclerotic or lytic bony lesions. Central spinal canal is of normal overall caliber. Soft tissues: No paravertebral masses or hematomas. Visualized lungs appear clear, with evaluation limited by respiratory motion artifact. IMPRESSION: 1. No fracture or subluxation. Dictated by: Humberto Brock M.D. on 07/14/2022 at 21:34 Approved by: Humberto Brock M.D. on 07/14/2022 at 21:42
[2022-07-14] MEDS: MORPHINE 4 MG/ML INJ IV (19:51)
[2022-07-14] MEDS: diazePAM 5 MG TABLET PO (20:36)
[2022-07-14 22:01] LABS: Bacteria Urine Occasional (0-1); RBC Urine None Seen (0-5/HPF); WBC Urine 5-10/HPF (0-5/HPF)
[2022-07-14] MEDS: OXYCODONE IR 5 MG TABLET PO (22:06)
== END 2022-07-14 22:22 | disposition home or self-care (01) ==
PROVIDERS: Emergency Provider Emergency Medicine; Family Provider Internal Medicine; PCP Internal Medicine
DX: M54.6 Pain in thoracic spine (principal); G89.29 Other chronic pain
CPT/HCPCS: 72128; 81003; 81015; 87077; 87086; 87186; 96374; 99284; J2270

== ENCOUNTER → 2022-07-26 14:27 | Outpatient (CLI) | payer MEDICARE, SELFPAY ==
[2022-07-26 15:08] LABS: Appearance Urine UA CLEAR; Bilirubin Urine UA NEGATIVE (NEGATIVE); Color Urine UA YELLOW; Glucose Urine UA NEGATIVE (Negative); Ketones Urine UA NEGATIVE (NEGATIVE); Leukocyte Esterase Urine UA TRACE (NEGATIVE); Nitrite Urine UA NEGATIVE (Negative); Occult Blood Urine UA NEGATIVE (Negative); Protein Urine UA NEGATIVE (Negative); Specific Gravity Urine UA <=1.005 (1.000-1.035); Urobilinogen Urine UA 0.2 E.U./dL (0.2)
[2022-07-26 15:14] LABS: Bacteria Urine Occasional (0-1); RBC Urine None Seen (0-5/HPF); Squamous Epithelial Cell Urine 0-1 /HPF (0-5/HPF); WBC Urine 0-1/HPF (0-5/HPF)
[2022-07-26 15:15] LABS: Culture Indicated Urine Specimen Cultured
== END ==
PROVIDERS: Family Provider Internal Medicine; PCP Internal Medicine; Referring Provider Internal Medicine; Visit Provider Internal Medicine
DX: N39.0 Urinary tract infection, site not specified (principal)
CPT/HCPCS: 81001; 87077; 87086; 87186

== ENCOUNTER → 2022-08-08 08:33 | Outpatient (CLI) | payer MEDICARE, SELFPAY | PROVIDERS: Family Provider Internal Medicine; PCP Internal Medicine; Visit Provider Specialist | DX: N39.0 Urinary tract infection, site not specified (principal); B37.42 Candidal balanitis; N47.1 Phimosis; N40.1 Benign prostatic hyperplasia with lower urinary tract symptoms; N13.8 Other obstructive and reflux uropathy | CPT/HCPCS: 51798; 81002; 87086; 99215 ==

== ENCOUNTER → 2022-09-06 09:19 | Outpatient (CLI) | payer MEDICARE, SELFPAY ==
[2022-09-06 11:20] LABS: Alanine Aminotransferase 30 IU/L (<50); Albumin 3.8 g/dL (3.5-5.0); Albumin Globulin Ratio 1.5 (1.0-2.8); Alkaline Phosphatase 78 U/L (38-126); Aspartate Aminotransferase 28 IU/L (17-59); BUN Creatinine Ratio 19.5 (6-22); Bilirubin Total 0.5 mg/dL (0.2-1.3); Blood Urea Nitrogen 22 mg/dL (9-20); Calcium 8.6 mg/dL (8.4-10.2); Carbon Dioxide 28 mmol/L (22-32); Chloride 103 mmol/L (98-107); Cholesterol 132 mg/dL (140-199); Estimated Glomerular Filt Rate > 60 mL/min (>60); Globulin 2.6 g/dL (1.7-4.1); Glucose 120 mg/dL (80-110); HDL Cholesterol 49 mg/dL (40-60); HEMOLYSIS < 15 (0-50); LDL Cholesterol Calculated 62 mg/dL (<100); Potassium 4.5 mmol/L (3.4-5.1); Sodium 140 mmol/L (137-145); Total Protein 6.4 g/dL (6.3-8.2); Triglycerides 106 mg/dL (35-150)
[2022-09-06 12:20] LABS: Hemoglobin A1C% w Est Avg Glu 6.6 % (4.0-6.0)
== END ==
PROVIDERS: Family Provider Internal Medicine; PCP Internal Medicine; Referring Provider Internal Medicine; Visit Provider Internal Medicine
DX: E11.9 Type 2 diabetes mellitus without complications (principal); E78.2 Mixed hyperlipidemia; I10 Essential (primary) hypertension
CPT/HCPCS: 36415; 80053; 80061; 83036

== ENCOUNTER 2022-09-26 07:50 | Day surgery (SDC) | payer MEDICARE, SELFPAY ==
[2022-09-21 08:48] VITALS: BMI 28.0
[2022-09-26] VITALS (8 sets, daily range): BP systolic 91–149; BP diastolic 51–70; PULSE 64–78; RESP 12–16; TEMP 36.4–36.6; O2SAT 96–99; BMI 28.0
[2022-09-26] MEDS: LACTATED RINGERS 1,000 ML 21 ML IV (08:39)
--- NOTE | 2022-09-26 08:56 | PM.PREOP ---
Pre-operative Note COVID-19 Criteria for continued procedure: Expected advancement of disease process, Possibility delay results in more complex future surgery or treatment, Deterioration of the patient's condition or overall health, Delay expected to result in less-positive ultimate med/surg outcome and Non-surgical alternatives not available or appropriate per current SOC Interval Note History & Physical reviewed/Exam performed by Physician: Yes Changes to H&P: No
[2022-09-26] MEDS: CEFAZOLIN 2 GM/100 ML PREMIX 100 ML IV (09:16)
--- NOTE | 2022-09-26 09:36 | SUR.OPER ---
Lithotomy on padded OR bed, head on pillow, arms secured on padded arm boards at <90 degrees abduction. Legs secured in padded yellow fins stirrups.
[2022-09-26] MEDS: BUPIVACAINE 0.25% (PF) VIAL 30 ML INJ (09:42)
[2022-09-26] MEDS: BACITRACIN OINT 0.9 GM PCKT 1 APPLIC TOP (09:44)
--- NOTE | 2022-09-26 10:11 | PM.OP.1 ---
Operative Date/Time/Diagnoses Date of procedure: 09/26/22 Time of procedure: 09:55 Pre-op diagnosis: 1. Recurrent UTI. 2. Meatal stenosis. 3. BPH Procedure & Clinicians Procedure: 1. Urethral meatotomy. 2. Cystoscopy. Same procedure as scheduled: Yes Indications: 1. Recurrent UTI. 2. Meatal stenosis. 3. BPH. Surgeon: Larry Sanchez Click Yes if Unassisted: Yes Anesthesia Type: General Operative Notes Findings: 1. Urethra-dense meatal stenosis. Penile urethral segment normal. Bulbar segment had for wide caliber strictures easily negotiated with the 22 [place] guzman endoscope. 2. External sphincter-coapted with normal overlying urothelium. 3. Prostate-5 cm length with moderately obstructing lateral lobe hyperplasia and elevated median bar. 4. Bladder-1 to 2+ trabeculation. Normal ureteral orifices bilaterally. No evidence of stone, tumor, diverticulum or foreign body seen. Closure Type: primary Specimen(s): none sent Estimated Blood Loss (mL): 0 Procedure in detail: Patient was positioned in supine administered general anesthesia. He was then repositioned in semi lithotomy in the lower abdomen, genitalia, and groin were then prepped and draped in sterile fashion. A solution of 0.25% Marcaine without epinephrine was used to infiltrate the inferior and lateral aspects of the urethral meatus and glans. A straight hemostatic clamp was applied at 6:00 a.m. over distance of 5-6 mm to the level of the distal frenulum had engaged for crush hemostasis. The tissue was then divided in the midline at 6:00 a.m.. Next, interrupted 4-0 chromic was then used in a Lembert interrupted technique x2 on each side to retract the incision margins laterally. [place] sounds were then used to calibrate the meatus and fossa navicularis to 28 Q[place]. The 22 [place] rigid guzman endoscope was then prepared and advanced the lower urinary tract and advanced proximally with the findings as described above. The bladder was then drained completely and all instrumentation was removed. The patient was then repositioned in supine, was awakened, and transported recovery in stable condition. Complications: none Post-operative Condition: stable Disposition: PACU Plan for aftercare: Discharge home.
== END 2022-09-26 10:56 | disposition home or self-care (01) ==
PROVIDERS: Family Provider Internal Medicine; PCP Internal Medicine; Referring Provider Specialist; Visit Provider Specialist
PROC: (CPT 53020; principal; 2022-09-26 09:00)
PROC: 0TJB8ZZ Inspection of Bladder, Via Natural or Artificial Opening Endoscopic (ICD-10-PCS; CPT 52000; 2022-09-26 09:00)
DX: N35.911 Unspecified urethral stricture, male, meatal (principal); N39.0 Urinary tract infection, site not specified; N40.1 Benign prostatic hyperplasia with lower urinary tract symptoms; N13.8 Other obstructive and reflux uropathy; E11.9 Type 2 diabetes mellitus without complications; Z79.4 Long term (current) use of insulin; Z79.84 Long term (current) use of oral hypoglycemic drugs
CPT/HCPCS: 53020; J0690; J1100; J2405; J2704; J3010; J3490

== ENCOUNTER 2022-09-30 09:44 | Inpatient (IN) | payer MEDICARE, SELFPAY ==
[2022-09-30] VITALS (53 sets, daily range): BP systolic 75–175; BP diastolic 45–129; PULSE 86–115; RESP 13–41; TEMP 36.8–37.7; O2SAT 80–100; BMI 27.8; BMI 29.9
--- NOTE | 2022-09-30 10:06 | DI.RAD.S_ITS ---
PROCEDURE: XR CHEST 1V INDICATIONS: suspected sepsis TECHNIQUE: One view of the chest was acquired. COMPARISON: [facility], CR, XR CHEST 1V, 02/17/2021, 20:09. FINDINGS: Surgical changes and devices: None. Lungs and pleura: Lungs are clear. No pleural effusions or pneumothorax. Mediastinum: Mediastinal contours appear normal. Heart size is normal. Bones and chest wall: No suspicious bony lesions. Overlying soft tissues appear unremarkable. IMPRESSION: No evidence acute pulmonary process. Dictated by: Eran Rose M.D. on 09/30/2022 at 10:53 Approved by: Eran Rose M.D. on 09/30/2022 at 11:00
[2022-09-30] MEDS: SODIUM CHLORIDE 0.9% 1,000 ML 1000 ML IV ×2 (10:22→17:13)
[2022-09-30 10:40] LABS: Add Manual Diff / Slide Review YES; Hematocrit 36.9 % (41-53); Hemoglobin 11.6 g/dL (13.5-17.5); Mean Corpuscular HGB Conc 31.4 % (30-36); Mean Corpuscular Hemoglobin 23.6 PG (26-34); Platelet Count 171 X10^3/uL (150-400); Red Blood Cell Count 4.92 X10^6/uL (4.5-5.9); Red Cell Distribution Width 16.1 % (11.6-14.8); White Blood Cell Count 21.4 X10^3/uL (4.5-11.0)
[2022-09-30 10:42] LABS: INR 1.3 (0.9-1.3); Prothrombin Time 15.5 SECONDS (10.1-12.7)
[2022-09-30 10:44] LABS: PTT Partial Thromboplastin Tim 29 SECONDS (26-36)
[2022-09-30 10:46] LABS: Albumin Globulin Ratio 1.4 (1.0-2.8); Alkaline Phosphatase 77 U/L (38-126); Aspartate Aminotransferase 27 IU/L (17-59); BUN Creatinine Ratio 12.4 (6-22); Bilirubin Total 0.9 mg/dL (0.2-1.3); Blood Urea Nitrogen 22 mg/dL (9-20); Calcium 8.3 mg/dL (8.4-10.2); Carbon Dioxide 22 mmol/L (22-32); Chloride 97 mmol/L (98-107); Estimated Glomerular Filt Rate 38 mL/min (>60); Globulin 2.9 g/dL (1.7-4.1); Glucose 179 mg/dL (80-110); HEMOLYSIS < 15 (0-50); Lipase 11 U/L (23-300); Potassium 3.9 mmol/L (3.4-5.1); Sodium 134 mmol/L (137-145); Total Protein 6.9 g/dL (6.3-8.2)
[2022-09-30 10:49] LABS: Lactate (Lactic Acid) 4.5 mmol/L (0.7-2.1)
[2022-09-30 10:51] LABS: Neutrophils Absolute Manual 19260 /uL (3000-5900); Total Cells Counted 100
--- NOTE | 2022-09-30 10:51 | ED_ITS ---
HPI - Sepsis General Chief Complaint: Urogenital-Male Mode of arrival: Wheelchair Source: patient Limitations: no limitations Evaluation Sepsis Screen: Possible Severe Sepsis Risk Sepsis Infection Criteria Present: Suspected New Infection Narrative: Patient is a 82-year-old male with history of hypothyroid BPH hypertension type 2 diabetes recurrent UTIs presenting today after a cystoscopy, meatal stenosis on 09/26/2022. Presents today with painful back urination significant decrease in urine output. He is found have a fever at home of 101 found to be hypotensiv e here in the emergency department. No cough or chest pain. Minimal abdominal pain. No nausea or vomiting. Review of Systems Review of Systems ROS Unobtainable: All systems reviewed & are unremarkable except as noted in HPI and below Patient History Medical History Acquired hypothyroidism (11/26/15) Acquired phimosis of penis Asthma BPH w urinary obs/LUTS Essential hypertension History of adenomatous polyp of colon Incomplete bladder emptying Meatal stenosis Mixed hyperlipidemia Recurrent UTI (urinary tract infection) Spinal stenosis Type 2 diabetes mellitus without complication (11/26/15) Social History marital status: number of children: 4 household members: spouse occupational status: previously employed Smoking Status: Never smoker alcohol intake: current caffeine: Yes Smoking Status: Never smoker alcohol intake frequency: 0-2 drinks per day Substance Use Type: does not use Exam Initial Vital Signs Initial Vital Signs: Vital Signs Temperature 98.7 F 09/30/22 10:02 Pulse Rate 94 H 09/30/22 10:02 Respiratory Rate 16 09/30/22 10:02 Blood Pressure 75/45 L 09/30/22 10:02 Pulse Oximetry 98 09/30/22 10:02 Oxygen Delivery Method Room Air 09/30/22 10:02 GENERAL: Alert week 82-year-old male HEENT: Head atraumatic,EOMI, pupils reactive, face symmetric, moist mucous membranes CARDIOVASCULAR: Regular rate and rhythm without murmurs, rubs or gallops. RESPIRATORY: Breath sounds equal bilaterally, no wheezes rales or rhonchi. ABDOMEN: Soft, nontender. Normoactive bowel sounds all 4 quadrants. No guarding or rebound. : No CVA tenderness EXTREMITIES: Normal range of motion, no clubbing or edema. Neurovascularly intact NEUROLOGICAL: Alert and oriented x4.Normal gait and speech. SKIN: Warm, dry, no laceration, no petechiae, no rashes or lesions. Course Orders Ordered: ED Orders 10/01/22 05:00 Basic Metabolic Panel Routine Complete Blood Count AUTO DIFF Routine Acetaminophen (Acetaminophen 325 Mg Tablet) 650 mg PO Q6H PRN PRN Reason: Fever/Mild Pain (1-3) Last Admin: 10/01/22 02:27 Dose: 650 mg Documented By: Admin: 09/30/22 18:16 Dose: 650 mg Documented By: Admin: 09/30/22 13:23 Dose: 650 mg Documented By: BABITA Atorvastatin Calcium (Atorvastatin 20 Mg Tablet) 20 mg PO BEDTIME [facility] Last Admin: 09/30/22 20:21 Dose: 20 mg Documented By: DEBORAH Dextrose (Dextrose 50 % In Water 25 Gm/50 Ml Syringe) 25 gm IV PRN PRN PRN Reason: Hypoglycemia Enoxaparin Sodium (Enoxaparin 40 Mg/0.4 Ml Syringe) 40 mg SUBCUT DAILY [facility] Gabapentin (Gabapentin 300 Mg Capsule) 300 mg PO BID [facility] Last Admin: 09/30/22 20:21 Dose: 300 mg Documented By: DEBORAH Hydromorphone HCl (Hydromorphone 0.5 Mg Inj) 0.5 mg IV Q2H PRN PRN Reason: Pain, Severe (7-10) Last Admin: 09/30/22 21:28 Dose: 0.5 mg Documented By: Admin: 09/30/22 13:24 Dose: 0.5 mg Documented By: BABITA Hydromorphone HCl (Hydromorphone 0.5 Mg Inj) 0.5 mg IV Q2H PRN PRN Reason: Pain, Moderate (4-6) Ceftriaxone Sodium 1,000 mg/ (Sodium Chloride) 100 mls @ 200 mls/hr IV Q24H PURA Stop: 10/07/22 11:29 Sodium Chloride (Normal Saline 0.9%) 1,000 mls @ 250 mls/hr IV CONT [facility] Last Infusion: 09/30/22 17:14 Dose: 0 mls/hr Documented By: Infusion: 09/30/22 17:01 Dose: 125 mls/hr Documented By: Infusion: 09/30/22 16:11 Dose: 0 mls/hr Documented By: Admin: 09/30/22 13:59 Dose: 125 mls/hr Documented By: BABITA Insulin Glargine (Insulin Glargine 100 Unit/Ml 3ml Pen) 25 unit SUBCUT BEDTIME [facility] Last Admin: 09/30/22 20:22 Dose: 25 unit Documented By: DEBORAH Co-signed By: NOMAN Insulin Human Lispro (Insulin Lispro 100 Unit/Ml 3ml Vial) 0 unit SUBCUT [facility]; Protocol Last Admin: 09/30/22 20:13 Dose: Not Given Documented By: Admin: 09/30/22 17:06 Dose: 2 unit Documented By: BABITA Co-signed By: Admin: 09/30/22 13:36 Dose: Not Given Documented By: BABITA Insulin Human Lispro (Insulin Lispro 100 Unit/Ml 3ml Vial) 8 unit SUBCUT [facility] Last Admin: 09/30/22 17:06 Dose: 8 unit Documented By: BABITA Co-signed By: Levothyroxine Sodium (Levothyroxine 50 Mcg Tablet) 50 mcg PO 0600 [facility] Last Admin: 10/01/22 05:15 Dose: 50 mcg Documented By: DEBORAH Naloxone HCl (Naloxone 0.4 Mg/Ml Vial) 0.2 mg IV Q2MIN PRN PRN Reason: Opiate Reversal Oxycodone HCl (Oxycodone Ir 5 Mg Tablet) 5 mg PO Q3HR PRN PRN Reason: Pain, Moderate (4-6) Last Admin: 09/30/22 20:21 Dose: 5 mg Documented By: Admin: 09/30/22 16:09 Dose: 5 mg Documented By: BABITA Oxycodone HCl (Oxycodone Ir 5 Mg Tablet) 10 mg PO Q3HR PRN PRN Reason: Pain, Severe (7-10) Last Admin: 10/01/22 02:26 Dose: 10 mg Documented By: DEBORAH Discontinued Medications Carvedilol (Carvedilol 3.125 Mg Tablet) 6.25 mg PO BID [facility] Carvedilol (Carvedilol 3.125 Mg Tablet) 6.25 mg PO NOW ONE Stop: 09/30/22 14:05 Last Admin: 09/30/22 15:03 Dose: 6.25 mg Documented By: BABITA Sodium Chloride (Normal Saline 0.9%) 1,000 mls @ 1,000 mls/hr IV BOLUS ONE Stop: 09/30/22 11:05 Last Infusion: 09/30/22 11:15 Dose: 0 mls/hr Documented By: Admin: 09/30/22 10:22 Dose: 1,000 mls/hr Documented By: ANNEL(2) Lactated Ringer's (Lactated Ringers) 2,789.58 mls @ 929.86 mls/hr 30 ml/kg infuse over 3 hr (2789.58 ml) IV NOW ONE Stop: 09/30/22 13:35 Last Infusion: 09/30/22 17:01 Dose: 0 mls/hr Documented By: Infusion: 09/30/22 13:27 Dose: 929 mls/hr Documented By: Admin: 09/30/22 11:15 Dose: 929.86 mls/hr Documented By: ANNEL Ceftriaxone Sodium 1,000 mg/ (Sodium Chloride) 100 mls @ 200 mls/hr IV NOW ONE Stop: 09/30/22 10:53 Last Infusion: 09/30/22 12:50 Dose: 0 mls/hr Documented By: Admin: 09/30/22 11:16 Dose: 200 mls/hr Documented By: ANNEL Sodium Chloride (Normal Saline 0.9%) 1,000 mls @ 1,000 mls/hr IV BOLUS ONE Stop: 09/30/22 18:03 Last Admin: 09/30/22 17:13 Dose: 1,000 mls/hr Documented By: BABITA Lidocaine HCl (Lidocaine 2% (Glydo) 6 Ml Gel) 6 ml TOP NOW ONE Stop: 09/30/22 11:36 Last Admin: 09/30/22 12:00 Dose: 6 ml Documented By: ANNEL Ondansetron HCl (Ondansetron 4 Mg/2 Ml Inj) 4 mg IV NOW PRN PRN Reason: Nausea And Vomiting Vital Signs Vital signs: Vital Signs - 8 hr 09/30/22 10:02 09/30/22 10:26 09/30/22 11:00 Temperature 98.7 F Pulse Rate 94 H 89 Respiratory Rate 16 Blood Pressure 75/45 L 95/50 L 103/51 L Pulse Oximetry 98 Oxygen Delivery Method Room Air 09/30/22 11:07 09/30/22 11:08 09/30/22 11:08 Temperature Pulse Rate 88 89 Respiratory Rate Blood Pressure 119/57 L Pulse Oximetry 99 99 Oxygen Delivery Method Sepsis Evaluation (ED) Triage Screening Sepsis Screen: Possible Severe Sepsis Risk Level 1 - Infection Sepsis Infection Criteria Present: Suspected New Infection Response It is my opinion that his patient have a likely infectious etiology for meeting sepsis criteria: Does Fluid calculation based on 30 mL/kg within 1hr of criteria: IBW used due to BMI>30 Antibiotics initiated within 1 hr of Sepis dx: Yes Tissue Perfusion Reassessed within 6 hrs of infusion start time: No MDM - Sepsis Lab Data 10/01/22 05:00 10/01/22 05:00 Labs: Lab Results 09/30/22 09/30/22 09/30/22 Range/Units 10:33 10:33 10:33 WBC 21.4 H (4.5-11.0) X10^3/uL RBC 4.92 (4.5-5.9) X10^6/uL Hgb 11.6 L (13.5-17.5) g/dL Hct 36.9 L (41-53) % MCV 75.0 L (80-100) fL MCH 23.6 L (26-34) PG MCHC 31.4 (30-36) % RDW 16.1 H (11.6-14.8) % Plt Count 171 (150-400) X10^3/uL Neut % (Auto) Not Reportable Lymph % (Auto) Not Reportable [facility] % (Auto) Not Reportable Eos % (Auto) Not Reportable Baso % (Auto) Not Reportable Lymph # (Auto) Not Reportable [facility] # (Auto) Not Reportable Baso # (Auto) Not Reportable Total Counted 100 Seg Neutrophils % 82.0 H (38-70) % Band Neutrophils % 8.0 H (3-7) % Lymphocytes % (Manual) 3.0 L (25-45) % Atypical Lymphs % 2.0 H ( - 0) % Monocytes % (Manual) 4.0 (2-11) % Basophils % (Manual) 1.0 (0-1) % Neutrophils # (Manual) 30615 H (0223-0414) /uL RBC Morphology Not Reportable Anisocytosis 1+ H PT 15.5 H (10.1-12.7) SECONDS INR 1.3 (0.9-1.3) APTT 29 (26-36) SECONDS Sodium 134 L (137-145) mmol/L Potassium 3.9 (3.4-5.1) mmol/L Chloride 97 L (98-107) mmol/L Carbon Dioxide 22 (22-32) mmol/L BUN 22 H (9-20) mg/dL Creatinine 1.78 H (0.66-1.25) mg/dL Estimated GFR 38 L (>60) mL/min BUN/Creatinine Ratio 12.4 (6-22) Glucose 179 H (80-110) mg/dL Lactate (0.7-2.1) mmol/L Calcium 8.3 L (8.4-10.2) mg/dL Total Bilirubin 0.9 (0.2-1.3) mg/dL AST 27 (17-59) IU/L ALT 39 (<50) IU/L Alkaline Phosphatase 77 (38-126) U/L Total Protein 6.9 (6.3-8.2) g/dL Albumin 4.0 (3.5-5.0) g/dL Globulin 2.9 (1.7-4.1) g/dL Albumin/Globulin Ratio 1.4 (1.0-2.8) Lipase 11 L (23-300) U/L Procalcitonin 4.64 H (<0.5) ng/mL 09/30/22 Range/Units 10:33 WBC (4.5-11.0) X10^3/uL RBC (4.5-5.9) X10^6/uL Hgb (13.5-17.5) g/dL Hct (41-53) % MCV (80-100) fL MCH (26-34) PG MCHC (30-36) % RDW (11.6-14.8) % Plt Count (150-400) X10^3/uL Neut % (Auto) Lymph % (Auto) [facility] % (Auto) Eos % (Auto) Baso % (Auto) Lymph # (Auto) [facility] # (Auto) Baso # (Auto) Total Counted Seg Neutrophils % (38-70) % Band Neutrophils % (3-7) % Lymphocytes % (Manual) (25-45) % Atypical Lymphs % ( - 0) % Monocytes % (Manual) (2-11) % Basophils % (Manual) (0-1) % Neutrophils # (Manual) (1956-6709) /uL RBC Morphology Anisocytosis PT (10.1-12.7) SECONDS INR (0.9-1.3) APTT (26-36) SECONDS Sodium (137-145) mmol/L Potassium (3.4-5.1) mmol/L Chloride (98-107) mmol/L Carbon Dioxide (22-32) mmol/L BUN (9-20) mg/dL Creatinine (0.66-1.25) mg/dL Estimated GFR (>60) mL/min BUN/Creatinine Ratio (6-22) Glucose (80-110) mg/dL Lactate 4.5 H* (0.7-2.1) mmol/L Calcium (8.4-10.2) mg/dL Total Bilirubin (0.2-1.3) mg/dL AST (17-59) IU/L ALT (<50) IU/L Alkaline Phosphatase (38-126) U/L Total Protein (6.3-8.2) g/dL Albumin (3.5-5.0) g/dL Globulin (1.7-4.1) g/dL Albumin/Globulin Ratio (1.0-2.8) Lipase (23-300) U/L Procalcitonin (<0.5) ng/mL Imaging Data Chest x-ray: Radiologist's Impression: PROCEDURE:? XR CHEST 1V ? INDICATIONS:? suspected sepsis ? TECHNIQUE:? One view of the chest was acquired.? ? COMPARISON:? [facility], , XR CHEST 1V, 02/17/2021, 20:09. ? FINDINGS:? ? Surgical changes and devices:? None.? ? Lungs and pleura:? Lungs are clear.? No pleural effusions or pneumothorax.? ? Mediastinum:? Mediastinal contours appear normal.? Heart size is normal.? ? Bones and chest wall:? No suspicious bony lesions.? Overlying soft tissues appear unremarkable.? ? IMPRESSION:? No evidence acute pulmonary process. ? ? ? Dictated by: Eran Rose M.D. on 09/30/2022 at 10:53 ? ? [facility] Narrative Medical decision making narrative: Patient is an 82-year-old history of BPH with frequent urination and fever at home. Presenting today with hypotension. He is given sepsis fluids. Found have leukocytosis of 21 lactate of 4.5 and procalcitonin 4.64. Urine is positive for leukocytes and many bacteria. Symptoms consistent with severe sepsis, urosepsis. Patient's blood pressure improved with fluids. He is given antibiotics, Rocephin based on previous culture which grew Klebsiella in 07/26/2022 which was resistant to ampicillin and sensitive to Macrobid. Dr. Brice updated on patient's symptoms test results and kindly accepts patient Critical Care Time Critical Care Time Critical Care Time: Yes Total Critical Care Time: 30 Attestation: The high probability of a clinically significant, sudden or life threatening deterioration of the [cardiovascular] system(s) required my full and direct atte ntion, intervention and personal management. The aggregate critical care time was 30 minutes. This time is in addition to time spent performing reported procedures but includes the following: [x] Data Review and interpretation [x] Patient assessment and monitoring of vital signs [x] Documentation [x] Medication orders and management Discharge Plan Departure Patient Disposition: Admitted As Inpatient Clinical Impression: Sepsis, Acute UTI Admit Date/Time: 09/30/22 11:12 Admit Provider: Duglas Brice
[2022-09-30 10:52] LABS: Alanine Aminotransferase 39 IU/L (<50); Anisocytosis 1+
[2022-09-30 11:03] LABS: Procalcitonin 4.64 ng/mL (<0.5)
[2022-09-30] MEDS: LACTATED RINGERS 2,789.58 ML 929.86 ML IV (11:15)
[2022-09-30] MEDS: cefTRIAXone 1,000 MG in SODIUM CHLORIDE 0.9% 100 ML 200 MG IV (11:16)
--- NOTE | 2022-09-30 11:16 | P.HP_ITS ---
History of Present Illness History of Present Illness Date Patient Seen: 09/30/22 Time Patient Seen: 11:17 Chief complaint: sent by Urology symptoms of kidney failture Narrative: 82 year old male admitted via emergency department with evidence of sepsis likely from urinary tract source. Patient had a cystoscopy with surgical dilatation of his meatus on Monday the 26 of September. He was doing well until apparently yesterday evening when he developed fever of 101+. Had increasing symptoms and after calling the urology office was directed to the emergency department In the ER he was found to have a significant leukocytosis he was febrile had an elevated lactate level elevated creatinine BUN. He was felt to have ongoing sepsis from a urological source treated with appropriate IV fluids as well as broad-spectrum antibiotics. Patient fortunately is awake and alert. Blood sugars have been okay. Patient History Medical History Acquired hypothyroidism (11/26/15) Acquired phimosis of penis Asthma BPH w urinary obs/LUTS Essential hypertension History of adenomatous polyp of colon Incomplete bladder emptying Meatal stenosis Mixed hyperlipidemia Recurrent UTI (urinary tract infection) Spinal stenosis Type 2 diabetes mellitus without complication (11/26/15) Family & Social History Social History: household members spouse Safety & Behavioral: Feels Safe in Current Yes Environment Been Physically Hurt or No Threatened By a Person Tobacco & Substance use: Smoking Status Never smoker alcohol intake current alcohol intake frequency 0-2 drinks per day Substance Use Type does not use Meds Home Medications and Allergies Home Medications Medication Instructions Recorded Confirmed Type ASPIRIN (#ASPIRIN) 81 mg PO ##0 03/01/12 09/08/22 History blood-glucose meter,continuous #1 ea 06/30/20 09/08/22 Rx (Dexcom G6 [employer]) B-D 5MM Pen [place] #400 ea 03/19/21 09/08/22 Rx albuterol sulfate 90 mcg/actuation 2 puff inhalation Q4-6H PRN 08/16/21 09/26/22 Rx aerosol inhaler (ProAir HFA) shortness of breath or wheezing #8.5 grams levothyroxine 50 mcg tablet 50 mcg PO DAILY #90 tabs 10/07/21 09/26/22 Rx gabapentin 300 mg capsule 300 mg PO BID #180 caps 11/12/21 09/26/22 Rx simvastatin 40 mg tablet 40 mg PO DAILY #90 tabs 02/02/22 09/26/22 Rx metformin 1,000 mg tablet 1,000 mg PO BID #180 tabs 02/11/22 09/26/22 Rx insulin lispro 100 unit/mL 15 unit (0.15 mL) SUBCUT QAC #60 mL 02/25/22 09/26/22 Rx subcutaneous pen losartan 100 mg tablet 100 mg PO DAILY #90 tabs 03/30/22 09/26/22 Rx insulin glargine 100 unit/mL (3 50 unit (0.5 mL) SUBCUT QPM #45 mL 05/24/22 09/26/22 Rx mL) subcutaneous pen blood-glucose transmitter (Dexcom #1 ea 06/22/22 09/08/22 Rx G6 Transmitter device) blood-glucose sensor (Dexcom G6 #3 ea 06/29/22 09/08/22 Rx Sensor device) alfuzosin 10 mg tablet,extended 10 mg PO DAILY #90 tabs 08/08/22 09/26/22 Rx release 24 hr (Uroxatral) carvedilol 6.25 mg tablet 6.25 mg PO BID #180 tabs 09/08/22 09/26/22 Rx Allergies Allergy/AdvReac Type Severity Reaction Status Date / Time prednisone AdvReac Severe Made Verified 09/30/22 10:02 patient Hostile. Review of Systems Review of Systems ROS: Yes All systems reviewed with the patient and are negative except as otherwise documented Exam Vital Signs (past 8 hours): - 09/30/22 10:02 09/30/22 10:26 Temperature 98.7 F Pulse Rate 94 H 89 Respiratory Rate 16 Blood Pressure 75/45 L 95/50 L Pulse Oximetry 98 Oxygen Delivery Method Room Air Oxygen Delivery Method Room Air Objective Labs 09/30/22 10:33 09/30/22 10:33 Labs: Laboratory Results - last 24 hr 09/30/22 09/30/22 09/30/22 10:33 10:33 10:33 WBC 21.4 H RBC 4.92 Hgb 11.6 L Hct 36.9 L MCV 75.0 L MCH 23.6 L MCHC 31.4 RDW 16.1 H Plt Count 171 Neut % (Auto) Not Reportable Lymph % (Auto) Not Reportable [place] % (Auto) Not Reportable Eos % (Auto) Not Reportable Baso % (Auto) Not Reportable Lymph # (Auto) Not Reportable [place] # (Auto) Not Reportable Baso # (Auto) Not Reportable Total Counted 100 Seg Neutrophils % 82.0 H Band Neutrophils % 8.0 H Lymphocytes % (Manual) 3.0 L Atypical Lymphs % 2.0 H Monocytes % (Manual) 4.0 Basophils % (Manual) 1.0 Neutrophils # (Manual) 56753 H RBC Morphology Not Reportable Anisocytosis 1+ H PT 15.5 H INR 1.3 APTT 29 Sodium 134 L Potassium 3.9 Chloride 97 L Carbon Dioxide 22 BUN 22 H Creatinine 1.78 H Estimated GFR 38 L BUN/Creatinine Ratio 12.4 Glucose 179 H Lactate Calcium 8.3 L Total Bilirubin 0.9 AST 27 ALT 39 Alkaline Phosphatase 77 Total Protein 6.9 Albumin 4.0 Globulin 2.9 Albumin/Globulin Ratio 1.4 Lipase 11 L Procalcitonin 4.64 H 09/30/22 10:33 WBC RBC Hgb Hct MCV MCH MCHC RDW Plt Count Neut % (Auto) Lymph % (Auto) [place] % (Auto) Eos % (Auto) Baso % (Auto) Lymph # (Auto) [place] # (Auto) Baso # (Auto) Total Counted Seg Neutrophils % Band Neutrophils % Lymphocytes % (Manual) Atypical Lymphs % Monocytes % (Manual) Basophils % (Manual) Neutrophils # (Manual) RBC Morphology Anisocytosis PT INR APTT Sodium Potassium Chloride Carbon Dioxide BUN Creatinine Estimated GFR BUN/Creatinine Ratio Glucose Lactate 4.5 H* Calcium Total Bilirubin AST ALT Alkaline Phosphatase Total Protein Albumin Globulin Albumin/Globulin Ratio Lipase Procalcitonin Assessment & Plan Assessment & Plan narrative: 1. Sepsis-patient continue with vigorous IV fluid resuscitation as per emergency department unusual protocol. Patient has been given a dose of broad-spectrum IV antibiotics which should continue until we have a specific organism from cultures. Patient has had cultures obtained of course. Plan to repeat lactate level and follow CBC and chemistries 2. Infectious disease-at this point he will be covered with third generation cephalosporin cultures have been obtained and we will tailor antibiotics based on results of cultures 3. Acute kidney injury-likely secondary to his ongoing septic picture. Continue with vigorous IV fluid replacement and recheck numbers. Fortunately his electrolytes are unremarkable 4. Diabetes-patient's blood sugars not out of control at this point. Continue to monitor numbers with coverage insulin as necessary. I am going to hold his usual insulin and oral medications in part because he is NPO until he is a bit more hemodynamically stable and then will slowly return him to long-acting insulin plus his preprandial doses as he improves 5. Hypertension-patient is hypotensive secondary to his sepsis and infectious issues as above. Will hold his antihypertensive therapy although will continue is super low-dose carvedilol at the moment assuming blood pressure improves wh ich seems to be the case thus far 6. Hypothyroidism-continue patient's oral levothyroxine 7. VTE prophylaxis-patient appropriate for Lovenox which is been ordered 8. Code status-patient appropriate for full code in the event of a sudden cardiac or respiratory arrest which is his request COVID-19 COVID-19 status: Negative Result date/Date tested (Pos, Neg/Pending): 09/30/22 Time Spent With Patient Critical Care time: I spent a total of 30 minutes of critical care time on this patient's care today; this time is exclusive of procedural time.
[2022-09-30] MEDS: LIDOCAINE 2% (GLYDO) 6 ML GEL TOP (12:00)
--- NOTE | 2022-09-30 12:06 | PC.NURSE ---
pt unable to void x 3 even after iv fluids, bladder scan 80cc, dr vaughan ok placement of valencia, used urojet to ease placement. urine sample sent to lab from catheter
[2022-09-30 12:15] LABS: COVID19 -Nasal RAPID Negative (Negative)
[2022-09-30 12:34] LABS: Reflexed Lactate in 2 Hours Y
[2022-09-30 13:08] LABS: Appearance Urine UA CLEAR; Bilirubin Urine UA 2+ (NEGATIVE); Color Urine UA YELLOW; Glucose Urine UA NEGATIVE (Negative); Ketones Urine UA TRACE (NEGATIVE); Leukocyte Esterase Urine UA TRACE (NEGATIVE); Nitrite Urine UA NEGATIVE (Negative); Occult Blood Urine UA 2+ (Negative); Protein Urine UA 1+ (Negative); Specific Gravity Urine UA 1.025 (1.000-1.035); pH Urine UA 5.5 (4.5-8.0)
[2022-09-30 13:18] LABS: Lactate 2HR (Lactic Acid Rflx) 4.1 mmol/L (0.7-2.1)
[2022-09-30] MEDS: ACETAMINOPHEN 325 MG TABLET 650 MG PO ×2 (13:23→18:16)
[2022-09-30] MEDS: HYDROMORPHONE 0.5 MG INJ IV ×2 (13:24→21:28)
[2022-09-30 13:29] LABS: RBC Urine 1-5/HPF (0-5/HPF); WBC Urine 10-30/HPF (0-5/HPF)
[2022-09-30 13:30] LABS: Bacteria Urine Many (>30); Culture Indicated Urine Specimen Cultured; Hyaline Casts Urine 5-10/LPF; Ictotest Urine Negative (Negative); Squamous Epithelial Cell Urine 1-5 /HPF (0-5/HPF)
[2022-09-30] MEDS: SODIUM CHLORIDE 0.9% 1,000 ML 125 ML IV (13:59)
[2022-09-30] MEDS: carvediloL 3.125 MG TABLET 6.25 MG PO (15:03)
[2022-09-30] MEDS: OXYCODONE IR 5 MG TABLET PO ×2 (16:09→20:21)
--- NOTE | 2022-09-30 16:44 | PC.NURSE ---
patient has implanted blood glucose monitor on right abdomen. explained policy on blood glucose monitors. patient refused removal.
[2022-09-30 16:51] LABS: MRSA (Nasal) PCR Not Detected (Not Detect)
[2022-09-30] MEDS: INSULIN LISPRO 100 UNIT/ML 3ML VIAL 8 UNIT SUBCUT (17:06)
[2022-09-30] MEDS: INSULIN LISPRO 100 UNIT/ML 3ML VIAL SUBCUT (17:06)
[2022-09-30] MEDS: GABAPENTIN 300 MG CAPSULE PO (20:21)
[2022-09-30] MEDS: ATORVASTATIN 20 MG TABLET PO (20:21)
[2022-09-30] MEDS: INSULIN GLARGINE 100 UNIT/ML 3ML PEN 25 UNIT SUBCUT (20:22)
--- NOTE | 2022-09-30 20:49 | PM.CN.EICU ---
History of Present Illness Consult details IF CAMERA ACTIVATED, patient seen via real-time interactive audiovisual communication: Camera activated Date Patient Seen: 09/30/22 Chief complaint: sent by Urology symptoms of kidney failture Reason for consult: septic shock Consent obtained for tele-packer sausage and wiener care: Yes Patient Location: ICU Provider location (State): [place] Other participants/roles: RN Narrative: 82 year old man with multiple medical problems, trasnferred feng he ICu for further management of septic shock. Patietn underwent recent balloon dilation of his meatus, preseted to hospital afte having fevers of 101 +, noted to have an DENIS, + bandemia, eleavted LA and procal. He was initially fluid responsive, but laer in the day his pressure dropped furhter to below a map of 65. He received a dose of coreg earlier, but I doubt this is the sole reason for the drop in his pressure. currently he is awake, conversive, and in NAd, his main complaint is pain. [facility] Medical History Acquired hypothyroidism (11/26/15) Acquired phimosis of penis Asthma BPH w urinary obs/LUTS Essential hypertension History of adenomatous polyp of colon Incomplete bladder emptying Meatal stenosis Mixed hyperlipidemia Recurrent UTI (urinary tract infection) Spinal stenosis Type 2 diabetes mellitus without complication (11/26/15) Social History marital status: number of children: 4 household members: spouse occupational status: previously employed Smoking Status: Never smoker alcohol intake: current caffeine: Yes Current Medications Current Medications Medications: Home Medications ASPIRIN (#ASPIRIN) 81 mg PO DAILY ##0 03/01/12 [History Confirmed 09/30/22] blood-glucose meter,continuous (Dexcom G6 Tool Trouble Shooter) #1 ea 06/30/20 [Rx Confirmed 09/30/22] B-D 5MM Pen [place] #400 ea 03/19/21 [Rx Confirmed 09/30/22] albuterol sulfate 90 mcg/actuation aerosol inhaler (ProAir HFA) 2 puff inhalation Q4-6H PRN shortness of breath or wheezing #8.5 grams 08/16/21 [Rx Confirmed 09/30/22] levothyroxine 50 mcg tablet 50 mcg PO DAILY #90 tabs 10/07/21 [Rx Confirmed 09/30/22] gabapentin 300 mg capsule 300 mg PO BID #180 caps 11/12/21 [Rx Confirmed 09/30/22] simvastatin 40 mg tablet 40 mg PO DAILY #90 tabs 02/02/22 [Rx Confirmed 09/30/22] metformin 1,000 mg tablet 1,000 mg PO BID #180 tabs 02/11/22 [Rx Confirmed 09/30/22] losartan 100 mg tablet 100 mg PO DAILY #90 tabs 03/30/22 [Rx Confirmed 09/30/22] blood-glucose transmitter (Dexcom G6 Transmitter device) #1 ea 06/22/22 [Rx Confirmed 09/30/22] blood-glucose sensor (Dexcom G6 Sensor device) #3 ea 06/29/22 [Rx Confirmed 09/30/22] alfuzosin 10 mg tablet,extended release 24 hr (Uroxatral) 10 mg PO DAILY #90 tabs 08/08/22 [Rx Confirmed 09/30/22] carvedilol 6.25 mg tablet 6.25 mg PO BID #180 tabs 09/08/22 [Rx Confirmed 09/30/22] insulin glargine 100 unit/mL (3 mL) subcutaneous pen 40 unit SUBCUT QPM 09/30/22 [History Confirmed 09/30/22] insulin lispro 100 unit/mL subcutaneous pen 3 unit SUBCUT ACHS 09/30/22 [History Confirmed 09/30/22] oxycodone 5 mg tablet 5 mg PO Q6HR 09/30/22 [History Confirmed 09/30/22] Visit Medications (administered) Generic Name Dose Route Start Last Admin Trade Name Silver PRN Reason Stop Dose Admin Acetaminophen 650 mg 09/30/22 12:30 09/30/22 18:16 Acetaminophen 325 Mg Tablet PO 650 mg Q6H PRN Administration Fever/Mild Pain (1-3) Atorvastatin Calcium 20 mg 09/30/22 21:00 09/30/22 20:21 Atorvastatin 20 Mg Tablet PO 20 mg BEDTIME PURA Administration Gabapentin 300 mg 09/30/22 21:00 09/30/22 20:21 Gabapentin 300 Mg Capsule PO 300 mg BID PURA Administration Hydromorphone HCl 0.5 mg 09/30/22 12:30 09/30/22 13:24 Hydromorphone 0.5 Mg Inj IV 0.5 mg Q2H PRN Administration Pain, Severe (7-10) Sodium Chloride 1,000 mls @ 250 mls/hr 09/30/22 12:30 09/30/22 17:14 Normal Saline 0.9% IV 0 mls/hr CONT PURA Infusion Insulin Glargine 25 unit 09/30/22 21:00 09/30/22 20:22 Insulin Glargine 100 Unit/Ml 3ml Pen SUBCUT 25 unit BEDTIME PURA Administration Insulin Human Lispro 0 unit 09/30/22 12:30 09/30/22 20:13 Insulin Lispro 100 Unit/Ml 3ml Vial SUBCUT Not Given ACHS [facility] Protocol Insulin Human Lispro 8 unit 09/30/22 16:45 09/30/22 17:06 Insulin Lispro 100 Unit/Ml 3ml Vial SUBCUT 8 unit AC [facility] Administration Oxycodone HCl 5 mg 09/30/22 13:59 09/30/22 20:21 Oxycodone Ir 5 Mg Tablet PO 5 mg Q3HR PRN Administration Pain, Moderate (4-6) Exam Vital Signs (past 8 hours): - 09/30/22 13:18 09/30/22 13:13 09/30/22 13:30 Temperature 100 F H Pulse Rate 115 H 110 H 109 H Respiratory Rate 21 22 24 Blood Pressure 157/67 H Pulse Oximetry 97 100 80 L Oxygen Flow Rate 0 09/30/22 14:00 09/30/22 14:00 09/30/22 14:30 Temperature Pulse Rate 107 H 102 H Respiratory Rate 23 23 Blood Pressure 142/61 H Pulse Oximetry 99 99 Oxygen Flow Rate 09/30/22 15:00 09/30/22 15:00 09/30/22 15:30 Temperature Pulse Rate 102 H 102 H Respiratory Rate 32 H 29 H Blood Pressure 131/59 L Pulse Oximetry 98 98 Oxygen Flow Rate 09/30/22 16:00 09/30/22 16:00 09/30/22 16:30 Temperature Pulse Rate 101 H 96 H Respiratory Rate 32 H 32 H Blood Pressure 109/59 L Pulse Oximetry 98 98 Oxygen Flow Rate 09/30/22 17:00 09/30/22 17:00 09/30/22 18:15 Temperature 99.3 F Pulse Rate 93 H Respiratory Rate 41 H Blood Pressure 85/52 L Pulse Oximetry 98 Oxygen Flow Rate 09/30/22 17:15 03/03/23 17:15 09/30/22 17:29 Temperature Pulse Rate 91 H Respiratory Rate 24 Blood Pressure 88/54 L 78/51 L Pulse Oximetry 97 Oxygen Flow Rate 09/30/22 17:29 09/30/22 17:30 09/30/22 17:30 Temperature Pulse Rate 91 H 92 H Respiratory Rate 26 H 33 H Blood Pressure 83/51 L Pulse Oximetry 99 99 Oxygen Flow Rate 09/30/22 17:46 09/30/22 17:46 09/30/22 17:48 Temperature Pulse Rate 100 H Respiratory Rate 24 Blood Pressure 76/57 L 85/62 L Pulse Oximetry 99 Oxygen Flow Rate 09/30/22 17:48 09/30/22 18:00 09/30/22 18:00 Temperature Pulse Rate 98 H 95 H Respiratory Rate 35 H 24 Blood Pressure 93/62 Pulse Oximetry 100 99 Oxygen Flow Rate 09/30/22 18:15 09/30/22 18:15 09/30/22 18:30 Temperature Pulse Rate 96 H Respiratory Rate 19 Blood Pressure 97/54 L 97/53 L Pulse Oximetry 100 Oxygen Flow Rate 09/30/22 19:00 09/30/22 19:30 09/30/22 20:00 Temperature Pulse Rate Respiratory Rate Blood Pressure 91/50 L 81/48 L 84/51 L Pulse Oximetry Oxygen Flow Rate 09/30/22 20:16 09/30/22 18:30 09/30/22 18:30 Temperature 98.2 F Pulse Rate 94 H 96 H Respiratory Rate 23 27 H Blood Pressure 97/53 L Pulse Oximetry 100 99 Oxygen Flow Rate 1 09/30/22 18:45 09/30/22 18:45 09/30/22 19:00 Temperature Pulse Rate 96 H Respiratory Rate 18 Blood Pressure 95/51 L 91/50 L Pulse Oximetry 98 Oxygen Flow Rate 09/30/22 19:00 09/30/22 19:15 09/30/22 19:15 Temperature Pulse Rate 94 H 95 H Respiratory Rate 25 H 26 H Blood Pressure 87/51 L Pulse Oximetry 98 98 Oxygen Flow Rate 09/30/22 19:30 09/30/22 19:30 09/30/22 19:45 Temperature Pulse Rate 93 H Respiratory Rate 26 H Blood Pressure 81/48 L 82/48 L Pulse Oximetry 98 Oxygen Flow Rate 09/30/22 19:45 09/30/22 20:00 09/30/22 20:00 Temperature Pulse Rate 93 H 93 H Respiratory Rate 22 30 H Blood Pressure 84/51 L Pulse Oximetry 98 100 Oxygen Flow Rate 09/30/22 20:15 09/30/22 20:15 Temperature Pulse Rate 92 H Respiratory Rate 28 H Blood Pressure 87/55 L Pulse Oximetry 99 Oxygen Flow Rate Oxygen Delivery Method Nasal Cannula Oxygen Flow Rate 1 Narrative Exam Narrative: surrogate for exam is primary team Objective Labs 09/30/22 10:33 09/30/22 10:33 Labs: Laboratory Results - last 24 hr 09/30/22 09/30/22 09/30/22 10:33 10:33 10:33 WBC 21.4 H RBC 4.92 Hgb 11.6 L Hct 36.9 L MCV 75.0 L MCH 23.6 L MCHC 31.4 RDW 16.1 H Plt Count 171 Neut % (Auto) Not Reportable Lymph % (Auto) Not Reportable [place] % (Auto) Not Reportable Eos % (Auto) Not Reportable Baso % (Auto) Not Reportable Lymph # (Auto) Not Reportable [place] # (Auto) Not Reportable Baso # (Auto) Not Reportable Total Counted 100 Seg Neutrophils % 82.0 H Band Neutrophils % 8.0 H Lymphocytes % (Manual) 3.0 L Atypical Lymphs % 2.0 H Monocytes % (Manual) 4.0 Basophils % (Manual) 1.0 Neutrophils # (Manual) 05615 H RBC Morphology Not Reportable Anisocytosis 1+ H PT 15.5 H INR 1.3 APTT 29 Sodium 134 L Potassium 3.9 Chloride 97 L Carbon Dioxide 22 BUN 22 H Creatinine 1.78 H Estimated GFR 38 L BUN/Creatinine Ratio 12.4 Glucose 179 H Lactate Calcium 8.3 L Total Bilirubin 0.9 AST 27 ALT 39 Alkaline Phosphatase 77 Total Protein 6.9 Albumin 4.0 Globulin 2.9 Albumin/Globulin Ratio 1.4 Lipase 11 L Procalcitonin 4.64 H Urine Color Urine Appearance Urine pH Ur Specific [place] Urine Protein Urine Glucose (UA) Urine Ketones Urine Occult Blood Urine Nitrate Urine Bilirubin Ur Bilirubin Confirm Urine Urobilinogen Ur Leukocyte Esterase Urine RBC Urine WBC Ur Squamous Epith Cells Urine Bacteria Hyaline Casts Ur Culture Indicated? Nasal Screen MRSA (PCR) SARS-CoV-2 (PCR) 09/30/22 09/30/22 09/30/22 10:33 11:29 12:00 WBC RBC Hgb Hct MCV MCH MCHC RDW Plt Count Neut % (Auto) Lymph % (Auto) [place] % (Auto) Eos % (Auto) Baso % (Auto) Lymph # (Auto) [place] # (Auto) Baso # (Auto) Total Counted Seg Neutrophils % Band Neutrophils % Lymphocytes % (Manual) Atypical Lymphs % Monocytes % (Manual) Basophils % (Manual) Neutrophils # (Manual) RBC Morphology Anisocytosis PT INR APTT Sodium Potassium Chloride Carbon Dioxide BUN Creatinine Estimated GFR BUN/Creatinine Ratio Glucose Lactate 4.5 H* Calcium Total Bilirubin AST ALT Alkaline Phosphatase Total Protein Albumin Globulin Albumin/Globulin Ratio Lipase Procalcitonin Urine Color Yellow Urine Appearance Clear Urine pH 5.5 Ur Specific [place] 1.025 Urine Protein 1+ H Urine Glucose (UA) Negative Urine Ketones Trace H Urine Occult Blood 2+ H Urine Nitrate Negative Urine Bilirubin 2+ H Ur Bilirubin Confirm Negative Urine Urobilinogen 2.0 H Ur Leukocyte Esterase Trace H Urine RBC 1-5/hpf Urine WBC 10-30/hpf H Ur Squamous Epith Cells 1-5 /hpf Urine Bacteria Many (>30) H Hyaline Casts 5-10/lpf Ur Culture Indicated? Specimen cultured Nasal Screen MRSA (PCR) SARS-CoV-2 (PCR) Negative 09/30/22 09/30/22 12:53 15:30 WBC RBC Hgb Hct MCV MCH MCHC RDW Plt Count Neut % (Auto) Lymph % (Auto) [place] % (Auto) Eos % (Auto) Baso % (Auto) Lymph # (Auto) [place] # (Auto) Baso # (Auto) Total Counted Seg Neutrophils % Band Neutrophils % Lymphocytes % (Manual) Atypical Lymphs % Monocytes % (Manual) Basophils % (Manual) Neutrophils # (Manual) RBC Morphology Anisocytosis PT INR APTT Sodium Potassium Chloride Carbon Dioxide BUN Creatinine Estimated GFR BUN/Creatinine Ratio Glucose Lactate 4.1 H* Calcium Total Bilirubin AST ALT Alkaline Phosphatase Total Protein Albumin Globulin Albumin/Globulin Ratio Lipase Procalcitonin Urine Color Urine Appearance Urine pH Ur Specific [place] Urine Protein Urine Glucose (UA) Urine Ketones Urine Occult Blood Urine Nitrate Urine Bilirubin Ur Bilirubin Confirm Urine Urobilinogen Ur Leukocyte Esterase Urine RBC Urine WBC Ur Squamous Epith Cells Urine Bacteria Hyaline Casts Ur Culture Indicated? Nasal Screen MRSA (PCR) Not detected SARS-CoV-2 (PCR) Assessment & Plan Assessment and plan (1) Sepsis: Status: Acute (2) Meatal stenosis: Status: Acute (3) Septic shock: Status: Acute (4) Lactic acidosis: Status: Acute (5) Bandemia: Status: Acute (6) DENIS (acute kidney injury): Status: Acute Assessment & Plan narrative: neuro - at baseline, will start dilaudid for pain control resp - on supplemental o2, can wea noff as tolerated CV - maintain map > 65, would start levophed as his pain control is optimized. TTE GI - adat if pressor load is low /renal - f/u urology, trend bmp, monitor UO, trend LA, correct lytes endo - glycemic control, deoending on his pressor load may need stress dose steroids, but does not seem that way at this point micro - empirc abx, f./u cx/sensitivites, heme - dvt ppx, trend cbc, goal hgb > 7 Time Spent With Patient Critical Care time: I spent a total of [35] minutes of critical care time on this patient's care today; this time is exclusive of procedural time.
[2022-10-01] VITALS (70 sets, daily range): BP systolic 100–151; BP diastolic 53–68; PULSE 92–118; RESP 12–33; TEMP 36.9–38.4; O2SAT 82–100
[2022-10-01] MEDS: OXYCODONE IR 5 MG TABLET 10 MG PO ×2 (02:26→20:02)
[2022-10-01] MEDS: ACETAMINOPHEN 325 MG TABLET 650 MG PO ×2 (02:27→15:25)
[2022-10-01] MEDS: LEVOTHYROXINE 50 MCG TABLET PO (05:15)
[2022-10-01 05:42] LABS: Blood Urea Nitrogen 32 mg/dL (9-20); Calcium 7.5 mg/dL (8.4-10.2); Carbon Dioxide 22 mmol/L (22-32); Chloride 100 mmol/L (98-107); Estimated Glomerular Filt Rate 38 mL/min (>60); Glucose 143 mg/dL (80-110); HEMOLYSIS < 15 (0-50); Potassium 4.3 mmol/L (3.4-5.1); Sodium 132 mmol/L (137-145)
[2022-10-01 05:50] LABS: Hematocrit 31.9 % (41-53); Hemoglobin 10.1 g/dL (13.5-17.5); Mean Corpuscular HGB Conc 31.7 % (30-36); Mean Corpuscular Hemoglobin 23.7 PG (26-34); Mean Corpuscular Volume 74.7 fL (80-100); Platelet Count 131 X10^3/uL (150-400); Red Blood Cell Count 4.27 X10^6/uL (4.5-5.9); Red Cell Distribution Width 16.4 % (11.6-14.8); White Blood Cell Count 18.8 X10^3/uL (4.5-11.0)
[2022-10-01 05:51] LABS: Add Manual Diff / Slide Review YES
[2022-10-01 06:15] LABS: Neutrophils Absolute Manual 17296 /uL (3000-5900); Total Cells Counted 100
[2022-10-01 06:16] LABS: Anisocytosis 1+
[2022-10-01 06:20] LABS: Lactate (Lactic Acid) 1.5 mmol/L (0.7-2.1)
[2022-10-01] MEDS: OXYCODONE IR 5 MG TABLET PO ×2 (07:43→12:15)
[2022-10-01] MEDS: HYDROMORPHONE 0.5 MG INJ IV (07:44)
[2022-10-01] MEDS: INSULIN LISPRO 100 UNIT/ML 3ML VIAL 8 UNIT SUBCUT ×3 (07:45→17:50)
[2022-10-01] MEDS: INSULIN LISPRO 100 UNIT/ML 3ML VIAL SUBCUT ×3 (07:46→17:51)
[2022-10-01] MEDS: GABAPENTIN 300 MG CAPSULE PO ×2 (08:36→20:01)
[2022-10-01] MEDS: ENOXAPARIN 40 MG/0.4 ML SYRINGE SUBCUT (08:36)
--- NOTE | 2022-10-01 09:19 | P.TELICUPN_ITS ---
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 Initial work up notable for WBC 21.4, Creatinine 1.78, lactate 4.5, elevated procal of 4.64, and UA consistent with UTI. He remained hypotensive despite aggressive IVF resuscitation in ED, and was admitted to ICU with plan to be started on norepinephrine. Overnight, the patient remained in ICU, but responded well to pressors. He didn't require to be started on pressors, and able to maintain MAP >65.? Lactate down to 1.5 from initial 4.5 on admission. Afebrile this morning with Tmax 100F.?Total 3.5 L net positive fluid balance over past 24 hours. This morning, more awake and responsive, follows commands, able to tolerate PO intake. Denies any SOB, fever, chills, abdominal pain. Current Medications Current Medications Medications: Home Medications ASPIRIN (#ASPIRIN) 81 mg PO DAILY ##0 03/01/12 [History Confirmed 09/30/22] blood-glucose meter,continuous (Dex[employer] Imprints G6 Combination Machine Tool Setter) #1 ea 06/30/20 [Rx Confirmed 09/30/22] B-D 5MM Pen [place] #400 ea 03/19/21 [Rx Confirmed 09/30/22] albuterol sulfate 90 mcg/actuation aerosol inhaler (ProAir HFA) 2 puff inhalation Q4-6H PRN shortness of breath or wheezing #8.5 grams 08/16/21 [Rx Confirmed 09/30/22] levothyroxine 50 mcg tablet 50 mcg PO DAILY #90 tabs 10/07/21 [Rx Confirmed 10/20] gabapentin 300 mg capsule 300 mg PO BID #180 caps 11/12/21 [Rx Confirmed 09/30/22] simvastatin 40 mg tablet 40 mg PO DAILY #90 tabs 02/02/22 [Rx Confirmed 09/30/22] metformin 1,000 mg tablet 1,000 mg PO BID #180 tabs 02/11/22 [Rx Confirmed 09/30/22] losartan 100 mg tablet 100 mg PO DAILY #90 tabs 03/30/22 [Rx Confirmed 09/30/22] blood-glucose transmitter (Dexcom G6 Transmitter device) #1 ea 06/22/22 [Rx Confirmed 09/30/22] blood-glucose sensor (Dexcom G6 Sensor device) #3 ea 06/29/22 [Rx Confirmed 09/30/22] alfuzosin 10 mg tablet,extended release 24 hr (Uroxatral) 10 mg PO DAILY #90 tabs 08/08/22 [Rx Confirmed 09/30/22] carvedilol 6.25 mg tablet 6.25 mg PO BID #180 tabs 09/08/22 [Rx Confirmed 09/30/22] insulin glargine 100 unit/mL (3 mL) subcutaneous pen 40 unit SUBCUT QPM 09/30/22 [History Confirmed 09/30/22] insulin lispro 100 unit/mL subcutaneous pen 3 unit SUBCUT ACHS 09/30/22 [History Confirmed 09/30/22] oxycodone 5 mg tablet 5 mg PO Q6HR 09/30/22 [History Confirmed 09/30/22] Visit Medications (administered) Generic Name Dose Route Start Last Admin Trade Name Freq PRN Reason Stop Dose Admin Acetaminophen 650 mg 09/30/22 12:30 10/01/22 02:27 Acetaminophen 325 Mg Tablet PO 650 mg Q6H PRN Administration Fever/Mild Pain (1-3) Atorvastatin Calcium 20 mg 09/30/22 21:00 09/30/22 20:21 Atorvastatin 20 Mg Tablet PO 20 mg BEDTIME PURA Administration Enoxaparin Sodium 40 mg 10/01/22 09:00 10/01/22 08:36 Enoxaparin 40 Mg/0.4 Ml Syringe SUBCUT 40 mg DAILY PURA Administration Gabapentin 300 mg 09/30/22 21:00 10/01/22 08:36 Gabapentin 300 Mg Capsule PO 300 mg BID PURA Administration Hydromorphone HCl 0.5 mg 09/30/22 12:30 10/01/22 07:44 Hydromorphone 0.5 Mg Inj IV 0.5 mg Q2H PRN Administration Pain, Severe (7-10) Sodium Chloride 1,000 mls @ 250 mls/hr 09/30/22 12:30 09/30/22 17:14 Normal Saline 0.9% IV 0 mls/hr CONT PURA Infusion Insulin Glargine 25 unit 09/30/22 21:00 09/30/22 20:22 Insulin Glargine 100 Unit/Ml 3ml Pen SUBCUT 25 unit BEDTIME PURA Administration Insulin Human Lispro 0 unit 09/30/22 12:30 10/01/22 07:46 Insulin Lispro 100 Unit/Ml 3ml Vial SUBCUT 2 unit ACHS PURA Administration Protocol Insulin Human Lispro 8 unit 09/30/22 16:45 10/01/22 07:45 Insulin Lispro 100 Unit/Ml 3ml Vial SUBCUT 8 unit AC PURA Administration Levothyroxine Sodium 50 mcg 10/01/22 06:00 10/01/22 05:15 Levothyroxine 50 Mcg Tablet PO 50 mcg 0600 [facility] Administration Oxycodone HCl 5 mg 09/30/22 13:59 10/01/22 07:43 Oxycodone Ir 5 Mg Tablet PO 5 mg Q3HR PRN Administration Pain, Moderate (4-6) Oxycodone HCl 10 mg 09/30/22 14:00 10/01/22 02:26 Oxycodone Ir 5 Mg Tablet PO 10 mg Q3HR PRN Administration Pain, Severe (7-10) Objective Labs 10/01/22 05:00 10/01/22 05:00 Labs: Laboratory Results - last 24 hr 09/30/22 09/30/22 09/30/22 10:33 10:33 10:33 WBC 21.4 H RBC 4.92 Hgb 11.6 L Hct 36.9 L MCV 75.0 L MCH 23.6 L MCHC 31.4 RDW 16.1 H Plt Count 171 Neut % (Auto) Not Reportable Lymph % (Auto) Not Reportable Benson % (Auto) Not Reportable Eos % (Auto) Not Reportable Baso % (Auto) Not Reportable Lymph # (Auto) Not Reportable Benson # (Auto) Not Reportable Baso # (Auto) Not Reportable Total Counted 100 Seg Neutrophils % 82.0 H Band Neutrophils % 8.0 H Lymphocytes % (Manual) 3.0 L Atypical Lymphs % 2.0 H Monocytes % (Manual) 4.0 Basophils % (Manual) 1.0 Neutrophils # (Manual) 12603 H RBC Morphology Not Reportable Anisocytosis 1+ H PT 15.5 H INR 1.3 APTT 29 Sodium 134 L Potassium 3.9 Chloride 97 L Carbon Dioxide 22 BUN 22 H Creatinine 1.78 H Estimated GFR 38 L BUN/Creatinine Ratio 12.4 Glucose 179 H Lactate Calcium 8.3 L Total Bilirubin 0.9 AST 27 ALT 39 Alkaline Phosphatase 77 Total Protein 6.9 Albumin 4.0 Globulin 2.9 Albumin/Globulin Ratio 1.4 Lipase 11 L Procalcitonin 4.64 H Urine Color Urine Appearance Urine pH Ur Specific [place] Urine Protein Urine Glucose (UA) Urine Ketones Urine Occult Blood Urine Nitrate Urine Bilirubin Ur Bilirubin Confirm Urine Urobilinogen Ur Leukocyte Esterase Urine RBC Urine WBC Ur Squamous Epith Cells Urine Bacteria Hyaline Casts Ur Culture Indicated? Nasal Screen MRSA (PCR) SARS-CoV-2 (PCR) 09/30/22 09/30/22 09/30/22 10:33 11:29 12:00 WBC RBC Hgb Hct MCV MCH MCHC RDW Plt Count Neut % (Auto) Lymph % (Auto) Benson % (Auto) Eos % (Auto) Baso % (Auto) Lymph # (Auto) Benson # (Auto) Baso # (Auto) Total Counted Seg Neutrophils % Band Neutrophils % Lymphocytes % (Manual) Atypical Lymphs % Monocytes % (Manual) Basophils % (Manual) Neutrophils # (Manual) RBC Morphology Anisocytosis PT INR APTT Sodium Potassium Chloride Carbon Dioxide BUN Creatinine Estimated GFR BUN/Creatinine Ratio Glucose Lactate 4.5 H* Calcium Total Bilirubin AST ALT Alkaline Phosphatase Total Protein Albumin Globulin Albumin/Globulin Ratio Lipase Procalcitonin Urine Color Yellow Urine Appearance Clear Urine pH 5.5 Ur Specific [place] 1.025 Urine Protein 1+ H Urine Glucose (UA) Negative Urine Ketones Trace H Urine Occult Blood 2+ H Urine Nitrate Negative Urine Bilirubin 2+ H Ur Bilirubin Confirm Negative Urine Urobilinogen 2.0 H Ur Leukocyte Esterase Trace H Urine RBC 1-5/hpf Urine WBC 10-30/hpf H Ur Squamous Epith Cells 1-5 /hpf Urine Bacteria Many (>30) H Hyaline Casts 5-10/lpf Ur Culture Indicated? Specimen cultured Nasal Screen MRSA (PCR) SARS-CoV-2 (PCR) Negative 09/30/22 09/30/22 10/01/22 12:53 15:30 05:00 WBC 18.8 H RBC 4.27 L Hgb 10.1 L Hct 31.9 L MCV 74.7 L MCH 23.7 L MCHC 31.7 RDW 16.4 H Plt Count 131 L Neut % (Auto) Not Reportable Lymph % (Auto) Not Reportable Benson % (Auto) Not Reportable Eos % (Auto) Not Reportable Baso % (Auto) Not Reportable Lymph # (Auto) Not Reportable Benson # (Auto) Not Reportable Baso # (Auto) Not Reportable Total Counted 100 Seg Neutrophils % 81.0 H Band Neutrophils % 11.0 H Lymphocytes % (Manual) 4.0 L Atypical Lymphs % Monocytes % (Manual) 4.0 Basophils % (Manual) Neutrophils # (Manual) 91472 H RBC Morphology See below Anisocytosis 1+ H PT INR APTT Sodium Potassium Chloride Carbon Dioxide BUN Creatinine Estimated GFR BUN/Creatinine Ratio Glucose Lactate 4.1 H* Calcium Total Bilirubin AST ALT Alkaline Phosphatase Total Protein Albumin Globulin Albumin/Globulin Ratio Lipase Procalcitonin Urine Color Urine Appearance Urine pH Ur Specific [place] Urine Protein Urine Glucose (UA) Urine Ketones Urine Occult Blood Urine Nitrate Urine Bilirubin Ur Bilirubin Confirm Urine Urobilinogen Ur Leukocyte Esterase Urine RBC Urine WBC Ur Squamous Epith Cells Urine Bacteria Hyaline Casts Ur Culture Indicated? Nasal Screen MRSA (PCR) Not detected SARS-CoV-2 (PCR) 10/01/22 10/01/22 05:00 05:55 WBC RBC Hgb Hct MCV MCH MCHC RDW Plt Count Neut % (Auto) Lymph % (Auto) Benson % (Auto) Eos % (Auto) Baso % (Auto) Lymph # (Auto) Benson # (Auto) Baso # (Auto) Total Counted Seg Neutrophils % Band Neutrophils % Lymphocytes % (Manual) Atypical Lymphs % Monocytes % (Manual) Basophils % (Manual) Neutrophils # (Manual) RBC Morphology Anisocytosis PT INR APTT Sodium 132 L Potassium 4.3 Chloride 100 Carbon Dioxide 22 BUN 32 H Creatinine 1.78 H Estimated GFR 38 L BUN/Creatinine Ratio 18.0 Glucose 143 H Lactate 1.5 Calcium 7.5 L Total Bilirubin AST ALT Alkaline Phosphatase Total Protein Albumin Globulin Albumin/Globulin Ratio Lipase Procalcitonin Urine Color Urine Appearance Urine pH Ur Specific [place] Urine Protein Urine Glucose (UA) Urine Ketones Urine Occult Blood Urine Nitrate Urine Bilirubin Ur Bilirubin Confirm Urine Urobilinogen Ur Leukocyte Esterase Urine RBC Urine WBC Ur Squamous Epith Cells Urine Bacteria Hyaline Casts Ur Culture Indicated? Nasal Screen MRSA (PCR) SARS-CoV-2 (PCR) Exam Vital Signs (past 8 hours): - 10/01/22 02:50 10/01/22 01:30 10/01/22 02:00 Temperature 100 F H Pulse Rate 97 H Respiratory Rate 16 Blood Pressure 128/57 L Pulse Oximetry 93 Oxygen Delivery Method Oxygen Flow Rate 10/01/22 02:00 10/01/22 02:30 10/01/22 03:00 Temperature Pulse Rate 98 H 102 H Respiratory Rate 16 31 H Blood Pressure 114/59 L Pulse Oximetry 94 96 Oxygen Delivery Method Oxygen Flow Rate 10/01/22 03:00 10/01/22 03:30 10/01/22 04:00 Temperature Pulse Rate 101 H 100 H Respiratory Rate 15 12 Blood Pressure 105/53 L Pulse Oximetry 94 92 Oxygen Delivery Method Oxygen Flow Rate 10/01/22 04:00 10/01/22 05:00 10/01/22 06:00 Temperature Pulse Rate 97 H Respiratory Rate 12 Blood Pressure Pulse Oximetry 94 99 Oxygen Delivery Method Nasal Cannula Oxygen Flow Rate 2 10/01/22 05:00 10/01/22 04:30 10/01/22 05:00 Temperature Pulse Rate 94 H Respiratory Rate 12 Blood Pressure 100/62 Pulse Oximetry 94 Oxygen Delivery Method Oxygen Flow Rate 1 10/01/22 05:00 10/01/22 05:20 10/01/22 05:20 Temperature Pulse Rate 94 H 94 H Respiratory Rate 15 17 Blood Pressure 123/59 L Pulse Oximetry 95 97 Oxygen Delivery Method Oxygen Flow Rate 10/01/22 05:30 10/01/22 06:00 10/01/22 06:00 Temperature Pulse Rate 93 H 93 H Respiratory Rate 12 14 Blood Pressure 112/61 Pulse Oximetry 98 99 Oxygen Delivery Method Oxygen Flow Rate 10/01/22 06:30 10/01/22 07:00 10/01/22 07:00 Temperature Pulse Rate 92 H 92 H Respiratory Rate 13 17 Blood Pressure 105/63 Pulse Oximetry 100 100 Oxygen Delivery Method Oxygen Flow Rate 10/01/22 07:30 10/01/22 07:52 10/01/22 07:53 Temperature Pulse Rate 92 H 104 H Respiratory Rate 20 22 Blood Pressure 151/64 H Pulse Oximetry 99 93 Oxygen Delivery Method Oxygen Flow Rate 10/01/22 07:53 10/01/22 07:56 10/01/22 07:56 Temperature Pulse Rate 104 H 107 H Respiratory Rate 24 20 Blood Pressure 146/65 H Pulse Oximetry 82 L Oxygen Delivery Method Oxygen Flow Rate 10/01/22 08:07 10/01/22 08:10 10/01/22 08:10 Temperature Pulse Rate 104 H 102 H Respiratory Rate 16 Blood Pressure 127/56 L Pulse Oximetry 96 Oxygen Delivery Method Oxygen Flow Rate 10/01/22 08:30 10/01/22 09:00 10/01/22 09:00 Temperature Pulse Rate 109 H 102 H Respiratory Rate 28 H 18 Blood Pressure 113/58 L Pulse Oximetry 97 94 Oxygen Delivery Method Oxygen Flow Rate Oxygen Delivery Method Nasal Cannula Oxygen Flow Rate 2 Const Other: Awake, alert, oriented x 3, in no distress. On RA Chest Other: Not using accessory muscles of respiration. Cardio Other: In Sinus tachycardia. Neuro Other: Moving all 4 extremities spontaneously and on commands. Quality TeleICU VTE Deep Vein Thrombosis/Pulmonary Embolism Present on Admission: Yes Stress Ulcer Stress ulcer prophylaxis: yes Assessment & Plan Assessment and plan (1) DENIS (acute kidney injury): Status: Acute (2) Septic shock: Status: Acute (3) Acute UTI: Status: Acute (4) Meatal stenosis: Status: Acute (5) BPH w urinary obs/LUTS: Status: Acute (6) Lactic acidosis: Status: Acute (7) Bandemia: Status: Acute Assessment & Plan narrative: # Septic Shock, presumed source UTI: - Presumed to be from UTI, especially in the setting of recent urological intervention (urethral meatus dilatation) on 09/26/2022. - Received 30 cc/kg IVF bolus in ED, responded well to fluids and able to maintain MAP >65. - Hemodnyamically stable, not requiring vasopressors at this time. - Continue IV Ceftriaxone pending blood cultures and urine cultures. If spikes fever?again, may need to broaden IV antibiotics. - Monitor markers of tissue perfusion including lactate clearance, urine output, mental status, base deficit. - If becomes more hypotensive and requires for pressors, consider adding stress dose steroids (solu-cortef 50 mg IV q6 hours). # Acue kidney injury: - Likely pre-renal vs ATN from hypotension/shock - Creatinine?1.78 on admission, monitor renal functions with serial BMP. - Continue with IVF and vasopressors. - Avoid nephrotoxic meds, renally dose medications. ICU Core measures: FEN:?Diabetec Diet. C/w IVF. Glucose: Fairly controlled. C/w q6 hours accu checks, SSI with goal to keep BG 140-180 Lines/Tubes:?PIVs, Plascencia Code Status: Full-Code GI prophylaxis: Pepcid DVT Prophylaxis: On SCDs and Lovenox subcu Restraints: Not Required Disposition: May transfer out of ICU. Time Spent With Patient Critical Care time: I spent a total of [30] minutes of critical care time on this patient's care today; this time is exclusive of procedural time.
--- NOTE | 2022-10-01 10:24 | PC.NURSE ---
patient ambulating with steady gait with front wheel walker. Needs extra time with transfers. Walking within room.
[2022-10-01] MEDS: LIDOCAINE 2% (GLYDO) 6 ML GEL TOP (12:14)
[2022-10-01] MEDS: cefTRIAXone 1,000 MG in SODIUM CHLORIDE 0.9% 100 ML 200 MG IV (12:15)
--- NOTE | 2022-10-01 15:24 | CM.DANOTE ---
Initial Discharge Assessment Note: Case reviewed, met with spouse Sanam, patient too tired/ill to speak. Introduced self and role Payer: Medicare and [employer] PCP: Duglas Brice 82 year old male admitted yesterday to ICU with kidney failure, meatal stenosis, urosepsis. Plascencia catheter in place. Patient very fatigued and sleeping much of day. Spouse Sanam at bedside. Patient lives with spouse in [place] and is normally independent in ADLs. Plan: Follow for needs. Return home when medically stable to care of spouse. Fartun Mariano RN/KIANP Discharge Planning/Care Management CM Discharge Assessment Start: 10/01/22 15:22 Freq: Status: Active Protocol: Document 10/01/22 15:23 (Rec: 10/01/22 15:24 [id number]) Discharge Planning Assessment Assigned Rough Rounder Machine Fartun Mariano RN/KIANP Advance Directives? Yes Advance Directives on File No History Provided By Significant Other Prior Living Arrangements House Household Members spouse Type of transporation used prior to Drives own vehicle admit Independent with ADL's Yes Is patient alert and oriented? Yes Needs Assistance With Home Chores / Shopping Caregiver for Another No Barriers to Discharge No Discharge Plan Home Additional Comment Possible HH Whiteboard Updated in Patient Room with Yes name and ext. # of Rough Rounder Machine Review Status In Process Next Review Type Continued Stay Review
--- NOTE | 2022-10-01 16:15 | DI.CT.S_ITS ---
PROCEDURE: CT ABDOMEN PELVIS WO CON INDICATIONS: fever of unknown origin TECHNIQUE: Noncontrast 5 mm thick sections acquired from the diaphragms to the symphysis. 5 mm coronal and sagittal reformats were then performed. For radiation dose reduction, the following was used: automated exposure control, adjustment of mA and/or kV according to patient size. COMPARISON: None. FINDINGS: Image quality: Excellent. Lung bases: Lung bases are clear. Heart size is normal. The coronary arteries have atherosclerotic calcifications. Solid organs: Liver: The liver has no mass or intrahepatic biliary ductal dilatation. The portal vein and hepatic veins are patent. Biliary: The gallbladder has no gallstones, pericholecystic fluid, gallbladder wall thickening, or surrounding inflammatory change. Pancreas: The pancreas has no mass or ductal dilatation. There is no surrounding inflammation. Spleen: Normal size. There are no masses. Adrenals: No hypertrophy or nodules. Kidneys: No obstructive calculus or hydronephrosis. No solid mass. No cystic mass. Peritoneum and bowel: The distal esophagus and stomach are normal. The small bowel has a normal caliber and appearance. The terminal ileum is normal. The large bowel has has a normal caliber and appearance up to the point of the rectum where there is diffuse circumferential wall thickening and surrounding edema. No abscess. The appendix is normal. No free fluid or air. Nodes and vessels: No retroperitoneal or mesenteric adenopathy by size criteria. Aorta and inferior vena cava are normal in size. Miscellaneous: No abdominal wall mass or hernia. PELVIS: Genitourinary: The bladder is decompressed with a Plascencia catheter. Bones: No suspicious bony lesions. No vertebral body compression fractures. IMPRESSION: Wall thickening of the rectum with surrounding inflammation consistent with proctitis. Dictated by: Bhaskar Pugh M.D. on 10/01/2022 at 17:17 Approved by: Bhaskar Pugh M.D. on 10/01/2022 at 17:24
--- NOTE | 2022-10-01 16:15 | DI.US.S_ITS ---
PROCEDURE: US SCROTUM INDICATIONS: PAIN AND FEVER TECHNIQUE: Real-time scanning was performed of the scrotum and testicles, with image documentation. Color and pulse Doppler interrogation was performed of both testicles. COMPARISON: [facility], CT, CT ABDOMEN PELVIS WO CON, 10/01/2022, 16:31. FINDINGS: Right: Testicle is normal in size at 3.3 x 2.5 x 2.6 cm, and homogenous in echotexture. Epididymis is normal in overall size and morphology. Small right hydrocele no varicoceles. Overlying scrotal skin is normal in thickness. Left: Testicle is normal in size at 3.5 x 2.8 x 2.9 cm, and homogeneous in echotexture. Epididymis is normal in overall size and morphology. Moderate left hydrocele no varicoceles. Overlying scrotal skin is normal in thickness. Rete testis appears present on the left. Doppler: Color and pulse Doppler demonstrate normal and symmetric arterial flow in both testicles. IMPRESSION: No sign of testicular torsion, prior ischemic injury, or infection. Asymmetric left greater than right hydrocele is noted. Hyperemia is not associated. Dictated by: René Coley M.D. on 10/01/2022 at 20:48 Approved by: René Coley M.D. on 10/01/2022 at 20:52
--- NOTE | 2022-10-01 16:17 | P.PN_ITS ---
Subjective Subjective Interval history: This pleasant 82-year-old male who is under the primary care of Dr. Brice was admitted by Dr. Brice yesterday with suspected sepsis due to urinary tract origin. This is a new patient to me. Reviewed chart and evaluation. Appreciate tele ICU input and assistance given patient's sepsis with hypotension. Unfortunately patient received carvedilol yesterday after blood pressure had recovered and then had recurrent decrease in blood pressure. He did not end up requiring pressors. His blood pressure recovered on his own. He has been up and ambulated. He has been alert. However he is still feeling very poorly. He is tired he feels weak. In the last hour he had a repeated temperature of a 101.2? temporal and oral 100.7. Repeat blood cultures were done and he was given Tylenol. His initial urine culture is negative thus far and blood cultures are negative p ending. He has had 2 doses of IV ceftriaxone. He is a history of recurrent UTIs and cultures have shown bacteria that is pansensitive. Is odd that his culture is negative. Had a ureteral meatotomy on MondaySeptember 26. Patient received over 3 L of IV fluid resuscitation yesterday. He currently does not have IV fluids going Patient denies any chest pain or shortness of breath or lightheadedness or dizziness. He had 2 bowel movements today which were normal. There has no been blood in his stool. He has not had a cough or rash. Otherwise 12 point review of systems is negative Exam Vital Signs (past 8 hours): - 10/01/22 08:30 10/01/22 09:00 10/01/22 09:00 Temperature Pulse Rate 109 H 102 H Respiratory Rate 28 H 18 Blood Pressure 113/58 L Pulse Oximetry 97 94 10/01/22 14:56 10/01/22 14:57 10/01/22 15:25 Temperature 101.2 F H 100.7 F H 100.7 F H Pulse Rate Respiratory Rate Blood Pressure Pulse Oximetry Oxygen Delivery Method Nasal Cannula Oxygen Flow Rate 2 Narrative Exam Narrative: Patient is resting comfortably in the hospital bed. He is intermittently falling asleep but awakens is alert and oriented x3 and able to give good history. He appears younger than stated age. Current temperature 100.7?. T-max 101.2?. Blood pressures have been in the systolic 1 teens to 120s over 50-60. Heart rate has been around 100-110. O2 sat has been stable on room air HEENT is within normal limits. Mucous membranes moist and pink No mucosal lesions Neck is supple without adenopathy or thyromegaly Chest: Clear to auscultation without wheezes rhonchi or crackles Cor: Regular rate and rhythm without a murmur Abdomen: Positive bowel sounds, no tenderness but abdomen is firm. No guarding. No rebound. Abdomen feels tense but nondistended Extremities no edema Genitalia shows uncircumcised penis with catheter in place. Scrotum is swollen with edema and erythema and tenderness but no masses. Globally tender Neurologic exam nonfocal. Patient is constantly moving which states he has been doing this for 6 months to control his back pain. Has pretty significant cervical and lumbar back pain Objective Labs 10/01/22 05:00 10/01/22 05:00 Labs: Laboratory Results - last 24 hr 09/30/22 10/01/22 10/01/22 15:30 05:00 05:00 WBC 18.8 H RBC 4.27 L Hgb 10.1 L Hct 31.9 L MCV 74.7 L MCH 23.7 L MCHC 31.7 RDW 16.4 H Plt Count 131 L Neut % (Auto) Not Reportable Lymph % (Auto) Not Reportable [place] % (Auto) Not Reportable Eos % (Auto) Not Reportable Baso % (Auto) Not Reportable Lymph # (Auto) Not Reportable [place] # (Auto) Not Reportable Baso # (Auto) Not Reportable Total Counted 100 Seg Neutrophils % 81.0 H Band Neutrophils % 11.0 H Lymphocytes % (Manual) 4.0 L Monocytes % (Manual) 4.0 Neutrophils # (Manual) 71678 H RBC Morphology See below Anisocytosis 1+ H Sodium 132 L Potassium 4.3 Chloride 100 Carbon Dioxide 22 BUN 32 H Creatinine 1.78 H Estimated GFR 38 L BUN/Creatinine Ratio 18.0 Glucose 143 H Lactate Calcium 7.5 L Nasal Screen MRSA (PCR) Not detected 10/01/22 05:55 WBC RBC Hgb Hct MCV MCH MCHC RDW Plt Count Neut % (Auto) Lymph % (Auto) [place] % (Auto) Eos % (Auto) Baso % (Auto) Lymph # (Auto) [place] # (Auto) Baso # (Auto) Total Counted Seg Neutrophils % Band Neutrophils % Lymphocytes % (Manual) Monocytes % (Manual) Neutrophils # (Manual) RBC Morphology Anisocytosis Sodium Potassium Chloride Carbon Dioxide BUN Creatinine Estimated GFR BUN/Creatinine Ratio Glucose Lactate 1.5 Calcium Nasal Screen MRSA (PCR) [facility] Medical History Acquired hypothyroidism (11/26/15) Acquired phimosis of penis Asthma BPH w urinary obs/LUTS Essential hypertension History of adenomatous polyp of colon Incomplete bladder emptying Meatal stenosis Mixed hyperlipidemia Recurrent UTI (urinary tract infection) Spinal stenosis Type 2 diabetes mellitus without complication (11/26/15) Social History marital status: number of children: 4 household members: spouse occupational status: previously employed Smoking Status: Never smoker alcohol intake: current caffeine: Yes Assessment & Plan Assessment & Plan narrative: 82-year-old male with a history of diabetes, hypertension, hyperlipidemia with recurrent UTI I's and recent ureteral meatotomy. # Septic Shock, presumed source UTI: Surprising that urine culture and blood cultures are negative. He had a recurrent spiking temperature and so repeat cultures were done. Will do echo. Will do a CT scan without contrast of his abdomen and pelvis. Will do a scrotal ultrasound due to clinical findings. Discussed the case with Dr. Sanchez who is on-call for Urology and is the patient's urologist. He agreed with above. Ceftriaxone is discontinued and we will change to Zosyn. Appreciate tele ICU input. Currently hemodynamically stable and did not require pressors. If continues to have hypotensive episodes will consider adding steroids. Will continue to monitor labs. Continue to monitor overall condition. # Acue kidney injury: Overall stable. Suspect prerenal but possibility of ATN secondary to hypotension and septic shock. Will avoid nephrotoxic medications. Discussed dosing of Zosyn with pharmacy. Will recheck labs in a.m.. Will hold IV fluids for now. Will continue to monitor. 3. Type 2 diabetes Plan: Continue off metformin for now. Continue with blood sugar checks and sliding scale insulin. Continue with diabetic diet. Blood glucose [place] be between [id number] Assessment 4. DVT prophylaxis Plan: Continue with SCDs and Lovenox Assessment 5. GI prophylaxis Plan: Continue on Pepcid Assessment 6. Hyperlipidemia Plan: Continue statin Assessment 7. Hypertension with hypotension associated with septic shock Plan: Will continue to hold antihypertensive for now Assessment 8. BPH. Plan: Will hold alfuzosin today until blood pressure stabilizes. Hopefully will start tomorrow. Code status: Full code 65 minutes spent with patient today with multiple calls from nursing and disc ussing with urology, reviewing chart discussing with patient and his , formulating a plan and documentation. Time Spent With Patient Critical Care time: I spent a total of [] minutes of critical care time on this patient's care today; this time is exclusive of procedural time. Quality VTE Deep Vein Thrombosis/Pulmonary Embolism Present on Admission: Yes
[2022-10-01] MEDS: PIPERACILLIN/TAZO 3.375 GM in SODIUM CHLORIDE 0.9% 100 ML IV ×2 (18:25→23:40)
[2022-10-01] MEDS: METOPROLOL TARTRATE 5 MG/5 ML INJ IV (19:58)
[2022-10-01] MEDS: ATORVASTATIN 20 MG TABLET PO (20:01)
[2022-10-01] MEDS: INSULIN GLARGINE 100 UNIT/ML 3ML PEN 25 UNIT SUBCUT (20:19)
[2022-10-02] VITALS (60 sets, daily range): BP systolic 108–144; BP diastolic 53–68; PULSE 84–128; RESP 12–46; TEMP 36.6–37.9; O2SAT 92–98
[2022-10-02 02:52] LABS: Alanine Aminotransferase 22 IU/L (<50); Albumin 3.2 g/dL (3.5-5.0); Albumin Globulin Ratio 1.1 (1.0-2.8); Alkaline Phosphatase 114 U/L (38-126); Aspartate Aminotransferase 25 IU/L (17-59); BUN Creatinine Ratio 25.7 (6-22); Bilirubin Total 0.7 mg/dL (0.2-1.3); Blood Urea Nitrogen 37 mg/dL (9-20); Calcium 7.8 mg/dL (8.4-10.2); Carbon Dioxide 24 mmol/L (22-32); Chloride 101 mmol/L (98-107); Estimated Glomerular Filt Rate 49 mL/min (>60); Globulin 2.9 g/dL (1.7-4.1); Glucose 133 mg/dL (80-110); HEMOLYSIS < 15 (0-50); Potassium 3.9 mmol/L (3.4-5.1); Sodium 132 mmol/L (137-145); Total Protein 6.1 g/dL (6.3-8.2)
[2022-10-02 03:01] LABS: NT-proBNP (BNP-Adult 18+) 1540 pg/mL (<450)
[2022-10-02] MEDS: ACETAMINOPHEN 325 MG TABLET 650 MG PO (03:04)
[2022-10-02 03:18] LABS: Add Manual Diff / Slide Review NO; Basophils Absolute Auto 0 /uL (0-100); Basophils Percent Auto 0.1 % (0-2); Eosinophils Absolute Auto 0 /uL (0-450); Eosinophils Percent Auto 0.1 % (2-4); Hematocrit 32.3 % (41-53); Hemoglobin 10.3 g/dL (13.5-17.5); Lymphocytes Absolute Auto 700 /uL (1100-4500); Lymphocytes Percent Auto 4.2 % (25-40); Mean Corpuscular Hemoglobin 23.8 PG (26-34); Mean Corpuscular Volume 74.4 fL (80-100); Monocytes Absolute Auto 800 /uL (0-900); Monocytes Percent Auto 4.9 % (3-14); Neutrophils Absolute Auto 14500 /uL (1500-7000); Neutrophils Percent Auto 90.7 % (50-75); Platelet Count 142 X10^3/uL (150-400); Red Blood Cell Count 4.34 X10^6/uL (4.5-5.9); Red Cell Distribution Width 16.6 % (11.6-14.8); White Blood Cell Count 15.9 X10^3/uL (4.5-11.0)
[2022-10-02] MEDS: METOPROLOL TARTRATE 5 MG/5 ML INJ IV (03:31)
[2022-10-02] MEDS: OXYCODONE IR 5 MG TABLET PO (06:11)
[2022-10-02] MEDS: LEVOTHYROXINE 50 MCG TABLET PO (06:12)
[2022-10-02] MEDS: GABAPENTIN 300 MG CAPSULE PO ×2 (09:22→20:50)
[2022-10-02] MEDS: PIPERACILLIN/TAZO 3.375 GM in SODIUM CHLORIDE 0.9% 100 ML IV ×2 (09:22→16:45)
[2022-10-02] MEDS: ENOXAPARIN 40 MG/0.4 ML SYRINGE SUBCUT (09:22)
[2022-10-02] MEDS: INSULIN LISPRO 100 UNIT/ML 3ML VIAL 8 UNIT SUBCUT ×3 (09:22→16:50)
[2022-10-02] MEDS: carvediloL 3.125 MG TABLET 6.25 MG PO ×2 (09:22→20:51)
--- NOTE | 2022-10-02 09:22 | DI.ECHO.S_ITS ---
Interpretation Summary The left ventricle is normal in size. Left ventricular systolic function appears normal without focal wall motion abnormalities. The ejection fraction is estimated to be 60-65%. The right ventricle is normal in size and function. The right ventricular systolic pressure is estimated to be at least 40 mmHg based on an estimated right atrial pressure of 15 mm Hg. The left atrium is not well visualized. The aortic root is borderline dilated. No obvious medium to large size vegetative size masses that are concerning for endocarditis. If hiighly suspicious for endocarditis then consider SHIVANI. Procedure: A two-dimensional transthoracic echocardiogram with color flow and Doppler was performed. The study quality was technically difficult. A contrast injection of Definity was performed to improve assessment of LV function. There has been no significant change since the previous study. The patient was in sinus tachycardia with heart rates between 94-98 bpm during the exam. Left Ventricle: The left ventricle is normal in size. There is mild concentric left ventricular hypertrophy. Left ventricular systolic function appears normal without focal wall motion abnormalities. The ejection fraction is estimated to be 60-65%. Right Ventricle: The right ventricle is normal in size and function. Atria: The left atrium is not well visualized. The right atrium is normal in size. There is no Doppler evidence for an interatrial shunt. Mitral Valve: The mitral valve is n ormal in structure and function. There is trace mitral regurgitation. Aortic Valve: The aortic valve is normal in structure and function. No aortic regurgitation is present. Tricuspid Valve: The tricuspid valve is normal in structure and function. There is a trace or physiologic amount of tricuspid regurgitation. The right ventricular systolic pressure is estimated to be at least 40 mmHg based on an estimated right atrial pressure of 15 mm Hg. Pulmonic Valve: The pulmonic valve leaflets are thin and pliable; valve motion is normal. There is trace pulmonic regurgitation. Great Vessels: The aortic root is borderline dilated. The ascending aorta is normal in size. The IVC is dilated (diameter is greater than 2.1 cm) and it collapses less than 50% with a sniff. This suggests a high right atrial pressure of 15 mm Hg. Pericardium/ Pleura There is no pericardial effusion. There is an anterior echo-free space consistent with a fat pad. There is no pleural effusion. MMode/2D Measurements & Calculations LVIDd: 4.6 cm LVOT diam: 2.1 cm LVIDs: 3.0 cm Ao root diam: 3.7 cm FS: 35.4 % asc Aorta Diam: 3.1 cm EPSS: 0.31 cm IVSd: 1.2 cm LVPWd: 1.1 cm LV capps. diameter/BSA (cm/m^2): 2.1 LV sys. diameter/BSA (cm/m^2): 1.3 LA A4 area: 16.6 cm2 IVC diam: 2.2 cm LA length (vol): 4.7 cm RVD1 (basal): 3.8 cm LVAd ap4: 32.1 cm2 TAPSE: 1.8 cm LVAs ap4: 16.6 cm2 LVLs ap4: 7.0 cm LVAd ap2: 25.7 cm2 LVLd ap2: 7.6 cm LVAs ap2: 13.1 cm2 LVLs ap2: 6.7 cm Doppler Measurements & Calculations Ao V2 max: 117.1 cm/sec LVOT Max Demetrius: 100.0 cm/sec Ao V2 mean: 85.3 cm/sec LV V1 max P.0 mmHg Ao max P.5 mmHg LV V1 VTI: 19.4 cm Ao mean P.3 mmHg SUN(I,D): 3.1 cm2 Ao V2 VTI: 21.9 cm SUN(V,D): 3.0 cm2 sev ratio: 0.88 SUN indexed to BSA (cm^2/m^2): 1.4 MV E max demetrius: 101.1 cm/sec TR max demetrius: 253.2 cm/sec MV A max demetrius: 79.0 cm/sec TR max P.7 mmHg MV E/A: 1.3 PA V2 max: 77.1 cm/sec MV dec time: 0.19 sec PA V2 mean: 57.0 cm/sec MVA(VTI): 3.9 cm2 PA mean P.4 mmHg MV V2 mean: 73.5 cm/sec SV(LVOT): 67.8 ml MV mean P.4 mmHg MV V2 VTI: 17.4 cm Reading Physician:02:13 PM
[2022-10-02] MEDS: INSULIN LISPRO 100 UNIT/ML 3ML VIAL SUBCUT ×3 (09:23→16:50)
[2022-10-02] MEDS: OXYCODONE IR 5 MG TABLET 10 MG PO ×3 (11:38→20:50)
--- NOTE | 2022-10-02 11:59 | PM.PN.1 ---
Subjective Subjective Interval history: Patient doing much better today. He is feeling a lot better. He is afebrile since 3:00 a.m. in the morning. This is since changing from ceftriaxone to Zosyn. He had episode of AFib last evening and then was given 5 mg metoprolol IV and went back into sinus rhythm and then went into AFib at 3:00 a.m. and was given another dose of metoprolol and Coreg was started this morning. An echo is pending. He does not want to go on blood thinners and I do not think this is indicated. He is now in a sinus rhythm. Did not have any symptoms when this happened. He is not having any chest pain or shortness of breath He is complaining of back pain and penis pain he is getting good benefit from the [place] 0 that is used to clean the glans Twelve point review of systems is otherwise negative. He is taking in p.o. without difficulty and stooling normally Exam Vital Signs (past 8 hours): - 10/02/22 04:00 10/02/22 04:00 10/02/22 04:30 Temperature Pulse Rate 105 H 100 H Respiratory Rate 13 14 Blood Pressure 118/56 L Pulse Oximetry 94 93 10/02/22 05:00 10/02/22 07:45 10/02/22 11:03 Temperature 97.9 F 97.8 F 98.1 F Pulse Rate 98 H Respiratory Rate 19 Blood Pressure Pulse Oximetry 95 10/02/22 07:00 10/02/22 07:30 10/02/22 08:00 Temperature Pulse Rate 96 H 91 H 91 H Respiratory Rate 29 H 32 H 27 H Blood Pressure Pulse Oximetry 97 95 96 10/02/22 08:30 10/02/22 09:00 10/02/22 09:28 Temperature Pulse Rate 98 H 102 H Respiratory Rate 37 H 38 H Blood Pressure 127/62 Pulse Oximetry 98 98 10/02/22 09:28 10/02/22 09:30 10/02/22 10:00 Temperature Pulse Rate 95 H 96 H Respiratory Rate 17 46 H Blood Pressure 109/60 Pulse Oximetry 98 98 10/02/22 10:00 10/02/22 10:30 10/02/22 10:31 Temperature Pulse Rate 95 H 95 H Respiratory Rate 23 40 H Blood Pressure 121/56 L Pulse Oximetry 97 97 10/02/22 10:31 10/02/22 11:00 10/02/22 11:00 Temperature Pulse Rate 95 H 95 H Respiratory Rate 31 H 14 Blood Pressure 128/65 Pulse Oximetry 96 98 Oxygen Delivery Method Room Air Oxygen Flow Rate 2 Narrative Exam Narrative: Patient is alert and oriented and subjectively appears to be feeling much better. He is alert and oriented x3. Afebrile vital signs are stable. Blood pressure has been 109-128/56-65. Heart rates been in the 90s. Blood sugars have been 138-170 HEENT is unremarkable Neck: Supple without adenopathy Chest: Decreased breath sounds bibasilar with mild crackles but he is stable off oxygen and no wheezes or rhonchi Cor: Distant S1-S2 with regular rate and rhythm with no clear murmur Abdomen. Positive bowel sounds, soft kind nontender, no guarding Extremities no edema Penis and scrotum unchanged Objective Labs 10/02/22 03:10 10/02/22 02:24 Labs: Laboratory Results - last 24 hr 10/02/22 10/02/22 10/02/22 02:24 02:24 02:24 WBC RBC Hgb Hct MCV MCH MCHC RDW Plt Count Neut % (Auto) Lymph % (Auto) [place] % (Auto) Eos % (Auto) Baso % (Auto) Neut # (Auto) Lymph # (Auto) [place] # (Auto) Eos # (Auto) Baso # (Auto) Sodium 132 L Potassium 3.9 Chloride 101 Carbon Dioxide 24 BUN 37 H Creatinine 1.44 H Estimated GFR 49 L BUN/Creatinine Ratio 25.7 H Glucose 133 H Calcium 7.8 L Magnesium 2.0 Total Bilirubin 0.7 AST 25 ALT 22 Alkaline Phosphatase 114 NT-Pro-B Natriuret Pep 1540 H Total Protein 6.1 L Albumin 3.2 L Globulin 2.9 Albumin/Globulin Ratio 1.1 10/02/22 03:10 WBC 15.9 H RBC 4.34 L Hgb 10.3 L Hct 32.3 L MCV 74.4 L MCH 23.8 L MCHC 32.0 RDW 16.6 H Plt Count 142 L Neut % (Auto) 90.7 H Lymph % (Auto) 4.2 L [place] % (Auto) 4.9 Eos % (Auto) 0.1 L Baso % (Auto) 0.1 Neut # (Auto) 00003 H Lymph # (Auto) 700 L [place] # (Auto) 800 Eos # (Auto) 0 Baso # (Auto) 0 Sodium Potassium Chloride Carbon Dioxide BUN Creatinine Estimated GFR BUN/Creatinine Ratio Glucose Calcium Magnesium Total Bilirubin AST ALT Alkaline Phosphatase NT-Pro-B Natriuret Pep Total Protein Albumin Globulin Albumin/Globulin Ratio [facility] Medical History Acquired hypothyroidism (11/26/15) Acquired phimosis of penis Asthma BPH w urinary obs/LUTS Essential hypertension History of adenomatous polyp of colon Incomplete bladder emptying Meatal stenosis Mixed hyperlipidemia Recurrent UTI (urinary tract infection) Spinal stenosis Type 2 diabetes mellitus without complication (11/26/15) Social History marital status: number of children: 4 household members: spouse occupational status: previously employed Smoking Status: Never smoker alcohol intake: current caffeine: Yes Assessment & Plan Assessment & Plan narrative: 2-year-old male with a history of diabetes, hypertension, hyperlipidemia with recurrent UTI I's and recent ureteral meatotomy. # Septic Shock, presumed source UTI: Surprising that urine culture and blood cultures are negative.? He had a recurrent spiking temperature and so repeat cultures were done.? Will do echo.? Will do a CT scan without contrast of his abdomen and pelvis.? Will do a scrotal ultrasound due to clinical findings.? Discussed the case with Dr. Sanchez who is on-call for Urology and is the patient's urologist.? He agreed with above.? Ceftriaxone is discontinued and we will change to Zosyn. Currently hemodynamically stable and did not require pressors. If continues to have hypotensive episodes will consider adding steroids. Will continue to monitor labs.? Continue to monitor overall condition. Second set of blood cultures are negative CT scan abdomen and pelvis only shows some mild inflammation in the rectum. Ultrasound of scrotum shows no torsion in mild left greater than right hydrocele with no associated significant cellulitis etc.. # Acue kidney injury: Overall stable.? Suspect prerenal but possibility of ATN secondary to hypotension and septic shock. Will avoid nephrotoxic medications. Discussed dosing of Zosyn with pharmacy. Will recheck labs in a.m.. Will hold IV fluids for now. Will continue to monitor. 3. Type 2 diabetes Plan: Continue off metformin for now.? Continue with blood sugar checks and sliding scale insulin.? Continue with diabetic diet.? Blood glucose goal will be between 140-180 Assessment 4. DVT prophylaxis Plan: Continue with SCDs and Lovenox Assessment 5.? GI prophylaxis Plan: Continue on Pepcid Assessment 6.? Hyperlipidemia Plan: Continue statin Assessment 7. Hypertension with hypotension associated with septic shock Plan:? Will continue to hold antihypertensive for now Assessment 8. BPH. Plan:? Will hold alfuzosin today until blood pressure stabilizes.? Hopefully will start tomorrow. Assessment 9. New onset AFib with RVR now in sinus rhythm. Suspect was related to fever and overall illness. We discussed blood thinners and he declines. I do not think this is indicated because I think this was related to his overall illness. An echo is pending. We have restarted his Coreg which was stopped because of hypotension and he successfully converted with metoprolol, low dose. We will continue to monitor. Will continue tele. Will make changes pending results. 35 minutes was spent with patient reviewing chart and discussing with nursing, meeting with patient and formulating a plan and documentation Code status: Full code Time Spent With Patient Critical Care time: I spent a total of [] minutes of critical care time on this patient's care today; this time is exclusive of procedural time. Quality VTE Deep Vein Thrombosis/Pulmonary Embolism Present on Admission: Yes
[2022-10-02 13:49] LABS: NT-proBNP (BNP-Adult 18+) 1530 pg/mL (<450)
[2022-10-02] MEDS: ATORVASTATIN 20 MG TABLET PO (20:51)
[2022-10-02] MEDS: INSULIN GLARGINE 100 UNIT/ML 3ML PEN 25 UNIT SUBCUT (20:51)
[2022-10-02] MEDS: SODIUM CHLORIDE 0.9% FLUSH 10 ML IV (20:53)
[2022-10-03] VITALS: PULSE 82; RESP 29
[2022-10-03 00:09] VITALS: BP 106/58; PULSE 82; RESP 17; O2SAT 95
[2022-10-03] MEDS: PIPERACILLIN/TAZO 3.375 GM in SODIUM CHLORIDE 0.9% 100 ML IV ×3 (00:12→18:06)
[2022-10-03] MEDS: OXYCODONE IR 5 MG TABLET 10 MG PO ×3 (02:48→21:16)
[2022-10-03 04:15] VITALS: BP 132/66; PULSE 85; RESP 19; TEMP 37.2; O2SAT 96
[2022-10-03 04:44] LABS: Add Manual Diff / Slide Review NO; Basophils Absolute Auto 0 /uL (0-100); Basophils Percent Auto 0.1 % (0-2); Eosinophils Absolute Auto 100 /uL (0-450); Eosinophils Percent Auto 0.5 % (2-4); Hematocrit 29.8 % (41-53); Hemoglobin 9.7 g/dL (13.5-17.5); Lymphocytes Absolute Auto 500 /uL (1100-4500); Mean Corpuscular HGB Conc 32.5 % (30-36); Mean Corpuscular Hemoglobin 24.1 PG (26-34); Monocytes Absolute Auto 800 /uL (0-900); Monocytes Percent Auto 8.2 % (3-14); Neutrophils Absolute Auto 8400 /uL (1500-7000); Neutrophils Percent Auto 86.2 % (50-75); Platelet Count 165 X10^3/uL (150-400); Red Blood Cell Count 4.03 X10^6/uL (4.5-5.9); Red Cell Distribution Width 16.6 % (11.6-14.8); White Blood Cell Count 9.7 X10^3/uL (4.5-11.0)
[2022-10-03 05:04] LABS: Alanine Aminotransferase 27 IU/L (<50); Albumin 3.1 g/dL (3.5-5.0); Albumin Globulin Ratio 1.1 (1.0-2.8); Alkaline Phosphatase 142 U/L (38-126); Aspartate Aminotransferase 32 IU/L (17-59); BUN Creatinine Ratio 25.8 (6-22); Bilirubin Total 0.7 mg/dL (0.2-1.3); Blood Urea Nitrogen 31 mg/dL (9-20); Calcium 8.1 mg/dL (8.4-10.2); Carbon Dioxide 27 mmol/L (22-32); Chloride 100 mmol/L (98-107); Estimated Glomerular Filt Rate > 60 mL/min (>60); Globulin 2.9 g/dL (1.7-4.1); Glucose 141 mg/dL (80-110); HEMOLYSIS < 15 (0-50); Potassium 3.8 mmol/L (3.4-5.1); Sodium 134 mmol/L (137-145)
[2022-10-03 05:08] LABS: NT-proBNP (BNP-Adult 18+) 1580 pg/mL (<450)
[2022-10-03] MEDS: LEVOTHYROXINE 50 MCG TABLET PO (06:30)
[2022-10-03 07:45] VITALS: BP 141/66; PULSE 82; RESP 17; TEMP 37.1; O2SAT 96
--- NOTE | 2022-10-03 07:48 | PM.PN.1 ---
Subjective Subjective Date Patient Seen: 10/03/22 Time Patient Seen: 07:48 Interval history: After I last saw patient on Monday he became progressively hypotensive. Probably least in part due to carvedilol that I ordered. At that time his blood pressure was in the 150s and his heart rate was in the 120s and he had missed his morning dose of carvedilol which despite being low-dose I thought was likely culprit in his tachycardia. However obviously he would not completely responded to fluids as I anticipated. Fortunately however with additional fluids he stabilized. Subsequent to that unfortunately he did develop episodes of atrial fibrillation likely in part due to lack of beta-jaspal therapy which was being held because of this hypotension. He is responded nicely to IV metoprolol now back on his low-dose carvedilol and appears to still be in sinus rhythm. Patient hemodynamically stabilized blood pressure still on the low side but seems to be stable. Heart rate is improved. His antibiotic therapy was switched from ceftriaxone to Zosyn as he had declined on day of admission. Unfortunately cultures are all negative so far although repeat cultures were obtained with an episode of fever. However I do see as of this morning there is a Gram-negative bacilli growing out of his urine culture from September 30 (admission urine). Hopefully that will help us identify organism and tailor antibiotic therapy appropriately Patient also with swollen scrotum although no evidence of infectious etiology there either on ultrasound or CT imaging. 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 Afebrile since then. Heart rate much improved in the 80s and appears to be sinus on telemetry Patient himself feels like he is not doing as well as he was. He feels sort of itchy in his hands and can not sleep having lot of pain in the penis and scrotum. Just frankly miserable. Spouse reports he seems out of it from time to time although seems to redirect back to him self. Exam Vital Signs (past 8 hours): - 10/03/22 00:09 10/03/22 00:00 10/03/22 04:15 Temperature 99 F Pulse Rate 82 82 85 Respiratory Rate 17 29 H 19 Blood Pressure 106/58 L 132/66 Pulse Oximetry 95 96 Oxygen Delivery Method Room Air Oxygen Flow Rate 2 Narrative Exam Narrative: Lungs-clear Heart-regular rate and rhythm Abdomen-benign Objective Labs 10/03/22 04:08 10/03/22 04:08 Labs: Laboratory Results - last 24 hr 10/02/22 10/03/22 10/03/22 02:24 04:08 04:08 WBC 9.7 RBC 4.03 L Hgb 9.7 L Hct 29.8 L MCV 74.0 L MCH 24.1 L MCHC 32.5 RDW 16.6 H Plt Count 165 Neut % (Auto) 86.2 H Lymph % (Auto) 5.0 L [place] % (Auto) 8.2 Eos % (Auto) 0.5 L Baso % (Auto) 0.1 Neut # (Auto) 8400 H Lymph # (Auto) 500 L [place] # (Auto) 800 Eos # (Auto) 100 Baso # (Auto) 0 Sodium 134 L Potassium 3.8 Chloride 100 Carbon Dioxide 27 BUN 31 H Creatinine 1.20 Estimated GFR > 60 BUN/Creatinine Ratio 25.8 H Glucose 141 H Calcium 8.1 L Total Bilirubin 0.7 AST 32 ALT 27 Alkaline Phosphatase 142 H NT-Pro-B Natriuret Pep 1530 H Total Protein 6.0 L Albumin 3.1 L Globulin 2.9 Albumin/Globulin Ratio 1.1 10/03/22 04:08 WBC RBC Hgb Hct MCV MCH MCHC RDW Plt Count Neut % (Auto) Lymph % (Auto) [place] % (Auto) Eos % (Auto) Baso % (Auto) Neut # (Auto) Lymph # (Auto) [place] # (Auto) Eos # (Auto) Baso # (Auto) Sodium Potassium Chloride Carbon Dioxide BUN Creatinine Estimated GFR BUN/Creatinine Ratio Glucose Calcium Total Bilirubin AST ALT Alkaline Phosphatase NT-Pro-B Natriuret Pep 1580 H Total Protein Albumin Globulin Albumin/Globulin Ratio [facility] Medical History Acquired hypothyroidism (11/26/15) Acquired phimosis of penis Asthma BPH w urinary obs/LUTS Essential hypertension History of adenomatous polyp of colon Incomplete bladder emptying Meatal stenosis Mixed hyperlipidemia Recurrent UTI (urinary tract infection) Spinal stenosis Type 2 diabetes mellitus without complication (11/26/15) Social History marital status: number of children: 4 household members: spouse occupational status: previously employed Smoking Status: Never smoker alcohol intake: current caffeine: Yes Assessment & Plan Assessment & Plan narrative: 1. Sepsis from urinary tract source-continue on current antibiotic therapy which is Zosyn. Awaiting urine culture which is finally growing a Gram-negative liam. The appears to be more hemodynamically stable inappropriately back on some of his usual medications including his carvedilol. White blood cell count has normalized as of this morning. Renal function also normalized as of this morning Continue to monitor carefully.. 2. Cardiac-patient with paroxysmal atrial fibrillation which is not been seen before in this individual. Likely secondary to metabolic stresses from sepsis etcetera. Echocardiogram performed but no result available as yet. Will obtain that today of course. Continue with carvedilol. At this point I do not believe he is a candidate for anticoagulation but need to review echocardiogram as well 3. Diabetes-patient's blood sugar numbers are acceptable on current medication. Continue follow with insulin as patient improves metabolically can perhaps returned to his usual oral medication 4. -patient with significant symptoms pain discomfort etcetera. Obviously this is the source of his infection with his recent procedure etcetera. I am going to ask for formal consultation from Urology given his current status and guidelines and thoughts regarding his Plascencia catheter when would be appropriate to remove it is there anything more significant ongoing related to the symptoms patient is experiencing including his scrotal swelling and discomfort and anything related to the procedure that was performed on the 26 of September that seem to be the inciting event causing his infection and sepsis etcetera Overall patient is much improved at least on paper. Hemodynamically stable afebrile leukocytosis resolving etcetera. Unfortunately patient does not feel this as yet but I think he will catch up with how he feels. Will get him up moving as much as able. Quality VTE Deep Vein Thrombosis/Pulmonary Embolism Present on Admission: Yes
[2022-10-03] MEDS: GABAPENTIN 300 MG CAPSULE PO ×2 (08:41→21:14)
[2022-10-03] MEDS: carvediloL 3.125 MG TABLET 6.25 MG PO ×2 (08:41→21:15)
[2022-10-03] MEDS: INSULIN LISPRO 100 UNIT/ML 3ML VIAL 8 UNIT SUBCUT ×3 (08:53→18:07)
[2022-10-03] MEDS: INSULIN LISPRO 100 UNIT/ML 3ML VIAL SUBCUT ×3 (08:53→18:07)
[2022-10-03] MEDS: SODIUM CHLORIDE 0.9% FLUSH 10 ML IV (08:54)
[2022-10-03] MEDS: ENOXAPARIN 40 MG/0.4 ML SYRINGE SUBCUT (08:54)
[2022-10-03] MEDS: LIDOCAINE 2% (GLYDO) 6 ML GEL TOP (08:57)
[2022-10-03] MEDS: HYDROMORPHONE 0.5 MG INJ IV (09:53)
[2022-10-03 12:00] VITALS: BP 122/60; PULSE 84; RESP 20; TEMP 36.7; O2SAT 96
--- NOTE | 2022-10-03 13:39 | CM.DPC ---
DCP Cont: Per MD, pt had a fever but seems to have resolved after changing his IV-Abx but waiting for Echo results and to mobilize more today and possible d/c home tomorrow if medically stable. Plan: SW to follow closely for pt progress towards confirming safe d/c home with spouse and any further identified discharge planning needs. HANNY Looney
--- NOTE | 2022-10-03 14:56 | PM.CN ---
History of Present Illness Consult details Date Patient Seen: 10/03/22 Time Patient Seen: 12:05 Chief complaint: sent by Urology symptoms of kidney failture Reason for consult: UTI Narrative: Dennis is an 82-year-old gentleman with multiple medical comorbidities including diabetes mellitus admitted to [facility] through the ED on 09/30/2022 for complaints of dysuria and fever to 101. Urinalysis was suspicious for UTI. The patient was admitted to Medicine on broad-spectrum IV antibiotic. He did not respond impressively over the 1st 24 hours from a clinical standpoint or laboratory standpoint. I spoke with the hospitalist provider and noncontrast CT of abdomen and pelvis was obtained which demonstrated radiographic findings consistent with proctitis. Due to concerns regarding scrotal content tenderness and swelling scrotal Doppler ultrasound was ordered demonstrating small, bilateral, right greater than left hydroceles without evidence of scrotal wall thickening, epididymitis or orchitis. IV antibiotic was changed to Zosyn. Over the following 24-36 hours the patient improved significantly both clinically and from laboratory profile. He continued however to have complaints of catheter related sensitivity, especially with manipulation. Urine culture is reported as Gram-negative bacillus but no sensitivity profile has been entered in EHR. Meds Home Medications and Allergies Home Medications Medication Instructions Recorded Confirmed Type ASPIRIN (#ASPIRIN) 81 mg PO DAILY ##0 03/01/12 09/30/22 History blood-glucose meter,continuous #1 ea 06/30/20 09/30/22 Rx (Dexcom G6 Bullet Swaging Machine Operator) B-D 5MM Pen [place] #400 ea 03/19/21 09/30/22 Rx albuterol sulfate 90 mcg/actuation 2 puff inhalation Q4-6H PRN 08/16/21 09/30/22 Rx aerosol inhaler (ProAir HFA) shortness of breath or wheezing #8.5 grams levothyroxine 50 mcg tablet 50 mcg PO DAILY #90 tabs 10/07/21 09/30/22 Rx gabapentin 300 mg capsule 300 mg PO BID #180 caps 11/12/21 09/30/22 Rx simvastatin 40 mg tablet 40 mg PO DAILY #90 tabs 02/02/22 09/30/22 Rx metformin 1,000 mg tablet 1,000 mg PO BID #180 tabs 02/11/22 09/30/22 Rx losartan 100 mg tablet 100 mg PO DAILY #90 tabs 03/30/22 09/30/22 Rx blood-glucose transmitter (Dexcom #1 ea 06/22/22 09/30/22 Rx G6 Transmitter device) blood-glucose sensor (Dexcom G6 #3 ea 06/29/22 09/30/22 Rx Sensor device) alfuzosin 10 mg tablet,extended 10 mg PO DAILY #90 tabs 08/08/22 09/30/22 Rx release 24 hr (Uroxatral) carvedilol 6.25 mg tablet 6.25 mg PO BID #180 tabs 09/08/22 09/30/22 Rx insulin glargine 100 unit/mL (3 40 unit SUBCUT QPM 09/30/22 09/30/22 History mL) subcutaneous pen insulin lispro 100 unit/mL 3 unit SUBCUT ACHS 09/30/22 09/30/22 History subcutaneous pen oxycodone 5 mg tablet 5 mg PO Q6HR 09/30/22 09/30/22 History Allergies Allergy/AdvReac Type Severity Reaction Status Date / Time prednisone AdvReac Severe Made Verified 09/30/22 10:02 patient Hostile. Review of Systems Review of Systems ROS: Yes All systems reviewed with the patient and are negative except as otherwise documented Exam Vital Signs (past 8 hours): - 10/03/22 07:45 10/03/22 12:00 Temperature 98.8 F 98.1 F Pulse Rate 82 84 Respiratory Rate 17 20 Blood Pressure 141/66 H 122/60 Pulse Oximetry 96 96 Oxygen Flow Rate 0 Oxygen Delivery Method Room Air Oxygen Flow Rate 0 Narrative Exam Narrative: Sitting comfortably upright in bedside chair with legs crossed. Abdomen is round and protuberant no tenderness elicited. External genitalia indwelling Plascencia catheter with small amount of foreign body exudate seen adjacent to the meatus and Plascencia catheter. Sutures are intact with associated mild edema and erythema. Scrotum is mildly erythematous. Testes are palpably normal bilaterally and reported sensitivity with manipulation of either the testicles or catheter. Plascencia catheter is intact and indwelling and outflow is clear. Objective Labs 10/03/22 04:08 10/03/22 04:08 Labs: Laboratory Results - last 24 hr 10/03/22 10/03/22 10/03/22 04:08 04:08 04:08 WBC 9.7 RBC 4.03 L Hgb 9.7 L Hct 29.8 L MCV 74.0 L MCH 24.1 L MCHC 32.5 RDW 16.6 H Plt Count 165 Neut % (Auto) 86.2 H Lymph % (Auto) 5.0 L [place] % (Auto) 8.2 Eos % (Auto) 0.5 L Baso % (Auto) 0.1 Neut # (Auto) 8400 H Lymph # (Auto) 500 L [place] # (Auto) 800 Eos # (Auto) 100 Baso # (Auto) 0 Sodium 134 L Potassium 3.8 Chloride 100 Carbon Dioxide 27 BUN 31 H Creatinine 1.20 Estimated GFR > 60 BUN/Creatinine Ratio 25.8 H Glucose 141 H Calcium 8.1 L Total Bilirubin 0.7 AST 32 ALT 27 Alkaline Phosphatase 142 H NT-Pro-B Natriuret Pep 1580 H Total Protein 6.0 L Albumin 3.1 L Globulin 2.9 Albumin/Globulin Ratio 1.1 PFSH Medical History Acquired hypothyroidism (11/26/15) Acquired phimosis of penis Asthma BPH w urinary obs/LUTS Essential hypertension History of adenomatous polyp of colon Incomplete bladder emptying Meatal stenosis Mixed hyperlipidemia Recurrent UTI (urinary tract infection) Spinal stenosis Type 2 diabetes mellitus without complication (11/26/15) Social History marital status: number of children: 4 household members: spouse occupational status: previously employed Tobacco & Substance Use Smoking Status: Never smoker alcohol intake: current Diet and Exercise caffeine: Yes Assessment & Plan Assessment and plan (1) Acute UTI: Status: Acute Plan 1. Remove Plascencia catheter and conduct supervised voiding trial. Order submitted. 2. Resume local site care with topical antibiotic ointment at meatus. 3. I believe it is safe to transition to appropriate oral agent once sensitivities completed and posted. Time Spent With Patient Critical Care time: I spent a total of [] minutes of critical care time on this patient's care today; this time is exclusive of procedural time.
[2022-10-03 20:20] VITALS: BP 133/60; PULSE 90; RESP 23; TEMP 37.2; O2SAT 98
[2022-10-03] MEDS: ATORVASTATIN 20 MG TABLET PO (21:17)
[2022-10-03] MEDS: INSULIN GLARGINE 100 UNIT/ML 3ML PEN 25 UNIT SUBCUT (21:17)
[2022-10-04] VITALS (8 sets, daily range): BP systolic 116–174; BP diastolic 57–79; PULSE 71–86; RESP 16–44; TEMP 36.3–36.9; O2SAT 96–98
[2022-10-04] MEDS: PIPERACILLIN/TAZO 3.375 GM in SODIUM CHLORIDE 0.9% 100 ML IV ×3 (00:12→16:08)
[2022-10-04] MEDS: SODIUM CHLORIDE 0.9% FLUSH 10 ML IV ×3 (00:12→21:05)
[2022-10-04] MEDS: ACETAMINOPHEN 325 MG TABLET 650 MG PO (00:17)
[2022-10-04] MEDS: OXYCODONE IR 5 MG TABLET 10 MG PO ×4 (04:09→19:00)
[2022-10-04 05:06] LABS: BUN Creatinine Ratio 23.3 (6-22); Blood Urea Nitrogen 27 mg/dL (9-20); Calcium 8.3 mg/dL (8.4-10.2); Carbon Dioxide 29 mmol/L (22-32); Chloride 99 mmol/L (98-107); Estimated Glomerular Filt Rate > 60 mL/min (>60); Glucose 98 mg/dL (80-110); HEMOLYSIS < 15 (0-50); Potassium 3.6 mmol/L (3.4-5.1); Sodium 134 mmol/L (137-145)
[2022-10-04 05:10] LABS: Hematocrit 31.4 % (41-53); Hemoglobin 10.1 g/dL (13.5-17.5); Mean Corpuscular HGB Conc 32.2 % (30-36); Mean Corpuscular Hemoglobin 23.9 PG (26-34); Mean Corpuscular Volume 74.1 fL (80-100); Platelet Count 171 X10^3/uL (150-400); Red Blood Cell Count 4.24 X10^6/uL (4.5-5.9); Red Cell Distribution Width 16.3 % (11.6-14.8); White Blood Cell Count 5.4 X10^3/uL (4.5-11.0)
[2022-10-04 05:15] LABS: HEMOLYSIS < 15 (0-50)
[2022-10-04 05:18] LABS: Add Manual Diff / Slide Review YES
[2022-10-04 05:25] LABS: Total Iron Binding Capacity 278 ug/dL (261-462); Transferrin 185 mg/dL (206-381)
[2022-10-04 05:41] LABS: Neutrophils Absolute Manual 3780 /uL (3000-5900); Total Cells Counted 100
[2022-10-04 05:42] LABS: Anisocytosis 1+
[2022-10-04] MEDS: LEVOTHYROXINE 50 MCG TABLET PO (05:53)
[2022-10-04 05:57] LABS: Iron < 10 ug/dL (49-181); Percent Iron Saturation 4 % (20-50)
--- NOTE | 2022-10-04 07:28 | P.PN_ITS ---
Subjective Subjective Date Patient Seen: 10/04/22 Time Patient Seen: 07:28 Interval history: Patient seen by Urology yesterday. Had Plascencia catheter removed. Now growing Pseudomonas species as his organism which may well explain why the ceftriaxone initially did not seem to be effective. The Pseudomonas is sensitive to all tested antibiotics including his current Zosyn Patient continues to be hemodynamically stable with somewhat soft blood pressures. No recurrent atrial fibrillation Patient's CBC is stable today. Patient's chemistries unremarkable. Does demonstrate significantly low iron stores. Patient reports feeling better today. Happy to have the catheter out although still dismayed about the swelling in the perineum Exam Vital Signs (past 8 hours): - 10/04/22 00:00 10/04/22 03:47 Temperature 98.1 F 98.0 F Pulse Rate 86 72 Respiratory Rate 20 19 Blood Pressure 119/63 116/57 L Pulse Oximetry 97 96 Oxygen Flow Rate 0 0 Oxygen Delivery Method Room Air Oxygen Flow Rate 0 Objective Labs 10/04/22 03:58 10/04/22 03:58 Labs: Laboratory Results - last 24 hr 10/04/22 10/04/22 10/04/22 03:58 03:58 03:58 WBC 5.4 RBC 4.24 L Hgb 10.1 L Hct 31.4 L MCV 74.1 L MCH 23.9 L MCHC 32.2 RDW 16.3 H Plt Count 171 Neut % (Auto) Not Reportable Lymph % (Auto) Not Reportable [place] % (Auto) Not Reportable Eos % (Auto) Not Reportable Baso % (Auto) Not Reportable Lymph # (Auto) Not Reportable [place] # (Auto) Not Reportable Baso # (Auto) Not Reportable Total Counted 100 Seg Neutrophils % 67.0 Band Neutrophils % 3.0 Lymphocytes % (Manual) 12.0 L Monocytes % (Manual) 17.0 H Eosinophils % (Manual) 1.0 L Neutrophils # (Manual) 3780 RBC Morphology See below Anisocytosis 1+ H Sodium 134 L Potassium 3.6 Chloride 99 Carbon Dioxide 29 BUN 27 H Creatinine 1.16 Estimated GFR > 60 BUN/Creatinine Ratio 23.3 H Glucose 98 Calcium 8.3 L Iron < 10 L TIBC 278 % Saturation 4 L Transferrin 185 L [facility] Medical History Acquired hypothyroidism (11/26/15) Acquired phimosis of penis Asthma BPH w urinary obs/LUTS Essential hypertension History of adenomatous polyp of colon Incomplete bladder emptying Meatal stenosis Mixed hyperlipidemia Recurrent UTI (urinary tract infection) Spinal stenosis Type 2 diabetes mellitus without complication (11/26/15) Social History marital status: number of children: 4 household members: spouse occupational status: previously employed Smoking Status: Never smoker alcohol intake: current caffeine: Yes Assessment & Plan Assessment & Plan narrative: 1. Sepsis from urinary tract source-patient continues to be improved. Growing Pseudomonas from his urine which is sensitive to his current antibiotic therapy. Should be able to switch to oral antibiotic therapy pretty easily given sensitivities. I am inclined to continue him on IV antibiotics at the current time given that he is growing Pseudomonas which is notoriously difficult to completely treat. I think as long as he is in the hospital or up until just prior to discharge he should remain on parental antibiotics 2. Cardiac-as noted as an addendum yesterday echocardiogram was essentially unremarkable. No recurrent atrial fibrillation. Again believe patient's atrial fibrillation to be due to metabolic stresses from his infection. Will plan an outpatient evaluation including diagnostic cardiac sonographer before undertaking any additional therapies or treatments such as anticoagulation etcetera 3. Diabetes-patient's blood sugar numbers are acceptable on current medication. 4. -appreciate input from Urology yesterday. Patient with catheter now out which should be helpful for as discomfort etcetera. He will need careful close monitoring as an outpatient from a urological standpoint Patient appears to still be in an ICU status. I think he can be transferred to floor care status with telemetry given his history of atrial fibrillation during this hospitalization. Quality VTE Deep Vein Thrombosis/Pulmonary Embolism Present on Admission: Yes
--- NOTE | 2022-10-04 07:30 | P.PN_ITS ---
Subjective Subjective Date Patient Seen: 10/04/22 Time Patient Seen: 07:10 Interval history: The patient is a 82 year old gentleman with history of poor genital hygiene associated pending phimosis and balanitis, recurrent UTI, and meatal stenosis. Patient underwent uncomplicated meatotomy and cystoscopy 09/26/2022. He presented to the [facility] ED on 09/30/2022, with dysuria and fever to 101? F blood pressure was noted to be low. Blood cultures to date have been negative. Urine culture has now been finalized and is positive for Pseudomonas. Sensitivity profile indicates fluoroquinolones and non 1st generation cephalosporins as reasonable oral options. He denies interval new complaints. Apparently he has not had application of nystatin powder to scrotum and inguinal creases yet and continues to have complaint of burning. Thus far voiding trial has been successful. Exam Vital Signs (past 8 hours): - 10/04/22 00:00 10/04/22 03:47 Temperature 98.1 F 98.0 F Pulse Rate 86 72 Respiratory Rate 20 19 Blood Pressure 119/63 116/57 L Pulse Oximetry 97 96 Oxygen Flow Rate 0 0 Oxygen Delivery Method Room Air Oxygen Flow Rate 0 Narrative Exam Narrative: Awake and lying in bed and in no distress. Abdomen is soft, nontender, nondistended. External genitalia-healing and edematous lorena meatal area. Sutures intact. Scrotal skin is unchanged demonstrating a dry and red rash. No exudate seen. Objective Labs 10/04/22 03:58 10/04/22 03:58 Labs: Laboratory Results - last 24 hr 10/04/22 10/04/22 10/04/22 03:58 03:58 03:58 WBC 5.4 RBC 4.24 L Hgb 10.1 L Hct 31.4 L MCV 74.1 L MCH 23.9 L MCHC 32.2 RDW 16.3 H Plt Count 171 Neut % (Auto) Not Reportable Lymph % (Auto) Not Reportable [place] % (Auto) Not Reportable Eos % (Auto) Not Reportable Baso % (Auto) Not Reportable Lymph # (Auto) Not Reportable [place] # (Auto) Not Reportable Baso # (Auto) Not Reportable Total Counted 100 Seg Neutrophils % 67.0 Band Neutrophils % 3.0 Lymphocytes % (Manual) 12.0 L Monocytes % (Manual) 17.0 H Eosinophils % (Manual) 1.0 L Neutrophils # (Manual) 3780 RBC Morphology See below Anisocytosis 1+ H Sodium 134 L Potassium 3.6 Chloride 99 Carbon Dioxide 29 BUN 27 H Creatinine 1.16 Estimated GFR > 60 BUN/Creatinine Ratio 23.3 H Glucose 98 Calcium 8.3 L Iron < 10 L TIBC 278 % Saturation 4 L Transferrin 185 L PFSH Medical History Acquired hypothyroidism (11/26/15) Acquired phimosis of penis Asthma BPH w urinary obs/LUTS Essential hypertension History of adenomatous polyp of colon Incomplete bladder emptying Meatal stenosis Mixed hyperlipidemia Recurrent UTI (urinary tract infection) Spinal stenosis Type 2 diabetes mellitus without complication (11/26/15) Social History marital status: number of children: 4 household members: spouse occupational status: previously employed Smoking Status: Never smoker alcohol intake: current caffeine: Yes Assessment & Plan Assessment & Plan narrative: Assessment: 1. Pseudomonas UTI in an 82-year-old diabetic male with multiple medical comorbidities. 2. Successful voiding trial after Plascencia catheter removal. Plan: 1. As indicated in consult note 10/03/2022 I think it is appropriate to transition the patient to oral antibiotic. Preference would be ciprofloxacin 250 mg b.i.d. for total of 2 weeks. 2. Remain on alfuzosin 10 mg p.o. q.day. 3. Continue local genital hygiene and initiate application of antifungal as ordered. 4. Follow-up at [facility] as previously arranged. Time Spent With Patient Critical Care time: I spent a total of [] minutes of critical care time on this patient's care today; this time is exclusive of procedural time. Quality VTE Deep Vein Thrombosis/Pulmonary Embolism Present on Admission: Yes
[2022-10-04] MEDS: LIDOCAINE 2% (GLYDO) 6 ML GEL TOP ×2 (08:22→21:04)
[2022-10-04] MEDS: ENOXAPARIN 40 MG/0.4 ML SYRINGE SUBCUT (08:22)
[2022-10-04] MEDS: carvediloL 3.125 MG TABLET 6.25 MG PO ×2 (08:23→21:03)
[2022-10-04] MEDS: INSULIN LISPRO 100 UNIT/ML 3ML VIAL 8 UNIT SUBCUT ×3 (08:23→17:37)
[2022-10-04] MEDS: FERROUS SULFATE 325 MG TABLET PO ×2 (08:23→16:09)
[2022-10-04] MEDS: GABAPENTIN 300 MG CAPSULE PO ×2 (08:24→21:03)
[2022-10-04] MEDS: NYSTATIN POWDER 15GM 1 APPLIC TOP ×2 (09:27→19:04)
--- NOTE | 2022-10-04 09:51 | PC.NURSE ---
Day shift: Educated patient on outpatient continuous glucose monitoring device not FDA approved for inpatient use. Patient declined a finger stick by this RN. Held sliding scale insulin based off laboratory draw of 98 this AM.
[2022-10-04] MEDS: SODIUM CHLORIDE 0.9% 1,000 ML 100 ML IV ×2 (10:01→21:51)
[2022-10-04] MEDS: INSULIN LISPRO 100 UNIT/ML 3ML VIAL SUBCUT (12:34)
--- NOTE | 2022-10-04 14:06 | OT.IPNOTE ---
Pt states is too much pain and not wanting to do OT at this time. Pt states does not have concerns about OT needs and except that he is having difficulty with LB dressing needs due to his swollen scrotum, to check on the pt tomorrow for OT eval.
--- NOTE | 2022-10-04 16:59 | PT.IPTN ---
Current Diagnoses Sepsis, unspecified organism (09/30/22) Bandemia (09/30/22) Acidosis, unspecified (09/30/22) Other obstructive and reflux uropathy (09/30/22) Acute kidney failure, unspecified (09/30/22) Urinary tract infection, site not specified (09/30/22) Benign prostatic hyperplasia with lower urinary tract symptoms (09/30/22) Severe sepsis with septic shock (09/30/22) Physical Therapy Treatment Note M2 PT-IP Current Condition Start: 10/04/22 13:03 Freq: NEEDED Status: Active Protocol: Document 10/04/22 13:41 [facility] (Rec: 10/04/22 13:45 [facility] [id number]) Physical Therapy Current Condition Current Condition Evaluation Date 10/04/22 Treatment Diagnosis sepis Onset Date 09/30/22 M3 PT-IP Subjective Start: 10/04/22 13:03 Freq: NEEDED Status: Active Protocol: Document 10/04/22 13:41 [facility] (Rec: 10/04/22 13:45 [facility] [id number]) Subjective Physical Therapy Visit Type Type Initial Evaluation Visit Start Time 13:05 Visit Stop Time 13:40 Total Visit Minutes 35 Physical Therapy Visit Comments Patient Comments pt is seated comfortably in the chair and agrees to PT Therapy Pain Assessment Pain When Pain Assessed During Mobility Pain Present Pain Present Pain Reported Location back Intensity 5 Scale Used Numeric (0 - 10) Perineal Intensity 6 Scale Used Numeric (0 - 10) M4 PT-IP Mobility and Gait Start: 10/04/22 13:03 Freq: NEEDED Status: Active Protocol: Document 10/04/22 13:41 [facility] (Rec: 10/04/22 13:45 [facility] [id number]) PT-Transfer Assessment Sit to and From Stand Sit to and from Stand Contact Guard Assistance Equipment Transfer Assistive Device Gait Belt,Front Wheeled Walker Orthotic/Prosthetic Devices or Brace: No Transfers Transfer Destination Toilet Transfer Technique pt ambulated with FWW Transfer Ability Level of Assist Contact Guard Assistance Comments Mobility Comments pt demonstrates CGA mobility Gait Assessment Gait Gait Assistance Required: Contact Guard Assist Distance (Feet) 150 Able to Maintain Weight Bearing Status Yes During Gait Assistive Devices Assistive Device Gait Belt,Front Wheeled Walker Orthotic/Prosthetic Devices or Brace: No Gait Deviations General Gait Pattern Decreased Stride Length Factors Limiting Gait Function Factors Limiting Gait Function Pain Comments Gait Comments gait is limited by pain in the region of the penis as well as low back pain, pt ambulated 150 feet with fww and CGA. No loss of balance noted. Pt then ambuated to the bathroom and sat to void and also had a bowel movement. M5 PT-IP Objective Assessments Start: 10/04/22 13:03 Freq: NEEDED Status: Active Protocol: Document 10/04/22 16:50 [facility] (Rec: 10/04/22 16:59 [facility] [id number]) Orientation Orientation/Cognition Level of Alertness Alert Gross Range of Motion Upper Extremity ROM Assessment Within Functional Limits Lower Extremity ROM Assessment Within Functional Limits Strength Upper Extremity Strength Assessment Within Functional Limits Lower Extremity Strength Assessment Within Functional Limits Coordination Assessment Gross Coordination Gross Coordination WNL Muscle Tone Muscle Tone WNL Yes M6 PT-IP Treatment Start: 10/04/22 13:03 Freq: NEEDED Status: Active Protocol: Document 10/04/22 16:50 [facility] (Rec: 10/04/22 16:59 [facility] [id number]) Physical Therapy Treatment Exercises Exercises Ankle Pumps M7 PT-IP Assessment and Plan Start: 10/04/22 13:03 Freq: NEEDED Status: Active Protocol: Document 10/04/22 16:50 [facility] (Rec: 10/04/22 16:59 [facility] [id number]) PT Summary Assessment and Plan Potential Rehabilitation Potential Excellent Status of Condition at Evaluation Stable Summary Impairments Pain,Strength,Balance,Gait, Activity Tolerance Assessment Summary 82 year old male with sepsis from a UTI admitted 09/30/22. Pt was CGA for all mobility and for ambulation with fww in the hallway. He ambulated 150 feet in the hallway with CGA. Pain in the penis is the limiting factor as well as low back pain. Pt then returned to room and voided, he is still experiencing pain with voiding. He returned to the bedside chair with fww and CGA. He was positioned comfortably in the chair with call light within reach Goals Bed Mobility Goal Independent Transfer Goal Independent Gait Goal Standby Assistance Gait Distance 300 ft Days to Meet Goals 5 Frequency of Treatment Frequency Of Treatment Once a Day Treatment Plan Physical Therapy Treatment Plan Transfer Training,Gait Training Other Recommendations and Next Treatment work on increasing gait Focus distance as pt is able Recommendations To Nursing Amount of Assist Needed Standby Assistance Discharge Recommendations PT Discharge Recommendations Home Equipment Needed for Home Before FWW Discharge Transportation Needs at Discharge Private Vehicle
[2022-10-04] MEDS: ATORVASTATIN 20 MG TABLET PO (21:03)
[2022-10-04] MEDS: INSULIN GLARGINE 100 UNIT/ML 3ML PEN 25 UNIT SUBCUT (21:06)
[2022-10-05] VITALS: BP 150/70; PULSE 86; RESP 17; TEMP 36.4; O2SAT 97
[2022-10-05] MEDS: LIDOCAINE 2% (GLYDO) 6 ML GEL TOP ×5 (01:46→23:12)
[2022-10-05] MEDS: OXYCODONE IR 5 MG TABLET 10 MG PO ×6 (01:46→23:22)
[2022-10-05] MEDS: HYDROMORPHONE 0.5 MG INJ IV ×2 (02:11→03:54)
--- NOTE | 2022-10-05 02:55 | PC.NURSE ---
Patient complaining of severe pain in periarea tip of penis. states that he is unable to empty his bladder. Bladder scan done with 520 scanned. Straight cath done with result of 700cc removed. patient relaxing, ice previous applied to penis along with lidocaine jelly. Medicated with perolone 10mg followed by dilaudid iv for severity of pain.
[2022-10-05 04:00] VITALS: BP 156/71; PULSE 73; RESP 14; TEMP 36.3; O2SAT 98
[2022-10-05] MEDS: LEVOTHYROXINE 50 MCG TABLET PO (05:46)
--- NOTE | 2022-10-05 07:15 | PM.PN.1 ---
Subjective Subjective Date Patient Seen: 10/05/22 Time Patient Seen: 06:45 Interval history: 82-year-old male admitted 09/30/2022 for further evaluation and management dysuria, fever up to 101 F, and low blood pressure. Imaging in hospital included CT and ultrasound of the scrotum. Only radiographic findings of potential significance was report of ?proctitis?. Urine culture has been return with growth of Pseudomonas and sensitivity to Zosyn, 2nd 3rd generation cephalosporins, and fluoroquinolones. The patient developed signs and symptoms consistent with early Meera of the scrotum and inguinal creases. The patient reports an excellent overall last 24 hours with the exception of having experienced paraphimosis requiring an astute nourished to reduce the paraphimosis. He is feeling much improved in that regard. He also reports marked improvement in scrotal burning after application of nystatin powder. Exam Vital Signs (past 8 hours): - 10/05/22 00:00 10/05/22 04:00 Temperature 97.6 F 97.3 F L Pulse Rate 86 73 Respiratory Rate 17 14 Blood Pressure 150/70 H 156/71 H Pulse Oximetry 97 98 Oxygen Flow Rate 0 Oxygen Delivery Method Room Air Oxygen Flow Rate 0 Narrative Exam Narrative: Lying comfortably in bed and in no acute distress. Abdomen soft, nontender, with normoactive bowel tones. Genitalia-foreskin is reduced, soft nontender and pliable. There is a mild amount of edema mainly inferiorly in the vicinity of the frenulum consistent with recent paraphimosis. Meatus continues to be edematous and erythematous with healing plicating sutures. Objective Labs 10/04/22 03:58 10/04/22 03:58 [facility] Medical History Acquired hypothyroidism (11/26/15) Acquired phimosis of penis Asthma BPH w urinary obs/LUTS Essential hypertension History of adenomatous polyp of colon Incomplete bladder emptying Meatal stenosis Mixed hyperlipidemia Recurrent UTI (urinary tract infection) Spinal stenosis Type 2 diabetes mellitus without complication (11/26/15) Social History marital status: number of children: 4 household members: spouse occupational status: previously employed Smoking Status: Never smoker alcohol intake: current caffeine: Yes Assessment & Plan Assessment & Plan narrative: 1. Pseudomonas UTI-clinically in the laboratory measures indicate marked improvement. 2. Genital Meera-markedly improved. 3. Status post meatotomy-healing in generally improved. Plan: 1. May DC from standpoint on oral antibiotic as discussed in recommended plan 10/04/2022. 2. Continue home attentive genital hygiene and application of topical antibiotic ointment of choice to the meatus and lorena meatal area as ordered postoperatively. 3. The patient will follow-up as previously scheduled for routine postoperative visit in the Urology Clinic. Time Spent With Patient Critical Care time: I spent a total of [] minutes of critical care time on this patient's care today; this time is exclusive of procedural time. Quality VTE Deep Vein Thrombosis/Pulmonary Embolism Present on Admission: Yes
--- NOTE | 2022-10-05 07:31 | P.PN_ITS ---
Subjective Subjective Date Patient Seen: 10/05/22 Time Patient Seen: 07:31 Interval history: Patient hemodynamically stable and looking better overall. Still struggling with significant pain in the penis requiring straight catheterization as he was unable to void on his own yesterday Blood sugars remain well controlled. Remains afebrile. No additional labs were performed this morning (not required) Feeling better all the way around. Up a little bit walking in the room. Still lot of scrotal swelling some discomfort as well as the discomfort with the p germán. However he thinks overall the swelling is improved slightly Exam Vital Signs (past 8 hours): - 10/05/22 00:00 10/05/22 04:00 Temperature 97.6 F 97.3 F L Pulse Rate 86 73 Respiratory Rate 17 14 Blood Pressure 150/70 H 156/71 H Pulse Oximetry 97 98 Oxygen Flow Rate 0 Oxygen Delivery Method Room Air Oxygen Flow Rate 0 Objective Labs 10/04/22 03:58 10/04/22 03:58 ON LICENSE OF [facility] Medical History Acquired hypothyroidism (11/26/15) Acquired phimosis of penis Asthma BPH w urinary obs/LUTS Essential hypertension History of adenomatous polyp of colon Incomplete bladder emptying Meatal stenosis Mixed hyperlipidemia Recurrent UTI (urinary tract infection) Spinal stenosis Type 2 diabetes mellitus without complication (11/26/15) Social History marital status: number of children: 4 household members: spouse occupational status: previously employed Smoking Status: Never smoker alcohol intake: current caffeine: Yes Assessment & Plan Assessment & Plan narrative: 1. Sepsis from urinary tract source-will continue treat for Pseudomonas. My plan at this point is to continue him on parental antibiotics until just prior to discharge. As noted previously Pseudomonas speech correction assistant dorsally difficult to treat and the only reasonable oral antibiotic would be a fluoroquinolone to which Pseudomonas can develop resistance fairly quickly. Therefore I will co ntinue him on parental antibiotics until just prior to discharge switch him to Cipro which is generally the preferred fluoroquinolone for Pseudomonas 2. Cardiac-stable without evidence of recurrent atrial fibrillation. I think we can discontinue telemetry at this point. 3. Diabetes-patient's blood sugar numbers are acceptable on current medication. Will resume patient's oral metformin and return him to his more normal preprandial dose of insulin 4. -appreciate input from Urology. 5. Anemia-not noted on yesterday's note, but patient demonstrates significant iron deficiency. Placed on iron replacement therapy orally and will continue to follow. This appears to be a chronic nonacute issue 6. Disposition-patient's spouse seems to think he would benefit from half-way placement patient himself is much more dubious about that. I am not seeing that he is going to require half-way placement at this point. Physical therapy seems to be in agreement that he should be able to go home probably with home health services as an adjuvant He still probably 48-72 hours away from discharge, depending on clinical course Quality VTE Deep Vein Thrombosis/Pulmonary Embolism Present on Admission: Yes
[2022-10-05] MEDS: INSULIN LISPRO 100 UNIT/ML 3ML VIAL SUBCUT ×2 (08:41→12:23)
[2022-10-05] MEDS: PIPERACILLIN/TAZO 3.375 GM in SODIUM CHLORIDE 0.9% 100 ML IV ×4 (08:42→23:15)
[2022-10-05] MEDS: ENOXAPARIN 40 MG/0.4 ML SYRINGE SUBCUT (08:42)
[2022-10-05 08:43] VITALS: BP 174/90; PULSE 95
[2022-10-05] MEDS: FERROUS SULFATE 325 MG TABLET PO ×2 (08:43→17:29)
[2022-10-05] MEDS: LOSARTAN 50 MG TABLET PO (08:43)
[2022-10-05] MEDS: carvediloL 3.125 MG TABLET 6.25 MG PO ×2 (08:44→20:14)
[2022-10-05] MEDS: GABAPENTIN 300 MG CAPSULE PO ×2 (08:44→20:14)
[2022-10-05] MEDS: METFORMIN HCL 500 MG TABLET 1000 MG PO ×2 (08:45→17:29)
--- NOTE | 2022-10-05 08:59 | CM.DPC ---
Addendum entered by HANNY Looney 10/05/22 12:37: Return call from [facility] and [facility] and they also confirm that pt does not meet criteria for MCR to cover SNF stay. SW met bedside with pt and updated on inability to go to SNF under Medicare coverage and provided the [facility] brochure and [facility] Guidebook for CG agency list to review and other resources. Pt states spouse likely not back until around 1600 after SW shift ends so SW called spouse and left a msg with this update information as well. Plan: SW to follow for plan of home with spouse and new [facility] referral made and provided list of PP CG agency list in case spouse wants to pursue additional support at home. BF Addendum entered by HANNY Looney 10/05/22 11:24: ADD: SW spoke to MD and he is in agreement that he does not feel SNF needed but appreciated SW making referrals to confirm. MD states pt may be stable for d/c home with spouse tomorrow Thurs 10/06 and in agreement with HH. Return call from [facility] admissions who confirms pt does not have a Skillable need for SNF under Medicare coverage and would be private pay after likely 24-48 hours. SW called [facility] based on Vendor Calendar and no HH preference from pt or spouse and made new referral and F2F completed and HH orders made and scanned. Plan: SW to follow closely for possible d/c home tomorrow if medically stable with new [facility] referral made and to confirm with [facility] and [facility] that pt not skillable at this time. HANNY Looney Original Note: DCP Cont: Per Urologist, pt discharged from Urology needs and can d/c home with oral abx and topical cream. Awaiting MD to round to determine if pt stable for d/c. Per PT, pt ambulated well and SBA and recommend safe d/c home with spouse. Per RN, pt and spouse have concerns about discharge. SW met bedside with pt and spouse and explained role and spouse states concerns as she feels spouse is a fall risk and does not listen to me or want me to provide assist. SW discussed need to medically meet hospital level of care and pt now on orals, ambulating, tolerating diet etc. SW discussed HH services and frequency and provided HH Choice list and currently no preference but spouse does not feel HH enough care at d/c. SW discussed PP CG agency list and recommended calling for additional assist in the home and spouse states financially they could hire someone but she has heard nightmare stories about how impossible it is to find someone who can start right away. SW provided feedback that lately families have been able to find caregivers but might have to call a few PP CG agencies on the list. Pt and spouse still express concern with d/c and SW discussed SNF level of care and that pt May Not meet criteria for SNF since he has improved and is on orals and ambulating but provided SNF Choice List and pt and spouse request referral to [facility], [facility] [place], and [facility] to see if any can accept. Plan: SW made SNF referrals and awaiting to hear if pt is Skillable for SNF for Medicare coverage and if any can accept otherwise plan of home with spouse and new HH referral needed and to provide PP CG agency list to spouse. HANNY Looney
[2022-10-05] MEDS: SODIUM CHLORIDE 0.9% FLUSH 10 ML IV ×2 (09:13→20:15)
[2022-10-05] MEDS: hydrOXYzine pamoate 25 MG CAPSULE PO ×3 (09:54→23:22)
[2022-10-05] MEDS: NYSTATIN POWDER 15GM 1 APPLIC TOP (11:06)
--- NOTE | 2022-10-05 14:42 | OT.IPNOTE ---
Per nursing pt independent and doing grooming/oral care needs on his own while standing and has no OT needs and therefore discharge OT eval orders at this time.
--- NOTE | 2022-10-05 15:03 | PC.NURSE ---
pt moved to rm 210, patient and all belongings moved to new room. Report given to AKI Vee. No further patient contact at this time.
[2022-10-05] MEDS: SODIUM CHLORIDE 0.9% 250 ML 21 ML IV (15:49)
--- NOTE | 2022-10-05 15:50 | PT-IP ANOTE ---
Checked on pt in afternoon. Refused due to increased pain. He is moving well and has no stairs to complete to return home. Will continue to assess.
--- NOTE | 2022-10-05 17:50 | PC.NURSE ---
Addendum entered by Nanda Hardy R.N. 10/05/22 19:03: Pt again with bladder pressure and pain and inability to void. Bladder scanned for a result of 600mls. Contacted Dr. Sanchez and order was given to straight cath current bladder and if unable to void and bladder again 200mls-straight cath, if greater than [address]mls place indwelling catheter. Original Note: 1530 Pt c/o bladder pain and pressure. Provided pain meds and Pt applied lidocaine. States he feels he cannot empty his bladder properly. Bladder scanned Pt with result of 600. Pt again attempted to void without success. Straight cathed Pt with an output of 850mls of clear yellow urine. Pt now denies pain and states he feels much better.
[2022-10-05 20:00] VITALS: BP 154/60; PULSE 78; TEMP 36.7; O2SAT 98
[2022-10-05 20:14] VITALS: BP 154/60; PULSE 78
[2022-10-05] MEDS: ATORVASTATIN 20 MG TABLET PO (20:14)
[2022-10-05] MEDS: INSULIN GLARGINE 100 UNIT/ML 3ML PEN 25 UNIT SUBCUT (20:17)
--- NOTE | 2022-10-06 00:33 | PC.NURSE ---
patient with numerous in and out caths d/t retention. New order placed last evening for patient to have valencia cath replaced if bladder scan >500, which was. Indwelling valencia placed again. Patient tolerated well w/ Coude placed and 750ml out w/slight blood tinge noted.
[2022-10-06] MEDS: hydrOXYzine pamoate 25 MG CAPSULE PO ×2 (06:09→20:53)
[2022-10-06] MEDS: OXYCODONE IR 5 MG TABLET 10 MG PO ×2 (06:09→17:43)
[2022-10-06] MEDS: LEVOTHYROXINE 50 MCG TABLET PO (06:09)
--- NOTE | 2022-10-06 07:43 | P.PN_ITS ---
Subjective Subjective Date Patient Seen: 10/06/22 Time Patient Seen: 07:43 Interval history: Patient up and around without a whole lot of difficulty. Still having a fair amount of pain in the groin with the scrotum and penis particularly. Was unable to empty his bladder despite it being quite full requiring straight catheterization and eventually Plascencia catheter was replaced at the direction of Dr. Sanchez. The last time he had in excess of 800 cc. Patient reports he just was unable to empty was not due to pain although there is significant pain made worse by the repeated trauma of repeat catheterization Blood sugars continued to be very well controlled, not eating very much however Vital signs are good maybe, however he is somewhat hypertensive. (have yet to return him to his usual medications given his presenting hypotension etcetera) Spouse concerned as she really does not know how to take care of him in the home setting but recognizes that he does not qualify for [place] [facility] [place] which was her concern mostly about being able to manage him. Overall patient and spouse are both fairly bothered by the fact that he went for surgery a very healthy active vigorous 82-year-old with some medical problems wonder control and now seems to be quite debilitated etcetera. I certainly understand that thinking and have tried to point out that he is improving on a day-to-day basis although this urinary bladder/catheter thing is a set back of sorts but not uncommon and not insurmountable Exam Vital Signs (past 8 hours): Oxygen Delivery Method Room Air Oxygen Flow Rate 0 Objective Labs 10/04/22 03:58 10/04/22 03:58 [facility] Medical History Acquired hypothyroidism (11/26/15) Acquired phimosis of penis Asthma BPH w urinary obs/LUTS Essential hypertension History of adenomatous polyp of colon Incomplete bladder emptying Meatal stenosis Mixed hyperlipidemia Recurrent UTI (urinary tract infection) Spinal stenosis Type 2 diabetes mellitus without complication (11/26/15) Social History marital status: number of children: 4 household members: spouse occupational status: previously employed Smoking Status: Never smoker alcohol intake: current caffeine: Yes Assessment & Plan Assessment & Plan narrative: 1. Sepsis from urinary tract source, growing Pseudomonas-will continue with parental antibiotics until just prior to discharge which time I will switch him to Cipro 2. Cardiac-stable without evidence of recurrent atrial fibrillation. Consider further evaluation as an outpatient 3. Diabetes-patient's blood sugar numbers are very good. He is back on his oral metformin and receiving somewhat reduced doses of insulin. Continue to monitor and probably will return to usual doses of all of his meds upon discharge 4. -patient required replacement of Plascencia catheter. At this point he will be going home with a Plascencia catheter in place and and patient will need some education mount maintaining a catheter in the home setting. He will need perhaps closer than usual follow-up with urology given this complication. Continue with topical treatments for fungal infection of the scrotum etcetera as outlined in urology note from yesterday 5. Anemia-not an acute issue. Monitor and evaluate as an outpatient. Plan to continue iron replacement therapy for the foreseeable future 6. Disposition-patient does not meet criteria for admission to [place] [facility]. He will therefore be discharged home with home health services which I think is entirely appropriate. I would plan for discharge home tomorrow the 07 of October. Quality VTE Deep Vein Thrombosis/Pulmonary Embolism Present on Admission: Yes
[2022-10-06 09:15] VITALS: BP 176/70; PULSE 86; RESP 18; TEMP 36.3; O2SAT 96
[2022-10-06 09:16] VITALS: BP 176/70
[2022-10-06] MEDS: carvediloL 3.125 MG TABLET 6.25 MG PO ×2 (09:16→20:52)
[2022-10-06 09:17] VITALS: BP 176/70
[2022-10-06] MEDS: SODIUM CHLORIDE 0.9% FLUSH 10 ML IV ×2 (09:17→20:54)
[2022-10-06] MEDS: GABAPENTIN 300 MG CAPSULE PO ×2 (09:17→20:53)
[2022-10-06] MEDS: PIPERACILLIN/TAZO 3.375 GM in SODIUM CHLORIDE 0.9% 100 ML IV ×2 (09:17→17:44)
[2022-10-06] MEDS: LOSARTAN 50 MG TABLET 100 MG PO (09:17)
[2022-10-06] MEDS: ENOXAPARIN 40 MG/0.4 ML SYRINGE SUBCUT (09:17)
[2022-10-06] MEDS: FERROUS SULFATE 325 MG TABLET PO ×2 (09:18→17:44)
[2022-10-06] MEDS: METFORMIN HCL 500 MG TABLET 1000 MG PO ×2 (09:18→17:46)
--- NOTE | 2022-10-06 15:06 | PT-IP ANOTE ---
Went to pt room and spoke with pt. Pt feels he is perfectly capable of getting himself up and around as needed, has no stairs at home, feels comfortable meeting his own mobility needs at this time. Does not feel like he would benefit from any further inpatient Physical Therapy. Pt will be discharged from PT caseload
[2022-10-06] MEDS: INSULIN LISPRO 100 UNIT/ML 3ML VIAL SUBCUT ×2 (17:41→17:42)
[2022-10-06] MEDS: ACETAMINOPHEN 325 MG TABLET 650 MG PO (18:14)
[2022-10-06 20:52] VITALS: BP 161/60; PULSE 76
[2022-10-06] MEDS: OXYCODONE IR 5 MG TABLET PO (20:53)
[2022-10-06] MEDS: ATORVASTATIN 20 MG TABLET PO (20:53)
[2022-10-06] MEDS: INSULIN GLARGINE 100 UNIT/ML 3ML PEN 25 UNIT SUBCUT (21:01)
--- NOTE | 2022-10-06 21:38 | PC.NURSE ---
No place to document vital signs, ordered Q12. Temp 98.5, Heart rate 76, O2 97%, and BP 161/60
[2022-10-06 23:53] VITALS: BP 132/56; PULSE 68; RESP 18; TEMP 36.6; O2SAT 96
[2022-10-07] MEDS: PIPERACILLIN/TAZO 3.375 GM in SODIUM CHLORIDE 0.9% 100 ML IV ×2 (00:25→09:17)
[2022-10-07 03:35] VITALS: BP 148/65; PULSE 68; RESP 19; TEMP 36.2; O2SAT 97
[2022-10-07] MEDS: OXYCODONE IR 5 MG TABLET PO (05:47)
[2022-10-07] MEDS: hydrOXYzine pamoate 25 MG CAPSULE PO (05:47)
[2022-10-07] MEDS: LEVOTHYROXINE 50 MCG TABLET PO (05:47)
--- NOTE | 2022-10-07 07:34 | PM.DS.1 ---
History of Present Illness History of Present Illness Date Patient Seen: 10/07/22 Time Patient Seen: 07:34 Chief complaint: sent by Urology symptoms of kidney failture Narrative: 82 year old male admitted via emergency department with evidence of sepsis likely from urinary tract source. Patient had a cystoscopy with surgical dilatation of his meatus on Monday the 26 of September. He was doing well until apparently yesterday evening when he developed fever of 101+. Had increasing symptoms and after calling the urology office was directed to the emergency department In the ER he was found to have a significant leukocytosis he was febrile had an elevated lactate level elevated creatinine BUN. He was felt to have ongoing sepsis from a urological source treated with appropriate IV fluids as well as broad-spectrum antibiotics. Patient fortunately is awake and alert. Blood sugars have been okay. Discharge Providers Provider Date of admission: 09/30/22 11:12 Discharge Date: 10/07/22 Primary care physician: Duglas Brice MD Consults: 10/04/22 08:41 Consult to Physical Therapy Evaluate & Treat Comment: weakness Physician Instructions: Evaluate and Treat 10/04/22 12:15 Consult to Occupational Therapy Evaluate & Treat Comment: Physician Instructions: Evaluate and treat Discharge provider: Duglas Brice MD Summary Hospital Course Discharge Diagnosis: 1. Sepsis secondary to urinary tract infection, resolved 2. Acute kidney injury secondary to sepsis and urinary tract infection, resolved 3. Complicated urinary tract infection with Pseudomonas species 4. Meatal stenosis status post surgical repair, likely leading to infection as above 5. Diabetes type 2 on insulin chronically 6. Hypertension 7. 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 BPH with LUTS 9. Hypothyroidism 10. Hyperlipidemia 11. Fungal infection of scrotum Hospital Course: Patient presented to the ER as above with evidence of sepsis acute kidney injury etcetera. He received appropriate aggressive fluid resuscitation. Did have some hypotension thought to possibly require pressors but did respond ultimately to fluids not requiring pressors for maintenance of blood pressure. He was placed on broad-spectrum parental antibiotics which were changed early in his hospital course as he was not showing evidence of clinical improvement and at that point he had much improvement once he was placed on Zosyn Culture subsequently grew Pseudomonas probably explaining why he improved only 1 placed on Zosyn. His acute kidney injury resolved with appropriate fluids as above Patient had significant pain and discomfort around the area of the tip of the penis and scrotum primarily at the side of the prior surgery to open the meatal stenosis. Catheter had to be placed during his fluid resuscitation this was removed. However patient was unable to empty his bladder on his own once his urinary catheter was removed and despite multiple attempts to avoid it his catheter had to be replaced and he will go home with a urinary catheter in place Patient also showed evidence of fungal infection of his scrotum and was prescribed topical antifungal which seem to be effective in improving symptoms during the duration of his hospitalization Patient's diabetes was well controlled with slightly reduced doses of insulin. He will resume his usual doses of insulin when returning home to his normal diet Patient have close follow-up with urology as an outpatient obviously as well as with Dr. Brice his PCP Status at Discharge Cognitive/behavioral status at discharge: at baseline, oriented Functional status at discharge: independent ambulation Overall status at discharge: patient is progressing back to baseline Exam Vital Signs (past 8 hours): - 10/06/22 23:53 10/07/22 03:35 Temperature 97.8 F 97.2 F L Pulse Rate 68 68 Respiratory Rate 18 19 Blood Pressure 132/56 L 148/65 H Pulse Oximetry 96 97 Oxygen Flow Rate 0 0 Oxygen Delivery Method Room Air Oxygen Flow Rate 0 Objective Labs 10/04/22 03:58 10/04/22 03:58 PFSH Medical History Acquired hypothyroidism (11/26/15) Acquired phimosis of penis Asthma BPH w urinary obs/LUTS Essential hypertension History of adenomatous polyp of colon Incomplete bladder emptying Meatal stenosis Mixed hyperlipidemia Recurrent UTI (urinary tract infection) Spinal stenosis Type 2 diabetes mellitus without complication (11/26/15) Social History marital status: number of children: 4 household members: spouse occupational status: previously employed Smoking Status: Never smoker alcohol intake: current caffeine: Yes Discharge Plan Discharge Plan Patient Disposition: Home Health Service Discharge orders & Medications Prescriptions: New ciprofloxacin HCl 750 mg tablet 750 mg PO BID 7 Days Qty: 14 0RF nystatin [Nystop] 100,000 unit/gram Powder 1 applic topical BID PRN (Reason: Scrotal rash) Qty: 60 1RF Continued ASPIRIN (#ASPIRIN) 81 mg PO DAILY Qty: 0 albuterol sulfate [ProAir HFA] 90 mcg/actuation HFA aerosol inhaler 2 puff INHALATION Q4-6H PRN (Reason: shortness of breath or wheezing) Qty: 8.5 12RF levothyroxine 50 mcg tablet 50 mcg PO DAILY Qty: 90 3RF simvastatin 40 mg tablet 40 mg PO DAILY Qty: 90 3RF metformin 1,000 mg tablet 1,000 mg PO BID Qty: 180 3RF losartan 100 mg tablet 100 mg PO DAILY Qty: 90 3RF carvedilol 6.25 mg tablet 6.25 mg PO BID Qty: 180 3RF Rx Instructions: must administer with a meal/food gabapentin 300 mg capsule 300 mg PO BID Qty: 180 3RF insulin lispro 100 unit/mL insulin pen 3 unit SUBCUT ACHS Rx Instructions: Sliding scale insulin glargine 100 unit/mL (3 mL) insulin pen 40 unit SUBCUT QPM alfuzosin [Uroxatral] 10 mg tablet extended release 24 hr 10 mg PO DAILY Qty: 90 3RF Rx Instructions: administer after the same meal each day Changed oxycodone 5 mg tablet 5 mg PO Q4-6H Qty: 20 0RF No Action (DME) Dexcom G6 Family Life Educator Misc See Rx Instructions .ROUTE .MEDSUPPLY Qty: 1 0RF Rx Instructions: As directed (DME) Dexcom G6 Transmitter Device See Rx Instructions .ROUTE .MEDSUPPLY Qty: 1 3RF Rx Instructions: As directed (DME) Dexcom G6 Sensor Device See Rx Instructions .ROUTE .MEDSUPPLY Qty: 3 12RF Rx Instructions: As directed (DME) B-D 5MM Pen [place] See Rx Instructions .Route .MEDSUPPLY Qty: 400 6RF Rx Instructions: Use 4x a day or as instructed by PCP. Follow up/Referrals: Larry Sanchez MD [Physician] - 10/18/22 10:45 am (as previously scheduled) Duglas Brice MD [Primary Care Provider] - 2 Weeks Diet/Activity/Treatments Diet: Diet as Tolerated and Carb-consistent/Diabetic Catheter: 2-way Plascencia Skin/Wound/Dressing Care Report to your healthcare provider any signs of infection, such as:: chills, fever, night sweats, increased pain, unusual drainage and unusual redness Visit Report/Discharge Packet Instructions: How to Care for Your Plascencia Catheter -- Male Stand Alone Forms: Patient Portal/API Discharge Data Primary Care Provider: Duglas Brice VTE Deep Vein Thrombosis/Pulmonary Embolism Present on Admission: Yes
[2022-10-07 07:51] VITALS: BP 183/71; PULSE 72; RESP 18; TEMP 36.4; O2SAT 96
[2022-10-07 09:16] VITALS: BP 183/71; PULSE 72
[2022-10-07] MEDS: FERROUS SULFATE 325 MG TABLET PO (09:16)
[2022-10-07] MEDS: carvediloL 3.125 MG TABLET 6.25 MG PO (09:16)
[2022-10-07] MEDS: LOSARTAN 50 MG TABLET 100 MG PO (09:16)
[2022-10-07] MEDS: ENOXAPARIN 40 MG/0.4 ML SYRINGE SUBCUT (09:17)
[2022-10-07] MEDS: GABAPENTIN 300 MG CAPSULE PO (09:17)
[2022-10-07] MEDS: METFORMIN HCL 500 MG TABLET 1000 MG PO (09:21)
[2022-10-07 11:42] VITALS: BP 178/81; PULSE 66; RESP 18; TEMP 36.2; O2SAT 96
[2022-10-07] MEDS: INSULIN LISPRO 100 UNIT/ML 3ML VIAL SUBCUT ×2 (12:56→13:04)
[2022-10-07] MEDS: SODIUM CHLORIDE 0.9% FLUSH 10 ML IV (13:04)
--- NOTE | 2022-10-07 15:23 | CM.DPNOTE ---
DC Note Discharge home today w/spouse and new [facility] services, patient and spouse remain agreeable to this plan. Therapies have cleared patient for this plan Tristian at [facility] updated w/discharge today JW
== END 2022-10-07 14:55 | disposition home or self-care (01) | DRG 862 ==
LOC: ED 11:11 → AC 11:13 → ICU 12:28 → AC 10-05 14:45
PROVIDERS: Family Medicine; Admitting Provider Internal Medicine; Emergency Provider Emergency Medicine; Family Provider Internal Medicine; PCP Internal Medicine; Referring Provider Emergency Medicine; Visit Provider Internal Medicine
DX: T81.44XA Sepsis following a procedure, initial encounter (principal); A41.9 Sepsis, unspecified organism; N17.0 Acute kidney failure with tubular necrosis; R65.21 Severe sepsis with septic shock; B37.49 Other urogenital candidiasis; E03.9 Hypothyroidism, unspecified; E78.5 Hyperlipidemia, unspecified; I10 Essential (primary) hypertension; E11.9 Type 2 diabetes mellitus without complications; N50.89 Other specified disorders of the male genital organs; B96.5 Pseudomonas (aeruginosa) (mallei) (pseudomallei) as the cause of diseases classified elsewhere; D50.9 Iron deficiency anemia, unspecified; N40.1 Benign prostatic hyperplasia with lower urinary tract symptoms; N31.2 Flaccid neuropathic bladder, not elsewhere classified; Z79.84 Long term (current) use of oral hypoglycemic drugs; Z79.4 Long term (current) use of insulin; Z20.822 Contact with and (suspected) exposure to COVID-19
CPT/HCPCS: 36415; 71045; 74176; 76870; 80048; 80053; 81001; 82962; 83540; 83550; 83605; 83690; 83735; 83880; 84145; 85007; 85025; 85610; 85730; 87040; 87077; 87086; 87186; 87635; 87797; 93005; 93306; 96365; 96366; 97161; 97530; 99233; 99238; 99284; 99291; 99292; C9803; J0696; J1170; J1650; J1815; J2543; Q9957

== ENCOUNTER 2022-10-18 09:13 | Emergency (ER) | payer MEDICARE, SELFPAY ==
[2022-09-30 21:16] VITALS: BMI 29.9
[2022-10-18] VITALS (10 sets, daily range): BP systolic 158–178; BP diastolic 71–80; PULSE 63–81; RESP 14–29; TEMP 36.4; O2SAT 93–99; BMI 25.7
--- NOTE | 2022-10-18 09:28 | DI.RAD.S_ITS ---
PROCEDURE: XR CHEST 1V INDICATIONS: chest pain TECHNIQUE: One view of the chest was acquired. COMPARISON: [facility], CR, XR CHEST 1V, 09/30/2022, 10:27. [facility], CR, XR CHEST 1V, 02/17/2021, 20:09. FINDINGS: Surgical changes and devices: None. Lungs and pleura: Low lung volumes. No dense consolidation. No pleural effusion. Azygos fissure. Mediastinum: Mediastinal contours appear normal. Heart size is normal. Bones and chest wall: No suspicious bony lesions. Overlying soft tissues appear unremarkable. IMPRESSION: Low lung volumes. No acute radiographic abnormality. Dictated by: Jacob Delgadillo M.D. on 10/18/2022 at 10:04 Approved by: Jacob Delgadillo M.D. on 10/18/2022 at 10:05
[2022-10-18 09:45] LABS: INR 1.1 (0.9-1.3); Prothrombin Time 12.4 SECONDS (10.1-12.7)
[2022-10-18 09:48] LABS: PTT Partial Thromboplastin Tim 27 SECONDS (26-36)
[2022-10-18 09:49] LABS: Add Manual Diff / Slide Review NO; Basophils Absolute Auto 100 /uL (0-100); Basophils Percent Auto 0.9 % (0-2); Eosinophils Absolute Auto 200 /uL (0-450); Eosinophils Percent Auto 2.4 % (2-4); Hematocrit 38.9 % (41-53); Hemoglobin 12.7 g/dL (13.5-17.5); Lymphocytes Absolute Auto 1400 /uL (1100-4500); Lymphocytes Percent Auto 20.1 % (25-40); Mean Corpuscular HGB Conc 32.7 % (30-36); Mean Corpuscular Volume 73.3 fL (80-100); Monocytes Absolute Auto 700 /uL (0-900); Monocytes Percent Auto 10.1 % (3-14); Neutrophils Absolute Auto 4800 /uL (1500-7000); Neutrophils Percent Auto 66.5 % (50-75); Platelet Count 332 X10^3/uL (150-400); Red Blood Cell Count 5.31 X10^6/uL (4.5-5.9); White Blood Cell Count 7.2 X10^3/uL (4.5-11.0)
[2022-10-18 09:52] LABS: Alanine Aminotransferase 34 IU/L (<50); Albumin Globulin Ratio 1.4 (1.0-2.8); Alkaline Phosphatase 107 U/L (38-126); Aspartate Aminotransferase 28 IU/L (17-59); BUN Creatinine Ratio 17.9 (6-22); Bilirubin Total 0.6 mg/dL (0.2-1.3); Blood Urea Nitrogen 19 mg/dL (9-20); Carbon Dioxide 26 mmol/L (22-32); Chloride 98 mmol/L (98-107); Creatine Kinase 25 U/L (55-170); Estimated Glomerular Filt Rate > 60 mL/min (>60); Globulin 2.8 g/dL (1.7-4.1); Glucose 204 mg/dL (80-110); HEMOLYSIS < 15 (0-50); Lipase 37 U/L (23-300); Magnesium 1.8 mg/dL (1.6-2.3); Potassium 4.1 mmol/L (3.4-5.1); Sodium 133 mmol/L (137-145); Total Protein 6.8 g/dL (6.3-8.2)
--- NOTE | 2022-10-18 09:56 | ED.GENADULT ---
HPI - General Adult General Chief complaint: Syncope Stated complaint: Syncope Time Seen by Provider: 10/18/22 09:28 Source: patient and EMS Mode of arrival: EMS History of Present Illness HPI narrative: 82-year-old male who is brought in by EMS for evaluation of was initially describes as a syncopal but is more like a presyncopal episode at his urology appointment this morning. He recently had a fairly extensive hospital admission after having a urinary procedure performed. He does have an indwelling catheter. He spent several days in the ICU and then in the hospital afterwards for what appeared to be urosepsis. Was discharged home. Since that time has been fairly weak at home. Today was the 1st time that he is actually left his house. He had use the wheelchair this morning because of his weakness. He has been shuffling around the house using furniture because the home is too small for a wheelchair. He went to the urology clinic for follow-up in order to have the catheter removed. While he was at the visit he became hypotensive and very lightheaded. He was not having chest pain at the time. He states he almost passed out but did not completely pass out. He states he has been drinking quite a bit. He also has not had a bowel movement. Feels like his abdomen is very tight and distended. He is an insulin-dependent diabetic. Related Data Home Medications Medication Instructions Recorded Confirmed ASPIRIN (#ASPIRIN) 81 mg PO DAILY ##0 03/01/12 09/30/22 insulin glargine 100 unit/mL (3 40 unit SUBCUT QPM 09/30/22 09/30/22 mL) subcutaneous pen insulin lispro 100 unit/mL 3 unit SUBCUT ACHS 09/30/22 09/30/22 subcutaneous pen Previous Rx's Medication Instructions Recorded blood-glucose meter,continuous #1 ea 06/30/20 (Dexcom G6 Apprentice Carpenter) B-D 5MM Pen [place] #400 ea 03/19/21 albuterol sulfate 90 mcg/actuation 2 puff inhalation Q4-6H PRN 08/16/21 aerosol inhaler (ProAir HFA) shortness of breath or wheezing #8.5 grams gabapentin 300 mg capsule 300 mg PO BID #180 caps 11/12/21 simvastatin 40 mg tablet 40 mg PO DAILY #90 tabs 02/02/22 metformin 1,000 mg tablet 1,000 mg PO BID #180 tabs 02/11/22 losartan 100 mg tablet 100 mg PO DAILY #90 tabs 03/30/22 blood-glucose transmitter (Dexcom #1 ea 06/22/22 G6 Transmitter device) blood-glucose sensor (Dexcom G6 #3 ea 06/29/22 Sensor device) alfuzosin 10 mg tablet,extended 10 mg PO DAILY #90 tabs 08/08/22 release 24 hr (Uroxatral) carvedilol 6.25 mg tablet 6.25 mg PO BID #180 tabs 09/08/22 nystatin 100,000 unit/gram topical 1 applic topical BID PRN Scrotal 10/07/22 powder (Nystop) rash #60 grams oxycodone 5 mg tablet 5 mg PO Q4-6H #20 tabs 10/07/22 levothyroxine 50 mcg tablet 50 mcg PO DAILY #90 tabs 10/10/22 ciprofloxacin HCl 250 mg tablet 250 mg PO BID #6 tabs 10/13/22 (Cipro) Allergies Allergy/AdvReac Type Severity Reaction Status Date / Time prednisone AdvReac Severe Made Verified 09/30/22 10:02 patient Hostile. Review of Systems Review of Systems ROS Unobtainable: All systems reviewed & are unremarkable except as noted in HPI and below Patient History Medical History Acquired hypothyroidism (11/26/15) Acquired phimosis of penis Asthma BPH w urinary obs/LUTS Essential hypertension History of adenomatous polyp of colon Incomplete bladder emptying Meatal stenosis Mixed hyperlipidemia Recurrent UTI (urinary tract infection) Spinal stenosis Type 2 diabetes mellitus without complication (11/26/15) Social History marital status: number of children: 4 household members: spouse occupational status: previously employed Smoking Status: Never smoker alcohol intake: current caffeine: Yes Smoking Status: Never smoker alcohol intake frequency: holidays/special occasions only Substance Use Type: does not use Exam Initial Vital Signs Initial Vital Signs: Vital Signs Blood Pressure 167/78 H 10/18/22 09:18 Const General: cooperative and No ill appearing HENMT Head: normal to inspection and normocephalic Resp Effort & Inspection: normal respiratory effort Auscultation: clear to auscultation bilaterally Cardio Rate: regular rate Rhythm: regular rhythm GI Inspection: distended Palpation: firm and tender Skin General: no rashes or lesions noted Neuro General: patient alert, patient awake and moves all extremities Extrem General: capillary refill normal Course Orders Ordered: ED Orders 10/18/22 09:20 Complete Blood Count AUTO DIFF Stat Comprehensive Metabolic Panel Stat Lactate (Lactic Acid) Stat Lipase Stat Magnesium Stat PTT Partial Thromboplastin Vince Stat Procalcitonin Stat Prothrombin Time INR Stat Troponin & CK Cardiac Panel Stat 10/18/22 09:28 XR chest 1V Stat EKG-12 Lead Stat 10/18/22 10:43 CT abdomen pelvis w con Stat Discontinued Medications Calcium Carbonate (Calcium Carbonate 500 Mg Tab) 1,000 mg PO NOW ONE Stop: 10/18/22 10:06 Last Admin: 10/18/22 10:13 Dose: 1,000 mg Documented By: SHAKA Vital Signs Vital signs: Vital Signs - 8 hr 10/18/22 09:24 10/18/22 09:18 10/18/22 09:19 Temperature 97.6 F Pulse Rate 63 65 Respiratory Rate 18 Blood Pressure 167/78 H 167/78 H Pulse Oximetry 99 99 Oxygen Delivery Method Room Air 10/18/22 09:30 10/18/22 09:30 10/18/22 10:00 Temperature Pulse Rate 67 Respiratory Rate 22 Blood Pressure 172/80 H 160/71 H Pulse Oximetry 99 Oxygen Delivery Method Room Air 10/18/22 10:00 10/18/22 10:30 10/18/22 10:30 Temperature Pulse Rate 67 68 Respiratory Rate 29 H 16 Blood Pressure 178/75 H Pulse Oximetry 99 98 Oxygen Delivery Method Room Air 10/18/22 11:00 10/18/22 11:30 10/18/22 11:33 Temperature Pulse Rate 74 78 81 Respiratory Rate 14 16 20 Blood Pressure Pulse Oximetry 93 97 97 Oxygen Delivery Method 10/18/22 11:33 10/18/22 12:00 Temperature Pulse Rate 79 Respiratory Rate 20 Blood Pressure 158/74 H Pulse Oximetry 98 Oxygen Delivery Method Medical Decision Making Medical Records Medical records reviewed: Yes I reviewed the patient's medical records. Lab Data Lab results reviewed: Yes I reviewed the patient's lab results. 10/18/22 09:20 10/18/22 09:20 Labs: Lab Results 10/18/22 10/18/22 10/18/22 Range/Units 09:20 09:20 09:20 WBC 7.2 (4.5-11.0) X10^3/uL RBC 5.31 (4.5-5.9) X10^6/uL Hgb 12.7 L (13.5-17.5) g/dL Hct 38.9 L (41-53) % MCV 73.3 L (80-100) fL MCH 24.0 L (26-34) PG MCHC 32.7 (30-36) % RDW 17.0 H (11.6-14.8) % Plt Count 332 (150-400) X10^3/uL Neut % (Auto) 66.5 (50-75) % Lymph % (Auto) 20.1 L (25-40) % [place] % (Auto) 10.1 (3-14) % Eos % (Auto) 2.4 (2-4) % Baso % (Auto) 0.9 (0-2) % Neut # (Auto) 4800 (5807-4249) /uL Lymph # (Auto) 1400 (1561-8520) /uL [place] # (Auto) 700 (0-900) /uL Eos # (Auto) 200 (0-450) /uL Baso # (Auto) 100 (0-100) /uL PT 12.4 (10.1-12.7) SECONDS INR 1.1 (0.9-1.3) APTT 27 (26-36) SECONDS Sodium 133 L (137-145) mmol/L Potassium 4.1 (3.4-5.1) mmol/L Chloride 98 (98-107) mmol/L Carbon Dioxide 26 (22-32) mmol/L BUN 19 (9-20) mg/dL Creatinine 1.06 (0.66-1.25) mg/dL Estimated GFR > 60 (>60) mL/min BUN/Creatinine Ratio 17.9 (6-22) Glucose 204 H (80-110) mg/dL Lactate (0.7-2.1) mmol/L Calcium 9.0 (8.4-10.2) mg/dL Magnesium 1.8 (1.6-2.3) mg/dL Total Bilirubin 0.6 (0.2-1.3) mg/dL AST 28 (17-59) IU/L ALT 34 (<50) IU/L Alkaline Phosphatase 107 (38-126) U/L Total Creatine Kinase 25 L (55-170) U/L CK-MB (CK-2) TNP CK-MB (CK-2) Rel Index TNP Troponin I < 0.012 (0.01-0.034) ng/mL Total Protein 6.8 (6.3-8.2) g/dL Albumin 4.0 (3.5-5.0) g/dL Globulin 2.8 (1.7-4.1) g/dL Albumin/Globulin Ratio 1.4 (1.0-2.8) Lipase 37 (23-300) U/L Procalcitonin (<0.5) ng/mL 10/18/22 10/18/22 Range/Units 09:20 09:20 WBC (4.5-11.0) X10^3/uL RBC (4.5-5.9) X10^6/uL Hgb (13.5-17.5) g/dL Hct (41-53) % MCV (80-100) fL MCH (26-34) PG MCHC (30-36) % RDW (11.6-14.8) % Plt Count (150-400) X10^3/uL Neut % (Auto) (50-75) % Lymph % (Auto) (25-40) % [place] % (Auto) (3-14) % Eos % (Auto) (2-4) % Baso % (Auto) (0-2) % Neut # (Auto) (2564-0431) /uL Lymph # (Auto) (9075-7358) /uL [place] # (Auto) (0-900) /uL Eos # (Auto) (0-450) /uL Baso # (Auto) (0-100) /uL PT (10.1-12.7) SECONDS INR (0.9-1.3) APTT (26-36) SECONDS Sodium (137-145) mmol/L Potassium (3.4-5.1) mmol/L Chloride (98-107) mmol/L Carbon Dioxide (22-32) mmol/L BUN (9-20) mg/dL Creatinine (0.66-1.25) mg/dL Estimated GFR (>60) mL/min BUN/Creatinine Ratio (6-22) Glucose (80-110) mg/dL Lactate 2.0 (0.7-2.1) mmol/L Calcium (8.4-10.2) mg/dL Magnesium (1.6-2.3) mg/dL Total Bilirubin (0.2-1.3) mg/dL AST (17-59) IU/L ALT (<50) IU/L Alkaline Phosphatase (38-126) U/L Total Creatine Kinase (55-170) U/L CK-MB (CK-2) CK-MB (CK-2) Rel Index Troponin I (0.01-0.034) ng/mL Total Protein (6.3-8.2) g/dL Albumin (3.5-5.0) g/dL Globulin (1.7-4.1) g/dL Albumin/Globulin Ratio (1.0-2.8) Lipase (23-300) U/L Procalcitonin 0.07 (<0.5) ng/mL Point of Care Testing Glucose POC 198 Point of care testing: Point of Care Testing Glucose POC 198 Imaging Data Chest x-ray: Radiologist's Impression: PROCEDURE:? XR CHEST 1V ? INDICATIONS:? chest pain ? TECHNIQUE:? One view of the chest was acquired.? ? COMPARISON:? [facility], , XR CHEST 1V, 09/30/2022, 10:27.? [facility], , XR CHEST 1V, 02/17/2021, 20:09. ? FINDINGS:? ? Surgical changes and devices:? None.? ? Lungs and pleura:? Low lung volumes.? No dense consolidation.? No pleural effusion.? Azygos fissure. ? Mediastinum:? Mediastinal contours appear normal.? Heart size is normal.? ? Bones and chest wall:? No suspicious bony lesions.? Overlying soft tissues appear unremarkable.? ? IMPRESSION:? Low lung volumes.? No acute radiographic abnormality. CT scan - abdomen/pelvis: Radiologist's Impression: PROCEDURE:? CT ABDOMEN PELVIS W CON ? INDICATIONS:? Abdominal distention ? TECHNIQUE:? After the administration of intravenous contrast, axial sections acquired from the lung bases to the pubic symphysis.? Coronal and sagittal reformats were performed.? For radiation dose reduction, the following was used:? automated exposure control, adjustment of mA and/or kV according to patient size.? ? COMPARISON:? [facility], CT, CT ABDOMEN PELVIS W CON, 11/01/2021, 11:00.? [facility], CT, CT ABDOMEN PELVIS WO CON, 10/01/2022, 16:31. ? FINDINGS:? Image quality:? Good ? Lower chest:? Suspected mild basal atelectasis.? Small hiatal hernia.? Coronary calcifications. ? Solid organs:? Liver is unremarkable.? Gallbladder is unremarkable.? No pathologic dilation of the pancreatic duct or biliary system.? Mildly atrophic pancreatic parenchyma.? No splenomegaly.? No adrenal nodules.? No hydronephrosis.? Subcentimeter renal lesions are too small to characterize. ? Vessels and lymph nodes:? No pathologic adenopathy by size criteria or abdominal aortic aneurysm. ? Bowel and peritoneum:? Moderate fecal loading.? No pathologic ascites or abscess.? Normal appendix.? No bowel obstruction. ? Body wall:? Unremarkable ? Pelvis:? Mild fat stranding around the bladder and prostate.? The prostate is heterogeneous and mildly enlarged.? The bladder is under distended with moderate wall thickening and a catheter placed. ? Bones:? No acute or suspicious osseous lesions.? Stable areas of sclerosis, possibly bone islands, including a larger area in the left proximal femur. ? IMPRESSION:? Wall thickening of the bladder with Plascencia in place.? There is fat stranding around the prostate and bladder.? Prostate is heterogeneous and mildly enlarged.? Please correlate with urinalysis for infection.? Prostate could be further evaluated with PSA correlation and if necessary, MRI. ? Other findings as above. ECG Data Interpretation: Sinus rhythm Ventricular rate is 65 First-degree AV block the RI interval 2-6 milliseconds Left axis deviation Normal QRS No ST T wave changes MDM Narrative Medical decision making narrative: Patient states that he does feel better after his time here in the emergency department. His workup is relatively unremarkable. We contacted the Urology Department who asked that we leave the Plascencia catheter in place. I suspect what happened this morning that the patient has become deconditioned after his extensive stay in the hospital and not being up and moving around at home. Has become deconditioned. This is the 1st time that he left the house today. Suspect that this is what led to his events today. Low suspicion for ACS, CVA/TIA. Will discharge patient home. They already have a scheduled appointment with home health tomorrow. We will hold on further workup for now. They were given return precautions. They expressed understanding and agreement. Discharge Plan Departure Patient Disposition: Home Clinical Impression: Pre-syncope Instructions: Fainting Activity Restrictions/Additional Instructions: I do recommend that you continue to take all of your medications as directed. Like we discussed I think he would benefit from getting up and moving as much as possible. Home health should help with this. I also recommend that you contact the urology clinic for follow-up. Return to the emergency department for any new or worsening symptoms. Prescriptions: No Action ASPIRIN (#ASPIRIN) 81 mg PO DAILY Qty: 0 (DME) Dexcom G6 Apprentice Carpenter Misc See Rx Instructions .ROUTE .MEDSUPPLY Qty: 1 0RF Rx Instructions: As directed albuterol sulfate [ProAir HFA] 90 mcg/actuation HFA aerosol inhaler 2 puff INHALATION Q4-6H PRN (Reason: shortness of breath or wheezing) Qty: 8.5 12RF simvastatin 40 mg tablet 40 mg PO DAILY Qty: 90 3RF metformin 1,000 mg tablet 1,000 mg PO BID Qty: 180 3RF losartan 100 mg tablet 100 mg PO DAILY Qty: 90 3RF (DME) Dexcom G6 Transmitter Device See Rx Instructions .ROUTE .MEDSUPPLY Qty: 1 3RF Rx Instructions: As directed (DME) Dexcom G6 Sensor Device See Rx Instructions .ROUTE .MEDSUPPLY Qty: 3 12RF Rx Instructions: As directed carvedilol 6.25 mg tablet 6.25 mg PO BID Qty: 180 3RF Rx Instructions: must administer with a meal/food levothyroxine 50 mcg tablet 50 mcg PO DAILY Qty: 90 3RF ciprofloxacin HCl [Cipro] 250 mg tablet 250 mg PO BID Qty: 6 0RF Rx Instructions: Pt to start the day before voiding trial. gabapentin 300 mg capsule 300 mg PO BID Qty: 180 3RF (DME) B-D 5MM Pen [place] See Rx Instructions .Route .MEDSUPPLY Qty: 400 6RF Rx Instructions: Use 4x a day or as instructed by PCP. insulin lispro 100 unit/mL insulin pen 3 unit SUBCUT ACHS Rx Instructions: Sliding scale insulin glargine 100 unit/mL (3 mL) insulin pen 40 unit SUBCUT QPM oxycodone 5 mg tablet 5 mg PO Q4-6H Qty: 20 0RF nystatin [Nystop] 100,000 unit/gram Powder 1 applic topical BID PRN (Reason: Scrotal rash) Qty: 60 1RF alfuzosin [Uroxatral] 10 mg tablet extended release 24 hr 10 mg PO DAILY Qty: 90 3RF Rx Instructions: administer after the same meal each day Referrals: Duglas Brice MD [Primary Care Provider] - Stand Alone Forms: Patient Portal/API
[2022-10-18 10:04] LABS: Troponin I < 0.012 ng/mL (0.01-0.034)
[2022-10-18] MEDS: CALCIUM CARBONATE 500 MG TAB 1000 MG PO (10:13)
[2022-10-18 10:19] LABS: Procalcitonin 0.07 ng/mL (<0.5)
--- NOTE | 2022-10-18 10:43 | DI.CT.S_ITS ---
PROCEDURE: CT ABDOMEN PELVIS W CON INDICATIONS: Abdominal distention TECHNIQUE: After the administration of intravenous contrast, axial sections acquired from the lung bases to the pubic symphysis. Coronal and sagittal reformats were performed. For radiation dose reduction, the following was used: automated exposure control, adjustment of mA and/or kV according to patient size. COMPARISON: [facility], CT, CT ABDOMEN PELVIS W CON, 11/01/2021, 11:00. [facility], CT, CT ABDOMEN PELVIS WO CON, 10/01/2022, 16:31. FINDINGS: Image quality: Good Lower chest: Suspected mild basal atelectasis. Small hiatal hernia. Coronary calcifications. Solid organs: Liver is unremarkable. Gallbladder is unremarkable. No pathologic dilation of the pancreatic duct or biliary system. Mildly atrophic pancreatic parenchyma. No splenomegaly. No adrenal nodules. No hydronephrosis. Subcentimeter renal lesions are too small to characterize. Vessels and lymph nodes: No pathologic adenopathy by size criteria or abdominal aortic aneurysm. Bowel and peritoneum: Moderate fecal loading. No pathologic ascites or abscess. Normal appendix. No bowel obstruction. Body wall: Unremarkable Pelvis: Mild fat stranding around the bladder and prostate. The prostate is heterogeneous and mildly enlarged. The bladder is under distended with moderate wall thickening and a catheter placed. Bones: No acute or suspicious osseous lesions. Stable areas of sclerosis, possibly bone islands, including a larger area in the left proximal femur. IMPRESSION: Wall thickening of the bladder with Plascencia in place. There is fat stranding around the prostate and bladder. Prostate is heterogeneous and mildly enlarged. Please correlate with urinalysis for infection. Prostate could be further evaluated with PSA correlation and if necessary, MRI. Other findings as above. Dictated by: Jacob Delgadillo M.D. on 10/18/2022 at 11:02 Approved by: Jacob Delgadillo M.D. on 10/18/2022 at 11:08
== END 2022-10-18 12:21 | disposition home or self-care (01) ==
PROVIDERS: Emergency Provider Emergency Medicine; Family Provider Internal Medicine; PCP Internal Medicine
DX: R55 Syncope and collapse (principal); R07.9 Chest pain, unspecified; Z79.899 Other long term (current) drug therapy
CPT/HCPCS: 71045; 74177; 80053; 82550; 82962; 83605; 83690; 83735; 84145; 84484; 85025; 85610; 85730; 93005; 93010; 99284; Q9967

== ENCOUNTER → 2023-03-31 07:50 | Outpatient (CLI) | payer MEDICARE, SELFPAY ==
[2022-09-30 21:16] VITALS: BMI 29.9
[2023-03-31 09:25] LABS: Hemoglobin A1C% w Est Avg Glu 6.1 % (4.0-6.0)
[2023-03-31 09:31] LABS: Alanine Aminotransferase 29 IU/L (<50); Albumin 3.9 g/dL (3.5-5.0); Albumin Globulin Ratio 1.5 (1.0-2.8); Alkaline Phosphatase 61 U/L (38-126); Aspartate Aminotransferase 32 IU/L (17-59); BUN Creatinine Ratio 14.8 (6-22); Bilirubin Total 0.5 mg/dL (0.2-1.3); Blood Urea Nitrogen 19 mg/dL (9-20); Calcium 8.6 mg/dL (8.4-10.2); Carbon Dioxide 30 mmol/L (22-32); Chloride 101 mmol/L (98-107); Cholesterol 114 mg/dL (140-199); Estimated Glomerular Filt Rate 56 mL/min (>60); Globulin 2.6 g/dL (1.7-4.1); Glucose 90 mg/dL (80-110); HDL Cholesterol 29 mg/dL (40-60); HEMOLYSIS < 15 (0-50); LDL Cholesterol Calculated 46 mg/dL (<100); Potassium 4.3 mmol/L (3.4-5.1); Sodium 141 mmol/L (137-145); Total Protein 6.5 g/dL (6.3-8.2); Triglycerides 196 mg/dL (35-150)
[2023-03-31 09:44] LABS: Free T4, Direct Thyroxine 1.13 ng/dL (0.78-2.19)
[2023-03-31 09:58] LABS: Thyroid Stimulating Hormone 7.02 uIU/mL (0.47-4.68)
[2023-03-31 10:01] LABS: Creatinine Urine Random 79.6 mg/dL
[2023-03-31 10:05] LABS: Microalbumi Creatinin Ratio Ur 43.9 ug/mg CR (<30); Microalbumin Urine Random 3.5 mg/dL (0-1.6)
== END ==
PROVIDERS: Family Provider Internal Medicine; PCP Internal Medicine; Referring Provider Internal Medicine; Visit Provider Internal Medicine
DX: E11.9 Type 2 diabetes mellitus without complications (principal); E78.2 Mixed hyperlipidemia; E03.9 Hypothyroidism, unspecified; I10 Essential (primary) hypertension
CPT/HCPCS: 36415; 80053; 80061; 82043; 82570; 83036; 84439; 84443

== ENCOUNTER → 2023-06-18 10:37 | Outpatient (CLI) | payer MEDICARE, SELFPAY ==
[2022-09-30 21:16] VITALS: BMI 29.9
== END ==
PROVIDERS: Family Provider Internal Medicine; PCP Internal Medicine; Visit Provider Nurse Practitioner Family
DX: R10.9 Unspecified abdominal pain (principal)
CPT/HCPCS: 87077; 87086; 87186

== ENCOUNTER → 2023-06-26 14:54 | Outpatient (CLI) | payer MEDICARE, SELFPAY ==
[2022-09-30 21:16] VITALS: BMI 29.9
[2023-06-26 15:33] LABS: Appearance Urine UA CLEAR; Bilirubin Urine UA NEGATIVE (NEGATIVE); Color Urine UA YELLOW; Glucose Urine UA NEGATIVE (Negative); Ketones Urine UA NEGATIVE (NEGATIVE); Leukocyte Esterase Urine UA NEGATIVE (NEGATIVE); Nitrite Urine UA NEGATIVE (Negative); Occult Blood Urine UA NEGATIVE (Negative); Protein Urine UA NEGATIVE (Negative); Urobilinogen Urine UA 0.2 E.U./dL (0.2); pH Urine UA 5.5 (4.5-8.0)
[2023-06-26 15:53] LABS: Bacteria Urine None Seen; Culture Indicated Urine Cult Not Indicated; RBC Urine None Seen (0-5/HPF); Squamous Epithelial Cell Urine 0-1 /HPF (0-5/HPF); WBC Urine None Seen (0-5/HPF)
== END ==
PROVIDERS: Family Provider Internal Medicine; PCP Internal Medicine; Referring Provider Internal Medicine; Visit Provider Internal Medicine
DX: R33.9 Retention of urine, unspecified (principal); N39.0 Urinary tract infection, site not specified
CPT/HCPCS: 81001

== ENCOUNTER → 2023-06-26 | Outpatient (CLI) | payer MEDICARE, SELFPAY ==
[2022-09-30 21:16] VITALS: BMI 29.9
== END ==
PROVIDERS: Family Provider Internal Medicine; PCP Internal Medicine; Visit Provider Internal Medicine

== ENCOUNTER 2023-09-11 09:06 | Emergency (ER) | payer MEDICARE, SELFPAY ==
[2022-09-30 21:16] VITALS: BMI 29.9
[2023-09-11] VITALS (13 sets, daily range): BP systolic 147–188; BP diastolic 67–86; PULSE 74–89; RESP 18–23; TEMP 36.5–36.8; O2SAT 96–98; BMI 27.1
[2023-09-11 09:55] LABS: Add Manual Diff / Slide Review NO; Basophils Absolute Auto 0 /uL (0-100); Basophils Percent Auto 0.5 % (0-2); Eosinophils Absolute Auto 600 /uL (0-450); Eosinophils Percent Auto 6.6 % (2-4); Hematocrit 40.2 % (41-53); Hemoglobin 13.8 g/dL (13.5-17.5); Lymphocytes Absolute Auto 1100 /uL (1100-4500); Lymphocytes Percent Auto 11.8 % (25-40); Mean Corpuscular HGB Conc 34.3 % (30-36); Mean Corpuscular Hemoglobin 28.3 PG (26-34); Mean Corpuscular Volume 82.5 fL (80-100); Monocytes Absolute Auto 700 /uL (0-900); Monocytes Percent Auto 7.7 % (3-14); Neutrophils Absolute Auto 6700 /uL (1500-7000); Neutrophils Percent Auto 73.4 % (50-75); Platelet Count 176 X10^3/uL (150-400); Red Blood Cell Count 4.87 X10^6/uL (4.5-5.9); Red Cell Distribution Width 14.5 % (11.6-14.8); White Blood Cell Count 9.1 X10^3/uL (4.5-11.0)
[2023-09-11 10:01] LABS: Alanine Aminotransferase 22 IU/L (<50); Albumin 4.2 g/dL (3.5-5.0); Alkaline Phosphatase 64 U/L (38-126); Aspartate Aminotransferase 25 IU/L (17-59); BUN Creatinine Ratio 14.6 (6-22); Bilirubin Total 0.8 mg/dL (0.2-1.3); Blood Urea Nitrogen 15 mg/dL (9-20); Calcium 8.9 mg/dL (8.4-10.2); Carbon Dioxide 26 mmol/L (22-32); Chloride 102 mmol/L (98-107); Estimated Glomerular Filt Rate > 60 mL/min (>60); Globulin 3.1 g/dL (1.7-4.1); Glucose 140 mg/dL (80-110); HEMOLYSIS < 15 (0-50); Sodium 138 mmol/L (137-145); Total Protein 7.3 g/dL (6.3-8.2)
[2023-09-11 10:02] LABS: Albumin Globulin Ratio 1.4 (1.0-2.8); Lipase 37 U/L (23-300)
--- NOTE | 2023-09-11 13:17 | ED.ABDPAIN ---
HPI - Abdominal Pain General Chief Complaint: Abdominal Pain Stated Complaint: lower right abdominal pain 3 days Time Seen by Provider: 09/11/23 11:33 Source: patient Mode of arrival: Ambulatory History of Present Illness HPI narrative: 83-year-old male with history of asthma, hypertension, hypothyroidism, dyslipidemia diabetes type 2 on insulin, chronic back pain who presents with complaint of right lower quadrant pain in his abdomen has been present for about 3 days persistent comes and goes a little bit but has never resolved. Patient states no fevers or chills. No nausea or vomiting. No back or flank pain. Localized just to the right lower quadrant periumbilical area. Patient states he does seem distended. He states he was having normal bowel movements he had a little bit of diarrhea in the last day but no black or bloody stools. He has some chronic difficulty with urination but no new dysuria, urgency frequency or retention. No rash or skin changes. He notes he did have a trigger point injection in his back today he tolerated that well although it is still sore. He has had those before. He states he does still have his appendix. Patient had adverse reaction to prednisone making him hostile but no other reported allergies. Dr. Brice is his primary care physician. Related Data Home Medications Medication Instructions Recorded Confirmed ASPIRIN (#ASPIRIN) 81 mg PO DAILY ##0 03/01/12 08/24/23 insulin glargine 100 unit/mL (3 40 unit SUBCUT QPM 09/30/22 08/24/23 mL) subcutaneous pen Previous Rx's Medication Instructions Recorded blood-glucose meter,continuous #1 ea 06/30/20 (Dexcom G6 Radiology Nurse) B-D 5MM Pen [place] #400 ea 03/19/21 alfuzosin 10 mg tablet,extended 10 mg PO DAILY #90 tabs 08/08/22 release 24 hr (Uroxatral) carvedilol 6.25 mg tablet 6.25 mg PO BID #180 tabs 09/08/22 levothyroxine 50 mcg tablet 50 mcg PO DAILY #90 tabs 10/10/22 blood-glucose sensor (Dexcom G6 #3 ea 10/18/22 Sensor device) simvastatin 40 mg tablet 40 mg PO DAILY #90 tabs 01/27/23 metformin 1,000 mg tablet 1,000 mg PO BID #180 tabs 02/13/23 losartan 100 mg tablet 100 mg PO DAILY #90 tabs 03/22/23 insulin lispro 100 unit/mL 15 unit (0.15 mL) SUBCUT ACHS #60 05/15/23 subcutaneous pen mL blood-glucose transmitter (Dexcom #1 ea 06/29/23 G6 Transmitter device) albuterol sulfate 90 mcg/actuation 2 puff inhalation Q4-6H PRN 08/24/23 aerosol inhaler (ProAir HFA) shortness of breath or wheezing #8.5 grams gabapentin 300 mg capsule See Rx Instructions PO TID #360 08/24/23 caps hydroxyzine pamoate 25 mg capsule 25 - 50 mg (1 - 2 x 25 mg) PO 08/24/23 DAILY PRN back pain #60 caps amoxicillin 875 mg-potassium 1 tab PO BID #20 tabs 09/11/23 clavulanate 125 mg tablet Allergies Allergy/AdvReac Type Severity Reaction Status Date / Time prednisone AdvReac Severe Made Verified 08/24/23 14:30 patient Hostile. Review of Systems Review of Systems ROS Unobtainable: All systems reviewed & are unremarkable except as noted in HPI and below Patient History Medical History History of recurrent UTI (urinary tract infection) Incomplete bladder emptying Meatal stenosis BPH w urinary obs/LUTS Recurrent UTI (urinary tract infection) Acquired phimosis of penis Spinal stenosis Asthma History of adenomatous polyp of colon Mixed hyperlipidemia Essential hypertension Type 2 diabetes mellitus without complication (11/26/15) Acquired hypothyroidism (11/26/15) Social History marital status: number of children: 4 household members: spouse occupational status: previously employed Smoking Status: Never smoker alcohol intake: current caffeine: Yes Smoking Status: Never smoker alcohol intake frequency: holidays/special occasions only Substance Use Type: does not use Exam Narrative Exam Narrative: GENERAL: Alert and oriented x three, elderly male in mild distress. HEENT: Head normocephalic, atraumatic, EOMI, pupils reactive, face symmetric, moist mucous membranes NECK: Supple, full range of motion CARDIOVASCULAR: Regular rate and rhythm without murmurs, rubs or gallops. RESPIRATORY: Breath sounds equal bilaterally, no wheezes rales or rhonchi. ABDOMEN: Soft, mild right lower quadrant tenderness. Patient is somewhat distended. But nontender. No tympany. Normoactive bowel sounds all 4 quadrants. No guarding or rebound, rigidity, no mass : No CVA tenderness EXTREMITIES: Normal range of motion, no clubbing or edema. Neurovascularly intact NEUROLOGICAL: Cranial nerves II through XII grossly intact. Moving all extremities SKIN: Warm, dry, no petechiae, no rashes or lesions. Initial Vital Signs Initial Vital Signs: Vital Signs Temperature 97.7 F 09/11/23 09:27 Pulse Rate 83 09/11/23 09:27 Respiratory Rate 18 09/11/23 09:27 Blood Pressure 148/67 H 09/11/23 09:27 Pulse Oximetry 97 09/11/23 09:27 Oxygen Delivery Method Room Air 09/11/23 09:27 Course Orders Ordered: ED Orders 09/11/23 13:17 CT abdomen pelvis w con Stat Discontinued Medications Ondansetron HCl (Ondansetron 4 Mg/2 Ml Inj) 4 mg IV NOW PRN PRN Reason: Nausea And Vomiting Ondansetron HCl (Ondansetron 4 Mg Odt) 4 mg PO NOW PRN PRN Reason: Nausea And Vomiting Vital Signs Vital signs: Vital Signs - 8 hr 09/11/23 11:10 09/11/23 11:16 09/11/23 11:16 Temperature Pulse Rate 78 81 Respiratory Rate 23 Blood Pressure 164/71 H Pulse Oximetry 96 Oxygen Delivery Method 09/11/23 11:30 09/11/23 11:30 09/11/23 12:00 Temperature Pulse Rate 79 Respiratory Rate 21 Blood Pressure 161/74 H 158/74 H Pulse Oximetry 98 Oxygen Delivery Method 09/11/23 12:00 09/11/23 14:41 09/11/23 14:44 Temperature Pulse Rate 79 84 84 Respiratory Rate 18 Blood Pressure Pulse Oximetry 96 97 Oxygen Delivery Method 09/11/23 14:44 09/11/23 14:51 09/11/23 16:02 Temperature 98.2 F 98.3 F Pulse Rate 89 Respiratory Rate 20 Blood Pressure 188/86 H 164/85 H Pulse Oximetry 98 Oxygen Delivery Method Room Air MDM - Abdominal Pain Lab Data 09/11/23 09:36 09/11/23 09:36 Labs: Lab Results 09/11/23 Range/Units 09:36 WBC 9.1 (4.5-11.0) X10^3/uL RBC 4.87 (4.5-5.9) X10^6/uL Hgb 13.8 (13.5-17.5) g/dL Hct 40.2 L (41-53) % MCV 82.5 (80-100) fL MCH 28.3 (26-34) PG MCHC 34.3 (30-36) % RDW 14.5 (11.6-14.8) % Plt Count 176 (150-400) X10^3/uL Neut % (Auto) 73.4 (50-75) % Lymph % (Auto) 11.8 L (25-40) % [place] % (Auto) 7.7 (3-14) % Eos % (Auto) 6.6 H (2-4) % Baso % (Auto) 0.5 (0-2) % Neut # (Auto) 6700 (1654-0616) /uL Lymph # (Auto) 1100 (9847-5104) /uL [place] # (Auto) 700 (0-900) /uL Eos # (Auto) 600 H (0-450) /uL Baso # (Auto) 0 (0-100) /uL Sodium 138 (137-145) mmol/L Potassium 4.0 (3.4-5.1) mmol/L Chloride 102 (98-107) mmol/L Carbon Dioxide 26 (22-32) mmol/L BUN 15 (9-20) mg/dL Creatinine 1.03 (0.66-1.25) mg/dL Estimated GFR > 60 (>60) mL/min BUN/Creatinine Ratio 14.6 (6-22) Glucose 140 H (80-110) mg/dL Calcium 8.9 (8.4-10.2) mg/dL Total Bilirubin 0.8 (0.2-1.3) mg/dL AST 25 (17-59) IU/L ALT 22 (<50) IU/L Alkaline Phosphatase 64 (38-126) U/L Total Protein 7.3 (6.3-8.2) g/dL Albumin 4.2 (3.5-5.0) g/dL Globulin 3.1 (1.7-4.1) g/dL Albumin/Globulin Ratio 1.4 (1.0-2.8) Lipase 37 (23-300) U/L Point of care testing: Urine Dip Bedside Urine Glucose Negative Bedside Urine Bilirubin - Negative Bedside Urine Ketone - Negative Urine Specific Kim 1.010 Bedside Urine Occult Blood - Negative Bedside Urine pH 7.0 Bedside Urine Protein - Negative Bedside Urine Urobilinogen - Negative Bedside Urine Nitrite - Negative Bedside Urine Leukocytes - Negative Esterase Imaging Data CT scan - abdomen/pelvis: Radiologist's Impression: [address] [address] [address] Scan Report Signed Patient: Mark Bains MR#: [id number] : 1940 Acct:[id number] Age/Sex: 83 / M Date of Service: 09/11/23 Loc: ED Accession Number: [id number] Procedure: CT abdomen pelvis w con Ordering Provider: Isabel Martins D.O. PROCEDURE: CT ABDOMEN PELVIS W CON INDICATIONS: RLQ pain, several days, distended, no vomiting, mild diarrhe TECHNIQUE: After the administration of intravenous contrast, axial sections acquired from the lung bases to the pubic symphysis. Coronal and sagittal reformats were performed. For radiation dose reduction, the following was used: automated exposure control, adjustment of mA and/or kV according to patient size. COMPARISON: [facility], CT, CT ABDOMEN PELVIS W CON, 10/18/2022, 10:48. FINDINGS: Image quality: Diagnostic. Lower Chest: No significant findings. ABDOMEN: Liver: No solid mass. Gallbladder: No radiopaque gallstones or wall thickening. Biliary ducts: No biliary dilation. Pancreas: No ductal dilation. Spleen: Size is within normal limits. Adrenal Glands: No adrenal nodules. Kidneys and Ureters: No hydronephrosis. No solid mass. No complex renal cystic lesion which requires follow up. Stomach and Bowel: Stomach is within normal limits. There is a thickened diverticulum measuring roughly 25 mm diameter protruding posteriorly from a small bowel loop within the left hemiabdomen, with moderate surrounding fat stranding. Small bowel is nondistended. Appendix is normal. Colon is grossly unremarkable. Peritoneum: No abnormal intraperitoneal fluid. No free air. Ventral Wall: No significant ventral hernia. Abdominal Nodes: No retroperitoneal or mesenteric adenopathy by size criteria. Vessels: Aorta and inferior vena cava are normal in size. PELVIS: Pelvic Organs: Unremarkable. Bladder: No bladder wall thickening, accounting for underdistention. Pelvic Nodes: No enlarged lymph nodes. Miscellaneous: No inguinal hernias are seen. Bones: No aggressive osseous abnormality. IMPRESSION: 1. Small bowel diverticulitis. Continued follow-up is recommended to exclude underlying neoplasm. 2. Normal appendix. Dictated by: Chapis Black M.D. on 09/11/2023 at 14:32 Approved by: Chapis Black M.D. on 09/11/2023 at 14:34 ECG Data Attestation: I personally reviewed and interpreted this ECG as follows: Interpretation: Sinus rhythm rate 82 [place] 198 QRS of 128 QTC 446. Right bundle-branch block. MDM Narrative Medical decision making narrative: 83-year-old male with complaint of right lower abdominal pain for 3 days. No fevers chills, no nausea or vomiting had some mild diarrhea today but states was stooling normally before he has a little bit distended he soft but feels full. Patient noted it as well. Vitals are overall appropriate, patient's labs including CBC and CMP do not show a clear change, glucose is 140. Urine is negative for infection or obvious blood. Plan for CT abdomen pelvis to rule out appendicitis patient states he does have his appendix. Versus other potential obstructive symptoms versus other. CT abdomen pelvis shows small bowel diverticulitis recommend follow-up to exclude neoplasm normal appendix. This is noted in the left with moderate fat stranding. Otherwise no significant changes. Reviewed findings with patient, plan for antibiotics discussed that is atypical location and should have follow up to talk with his primary care about best way to go about this. Patient expresses understanding. Pain is relatively well controlled patient feels comfortable returning home. Discharge Plan Departure Patient Disposition: Home Clinical Impression: Diverticulitis Instructions: Diverticulitis Activity Restrictions/Additional Instructions: Your imaging shows diverticulitis but in the small bowel which is an atypical location found more on the left. Your appendix is normal on imaging the colon is normal. It is recommended that you follow-up to evaluate for underlying neoplasm. Take antibiotics until completed. Prescription sent to [facility] in [place]. Please return for fevers, new or worsening abdominal pain, persistent vomiting, lightheadedness or passing out, black or bloody stools or other new or concerning changes. Prescriptions: New amoxicillin-pot clavulanate 875-125 mg tablet 1 tab PO BID Qty: 20 0RF No Action ASPIRIN (#ASPIRIN) 81 mg PO DAILY Qty: 0 (DME) Dexcom G6 Radiology Nurse Misc See Rx Instructions .ROUTE .MEDSUPPLY Qty: 1 0RF Rx Instructions: As directed carvedilol 6.25 mg tablet 6.25 mg PO BID Qty: 180 3RF Rx Instructions: must administer with a meal/food levothyroxine 50 mcg tablet 50 mcg PO DAILY Qty: 90 3RF (DME) Dexcom G6 Sensor Device See Rx Instructions .ROUTE .MEDSUPPLY Qty: 3 12RF Rx Instructions: As directed simvastatin 40 mg tablet 40 mg PO DAILY Qty: 90 3RF metformin 1,000 mg tablet 1,000 mg PO BID Qty: 180 3RF losartan 100 mg tablet 100 mg PO DAILY Qty: 90 2RF insulin lispro 100 unit/mL insulin pen 15 unit SUBCUT ACHS Qty: 60 2RF Rx Instructions: Sliding scale (DME) Dexcom G6 Transmitter Device See Rx Instructions .ROUTE .MEDSUPPLY Qty: 1 3RF Rx Instructions: As directed ([facility]) B-D 5MM [place] See Rx Instructions .Route .MEDSUPPLY Qty: 400 6RF Rx Instructions: Use 4x a day or as instructed by PCP. albuterol sulfate [ProAir HFA] 90 mcg/actuation HFA aerosol inhaler 2 puff INHALATION Q4-6H PRN (Reason: shortness of breath or wheezing) Qty: 8.5 12RF gabapentin 300 mg capsule See Rx Instructions PO TID Qty: 360 3RF Rx Instructions: 1 in am, 1 at noon, 2 at bedtime hydroxyzine pamoate 25 mg capsule 25 - 50 mg PO DAILY PRN (Reason: back pain) Qty: 60 3RF insulin glargine 100 unit/mL (3 mL) insulin pen 40 unit SUBCUT QPM alfuzosin [Uroxatral] 10 mg tablet extended release 24 hr 10 mg PO DAILY Qty: 90 3RF Rx Instructions: administer after the same meal each day Referrals: Duglas Brice MD [Primary Care Provider] - Stand Alone Forms: Patient Portal/API
== END 2023-09-11 16:11 | disposition home or self-care (01) ==
PROVIDERS: Emergency Provider Emergency Medicine; Family Provider Internal Medicine; PCP Internal Medicine
DX: K57.92 Diverticulitis of intestine, part unspecified, without perforation or abscess without bleeding (principal); Z79.899 Other long term (current) drug therapy
CPT/HCPCS: 36415; 74177; 80053; 81003; 83690; 85025; 93005; 93010; 99283; 99284; Q9967

== ENCOUNTER → 2023-10-04 09:19 | Outpatient (CLI) | payer MEDICARE, SELFPAY ==
[2022-09-30 21:16] VITALS: BMI 29.9
[2023-10-04 10:32] LABS: Hemoglobin A1C% w Est Avg Glu 6.2 % (4.0-6.0)
[2023-10-04 10:33] LABS: Alanine Aminotransferase 25 IU/L (<50); Albumin Globulin Ratio 1.5 (1.0-2.8); Alkaline Phosphatase 65 U/L (38-126); Aspartate Aminotransferase 29 IU/L (17-59); BUN Creatinine Ratio 14.3 (6-22); Bilirubin Total 0.7 mg/dL (0.2-1.3); Blood Urea Nitrogen 15 mg/dL (9-20); Carbon Dioxide 32 mmol/L (22-32); Chloride 103 mmol/L (98-107); Cholesterol 119 mg/dL (140-199); Estimated Glomerular Filt Rate > 60 mL/min (>60); Globulin 2.6 g/dL (1.7-4.1); Glucose 116 mg/dL (80-110); HDL Cholesterol 30 mg/dL (40-60); HEMOLYSIS < 15 (0-50); LDL Cholesterol Calculated 43 mg/dL (<100); Potassium 4.2 mmol/L (3.4-5.1); Sodium 140 mmol/L (137-145); Total Protein 6.6 g/dL (6.3-8.2); Triglycerides 232 mg/dL (35-150)
[2023-10-04 10:53] LABS: Free T4, Direct Thyroxine 1.26 ng/dL (0.78-2.19)
[2023-10-04 11:07] LABS: Thyroid Stimulating Hormone 4.06 uIU/mL (0.47-4.68)
== END ==
PROVIDERS: Family Provider Internal Medicine; PCP Internal Medicine; Referring Provider Internal Medicine; Visit Provider Internal Medicine
DX: E11.9 Type 2 diabetes mellitus without complications (principal); I10 Essential (primary) hypertension; E78.2 Mixed hyperlipidemia; E03.9 Hypothyroidism, unspecified
CPT/HCPCS: 36415; 80053; 80061; 83036; 84439; 84443

== ENCOUNTER → 2023-10-13 09:39 | Outpatient (CLI) | payer MEDICARE, SELFPAY ==
[2022-09-30 21:16] VITALS: BMI 29.9
--- NOTE | 2023-10-13 09:40 | DI.RAD.S_ITS ---
PROCEDURE: XR CHEST 2V INDICATIONS: wheezing TECHNIQUE: 2 views of the chest were acquired. COMPARISON: [facility], CR, XR CHEST 1V, 10/18/2022, 9:29. FINDINGS: Surgical changes and devices: None. Lungs and pleura: Lungs are clear. No pleural effusions or pneumothorax. Mediastinum: Mediastinal contours are normal. Heart size is normal. Bones and chest wall: No suspicious bony abnormalities. Soft tissues appear unremarkable. IMPRESSION: No acute cardiopulmonary abnormalities or focal airspace disease. Dictated by: Reggie Van M.D. on 10/13/2023 at 15:47 Approved by: Reggie Van M.D. on 10/13/2023 at 15:47
== END ==
PROVIDERS: Family Provider Internal Medicine; PCP Internal Medicine; Referring Provider Internal Medicine; Visit Provider Internal Medicine
DX: J45.909 Unspecified asthma, uncomplicated (principal)
CPT/HCPCS: 71046

== ENCOUNTER → 2023-10-20 09:30 | Outpatient (CLI) | payer MEDICARE, SELFPAY ==
[2022-09-30 21:16] VITALS: BMI 29.9
--- NOTE | 2023-10-20 09:31 | DI.RAD.S_ITS ---
PROCEDURE: FL SMALL BOWEL FOLLOW THROUGH INDICATIONS: small bowel diverticulum COMPARISON: [facility], CT, CT ABDOMEN PELVIS W CON, 09/11/2023, 14:00. [facility], CR, XR CHEST 2V, 10/13/2023, 9:41. FINDINGS: KUB: Preprocedural oyster grader film demonstrates a normal bowel gas pattern. No suspicious abdominal calcifications. Visualized solid organ contours appear normal. No suspicious bony abnormalities. There is a leadless electric device projecting to the left mid abdomen. Small bowel: There is normal transit time of barium through the small bowel. Small bowel loops are of normal caliber throughout. There are multiple small bowel diverticula, more numerous in the left abdomen involving the jejunum. A diverticulum is also seen in the right abdomen, involving the proximal ileum. There are hallos likely secondary to wall thickening of the diverticula, suggesting diverticulitis Mucosal folds are smooth and of normal thickness. No strictures, intraluminal masses, or extrinsic mass effects are noted. The terminal ileum is identified, and is normal in morphology. IMPRESSION: 1. Multiple small bowel diverticula, primarily involving jejunum. There is appearance of wall thickening of the diverticula in the left upper abdomen, suggesting diverticulitis. 2. Normal appearance of terminal ileum. Dictated by: Jean-Paul Calhoun M.D. on 10/20/2023 at 13:37 Approved by: Jean-Paul Calhoun M.D. on 10/20/2023 at 13:43
== END ==
PROVIDERS: Family Provider Internal Medicine; PCP Internal Medicine; Referring Provider Internal Medicine; Visit Provider Internal Medicine
DX: K57.10 Diverticulosis of small intestine without perforation or abscess without bleeding (principal)
CPT/HCPCS: 74250

== ENCOUNTER → 2023-12-01 18:54 | Outpatient (CLI) | payer MEDICARE, SELFPAY ==
[2022-09-30 21:16] VITALS: BMI 29.9
--- NOTE | 2023-12-01 18:56 | DI.MRI.S_ITS ---
PROCEDURE: MR THORACIC SPINE WO CON INDICATIONS: PAIN IN THORACIC SPINE TECHNIQUE: Noncontrast sagittal T1 spine echo and T2 fast spin echo, sagittal STIR, and T2 fast spin echo through the thoracic spine. COMPARISON: None. FINDINGS: Image quality: Excellent. Alignment and Curvature: There is normal bony alignment. Bone Marrow: Marrow is of normal overall signal. No acute vertebral body compression fractures. Spinal Cord: Visualized spinal cord is normal in size and signal. Paraspinous Soft Tissues: No paravertebral masses. Miscellaneous: On axial images, central canal and foramina appear widely patent at all scanned levels. IMPRESSION: Unremarkable MRI thoracic spine Approved by: [place] Oquendo M.D. on 12/04/2023 at 12:41
== END ==
PROVIDERS: Family Provider Internal Medicine; PCP Internal Medicine; Referring Provider Physical Medicine & Rehabilitation Pain Medicine; Visit Provider Physical Medicine & Rehabilitation Pain Medicine
DX: M54.6 Pain in thoracic spine (principal)
CPT/HCPCS: 72146

== ENCOUNTER → 2024-02-05 08:07 | Outpatient (CLI) | payer MEDICARE, SELFPAY ==
[2022-09-30 21:16] VITALS: BMI 29.9
--- NOTE | 2024-02-05 08:09 | DI.RAD.S_ITS ---
PROCEDURE: XR THORACIC SPINE 3V INDICATIONS: thoracic back pain TECHNIQUE: 3 views of the thoracic spine were acquired. COMPARISON: None. FINDINGS: Bones: No fractures or dislocations. Degenerative endplate changes and loss of disc height throughout mid to lower thoracic spine is seen. No suspicious bony lesions. 12 pairs of ribs are noted, and appear intact where visualized. Soft tissues: No paravertebral stripe thickening. IMPRESSION: Mild degenerative disc disease in mid to lower thoracic spine. No acute compression fracture or significant spondylolisthesis. Dictated by: Mykel Lara M.D. on 02/05/2024 at 10:35 Approved by: Mykel Lara M.D. on 02/05/2024 at 10:35
== END ==
PROVIDERS: Family Provider Internal Medicine; PCP Internal Medicine; Referring Provider Anesthesiology; Visit Provider Anesthesiology
DX: M51.34 Other intervertebral disc degeneration, thoracic region (principal); M79.18 Myalgia, other site; G89.29 Other chronic pain
CPT/HCPCS: 72072; 99214

== ENCOUNTER → 2024-02-13 09:38 | Outpatient (CLI) | payer MEDICARE, SELFPAY ==
[2022-09-30 21:16] VITALS: BMI 29.9
== END ==
PROVIDERS: Family Provider Internal Medicine; PCP Internal Medicine; Referring Provider Student in an Organized Health Care Education/Training Program; Visit Provider Student in an Organized Health Care Education/Training Program
DX: R30.0 Dysuria (principal)
CPT/HCPCS: 87086

== ENCOUNTER → 2024-03-19 08:13 | Outpatient (CLI) | payer MEDICARE, SELFPAY ==
[2022-09-30 21:16] VITALS: BMI 29.9
== END ==
PROVIDERS: Family Provider Internal Medicine; PCP Internal Medicine; Referring Provider Physician Assistant Surgical; Visit Provider Physician Assistant Surgical
DX: R30.0 Dysuria (principal); R30.9 Painful micturition, unspecified
CPT/HCPCS: 87077; 87086; 87210

== ENCOUNTER → 2024-04-02 14:00 | Outpatient (CLI) | payer MEDICARE, SELFPAY ==
[2024-04-02 10:43] VITALS: BMI 29.9
[2024-04-02 14:37] LABS: Hemoglobin A1C% w Est Avg Glu 6.3 % (4.0-6.0)
[2024-04-02 14:56] LABS: Alanine Aminotransferase 23 IU/L (<50); Albumin 3.9 g/dL (3.5-5.0); Albumin Globulin Ratio 1.7 (1.0-2.8); Alkaline Phosphatase 61 U/L (38-126); Aspartate Aminotransferase 27 IU/L (17-59); BUN Creatinine Ratio 14.8 (6-22); Bilirubin Total 0.5 mg/dL (0.2-1.3); Blood Urea Nitrogen 18 mg/dL (9-20); Calcium 9.2 mg/dL (8.4-10.2); Carbon Dioxide 25 mmol/L (22-32); Chloride 103 mmol/L (98-107); Estimated Glomerular Filt Rate 59 mL/min (>60); Globulin 2.3 g/dL (1.7-4.1); Glucose 99 mg/dL (80-110); HEMOLYSIS < 15 (0-50); Potassium 4.6 mmol/L (3.4-5.1); Sodium 138 mmol/L (137-145); Total Protein 6.2 g/dL (6.3-8.2)
== END ==
PROVIDERS: Family Provider Internal Medicine; PCP Internal Medicine; Referring Provider Anesthesiology; Visit Provider Anesthesiology
DX: E11.9 Type 2 diabetes mellitus without complications (principal); I10 Essential (primary) hypertension; E78.2 Mixed hyperlipidemia; M54.6 Pain in thoracic spine; G89.29 Other chronic pain
CPT/HCPCS: 36415; 80053; 83036; 99212

== ENCOUNTER → 2024-06-14 13:51 | Outpatient (CLI) | payer MEDICARE, SELFPAY ==
[2024-04-02 10:43] VITALS: BMI 29.9
== END ==
PROVIDERS: Family Provider Internal Medicine; PCP Internal Medicine; Visit Provider Nurse Practitioner Family
DX: R30.0 Dysuria (principal)
CPT/HCPCS: 87077; 87086; 87186

== ENCOUNTER 2024-12-08 10:17 | Emergency (ER) | payer MEDICARE, SELFPAY ==
[2024-04-02 10:43] VITALS: BMI 29.9
[2024-12-08] VITALS (18 sets, daily range): BP systolic 130–184; BP diastolic 68–76; PULSE 66–106; RESP 16; TEMP 37; O2SAT 94–99; BMI 27.8
--- NOTE | 2024-12-08 10:24 | DI.CT.S_ITS ---
PROCEDURE: CT HEAD/BRAIN WO CON INDICATIONS: found down etoh TECHNIQUE: Noncontrast 4.5 mm thick angled axial sections acquired from the foramen magnum to the vertex, with coronal and sagittal reformats. For radiation dose reduction, the following was used: automated exposure control, adjustment of mA and/or kV according to patient size. COMPARISON: [facility], CR, XR CHEST 1V, 12/08/2024, 10:30. FINDINGS: Image quality: This examination is limited by involuntary motion artifact. CSF spaces: Basal cisterns are patent. No extra-axial fluid collections. The ventricles are symmetric in size and shape. Brain: No intracranial bleeds or mass effect. There is cerebral volume loss, with resultant ventricular and sulcal prominence. There are periventricular and deep white matter chronic small vessel ischemic changes. Symmetric calcification can be seen involving the basal ganglia, which is considered to be normal for age. There is intracranial internal carotid artery atherosclerosis. Skull and face: Calvarium and visualized facial bones appear intact, without suspicious lesions. Sinuses: Visualized sinuses and mastoids are clear. IMPRESSION: Motion limited study, without an acute intracranial abnormality identified. Dictated by: Brian Kim M.D. on 12/08/2024 at 9:54 Approved by: Brian Kim M.D. on 12/08/2024 at 9:55
--- NOTE | 2024-12-08 10:24 | DI.RAD.S_ITS ---
PROCEDURE: XR CHEST 1V INDICATIONS: found down TECHNIQUE: One view of the chest was acquired. COMPARISON: [facility], CT, CT HEAD/BRAIN WO CON, 12/08/2024, 10:31. [facility], CR, XR CHEST 2V, 10/13/2023, 9:41. FINDINGS: Surgical changes and devices: None. Lungs and pleura: An incomplete inspiratory result is noted, causing a crowded appearance to the lung markings. No focal infiltrates are seen. No pneumothorax or significant pleural effusions are seen. Mediastinum: Mediastinal contours appear normal. Heart size is normal. Bones and chest wall: No suspicious bony lesions. Age-appropriate bony degenerative changes are seen. Overlying soft tissues appear unremarkable. IMPRESSION: Low lung volumes, without an acute abnormality seen by plain film. Dictated by: Brian Kim M.D. on 12/08/2024 at 9:53 Approved by: Brian Kim M.D. on 12/08/2024 at 9:54
--- NOTE | 2024-12-08 10:30 | EKG_ITS ---
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
[2024-12-08 10:36] LABS: Add Manual Diff / Slide Review NO; Basophils Absolute Auto 0 /uL (0-100); Basophils Percent Auto 0.3 % (0-2); Eosinophils Absolute Auto 100 /uL (0-450); Eosinophils Percent Auto 1.6 % (2-4); Hematocrit 41.3 % (41-53); Hemoglobin 13.6 g/dL (13.5-17.5); Lymphocytes Absolute Auto 2200 /uL (1100-4500); Lymphocytes Percent Auto 28.3 % (25-40); Mean Corpuscular HGB Conc 32.9 % (30-36); Mean Corpuscular Hemoglobin 27.3 PG (26-34); Mean Corpuscular Volume 83.2 fL (80-100); Monocytes Absolute Auto 500 /uL (0-900); Monocytes Percent Auto 6.9 % (3-14); Neutrophils Absolute Auto 4800 /uL (1500-7000); Neutrophils Percent Auto 62.9 % (50-75); Platelet Count 225 X10^3/uL (150-400); Red Blood Cell Count 4.96 X10^6/uL (4.5-5.9); Red Cell Distribution Width 14.9 % (11.6-14.8); White Blood Cell Count 7.7 X10^3/uL (4.5-11.0)
[2024-12-08 10:47] LABS: Alanine Aminotransferase 37 IU/L (<50); Albumin 4.6 g/dL (3.5-5.0); Albumin Globulin Ratio 1.8 (1.0-2.8); Alkaline Phosphatase 52 U/L (38-126); Aspartate Aminotransferase 52 IU/L (17-59); BUN Creatinine Ratio 9.3 (6-22); Bilirubin Total 0.6 mg/dL (0.2-1.3); Blood Urea Nitrogen 11 mg/dL (9-20); Calcium 8.7 mg/dL (8.4-10.2); Carbon Dioxide 17 mmol/L (22-32); Chloride 98 mmol/L (98-107); Creatine Kinase 271 U/L (55-170); Estimated Glomerular Filt Rate > 60 mL/min (>60); Globulin 2.5 g/dL (1.7-4.1); Glucose 177 mg/dL (70-99); HEMOLYSIS 61 (0-50); Lipase 48 U/L (23-300); Potassium 3.7 mmol/L (3.4-5.1); Sodium 135 mmol/L (137-145); Total Protein 7.1 g/dL (6.3-8.2)
[2024-12-08 10:59] LABS: Troponin I < 0.012 ng/mL (0.01-0.034)
--- NOTE | 2024-12-08 12:40 | ED.FALL ---
HPI - Fall <Brigitte Nichols PA-C - Last Filed: 12/08/24 19:45> General Chief Complaint: Fall Stated Complaint: ETOH Fall Time Seen by Provider: 12/08/24 10:21 Source: patient and EMS Mode of arrival: EMS History of Present Illness HPI Narrative: Mr. Bains is a pleasant 84-year-old male with a past medical history of chronic back pain, HTN, BPH, ID T2 DM who presents to the emergency department via EMS for fall and alcohol intoxication. Patient's is at the bedside who contributes to the history. Patient has been having an acute exacerbation of his chronic right-sided thoracic back pain for the last few days with no injury. He usually takes gabapentin and muscle relaxers for this pain however they have not been relieving the pain so this morning he decided to drink a few glasses of wine in addition to taking 1 of his 's hydrocodone and has normal muscle relaxer. He was acting quite intoxicated, had walked outside of his house wearing only underwear and one shoe, felt like he might fall so he slowly laid himself down on the ground and then EMS was called. Patient denies hitting his head or any loss of consciousness when he laid himself down. His states that he typically only has a few glasses of wine a few times a week, he is not an alcoholic and does not drink daily. She states that she was gone most of last week and when she returned yesterday she noticed that the patient was acting intoxicated/ confused before this episode occurred. Patient denies chest pain, shortness of breath, visual disturbance, dizziness, headache, abdominal pain, diarrhea, constipation, lower extremity numbness tingling or weakness, midline back pain, difficulty urinating. He does report some burning with urination. Related Data Home Medications Medication Instructions Recorded Confirmed ASPIRIN (#ASPIRIN) 81 mg PO DAILY ##0 03/01/12 06/14/24 fluoride (sodium) 1.1 % dental dental 06/14/24 06/14/24 paste (PreviDent 5000 Booster Plus) fluticasone propionate 230 2 puff inhalation BID 06/14/24 06/14/24 mcg-salmeterol 21 mcg/actuation HFA inhaler (Advair HFA) Previous Rx's Medication Instructions Recorded B-D 5MM Pen [place] #400 ea 03/19/21 alfuzosin 10 mg tablet,extended 10 mg PO DAILY #90 tabs 08/08/22 release 24 hr (Uroxatral) albuterol sulfate 90 mcg/actuation 2 puff inhalation Q4-6H PRN 08/24/23 aerosol inhaler (ProAir HFA) shortness of breath or wheezing #8.5 grams insulin glargine 100 unit/mL (3 50 unit (0.5 mL) SUBCUT QPM #45 mL 09/12/23 mL) subcutaneous pen (Lantus Solostar U-100 Insulin) simvastatin 40 mg tablet 40 mg PO DAILY #90 tabs 10/30/23 lidocaine 5 % topical patch 1 patch topical DAILY #30 ea 01/23/24 metformin 1,000 mg tablet 1,000 mg PO BID #180 tabs 02/05/24 carvedilol 6.25 mg tablet 6.25 mg PO BID #180 tabs 02/23/24 naloxone 4 mg/actuation nasal 4 mg intranasal Q2M #2 ea 03/12/24 spray (Narcan) tramadol 50 mg tablet 50 mg PO TID PRN pain #30 tabs 03/12/24 blood-glucose sensor (Dexcom G7 #1 ea 03/15/24 Sensor device) blood-glucose transmitter (Dexcom #1 ea 03/15/24 G6 Transmitter device) blood-glucose,machine chocolate molder,cont #1 ea 03/15/24 (Dexcom G7 Retail Team Leader) dexcom G7 CGM Transmitter #1 ea 03/15/24 insulin lispro 100 unit/mL 15 unit (0.15 mL) SUBCUT ACHS #60 03/25/24 subcutaneous pen mL cefdinir 300 mg capsule 300 mg PO BID #14 caps 06/15/24 ciprofloxacin HCl 250 mg tablet 250 mg PO BID #10 tabs 06/16/24 gabapentin 300 mg capsule See Rx Instructions PO TID #240 11/07/24 caps levothyroxine 50 mcg tablet 50 mcg PO DAILY #30 tabs 12/04/24 losartan 100 mg tablet 100 mg PO DAILY #30 tabs 12/04/24 Allergies Allergy/AdvReac Type Severity Reaction Status Date / Time prednisone AdvReac Severe Made Verified 06/14/24 14:17 patient Hostile. Review of Systems <Brigitte Nichols PA-C - Last Filed: 12/08/24 19:45> Review of Systems ROS Unobtainable: All systems reviewed & are unremarkable except as noted in HPI and below Patient History <Brigitte Nichols PA-C - Last Filed: 12/08/24 19:45> Medical History Myofascial pain Thoracic back pain History of recurrent UTI (urinary tract infection) Incomplete bladder emptying Meatal stenosis BPH w urinary obs/LUTS Recurrent UTI (urinary tract infection) Acquired phimosis of penis Spinal stenosis Asthma History of adenomatous polyp of colon Mixed hyperlipidemia Essential hypertension Type 2 diabetes mellitus without complication (11/26/15) Acquired hypothyroidism (11/26/15) Social History marital status: number of children: 4 household members: spouse occupational status: previously employed Smoking Status: Never smoker alcohol intake: current caffeine: Yes Smoking Status: Former smoker alcohol intake frequency: holidays/special occasions only Exam <Brigitte Nichols PA-C - Last Filed: 12/08/24 19:45> Narrative Exam Narrative: GENERAL: 84 year old patient appears stated age. Overweight patient, Appear somewhat intoxicated, but is in no acute distress, sitting upright in stretcher, able to answer questions appropriately. HEAD: Atraumatic. Normocephalic. EYES: PERRL. Extraocular motions intact. No scleral icterus. No injection or drainage. ENT: Clear ear canals and normal TMs bilaterally.Nose without bleeding, purulent drainage. Throat without erythema, tonsillar hypertrophy or exudate. Airway patent. NECK: Trachea midline. Cervical ROM intact. No midline cervical tenderness. CARDIOVASCULAR: Regular rate and rhythm. RESPIRATORY: Nonlabored respirations. Speaking in clear, full sentences. Clear to auscultation. Breath sounds equal bilaterally. No wheezes, rales, or rhonchi. GASTROINTESTINAL: Abdomen soft, non-tender, nondistended. Bowel sounds present. EXTREMITIES: No edema or joint tenderness. Strong DP and PT pulses bilaterally, sensation intact to light touch in bilateral lower extremities, patient is able to flex bilateral hips independently. no tenderness to palpation of upper and lower extremities. BACK: Patient has reported right-sided thoracic back pain below the scapula. This pain is reproducible with movement but not reproducible with palpation. No midline spinal tenderness or subjective pain. Negative straight leg raise bilaterally. NEURO: Alert and oriented to person, place, time, location. He is able to answer all questions appropriately however appear somewhat intoxicated, mildly slurred speech, frequently asking for moistened sponge for mouth. Moves all 4 extremities appropriately. Sensation intact to light touch throughout upper and lower extremities and he has good bilateral upper and lower extremity strength. No facial asymmetry. Gross vision and hearing intact. SKIN: No rash or erythema of visible areas. Small abrasion on left great toe. No bruising or lacerations. Initial Vital Signs Initial Vital Signs: Vital Signs Temperature 98.6 F 12/08/24 10:24 Pulse Rate 82 12/08/24 10:24 Respiratory Rate 16 12/08/24 10:24 Blood Pressure 130/75 12/08/24 10:24 Pulse Oximetry 94 12/08/24 10:24 Oxygen Delivery Method Room Air 12/08/24 10:24 <Kathleen Hooker DO - Last Filed: 12/09/24 07:22> Initial Vital Signs Initial Vital Signs: Vital Signs Temperature 98.6 F 12/08/24 10:24 Pulse Rate 82 12/08/24 10:24 Respiratory Rate 16 12/08/24 10:24 Blood Pressure 130/75 12/08/24 10:24 Pulse Oximetry 94 12/08/24 10:24 Oxygen Delivery Method Room Air 12/08/24 10:24 Course <Brigitte Nichols PA-C - Last Filed: 12/08/24 19:45> Orders Ordered: Discontinued Medications Hydromorphone HCl (Hydromorphone 0.5 Mg Inj) 0.5 mg IV NOW ONE Stop: 12/08/24 14:13 Last Admin: 12/08/24 14:23 Dose: 0.5 mg Documented By: ELEAZAR Hydromorphone HCl (Hydromorphone 1 Mg Inj) 1 mg IV NOW ONE Stop: 12/08/24 15:55 Last Admin: 12/08/24 16:04 Dose: 1 mg Documented By: BRUNA Sodium Chloride (Normal Saline 0.9%) 1,000 mls @ 1,000 mls/hr IV BOLUS ONE Stop: 12/08/24 13:38 Last Infusion: 12/08/24 14:42 Dose: Infused Documented By: Admin: 12/08/24 12:53 Dose: 1,000 mls/hr Documented By: ELEAZAR Acetaminophen (Ofirmev) 1,000 mg in 100 mls @ 400 mls/hr IV NOW ONE Stop: 12/08/24 15:03 Last Infusion: 12/08/24 15:25 Dose: Infused Documented By: Admin: 12/08/24 14:59 Dose: 400 mls/hr Documented By: ELEAZAR Sodium Chloride (Normal Saline 0.9%) 1,000 mls @ 500 mls/hr IV BOLUS ONE Stop: 12/08/24 16:48 Last Admin: 12/08/24 15:26 Dose: Not Given Documented By: ELEAZAR Sodium Chloride (Normal Saline 0.9%) 500 mls @ 1,000 mls/hr IV BOLUS ONE Stop: 12/08/24 15:22 Last Infusion: 12/08/24 16:08 Dose: Infused Documented By: Admin: 12/08/24 14:58 Dose: 1,000 mls/hr Documented By: ELEAZAR Ketorolac Tromethamine (Ketorolac 30 Mg/Ml Vial) 15 mg IV NOW ONE Stop: 12/08/24 12:40 Last Admin: 12/08/24 12:54 Dose: 15 mg Documented By: ELEAZAR Lidocaine (Lidocaine 5% Patch) 1 each TOP NOW ONE Stop: 12/08/24 12:40 Last Admin: 12/08/24 12:54 Dose: 1 each Documented By: ELEAZAR Ondansetron HCl (Ondansetron 4 Mg/2 Ml Inj) 4 mg IV NOW ONE Stop: 12/08/24 15:55 Last Admin: 12/08/24 16:04 Dose: 4 mg Documented By: BRUNA Vital Signs Vital signs: Vital Signs - 8 hr 12/08/24 12:00 12/08/24 12:30 12/08/24 12:50 Pulse Rate 93 H 97 H 95 H Blood Pressure Pulse Oximetry 98 99 98 12/08/24 12:50 12/08/24 13:00 12/08/24 13:30 Pulse Rate 96 H 99 H Blood Pressure 150/68 H Pulse Oximetry 98 99 12/08/24 14:00 12/08/24 14:07 12/08/24 14:07 Pulse Rate 94 H 102 H Blood Pressure 164/74 H Pulse Oximetry 98 98 12/08/24 14:30 12/08/24 15:00 12/08/24 15:30 Pulse Rate 93 H 95 H 92 H Blood Pressure Pulse Oximetry 99 98 99 12/08/24 16:00 12/08/24 16:30 12/08/24 17:00 Pulse Rate 105 H 95 H 99 H Blood Pressure Pulse Oximetry 97 97 96 12/08/24 17:26 Pulse Rate 106 H Blood Pressure 184/76 H Pulse Oximetry <Kathleen Hooker, - Last Filed: 12/09/24 07:22> Orders Ordered: Discontinued Medications Hydromorphone HCl (Hydromorphone 0.5 Mg Inj) 0.5 mg IV NOW ONE Stop: 12/08/24 14:13 Last Admin: 12/08/24 14:23 Dose: 0.5 mg Documented By: ELEAZAR Hydromorphone HCl (Hydromorphone 1 Mg Inj) 1 mg IV NOW ONE Stop: 12/08/24 15:55 Last Admin: 12/08/24 16:04 Dose: 1 mg Documented By: BRUNA Sodium Chloride (Normal Saline 0.9%) 1,000 mls @ 1,000 mls/hr IV BOLUS ONE Stop: 12/08/24 13:38 Last Infusion: 12/08/24 14:42 Dose: Infused Documented By: Admin: 12/08/24 12:53 Dose: 1,000 mls/hr Documented By: ELEAZAR Acetaminophen (Ofirmev) 1,000 mg in 100 mls @ 400 mls/hr IV NOW ONE Stop: 12/08/24 15:03 Last Infusion: 12/08/24 15:25 Dose: Infused Documented By: Admin: 12/08/24 14:59 Dose: 400 mls/hr Documented By: ELEAZAR Sodium Chloride (Normal Saline 0.9%) 1,000 mls @ 500 mls/hr IV BOLUS ONE Stop: 12/08/24 16:48 Last Admin: 12/08/24 15:26 Dose: Not Given Documented By: ELEAZAR Sodium Chloride (Normal Saline 0.9%) 500 mls @ 1,000 mls/hr IV BOLUS ONE Stop: 12/08/24 15:22 Last Infusion: 12/08/24 16:08 Dose: Infused Documented By: Admin: 12/08/24 14:58 Dose: 1,000 mls/hr Documented By: ELEAZAR Ketorolac Tromethamine (Ketorolac 30 Mg/Ml Vial) 15 mg IV NOW ONE Stop: 12/08/24 12:40 Last Admin: 12/08/24 12:54 Dose: 15 mg Documented By: ELEAZAR Lidocaine (Lidocaine 5% Patch) 1 each TOP NOW ONE Stop: 12/08/24 12:40 Last Admin: 12/08/24 12:54 Dose: 1 each Documented By: ELEAZAR Ondansetron HCl (Ondansetron 4 Mg/2 Ml Inj) 4 mg IV NOW ONE Stop: 12/08/24 15:55 Last Admin: 12/08/24 16:04 Dose: 4 mg Documented By: BRUNA Vital Signs Vital signs: Vital Signs - 8 hr 12/08/24 12:00 12/08/24 12:30 12/08/24 12:50 Pulse Rate 93 H 97 H 95 H Blood Pressure Pulse Oximetry 98 99 98 12/08/24 12:50 12/08/24 13:00 12/08/24 13:30 Pulse Rate 96 H 99 H Blood Pressure 150/68 H Pulse Oximetry 98 99 12/08/24 14:00 12/08/24 14:07 12/08/24 14:07 Pulse Rate 94 H 102 H Blood Pressure 164/74 H Pulse Oximetry 98 98 12/08/24 14:30 12/08/24 15:00 12/08/24 15:30 Pulse Rate 93 H 95 H 92 H Blood Pressure Pulse Oximetry 99 98 99 12/08/24 16:00 12/08/24 16:30 12/08/24 17:00 Pulse Rate 105 H 95 H 99 H Blood Pressure Pulse Oximetry 97 97 96 12/08/24 17:26 Pulse Rate 106 H Blood Pressure 184/76 H Pulse Oximetry MDM - Fall <Brigitte Nichols PA-C - Last Filed: 12/08/24 19:45> Medical Records Attestation: I reviewed the patient's medical records. Medical records narrative: Reviewed prior ED notes including CT abdomen pelvis 09/11/2023 which revealed normal aorta and inferior vena cava. Patient does have history of diverticulitis. 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 Lab Data 12/08/24 10:30 12/08/24 10:30 Labs: Lab Results 05/11/25 05/11/25 05/11/25 Range/Units 10:30 13:07 14:05 WBC 7.7 (4.5-11.0) X10^3/uL RBC 4.96 (4.5-5.9) X10^6/uL Hgb 13.6 (13.5-17.5) g/dL Hct 41.3 (41-53) % MCV 83.2 (80-100) fL MCH 27.3 (26-34) PG MCHC 32.9 (30-36) % RDW 14.9 H (11.6-14.8) % Plt Count 225 (150-400) X10^3/uL Neut % (Auto) 62.9 (50-75) % Lymph % (Auto) 28.3 (25-40) % [place] % (Auto) 6.9 (3-14) % Eos % (Auto) 1.6 L (2-4) % Baso % (Auto) 0.3 (0-2) % Neut # (Auto) 4800 (3793-9092) /uL Lymph # (Auto) 2200 (1601-5528) /uL [place] # (Auto) 500 (0-900) /uL Eos # (Auto) 100 (0-450) /uL Baso # (Auto) 0 (0-100) /uL Sodium 135 L (137-145) mmol/L Potassium 3.7 (3.4-5.1) mmol/L Chloride 98 (98-107) mmol/L Carbon Dioxide 17 L (22-32) mmol/L BUN 11 (9-20) mg/dL Creatinine 1.18 (0.66-1.25) mg/dL Estimated GFR > 60 (>60) mL/min BUN/Creatinine Ratio 9.3 (6-22) Glucose 177 H (70-99) mg/dL Calcium 8.7 (8.4-10.2) mg/dL Total Bilirubin 0.6 (0.2-1.3) mg/dL AST 52 (17-59) IU/L ALT 37 (<50) IU/L Alkaline Phosphatase 52 (38-126) U/L Total Creatine Kinase 271 H (55-170) U/L Troponin I < 0.012 < 0.012 (0.01-0.034) ng/mL Total Protein 7.1 (6.3-8.2) g/dL Albumin 4.6 (3.5-5.0) g/dL Globulin 2.5 (1.7-4.1) g/dL Albumin/Globulin Ratio 1.8 (1.0-2.8) Lipase 48 (23-300) U/L Urine Color Urine Appearance Ur Specific [place] (1.000-1.035) Urine Protein (Negative) Urine Glucose (UA) (Negative) g/dL Urine Ketones (NEGATIVE) Urine Occult Blood (Negative) Urine Nitrate (Negative) Urine Bilirubin (NEGATIVE) Urine Urobilinogen (0.2) E.U./dL Ur Leukocyte Esterase (NEGATIVE) Urine RBC (0-5/HPF) Urine WBC (0-5/HPF) Ur Squamous Epith Cells (0-5/HPF) Urine Bacteria (None) Hyaline Casts (None) Urine Mucus (Negative) Ur Culture Indicated? Vol Urine Centrifuged U Opiates 300ng/mL cut Negative (Negative) Ur Oxycodone Screen Negative (Negative) Urine Methadone Screen Negative (Negative) Ur Barbiturates Screen Negative (Negative) U Tricyclic Antidepress Negative (Negative) Ur Phencyclidine Scrn Negative (Negative) Ur Amphetamines Screen Negative (Negative) U Methamphetamines Scrn Negative (Negative) Ur MDMA Scrn (Ecstasy) Negative (Negative) U Benzodiazepines Scrn Negative (Negative) Urine Cocaine Screen Negative (Negative) U Marijuana (THC) Screen Negative (Negative) Urine pH Normal (Normal) Urine Specific [place] Normal (Normal) Ethyl Alcohol 284 H ( - 10) mg/dL Ur Creatinine Normal (Normal) 12/08/24 Range/Units 14:09 WBC (4.5-11.0) X10^3/uL RBC (4.5-5.9) X10^6/uL Hgb (13.5-17.5) g/dL Hct (41-53) % MCV (80-100) fL MCH (26-34) PG MCHC (30-36) % RDW (11.6-14.8) % Plt Count (150-400) X10^3/uL Neut % (Auto) (50-75) % Lymph % (Auto) (25-40) % [place] % (Auto) (3-14) % Eos % (Auto) (2-4) % Baso % (Auto) (0-2) % Neut # (Auto) (8787-5664) /uL Lymph # (Auto) (8770-9436) /uL [place] # (Auto) (0-900) /uL Eos # (Auto) (0-450) /uL Baso # (Auto) (0-100) /uL Sodium (137-145) mmol/L Potassium (3.4-5.1) mmol/L Chloride (98-107) mmol/L Carbon Dioxide (22-32) mmol/L BUN (9-20) mg/dL Creatinine (0.66-1.25) mg/dL Estimated GFR (>60) mL/min BUN/Creatinine Ratio (6-22) Glucose (70-99) mg/dL Calcium (8.4-10.2) mg/dL Total Bilirubin (0.2-1.3) mg/dL AST (17-59) IU/L ALT (<50) IU/L Alkaline Phosphatase (38-126) U/L Total Creatine Kinase (55-170) U/L Troponin I (0.01-0.034) ng/mL Total Protein (6.3-8.2) g/dL Albumin (3.5-5.0) g/dL Globulin (1.7-4.1) g/dL Albumin/Globulin Ratio (1.0-2.8) Lipase (23-300) U/L Urine Color Yellow Urine Appearance Clear Ur Specific [place] >=1.030 H (1.000-1.035) Urine Protein Trace H (Negative) Urine Glucose (UA) Negative (Negative) g/dL Urine Ketones Negative (NEGATIVE) Urine Occult Blood Trace-intact (Negative) Urine Nitrate Negative (Negative) Urine Bilirubin Negative (NEGATIVE) Urine Urobilinogen 0.2 (0.2) E.U./dL Ur Leukocyte Esterase Negative (NEGATIVE) Urine RBC 0-1/hpf (0-5/HPF) Urine WBC 1-5/hpf (0-5/HPF) Ur Squamous Epith Cells 1-5 /hpf (0-5/HPF) Urine Bacteria Occasional (0-1) (None) Hyaline Casts 0-1/lpf (None) Urine Mucus 1+ H (Negative) Ur Culture Indicated? Cult not indicated Vol Urine Centrifuged 10ml (spun) U Opiates 300ng/mL cut (Negative) Ur Oxycodone Screen (Negative) Urine Methadone Screen (Negative) Ur Barbiturates Screen (Negative) U Tricyclic Antidepress (Negative) Ur Phencyclidine Scrn (Negative) Ur Amphetamines Screen (Negative) U Methamphetamines Scrn (Negative) Ur MDMA Scrn (Ecstasy) (Negative) U Benzodiazepines Scrn (Negative) Urine Cocaine Screen (Negative) U Marijuana (THC) Screen (Negative) Urine pH 5.5 (Normal) Urine Specific [place] (Normal) Ethyl Alcohol ( - 10) mg/dL Ur Creatinine (Normal) Imaging Data Chest x-ray: Radiologist's Impression: PROCEDURE: XR CHEST 1V INDICATIONS: found down TECHNIQUE: One view of the chest was acquired. COMPARISON: [facility], CT, CT HEAD/BRAIN WO CON, 12/08/2024, 10:31. [facility], CR, XR CHEST 2V, 10/13/2023, 9:41. FINDINGS: Surgical changes and devices: None. Lungs and pleura: An incomplete inspiratory result is noted, causing a crowded appearance to the lung markings. No focal infiltrates are seen. No pneumothorax or significant pleural effusions are seen. Mediastinum: Mediastinal contours appear normal. Heart size is normal. Bones and chest wall: No suspicious bony lesions. Age-appropriate bony degenerative changes are seen. Overlying soft tissues appear unremarkable. IMPRESSION: Low lung volumes, without an acute abnormality seen by plain film. Dictated by: Brian Kim M.D. on 12/08/2024 at 9:53 Approved by: Brian Kim M.D. on 12/08/2024 at 9:54 CT scan - head: Radiologist's Impression: PROCEDURE: CT HEAD/BRAIN WO CON INDICATIONS: found down etoh TECHNIQUE: Noncontrast 4.5 mm thick angled axial sections acquired from the foramen magnum to the vertex, with coronal and sagittal reformats. For radiation dose reduction, the following was used: automated exposure control, adjustment of mA and/or kV according to patient size. COMPARISON: [facility], CR, XR CHEST 1V, 12/08/2024, 10:30. FINDINGS: Image quality: This examination is limited by involuntary motion artifact. CSF spaces: Basal cisterns are patent. No extra-axial fluid collections. The ventricles are symmetric in size and shape. Brain: No intracranial bleeds or mass effect. There is cerebral volume loss, with resultant ventricular and sulcal prominence. There are periventricular and deep white matter chronic small vessel ischemic changes. Symmetric calcification can be seen involving the basal ganglia, which is considered to be normal for age. There is intracranial internal carotid artery atherosclerosis. Skull and face: Calvarium and visualized facial bones appear intact, without suspicious lesions. Sinuses: Visualized sinuses and mastoids are clear. IMPRESSION: Motion limited study, without an acute intracranial abnormality identified. Dictated by: Brian Kim M.D. on 12/08/2024 at 9:54 Approved by: Brian Kim M.D. on 12/08/2024 at 9:55 CTA Chest Abd Pelvis: Radiologist's Impression: PROCEDURE: CT ANGIO CHEST ABDOMEN PELVIS INDICATIONS: thoracic back pain, R flank pain, N/V, intox, fall TECHNIQUE: Precontrast 5 mm thick sections acquired from the lung apices to the iliac crests. After the administration of intravenous contrast, 2.5 mm thick sections again acquired from the lung apices to the iliac crests. Maximum intensity projection (MIP) oblique sagittal and coronal reformats were then acquired. For radiation dose reduction, the following was used: automated exposure control. COMPARISON: [facility], CT, CT ABDOMEN PELVIS WO CON, 10/01/2022, 16:31. [facility], CT, CT ABDOMEN PELVIS W CON, 09/11/2023, 14:00. [facility], CT, CT HEAD/BRAIN WO CON, 12/08/2024, 10:31. [facility], CT, CT ANGIO CHEST ABDOMEN PELVIS, 02/19/2021, 9:21. FINDINGS: Image quality: Diagnostic. AORTA: On precontrast imaging, no findings of hyperdense mural hematomas can be seen. On postcontrast imaging, the aorta demonstrates normal caliber throughout. Mild atherosclerotic irregularity is seen. There is no dissection flap seen. CHEST: Lower Neck: No enlarged lymph nodes. Thyroid: No thyroid nodules which require sonographic evaluation. Axillae: No enlarged lymph nodes. Chest Wall: Unremarkable. Lungs and Pleura: No pneumothorax or pleural effusions. No consolidation or suspicious nodules. Incidental note is made of an azygos lobe. Heart: Heart size is normal. No pericardial effusion. Thoracic Vessels: Pulmonary arteries demonstrate normal size. Mediastinum and Tena: No enlarged lymph nodes. Esophagus: No wall thickening. There is a small hiatal hernia. ABDOMEN: Liver: No solid mass. Gallbladder: No radiopaque gallstones or wall thickening. Biliary ducts: No biliary dilation. Pancreas: No ductal dilation. Spleen: Size is within normal limits. Adrenal Glands: No adrenal nodules. Kidneys and Ureters: No hydronephrosis. No solid mass. No complex renal cystic lesion which requires follow up. Stomach and Bowel: Normal colonic caliber, without significant wall thickening. Colonic diverticulosis is seen, without findings of active diverticulitis. No dilated loops of small bowel are seen. A normal appendix is noted. Peritoneum: No abnormal intraperitoneal fluid. No free air. Ventral Wall: No hernia. Abdominal Nodes: No retroperitoneal or mesenteric adenopathy by size criteria. Vessels: Inferior vena cava is normal in size. Incidental note is made of a retroaortic left renal vein. PELVIS: Pelvic Organs: The prostate is enlarged, measuring 5 cm transversely. Bladder: Unremarkable. Pelvic Nodes: No enlarged lymph nodes. Miscellaneous: Bilateral fat containing inguinal hernias are seen. Bones: In this patient with this given history, scrutiny is given to the thoracic spine in this patient with a given history of thoracic back pain. No thoracic spine fracture can be seen. No rib fracture is seen. No additional fractures are seen. Generalized degenerative changes are seen. IMPRESSION: No acute aortic abnormality can be seen. No aneurysm or dissection flap can be seen. Negative for hydronephrosis. Normal appendix. Additional findings: Azygos lobe Small hiatal hernia Diverticulosis, without active diverticulitis Enlarged prostate Mild bilateral fat containing inguinal hernias Dictated by: Brian Kim M.D. on 12/08/2024 at 15:45 Approved by: Brian Kim M.D. on 12/08/2024 at 15:51 ECG Data Interpretation: ECG reveals a rate of 92, irregular rhythm, and a QTC of 464 MDM Narrative Medical decision making narrative: 84-year-old male with a past medical history of chronic back pain, HTN, BPH, ID T2 DM who presents to the emergency department via EMS for fall and alcohol intoxication. Differential diagnosis includes but is not limited to acute on chronic pain, alcohol intoxication, multidrug reaction, dehydration, electrolyte abnormality, infection, UTI, Encephalopathy, closed head injury, ground level fall, hyperglycemia, hypoglycemia, etc. On exam the patient is in no acute distress, nontoxic appearing, does appear somewhat intoxicated but is alert and oriented and able to answer questions appropriately. patient has no tenderness to palpation of the appendicular skeleton or midline spine, no neck pain or pain with range of motion, lower extremities are neurovascularly intact. He is reporting right-sided thoracic pain that is worse with movement. Chest x-ray and head CT obtained in addition to lab work, we will add on urinalysis, we will treat symptoms with fluids Toradol and Lidoderm at this time. Head CT reveals motion limited study, without an acute intracranial abnormality identified. Chest x-ray reveals low lung volumes, without acute abnormality seen my plain film. Lab work reveals ethyl alcohol level of 284. normal WBC count of 7.7, hemoglobin 13.6 hematocrit 41.3. Normal platelets 225. Sodium 135, potassium 3.7, carbon dioxide slightly low at 17. BUN 11 and creatinine 1.18, consistent with baseline. His glucose is elevated at 177. CK slightly elevated at 271, not consistent with rhabdomyolysis. Negative troponin. Normal lipase and LFTs. UA negative for infection. Patient reports worsening right-sided thoracic and diffuse back pain despite IV fluids, IV Tylenol, IV Dilaudid. He had an episode of severe nausea after attempting to eat. After discussion with ED attending, we will proceed with a CTA chest abdomen pelvis, we will also treat with additional pain medications. Patient was able to stand and ambulate independently. Heart rate improved into the low 90s while at rest. CTA reveals no acute aortic abnormality. No aneurysm or dissection flap. Negative for hydronephrosis. Normal appendix. At this time patient's pain is consistent with a acute on chronic exacerbation. he was treated with pain medication and became clinically less intoxicated throughout his stay. He is stable for discharge home with his . Recommended supportive care and strict ED return precautions. He is stable for discharge home. <Kathleen Hooker, DO - Last Filed: 12/09/24 07:22> Lab Data Labs: Lab Results 12/08/24 12/08/24 12/08/24 Range/Units 10:30 13:07 14:05 WBC 7.7 (4.5-11.0) X10^3/uL RBC 4.96 (4.5-5.9) X10^6/uL Hgb 13.6 (13.5-17.5) g/dL Hct 41.3 (41-53) % MCV 83.2 (80-100) fL MCH 27.3 (26-34) PG MCHC 32.9 (30-36) % RDW 14.9 H (11.6-14.8) % Plt Count 225 (150-400) X10^3/uL Neut % (Auto) 62.9 (50-75) % Lymph % (Auto) 28.3 (25-40) % [place] % (Auto) 6.9 (3-14) % Eos % (Auto) 1.6 L (2-4) % Baso % (Auto) 0.3 (0-2) % Neut # (Auto) 4800 (4351-4048) /uL Lymph # (Auto) 2200 (9680-1121) /uL [place] # (Auto) 500 (0-900) /uL Eos # (Auto) 100 (0-450) /uL Baso # (Auto) 0 (0-100) /uL Sodium 135 L (137-145) mmol/L Potassium 3.7 (3.4-5.1) mmol/L Chloride 98 (98-107) mmol/L Carbon Dioxide 17 L (22-32) mmol/L BUN 11 (9-20) mg/dL Creatinine 1.18 (0.66-1.25) mg/dL Estimated GFR > 60 (>60) mL/min BUN/Creatinine Ratio 9.3 (6-22) Glucose 177 H (70-99) mg/dL Calcium 8.7 (8.4-10.2) mg/dL Total Bilirubin 0.6 (0.2-1.3) mg/dL AST 52 (17-59) IU/L ALT 37 (<50) IU/L Alkaline Phosphatase 52 (38-126) U/L Total Creatine Kinase 271 H (55-170) U/L Troponin I < 0.012 < 0.012 (0.01-0.034) ng/mL Total Protein 7.1 (6.3-8.2) g/dL Albumin 4.6 (3.5-5.0) g/dL Globulin 2.5 (1.7-4.1) g/dL Albumin/Globulin Ratio 1.8 (1.0-2.8) Lipase 48 (23-300) U/L Urine Color Urine Appearance Ur Specific [place] (1.000-1.035) Urine Protein (Negative) Urine Glucose (UA) (Negative) g/dL Urine Ketones (NEGATIVE) Urine Occult Blood (Negative) Urine Nitrate (Negative) Urine Bilirubin (NEGATIVE) Urine Urobilinogen (0.2) E.U./dL Ur Leukocyte Esterase (NEGATIVE) Urine RBC (0-5/HPF) Urine WBC (0-5/HPF) Ur Squamous Epith Cells (0-5/HPF) Urine Bacteria (None) Hyaline Casts (None) Urine Mucus (Negative) Ur Culture Indicated? Vol Urine Centrifuged U Opiates 300ng/mL cut Negative (Negative) Ur Oxycodone Screen Negative (Negative) Urine Methadone Screen Negative (Negative) Ur Barbiturates Screen Negative (Negative) U Tricyclic Antidepress Negative (Negative) Ur Phencyclidine Scrn Negative (Negative) Ur Amphetamines Screen Negative (Negative) U Methamphetamines Scrn Negative (Negative) Ur MDMA Scrn (Ecstasy) Negative (Negative) U Benzodiazepines Scrn Negative (Negative) Urine Cocaine Screen Negative (Negative) U Marijuana (THC) Screen Negative (Negative) Urine pH Normal (Normal) Urine Specific [place] Normal (Normal) Ethyl Alcohol 284 H ( - 10) mg/dL Ur Creatinine Normal (Normal) 12/08/24 Range/Units 14:09 WBC (4.5-11.0) X10^3/uL RBC (4.5-5.9) X10^6/uL Hgb (13.5-17.5) g/dL Hct (41-53) % MCV (80-100) fL MCH (26-34) PG MCHC (30-36) % RDW (11.6-14.8) % Plt Count (150-400) X10^3/uL Neut % (Auto) (50-75) % Lymph % (Auto) (25-40) % [place] % (Auto) (3-14) % Eos % (Auto) (2-4) % Baso % (Auto) (0-2) % Neut # (Auto) (7394-3399) /uL Lymph # (Auto) (8633-8328) /uL [place] # (Auto) (0-900) /uL Eos # (Auto) (0-450) /uL Baso # (Auto) (0-100) /uL Sodium (137-145) mmol/L Potassium (3.4-5.1) mmol/L Chloride (98-107) mmol/L Carbon Dioxide (22-32) mmol/L BUN (9-20) mg/dL Creatinine (0.66-1.25) mg/dL Estimated GFR (>60) mL/min BUN/Creatinine Ratio (6-22) Glucose (70-99) mg/dL Calcium (8.4-10.2) mg/dL Total Bilirubin (0.2-1.3) mg/dL AST (17-59) IU/L ALT (<50) IU/L Alkaline Phosphatase (38-126) U/L Total Creatine Kinase (55-170) U/L Troponin I (0.01-0.034) ng/mL Total Protein (6.3-8.2) g/dL Albumin (3.5-5.0) g/dL Globulin (1.7-4.1) g/dL Albumin/Globulin Ratio (1.0-2.8) Lipase (23-300) U/L Urine Color Yellow Urine Appearance Clear Ur Specific [place] >=1.030 H (1.000-1.035) Urine Protein Trace H (Negative) Urine Glucose (UA) Negative (Negative) g/dL Urine Ketones Negative (NEGATIVE) Urine Occult Blood Trace-intact (Negative) Urine Nitrate Negative (Negative) Urine Bilirubin Negative (NEGATIVE) Urine Urobilinogen 0.2 (0.2) E.U./dL Ur Leukocyte Esterase Negative (NEGATIVE) Urine RBC 0-1/hpf (0-5/HPF) Urine WBC 1-5/hpf (0-5/HPF) Ur Squamous Epith Cells 1-5 /hpf (0-5/HPF) Urine Bacteria Occasional (0-1) (None) Hyaline Casts 0-1/lpf (None) Urine Mucus 1+ H (Negative) Ur Culture Indicated? Cult not indicated Vol Urine Centrifuged 10ml (spun) U Opiates 300ng/mL cut (Negative) Ur Oxycodone Screen (Negative) Urine Methadone Screen (Negative) Ur Barbiturates Screen (Negative) U Tricyclic Antidepress (Negative) Ur Phencyclidine Scrn (Negative) Ur Amphetamines Screen (Negative) U Methamphetamines Scrn (Negative) Ur MDMA Scrn (Ecstasy) (Negative) U Benzodiazepines Scrn (Negative) Urine Cocaine Screen (Negative) U Marijuana (THC) Screen (Negative) Urine pH 5.5 (Normal) Urine Specific [place] (Normal) Ethyl Alcohol ( - 10) mg/dL Ur Creatinine (Normal) ECG Data Interpretation: ECG reveals a rate of 92, irregular rhythm, and a QTC of 464 [place]-sinus rhythm rate 92 AK interval 204 QRS 130 QTC 464 right bundle-branch block noted similar to previous EKGs no acute ischemia Discharge Plan Departure Patient Disposition: Home Clinical Impression: Acute on chronic back pain Alcohol intoxication Qualifiers: Complication of substance-induced condition: uncomplicated Qualified Code(s): F10.920 - Alcohol use, unspecified with intoxication, uncomplicated Instructions: DI for Thoracic Back Pain Activity Restrictions/Additional Instructions: Dear Mr. Bains, Thank you for coming to the emergency department. Today you were evaluated for back pain and a fall. Your lab work revealed that you did have a very high blood alcohol level. We completed imaging of your head, chest, abdomen, pelvis which revealed no emergent abnormalities, no fractures, no signs of infection. Your lab work did not show any signs of infection or urine infection. At this time we recommend that you rest, hydrate, avoid consuming excessive amounts of alcohol, and following up with your primary care doctor for further evaluation of your chronic pain. Please return to the emergency department if you develop any new or worsening symptoms, fevers, chills, chest pain, shortness of breath or other concerns. Please take Ibuprofen (Motrin/Advil) or Acetaminophen (Tylenol) for pain. These are available over the counter. You may take Ibuprofen 600 mg every 8 hours with food for pain. You may also take Acetaminophen 650 mg every 4-6 hours for pain. Do not exceed 3000 mg of Tylenol a day as this can cause liver damage. Do not drink alcohol with either of these medications. Please follow up with your primary care doctor within the next 2-3 days for ER follow-up. (If you do not have a PCP you can call [phone]. to schedule an appointment with an [facility] Primary Care Provider) IF YOU DEVELOP ANY NEW OR WORSENING SYMPTOMS, RETURN TO THE ER! Please read the attached instructions, they highlight more specific treatments and interventions for you at home. Thank you for letting me participate in your care, Brigitte Nichols PA-C Prescriptions: No Action fluticasone propion-salmeterol [Advair HFA] 230-21 mcg/actuation HFA aerosol inhaler 2 puff inhalation BID fluoride (sodium) [PreviDent 5000 Booster Plus] 1.1 % paste dental ASPIRIN (#ASPIRIN) 81 mg PO DAILY Qty: 0 insulin glargine [Lantus Solostar U-100 Insulin] 100 unit/mL (3 mL) insulin pen 50 unit SUBCUT QPM Qty: 45 12RF simvastatin 40 mg tablet 40 mg PO DAILY Qty: 90 3RF lidocaine 5 % adhesive patch,medicated 1 patch topical DAILY Qty: 30 2RF Rx Instructions: leave on most painful area for up to 12 hrs metformin 1,000 mg tablet 1,000 mg PO BID Qty: 180 3RF carvedilol 6.25 mg tablet 6.25 mg PO BID Qty: 180 3RF Rx Instructions: must administer with a meal/food (DME) Dexcom G6 Transmitter Device See Rx Instructions .ROUTE .MEDSUPPLY Qty: 1 3RF Rx Instructions: As directed (DME) Dexcom G7 Retail Team Leader Misc See Rx Instructions .Route Qty: 1 0RF Rx Instructions: To check blood sugar with meals and at nighttime. (DME) Dexcom G7 Sensor Device See Rx Instructions .Route Qty: 1 0RF Rx Instructions: To check blood sugar with meals and at night. (DME) dexcom G7 CGM Transmitter See Rx Instructions .Route .MEDSUPPLY Qty: 1 0RF Rx Instructions: To check blood sugar as directed, with meals and at nighttime. insulin lispro 100 unit/mL insulin pen 15 unit SUBCUT ACHS Qty: 60 2RF Rx Instructions: Sliding scale cefdinir 300 mg capsule 300 mg PO BID Qty: 14 0RF ciprofloxacin HCl 250 mg tablet 250 mg PO BID Qty: 10 0RF gabapentin 300 mg capsule See Rx Instructions PO TID Qty: 240 0RF Rx Instructions: 1 in am, 1 at noon, 2 at bedtime // APPT DUE WITH PCP PRIOR TO END OF RX/FUTURE FILLS. PLEASE CALL TO SCHEDULE APPT. THANK YOU 08/12/24 + 11/07/24. levothyroxine 50 mcg tablet 50 mcg PO DAILY Qty: 30 0RF Rx Instructions: APPT DUE WITH PCP PRIOR TO END OF RX/FUTURE FILLS. PLEASE CALL TO SCHEDULE APPT. THANK YOU 09/06/24. losartan 100 mg tablet 100 mg PO DAILY Qty: 30 0RF (DME) B-D 5MM Pen [place] See Rx Instructions .Route .MEDSUPPLY Qty: 400 6RF Rx Instructions: Use 4x a day or as instructed by PCP. albuterol sulfate [ProAir HFA] 90 mcg/actuation HFA aerosol inhaler 2 puff INHALATION Q4-6H PRN (Reason: shortness of breath or wheezing) Qty: 8.5 12RF tramadol 50 mg tablet 50 mg PO TID PRN (Reason: pain) Qty: 30 1RF naloxone [Narcan] 4 mg/actuation spray,non-aerosol 4 mg intranasal Q2M Qty: 2 0RF Rx Instructions: spray 1 dose into ONE nostril; alternate nostrils w each dose until help arrives alfuzosin [Uroxatral] 10 mg tablet extended release 24 hr 10 mg PO DAILY Qty: 90 3RF Rx Instructions: administer after the same meal each day Referrals: Duglas Brice MD [Primary Care Provider] - Stand Alone Forms: Patient Portal/API/Survey ED Sign-out <Kathleen Hooker, DO - Last Filed: 12/09/24 07:22> Cosign ED Attending Cosignature Attestation: I saw and evaluated patient with Brigitte. He was intoxicated having alcohol level 284. He was having some thoracic back pain which he says is chronic he was found down. Given doses of Dilaudid and IV Tylenol. He reports that no [place] does help. He has 2- troponins was given IV fluids. EKGs reviewed no ischemia still having some thoracic back pain he had a CT angio which did not show any dissection pulmonary embolism or other etiology. Patient ambulated had a steady gait. Urinalysis was negative no leukocytosis no evidence of infection, bicarb was noted to be slightly low at 17, with creatinine of 1.18 I was available for consultation.
[2024-12-08 12:41] LABS: Ethanol (ETOH) 284 mg/dL
[2024-12-08] MEDS: SODIUM CHLORIDE 0.9% 1,000 ML 1000 ML IV (12:53)
[2024-12-08] MEDS: KETOROLAC 30 MG/ML VIAL 15 MG IV (12:54)
[2024-12-08] MEDS: LIDOCAINE 5% PATCH 1 EACH TOP (12:54)
[2024-12-08 13:37] LABS: Troponin I < 0.012 ng/mL (0.01-0.034)
--- NOTE | 2024-12-08 13:40 | PC.NURSE ---
C/o 10/10 low back and right shoulder pain and states that the toradol did not help at all. Requested lidocaine patch be removed due to burning in area of placement. PA notified of pt status.
--- NOTE | 2024-12-08 14:13 | PC.NURSE ---
Attempted to ambulate pt to bathroom. Pt gait unsteady. Stood at bedside with pt. Able to produce urine sample. C/o 05/09 back pain.
[2024-12-08 14:17] LABS: Appearance Urine UA CLEAR; Bilirubin Urine UA NEGATIVE (NEGATIVE); Color Urine UA YELLOW; Glucose Urine UA NEGATIVE (Negative); Ketones Urine UA NEGATIVE (NEGATIVE); Leukocyte Esterase Urine UA NEGATIVE (NEGATIVE); Nitrite Urine UA NEGATIVE (Negative); Occult Blood Urine UA TRACE-INTACT (Negative); Protein Urine UA TRACE (Negative); Specific Gravity Urine UA >=1.030 (1.000-1.035); Urobilinogen Urine UA 0.2 E.U./dL (0.2); pH Urine UA 5.5 (4.5-8.0)
[2024-12-08] MEDS: HYDROMORPHONE 0.5 MG INJ IV (14:23)
[2024-12-08 14:27] LABS: Bacteria Urine Occasional (0-1); Culture Indicated Urine Cult Not Indicated; Hyaline Casts Urine 0-1/LPF; Mucus Urine 1+ (Negative); RBC Urine 0-1/HPF (0-5/HPF); Squamous Epithelial Cell Urine 1-5 /HPF (0-5/HPF); Urine Volume 10mL (spun); WBC Urine 1-5/HPF (0-5/HPF)
[2024-12-08] MEDS: SODIUM CHLORIDE 0.9% 500 ML 1000 ML IV (14:58)
[2024-12-08] MEDS: ACETAMINOPHEN IV 1,000 MG/100 ML VIAL 400 MG IV (14:59)
[2024-12-08 15:14] LABS: Ur Creatinine Normal (Normal)
[2024-12-08 15:15] LABS: UR Morphine/Opiate cutoff 300 Negative (Negative); Ur Specific Gravity Normal (Normal); Urine Amphetamines Negative (Negative); Urine Barbiturates Negative (Negative); Urine Benzodiazepines Negative (Negative); Urine Cocaine Negative (Negative); Urine MDMA Negative (Negative); Urine Methadone Negative (Negative); Urine Methamphetamines Negative (Negative); Urine Oxycodone Negative (Negative); Urine Phencyclidine Negative (Negative); Urine Tetrahydrocannabinol Negative (Negative); Urine Tricyclic Antidepressant Negative (Negative); Urine pH Normal (Normal)
--- NOTE | 2024-12-08 15:29 | PC.NURSE ---
Pt gait remains unsteady while standing at bedside. C/o 9/10 pain after receiving 0.5mg IV dilaudid, 1000 IV tylenol, and 15mg IV toradol. Discussed at length pain management expectations with pt regarding his chronic pain & etoh consumption. Pt verbalized understanding that it is not advisable to administer more narcotic pain medication due to pt's unsteady gait and etoh level. Physician notified of pt status.
--- NOTE | 2024-12-08 15:54 | DI.CT.S_ITS ---
PROCEDURE: CT ANGIO CHEST ABDOMEN PELVIS INDICATIONS: thoracic back pain, R flank pain, N/V, intox, fall TECHNIQUE: Precontrast 5 mm thick sections acquired from the lung apices to the iliac crests. After the administration of intravenous contrast, 2.5 mm thick sections again acquired from the lung apices to the iliac crests. Maximum intensity projection (MIP) oblique sagittal and coronal reformats were then acquired. For radiation dose reduction, the following was used: automated exposure control. COMPARISON: [facility], CT, CT ABDOMEN PELVIS WO CON, 10/01/2022, 16:31. [facility], CT, CT ABDOMEN PELVIS W CON, 09/11/2023, 14:00. [facility], CT, CT HEAD/BRAIN WO CON, 12/08/2024, 10:31. [facility], CT, CT ANGIO CHEST ABDOMEN PELVIS, 02/19/2021, 9:21. FINDINGS: Image quality: Diagnostic. AORTA: On precontrast imaging, no findings of hyperdense mural hematomas can be seen. On postcontrast imaging, the aorta demonstrates normal caliber throughout. Mild atherosclerotic irregularity is seen. There is no dissection flap seen. CHEST: Lower Neck: No enlarged lymph nodes. Thyroid: No thyroid nodules which require sonographic evaluation. Axillae: No enlarged lymph nodes. Chest Wall: Unremarkable. Lungs and Pleura: No pneumothorax or pleural effusions. No consolidation or suspicious nodules. Incidental note is made of an azygos lobe. Heart: Heart size is normal. No pericardial effusion. Thoracic Vessels: Pulmonary arteries demonstrate normal size. Mediastinum and Tena: No enlarged lymph nodes. Esophagus: No wall thickening. There is a small hiatal hernia. ABDOMEN: Liver: No solid mass. Gallbladder: No radiopaque gallstones or wall thickening. Biliary ducts: No biliary dilation. Pancreas: No ductal dilation. Spleen: Size is within normal limits. Adrenal Glands: No adrenal nodules. Kidneys and Ureters: No hydronephrosis. No solid mass. No complex renal cystic lesion which requires follow up. Stomach and Bowel: Normal colonic caliber, without significant wall thickening. Colonic diverticulosis is seen, without findings of active diverticulitis. No dilated loops of small bowel are seen. A normal appendix is noted. Peritoneum: No abnormal intraperitoneal fluid. No free air. Ventral Wall: No hernia. Abdominal Nodes: No retroperitoneal or mesenteric adenopathy by size criteria. Vessels: Inferior vena cava is normal in size. Incidental note is made of a retroaortic left renal vein. PELVIS: Pelvic Organs: The prostate is enlarged, measuring 5 cm transversely. Bladder: Unremarkable. Pelvic Nodes: No enlarged lymph nodes. Miscellaneous: Bilateral fat containing inguinal hernias are seen. Bones: In this patient with this given history, scrutiny is given to the thoracic spine in this patient with a given history of thoracic back pain. No thoracic spine fracture can be seen. No rib fracture is seen. No additional fractures are seen. Generalized degenerative changes are seen. IMPRESSION: No acute aortic abnormality can be seen. No aneurysm or dissection flap can be seen. Negative for hydronephrosis. Normal appendix. Additional findings: Azygos lobe Small hiatal hernia Diverticulosis, without active diverticulitis Enlarged prostate Mild bilateral fat containing inguinal hernias Dictated by: Brian Kim M.D. on 12/08/2024 at 15:45 Approved by: Brian Kim M.D. on 12/08/2024 at 15:51
[2024-12-08] MEDS: HYDROMORPHONE 1 MG INJ IV (16:04)
[2024-12-08] MEDS: ONDANSETRON 4 MG/2 ML INJ IV (16:04)
--- NOTE | 2024-12-08 17:21 | PC.NURSE ---
Pt ambulated with steady gait to bathroom with stand by assist. A&Ox4. Tolerating PO fluids.
== END 2024-12-08 17:52 | disposition home or self-care (01) ==
PROVIDERS: Emergency Medicine; Emergency Provider Physician Assistant; Family Provider Internal Medicine; PCP Internal Medicine; Referring Provider Internal Medicine
DX: F10.920 Alcohol use, unspecified with intoxication, uncomplicated (principal); I45.10 Unspecified right bundle-branch block; M54.6 Pain in thoracic spine; G89.29 Other chronic pain; Y90.8 Blood alcohol level of 240 mg/100 ml or more
CPT/HCPCS: 36415; 70450; 71045; 71275; 74174; 80053; 80305; 80320; 81001; 82550; 83690; 84484; 85025; 93005; 93010; 96361; 96365; 96375; 96376; 99284; J0131; J1171; J1885; J2405; Q9967

== ENCOUNTER 2024-12-09 06:22 | Emergency (ER) | payer MEDICARE, SELFPAY ==
[2024-04-02 10:43] VITALS: BMI 29.9
[2024-12-09] VITALS (18 sets, daily range): BP systolic 129–177; BP diastolic 57–92; PULSE 100–113; RESP 16–24; TEMP 37.1; O2SAT 90–100; BMI 27.8
--- NOTE | 2024-12-09 06:30 | EKG_ITS ---
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
--- NOTE | 2024-12-09 06:33 | DI.RAD.S_ITS ---
PROCEDURE: XR CHEST 1V INDICATIONS: chest pain, palpitations TECHNIQUE: One view of the chest was acquired. COMPARISON: [facility], CR, XR CHEST 1V, 12/08/2024, 10:30. [facility], CR, XR CHEST 2V, 10/13/2023, 9:41. FINDINGS: Surgical changes and devices: None. Lungs and pleura: Lungs are clear. No pleural effusions or pneumothorax. Mediastinum: Mediastinal contours appear normal. Heart size is normal. Bones and chest wall: No suspicious bony lesions. Overlying soft tissues appear unremarkable. IMPRESSION: No acute cardiopulmonary abnormality is seen. Dictated by: Jeremy Mancilla M.D. on 12/09/2024 at 9:01 Approved by: Jeremy Mancilla M.D. on 12/09/2024 at 9:01
[2024-12-09 06:42] LABS: Add Manual Diff / Slide Review NO; Basophils Absolute Auto 0 /uL (0-100); Basophils Percent Auto 0.2 % (0-2); Eosinophils Absolute Auto 100 /uL (0-450); Eosinophils Percent Auto 0.6 % (2-4); Hematocrit 38.8 % (41-53); Hemoglobin 12.9 g/dL (13.5-17.5); Lymphocytes Absolute Auto 1100 /uL (1100-4500); Lymphocytes Percent Auto 11.5 % (25-40); Mean Corpuscular HGB Conc 33.2 % (30-36); Mean Corpuscular Hemoglobin 27.3 PG (26-34); Mean Corpuscular Volume 82.2 fL (80-100); Monocytes Absolute Auto 1000 /uL (0-900); Monocytes Percent Auto 10.1 % (3-14); Neutrophils Absolute Auto 7700 /uL (1500-7000); Neutrophils Percent Auto 77.6 % (50-75); Platelet Count 202 X10^3/uL (150-400); Red Blood Cell Count 4.72 X10^6/uL (4.5-5.9); Red Cell Distribution Width 14.6 % (11.6-14.8); White Blood Cell Count 9.9 X10^3/uL (4.5-11.0)
[2024-12-09 06:53] LABS: Alanine Aminotransferase 45 IU/L (<50); Albumin 4.3 g/dL (3.5-5.0); Albumin Globulin Ratio 1.7 (1.0-2.8); Alkaline Phosphatase 68 U/L (38-126); Aspartate Aminotransferase 60 IU/L (17-59); BUN Creatinine Ratio 12.5 (6-22); Bilirubin Total 1.1 mg/dL (0.2-1.3); Blood Urea Nitrogen 15 mg/dL (9-20); Carbon Dioxide 24 mmol/L (22-32); Chloride 92 mmol/L (98-107); Creatine Kinase 640 U/L (55-170); Estimated Glomerular Filt Rate > 60 mL/min (>60); Globulin 2.5 g/dL (1.7-4.1); Glucose 108 mg/dL (70-99); HEMOLYSIS < 15 (0-50); Lipase 28 U/L (23-300); Potassium 3.7 mmol/L (3.4-5.1); Sodium 129 mmol/L (137-145); Total Protein 6.8 g/dL (6.3-8.2)
[2024-12-09 06:56] LABS: Lactate (Lactic Acid) 5.2 mmol/L (0.7-2.1)
[2024-12-09 07:04] LABS: NT-proBNP (BNP-Adult 18+) 524 pg/mL (<450); Troponin I 0.028 ng/mL (0.01-0.034)
--- NOTE | 2024-12-09 07:06 | ED_ITS ---
HPI - Arrhythmia/Palpitations General Chief Complaint: Arrhythmia/Palpitations Stated Complaint: Fast Heart Rate, SOB Time Seen by Provider: 12/09/24 06:33 Source: patient Mode of arrival: Ambulatory History of Present Illness HPI narrative: Patient is an 84-year-old male history of alcohol use, chronic back and neck pain, hypertension, type 2 diabetes seen evaluated yesterday after fall and was found to have alcohol intoxication. He was having thoracic back pain had full workup including [address] chest abdomen pelvis angio ultimately discharged home. This morning he feels like his heart started racing throughout the night he feels shaky he was having his ongoing left-sided neck pain with some tingling down his left arm. He reports he was not had anything to drink since yesterday. He denies all other symptoms no shortness of breath but he does have racing heart no abdominal pain nausea vomiting no other symptoms. Related Data Home Medications Medication Instructions Recorded Confirmed ASPIRIN (#ASPIRIN) 81 mg PO DAILY ##0 03/01/12 06/14/24 fluoride (sodium) 1.1 % dental dental 06/14/24 06/14/24 paste (PreviDent 5000 Booster Plus) fluticasone propionate 230 2 puff inhalation BID 06/14/24 06/14/24 mcg-salmeterol 21 mcg/actuation HFA inhaler (Advair HFA) Previous Rx's Medication Instructions Recorded B-D 5MM [place] #400 ea 03/19/21 alfuzosin 10 mg tablet,extended 10 mg PO DAILY #90 tabs 08/08/22 release 24 hr (Uroxatral) albuterol sulfate 90 mcg/actuation 2 puff inhalation Q4-6H PRN 08/24/23 aerosol inhaler (ProAir HFA) shortness of breath or wheezing #8.5 grams insulin glargine 100 unit/mL (3 50 unit (0.5 mL) SUBCUT QPM #45 mL 09/12/23 mL) subcutaneous pen (Lantus Solostar U-100 Insulin) simvastatin 40 mg tablet 40 mg PO DAILY #90 tabs 10/30/23 lidocaine 5 % topical patch 1 patch topical DAILY #30 ea 01/23/24 metformin 1,000 mg tablet 1,000 mg PO BID #180 tabs 02/05/24 carvedilol 6.25 mg tablet 6.25 mg PO BID #180 tabs 02/23/24 naloxone 4 mg/actuation nasal 4 mg intranasal Q2M #2 ea 03/12/24 spray (Narcan) tramadol 50 mg tablet 50 mg PO TID PRN pain #30 tabs 03/12/24 blood-glucose sensor (Dexcom G7 #1 ea 03/15/24 Sensor device) blood-glucose transmitter (Dexcom #1 ea 03/15/24 G6 Transmitter device) blood-glucose,charter school executive director,cont #1 ea 03/15/24 (Dexcom G7 Sensor Specialist) dexcom G7 CGM Transmitter #1 ea 03/15/24 insulin lispro 100 unit/mL 15 unit (0.15 mL) SUBCUT ACHS #60 03/25/24 subcutaneous pen mL cefdinir 300 mg capsule 300 mg PO BID #14 caps 06/15/24 ciprofloxacin HCl 250 mg tablet 250 mg PO BID #10 tabs 06/16/24 gabapentin 300 mg capsule See Rx Instructions PO TID #240 11/07/24 caps levothyroxine 50 mcg tablet 50 mcg PO DAILY #30 tabs 12/04/24 losartan 100 mg tablet 100 mg PO DAILY #30 tabs 12/04/24 chlordiazepoxide HCl 25 mg capsule 25 mg PO BID PRN alcohol 12/09/24 withdrawal #4 caps hydrocodone 5 mg-acetaminophen 325 1 tab PO Q6H PRN pain #10 tabs 12/09/24 mg tablet Allergies Allergy/AdvReac Type Severity Reaction Status Date / Time prednisone AdvReac Severe Made Verified 06/14/24 14:17 patient Hostile. Patient History Medical History (Updated 12/09/24 @ 12:24 by Kathleen Hooker DO) Myofascial pain Thoracic back pain History of recurrent UTI (urinary tract infection) Incomplete bladder emptying Meatal stenosis BPH w urinary obs/LUTS Recurrent UTI (urinary tract infection) Acquired phimosis of penis Spinal stenosis Asthma History of adenomatous polyp of colon Mixed hyperlipidemia Essential hypertension Type 2 diabetes mellitus without complication (11/26/15) Acquired hypothyroidism (11/26/15) Social History marital status: number of children: 4 household members: spouse occupational status: previously employed Smoking Status: Never smoker alcohol intake: current caffeine: Yes Smoking Status: Never smoker alcohol intake frequency: holidays/special occasions only Exam Initial Vital Signs Initial Vital Signs: Vital Signs Temperature 98.7 F 12/09/24 06:35 Pulse Rate 110 H 12/09/24 06:35 Respiratory Rate 19 12/09/24 06:35 Blood Pressure 129/92 H 12/09/24 06:35 Pulse Oximetry 98 12/09/24 06:35 Oxygen Delivery Method Room Air 12/09/24 06:35 GENERAL: Alert pleasant well-appearing 84-year-old male HEENT: Head atraumatic,EOMI, pupils reactive, face symmetric, moist mucous membranes CARDIOVASCULAR: Regular rate and rhythm without murmurs, rubs or gallops. RESPIRATORY: Breath sounds equal bilaterally, no wheezes rales or rhonchi. ABDOMEN: Soft, nontender. Normoactive bowel sounds all 4 quadrants. No guarding or rebound. EXTREMITIES: Normal range of motion, no clubbing or edema. Neurovascularly intact NEUROLOGICAL: Alert and oriented x4.Normal gait and speech. Cranial nerves II through XII grossly intact. Intention tremors present good [id number] moving all extremities SKIN: Warm, dry, no laceration, no petechiae, no rashes or lesions. Course Orders Ordered: ED Orders 12/09/24 06:25 EKG-12 Lead Stat 12/09/24 06:30 BNP [NT-proBNP (BNP-Adult 18+)] Stat Complete Blood Count AUTO DIFF Stat Comprehensive Metabolic Panel Stat Lactate (Lactic Acid) Stat Lipase Stat NT-proBNP (BNP-Adult 18+) Stat Troponin & CK Cardiac Panel Stat 12/09/24 06:33 XR chest 1V Stat EKG-12 Lead Stat 12/09/24 07:28 Blood Culture Stat Covid-19 + FLU A/B + RSV - PCR Stat 12/09/24 07:31 ETOH [Ethanol (ETOH)] Stat 12/09/24 07:36 CT cervical spine wo con Stat 12/09/24 08:20 Urinalysis and Microscopic Stat 12/09/24 08:45 Trop I [Troponin I] Stat 12/09/24 11:10 Lactate (Lactic Acid) Stat Discontinued Medications Hydromorphone HCl (Hydromorphone 0.5 Mg Inj) 0.5 mg IV NOW ONE Stop: 12/09/24 09:52 Last Admin: 12/09/24 09:59 Dose: 0.5 mg Documented By: KM Sodium Chloride (Normal Saline 0.9%) 2,789.58 mls @ 929.86 mls/hr 30 ml/kg infuse over 3 hr (2789.58 ml) IV NOW ONE Stop: 12/09/24 10:06 Last Infusion: 12/09/24 11:21 Dose: Infused Documented By: Admin: 12/09/24 07:25 Dose: 929.86 mls/hr Documented By: SHAKA Piperacillin Sod/Tazobactam (Sod 4.5 gm/ Sodium Chloride) 100 mls @ 200 mls/hr IV NOW ONE Stop: 12/09/24 07:08 Last Infusion: 12/09/24 08:28 Dose: Infused Documented By: Admin: 12/09/24 07:27 Dose: 200 mls/hr Documented By: SHAKA Ketorolac Tromethamine (Ketorolac 30 Mg/Ml Vial) 15 mg IV NOW ONE Stop: 12/09/24 09:55 Last Admin: 12/09/24 09:59 Dose: 15 mg Documented By: SHAKA Phenobarbital (Phenobarbital 65 Mg/Ml Vial) 130 mg IV NOW ONE Stop: 12/09/24 07:37 Last Admin: 12/09/24 07:44 Dose: 130 mg Documented By: SHAKA Vital Signs Vital signs: Vital Signs - 8 hr 12/09/24 07:00 12/09/24 07:30 12/09/24 07:47 Pulse Rate 102 H 105 H 103 H Respiratory Rate 21 18 17 Blood Pressure Pulse Oximetry 97 98 99 12/09/24 07:47 12/09/24 08:05 12/09/24 08:06 Pulse Rate 103 H 101 H Respiratory Rate 16 Blood Pressure 163/76 H Pulse Oximetry 94 99 12/09/24 08:06 12/09/24 08:30 12/09/24 08:30 Pulse Rate 103 H Respiratory Rate 19 Blood Pressure 172/72 H 161/72 H Pulse Oximetry 100 12/09/24 09:00 12/09/24 09:00 12/09/24 09:30 Pulse Rate 103 H 103 H Respiratory Rate 17 16 Blood Pressure 177/77 H Pulse Oximetry 100 12/09/24 09:53 12/09/24 09:53 12/09/24 10:00 Pulse Rate 106 H 100 H Respiratory Rate 21 19 Blood Pressure 146/67 H Pulse Oximetry 98 98 12/09/24 10:00 12/09/24 10:30 12/09/24 10:30 Pulse Rate Respiratory Rate 20 Blood Pressure 158/74 H 168/81 H Pulse Oximetry 98 12/09/24 11:00 12/09/24 11:01 12/09/24 11:01 Pulse Rate 109 H 111 H Respiratory Rate 17 22 Blood Pressure 146/57 H Pulse Oximetry 98 98 12/09/24 11:30 12/09/24 11:30 12/09/24 12:00 Pulse Rate 113 H 100 H Respiratory Rate 21 Blood Pressure 165/69 H Pulse Oximetry 90 L 98 12/09/24 12:01 12/09/24 12:01 12/09/24 12:30 Pulse Rate 103 H 100 H Respiratory Rate 24 Blood Pressure 150/81 H Pulse Oximetry 95 98 12/09/24 12:30 Pulse Rate Respiratory Rate Blood Pressure 169/80 H Pulse Oximetry MDM - Arrhythmia/Palpitations Lab Data 12/09/24 06:30 12/09/24 06:30 Labs: Lab Results 12/09/24 12/09/24 12/09/24 Range/Units 06:30 06:30 07:28 WBC 9.9 (4.5-11.0) X10^3/uL RBC 4.72 (4.5-5.9) X10^6/uL Hgb 12.9 L (13.5-17.5) g/dL Hct 38.8 L (41-53) % MCV 82.2 (80-100) fL MCH 27.3 (26-34) PG MCHC 33.2 (30-36) % RDW 14.6 (11.6-14.8) % Plt Count 202 (150-400) X10^3/uL Neut % (Auto) 77.6 H (50-75) % Lymph % (Auto) 11.5 L (25-40) % Butts % (Auto) 10.1 (3-14) % Eos % (Auto) 0.6 L (2-4) % Baso % (Auto) 0.2 (0-2) % Neut # (Auto) 7700 H (6372-1484) /uL Lymph # (Auto) 1100 (9671-9088) /uL Butts # (Auto) 1000 H (0-900) /uL Eos # (Auto) 100 (0-450) /uL Baso # (Auto) 0 (0-100) /uL Sodium 129 L (137-145) mmol/L Potassium 3.7 (3.4-5.1) mmol/L Chloride 92 L (98-107) mmol/L Carbon Dioxide 24 (22-32) mmol/L BUN 15 (9-20) mg/dL Creatinine 1.20 (0.66-1.25) mg/dL Estimated GFR > 60 (>60) mL/min BUN/Creatinine Ratio 12.5 (6-22) Glucose 108 H (70-99) mg/dL Lactate 5.2 H* (0.7-2.1) mmol/L Calcium 8.0 L (8.4-10.2) mg/dL Total Bilirubin 1.1 (0.2-1.3) mg/dL AST 60 H (17-59) IU/L ALT 45 (<50) IU/L Alkaline Phosphatase 68 (38-126) U/L Total Creatine Kinase 640 H D (55-170) U/L Troponin I 0.028 (0.01-0.034) ng/mL NT-Pro-B Natriuret Pep 524 H 532 H (<450) pg/mL Total Protein 6.8 (6.3-8.2) g/dL Albumin 4.3 (3.5-5.0) g/dL Globulin 2.5 (1.7-4.1) g/dL Albumin/Globulin Ratio 1.7 (1.0-2.8) Lipase 28 (23-300) U/L Urine Color Urine Appearance Urine pH (4.5-8.0) Ur Specific [place] (1.000-1.035) Urine Protein (Negative) Urine Glucose (UA) (Negative) g/dL Urine Ketones (NEGATIVE) Urine Occult Blood (Negative) Urine Nitrate (Negative) Urine Bilirubin (NEGATIVE) Urine Urobilinogen (0.2) E.U./dL Ur Leukocyte Esterase (NEGATIVE) Urine RBC (0-5/HPF) Urine WBC (0-5/HPF) Ur Squamous Epith Cells (0-5/HPF) Urine Bacteria (None) Ur Culture Indicated? Vol Urine Centrifuged Ethyl Alcohol ( - 10) mg/dL SARS-CoV-2 (PCR) Negative (Negative) Influenza A (RT-PCR) Flu a negative (NEGATIVE) Influenza B (RT-PCR) Flu b negative (NEGATIVE) RSV (PCR) Negative (Negative) 12/09/24 12/09/24 12/09/24 Range/Units 07:31 08:20 08:45 WBC (4.5-11.0) X10^3/uL RBC (4.5-5.9) X10^6/uL Hgb (13.5-17.5) g/dL Hct (41-53) % MCV (80-100) fL MCH (26-34) PG MCHC (30-36) % RDW (11.6-14.8) % Plt Count (150-400) X10^3/uL Neut % (Auto) (50-75) % Lymph % (Auto) (25-40) % Butts % (Auto) (3-14) % Eos % (Auto) (2-4) % Baso % (Auto) (0-2) % Neut # (Auto) (9124-2967) /uL Lymph # (Auto) (2365-8917) /uL Butts # (Auto) (0-900) /uL Eos # (Auto) (0-450) /uL Baso # (Auto) (0-100) /uL Sodium (137-145) mmol/L Potassium (3.4-5.1) mmol/L Chloride (98-107) mmol/L Carbon Dioxide (22-32) mmol/L BUN (9-20) mg/dL Creatinine (0.66-1.25) mg/dL Estimated GFR (>60) mL/min BUN/Creatinine Ratio (6-22) Glucose (70-99) mg/dL Lactate 3.6 H (0.7-2.1) mmol/L Calcium (8.4-10.2) mg/dL Total Bilirubin (0.2-1.3) mg/dL AST (17-59) IU/L ALT (<50) IU/L Alkaline Phosphatase (38-126) U/L Total Creatine Kinase (55-170) U/L Troponin I 0.023 (0.01-0.034) ng/mL NT-Pro-B Natriuret Pep (<450) pg/mL Total Protein (6.3-8.2) g/dL Albumin (3.5-5.0) g/dL Globulin (1.7-4.1) g/dL Albumin/Globulin Ratio (1.0-2.8) Lipase (23-300) U/L Urine Color Yellow Urine Appearance Clear Urine pH 5.5 (4.5-8.0) Ur Specific [place] 1.015 (1.000-1.035) Urine Protein Negative (Negative) Urine Glucose (UA) Negative (Negative) g/dL Urine Ketones Negative (NEGATIVE) Urine Occult Blood Negative (Negative) Urine Nitrate Negative (Negative) Urine Bilirubin Negative (NEGATIVE) Urine Urobilinogen 0.2 (0.2) E.U./dL Ur Leukocyte Esterase Negative (NEGATIVE) Urine RBC None seen (0-5/HPF) Urine WBC None seen (0-5/HPF) Ur Squamous Epith Cells None seen (0-5/HPF) Urine Bacteria None seen (None) Ur Culture Indicated? Cult not indicated Vol Urine Centrifuged 10ml (spun) Ethyl Alcohol < 10 ( - 10) mg/dL SARS-CoV-2 (PCR) (Negative) Influenza A (RT-PCR) (NEGATIVE) Influenza B (RT-PCR) (NEGATIVE) RSV (PCR) (Negative) 12/09/24 Range/Units 11:10 WBC (4.5-11.0) X10^3/uL RBC (4.5-5.9) X10^6/uL Hgb (13.5-17.5) g/dL Hct (41-53) % MCV (80-100) fL MCH (26-34) PG MCHC (30-36) % RDW (11.6-14.8) % Plt Count (150-400) X10^3/uL Neut % (Auto) (50-75) % Lymph % (Auto) (25-40) % Butts % (Auto) (3-14) % Eos % (Auto) (2-4) % Baso % (Auto) (0-2) % Neut # (Auto) (0224-4789) /uL Lymph # (Auto) (9915-4476) /uL Butts # (Auto) (0-900) /uL Eos # (Auto) (0-450) /uL Baso # (Auto) (0-100) /uL Sodium (137-145) mmol/L Potassium (3.4-5.1) mmol/L Chloride (98-107) mmol/L Carbon Dioxide (22-32) mmol/L BUN (9-20) mg/dL Creatinine (0.66-1.25) mg/dL Estimated GFR (>60) mL/min BUN/Creatinine Ratio (6-22) Glucose (70-99) mg/dL Lactate 2.9 H (0.7-2.1) mmol/L Calcium (8.4-10.2) mg/dL Total Bilirubin (0.2-1.3) mg/dL AST (17-59) IU/L ALT (<50) IU/L Alkaline Phosphatase (38-126) U/L Total Creatine Kinase (55-170) U/L Troponin I (0.01-0.034) ng/mL NT-Pro-B Natriuret Pep (<450) pg/mL Total Protein (6.3-8.2) g/dL Albumin (3.5-5.0) g/dL Globulin (1.7-4.1) g/dL Albumin/Globulin Ratio (1.0-2.8) Lipase (23-300) U/L Urine Color Urine Appearance Urine pH (4.5-8.0) Ur Specific [place] (1.000-1.035) Urine Protein (Negative) Urine Glucose (UA) (Negative) g/dL Urine Ketones (NEGATIVE) Urine Occult Blood (Negative) Urine Nitrate (Negative) Urine Bilirubin (NEGATIVE) Urine Urobilinogen (0.2) E.U./dL Ur Leukocyte Esterase (NEGATIVE) Urine RBC (0-5/HPF) Urine WBC (0-5/HPF) Ur Squamous Epith Cells (0-5/HPF) Urine Bacteria (None) Ur Culture Indicated? Vol Urine Centrifuged Ethyl Alcohol ( - 10) mg/dL SARS-CoV-2 (PCR) (Negative) Influenza A (RT-PCR) (NEGATIVE) Influenza B (RT-PCR) (NEGATIVE) RSV (PCR) (Negative) Imaging Data CT - cervical spine: Radiologist's Impresson: PROCEDURE: CT CERVICAL SPINE WO CON INDICATIONS: neck pain fall yesterday TECHNIQUE: Noncontrast 3 mm thick sections acquired from the skull base to the T4 level. Sagittal and coronal reformats were then constructed. For radiation dose reduction, the following was used: automated exposure control, adjustment of mA and/or kV according to patient size. COMPARISON: None. FINDINGS: Image quality: Excellent. Bones: No fractures or dislocations. Visualized superior ribs are intact. Cervical straightening and multilevel degenerative changes. Soft tissues: Prevertebral soft tissues are normal in thickness. No paravertebral hematomas. No apical pneumothoraces. IMPRESSION: No displaced fracture or traumatic subluxation. Dictated by: Flora Allen M.D. on 12/09/2024 at 8:23 ECG Data Attestation: I personally reviewed and interpreted this ECG as follows: Prior ECG tracings: available for review Interpretation: Sinus rhythm rate 112 MT interval 190 QRS 116 QTC 450 right bundle-branch block present similar to previous EKGs yesterday no acute ischemia MDM Narrative Medical decision making narrative: MDM CC: Chest pain palpitations Complicating co-morbidities: Alcohol abuse hypertension Data collected from: Patient Medical records reviewed: ED record from yesterday reviewed Differential considered: Sepsis intoxication alcohol withdrawal Alert well-appearing 84-year-old male he does have intention tremors but no weakness no facial droop abdomen is soft and nontender sounds clear Lab Test results independently reviewed as above. Pertinent findings: Lactate 5.2-->3.6-->2.9 Independently reviewed EKG as above Sinus rhythm no ischemia similar to prior Imaging studies independently reviewed: CT cervical neck no fracture Chest x-ray no acute cardiopulmonary process Consultations: 12:15 Dr. Brice Treatments: IV fluids for sepsis Zosyn phenobarbital Dilaudid Re-evaluations: Patient was feeling significantly better after phenobarbital and fluids heart rate has come down lactate is improving Discussion: 84-year-old male history of alcohol abuse presenting today with palpitations tremors ongoing neck pain and left arm pain. I suspect he was in mild alcohol withdrawal. He was significantly intoxicated yesterday with a level of 284. Today however he was a lactate of 5.2, but trended down words to 2.9. He overall appears well he responded well with 1 dose of phenobarbital. Heart rate 101. He had full workup yesterday including CT angio blood cultures are pending today but low suspicion for infection. He was no leukocytosis urinalysis clean 2 days in a row. He is not having infectious symptoms. You he was having pretty bad cervical pain with radiculopathy down his left arm. No concern for stroke. Overall feeling much better discussion with PCP recommends outpatient follow-up. Long discussion with patient he was adamant that he drank heavily for 2 days only this is not something typical for him. I do suspect he may have some mild alcohol withdrawal he was found to phenobarbital. Unknown cause of lactic acid. He reports he is not going to drink anymore just really wants pain medicine for his neck. We discussed how not to take Librium and [place] together. It only take Librium if needed. Discharge Plan Departure Patient Disposition: Home Clinical Impression: Alcohol abuse with withdrawal, Cervical radiculopathy Instructions: Alcohol Withdrawal Activity Restrictions/Additional Instructions: *You have been diagnosed with I suspect you are having some mild alcohol withdrawal symptoms *What to do: Stop drinking alcohol. Most try and get your pain under control for your *Continue to take medications as directed Librium 25 mg twice a day only if needed for shaking anxiety, if you do not have this then do not take it [place] 1 tablet every 4-6 hours if needed for severe pain DID NOT TAKE THESE MEDICATIONS TOGETHER PLEASE SPACE THEM APART BY LEAST 3 HOURS *Follow up with your primary care provider in 2-3 days or call [phone] Dr. Brice this week *Return to ER if you should have increasing pain numbness tingling weakness or any new, worsening or concerning symptoms CONTROLLED SUBSTANCE DISCHARGE (Narcotoic/benzodiazepine/Flexeril/Phenergan) 1. You have been prescribed narcotic medications, it does have acetaminophen/Tylenol/paracetamol in it, DO NOT TAKE MORE THAN 4,00mg in 24 hours of Tylenol. TRAMADOL DOES NOT CONTAIN TYLENOL 2. Please understand that we cannot provide further refills of narcotics, benzodiazepines or controlled substances through the ED and her pain management will need to be through your provider. 3. While on these medications you cannot drive or operate heavy machinery. 4. You cannot sign legal documents or perform any duties such as this. 5. As long as you're taking opiate pain medications he should also be taking a stool softener such as Colace, Dulcolax, MiraLAX or prune juice, to help avoid constipation. Prescriptions: New chlordiazepoxide HCl 25 mg capsule 25 mg PO BID PRN (Reason: alcohol withdrawal) Qty: 4 0RF hydrocodone-acetaminophen 5-325 mg tablet 1 tab PO Q6H PRN (Reason: pain) Qty: 10 0RF No Action fluticasone propion-salmeterol [Advair HFA] 230-21 mcg/actuation HFA aerosol inhaler 2 puff inhalation BID fluoride (sodium) [PreviDent 5000 Booster Plus] 1.1 % paste dental ASPIRIN (#ASPIRIN) 81 mg PO DAILY Qty: 0 insulin glargine [Lantus Solostar U-100 Insulin] 100 unit/mL (3 mL) insulin pen 50 unit SUBCUT QPM Qty: 45 12RF simvastatin 40 mg tablet 40 mg PO DAILY Qty: 90 3RF lidocaine 5 % adhesive patch,medicated 1 patch topical DAILY Qty: 30 2RF Rx Instructions: leave on most painful area for up to 12 hrs metformin 1,000 mg tablet 1,000 mg PO BID Qty: 180 3RF carvedilol 6.25 mg tablet 6.25 mg PO BID Qty: 180 3RF Rx Instructions: must administer with a meal/food (DME) Dexcom G6 Transmitter Device See Rx Instructions .ROUTE .MEDSUPPLY Qty: 1 3RF Rx Instructions: As directed (DME) Dexcom G7 Sensor Specialist Misc See Rx Instructions .Route Qty: 1 0RF Rx Instructions: To check blood sugar with meals and at nighttime. (DME) Dexcom G7 Sensor Device See Rx Instructions .Route Qty: 1 0RF Rx Instructions: To check blood sugar with meals and at night. (DME) dexcom G7 CGM Transmitter See Rx Instructions .Route .MEDSUPPLY Qty: 1 0RF Rx Instructions: To check blood sugar as directed, with meals and at nighttime. insulin lispro 100 unit/mL insulin pen 15 unit SUBCUT ACHS Qty: 60 2RF Rx Instructions: Sliding scale cefdinir 300 mg capsule 300 mg PO BID Qty: 14 0RF ciprofloxacin HCl 250 mg tablet 250 mg PO BID Qty: 10 0RF gabapentin 300 mg capsule See Rx Instructions PO TID Qty: 240 0RF Rx Instructions: 1 in am, 1 at noon, 2 at bedtime // APPT DUE WITH PCP PRIOR TO END OF RX/FUTURE FILLS. PLEASE CALL TO SCHEDULE APPT. THANK YOU 08/12/24 + 11/07/24. levothyroxine 50 mcg tablet 50 mcg PO DAILY Qty: 30 0RF Rx Instructions: APPT DUE WITH PCP PRIOR TO END OF RX/FUTURE FILLS. PLEASE CALL TO SCHEDULE APPT. THANK YOU 09/06/24. losartan 100 mg tablet 100 mg PO DAILY Qty: 30 0RF (DME) B-D 5MM [place] See Rx Instructions .Route .MEDSUPPLY Qty: 400 6RF Rx Instructions: Use 4x a day or as instructed by PCP. albuterol sulfate [ProAir HFA] 90 mcg/actuation HFA aerosol inhaler 2 puff INHALATION Q4-6H PRN (Reason: shortness of breath or wheezing) Qty: 8.5 12RF tramadol 50 mg tablet 50 mg PO TID PRN (Reason: pain) Qty: 30 1RF naloxone [Narcan] 4 mg/actuation spray,non-aerosol 4 mg intranasal Q2M Qty: 2 0RF Rx Instructions: spray 1 dose into ONE nostril; alternate nostrils w each dose until help arrives alfuzosin [Uroxatral] 10 mg tablet extended release 24 hr 10 mg PO DAILY Qty: 90 3RF Rx Instructions: administer after the same meal each day Referrals: Duglas Brice MD [Primary Care Provider] - Stand Alone Forms: Patient Portal/API/Survey
[2024-12-09] MEDS: SODIUM CHLORIDE 0.9% 2,789.58 ML 929.86 ML IV (07:25)
[2024-12-09] MEDS: PIPERACILLIN/TAZO 4.5 GM in SODIUM CHLORIDE 0.9% 100 ML IV (07:27)
--- NOTE | 2024-12-09 07:36 | DI.CT.S_ITS ---
PROCEDURE: CT CERVICAL SPINE WO CON INDICATIONS: neck pain fall yesterday TECHNIQUE: Noncontrast 3 mm thick sections acquired from the skull base to the T4 level. Sagittal and coronal reformats were then constructed. For radiation dose reduction, the following was used: automated exposure control, adjustment of mA and/or kV according to patient size. COMPARISON: None. FINDINGS: Image quality: Excellent. Bones: No fractures or dislocations. Visualized superior ribs are intact. Cervical straightening and multilevel degenerative changes. Soft tissues: Prevertebral soft tissues are normal in thickness. No paravertebral hematomas. No apical pneumothoraces. IMPRESSION: No displaced fracture or traumatic subluxation. Dictated by: Flora Allen M.D. on 12/09/2024 at 8:23 Approved by: Flora Allen M.D. on 12/09/2024 at 8:30
[2024-12-09 07:38] LABS: Ethanol (ETOH) < 10 mg/dL
[2024-12-09 07:41] LABS: NT-proBNP (BNP-Adult 18+) 532 pg/mL (<450)
[2024-12-09] MEDS: PHENobarbital 65 MG/ML VIAL 130 MG IV (07:44)
[2024-12-09 08:13] LABS: Reflexed Lactate in 2 Hours Y
[2024-12-09 08:22] LABS: Influenza A - CEPHEID Flu A NEGATIVE (NEGATIVE); Influenza B - CEPHEID Flu B NEGATIVE (NEGATIVE); Respiratory Syncytial Virus Negative (Negative)
[2024-12-09 08:23] LABS: COVID-19 CEPHEID 4-PLEX PCR Negative (Negative)
--- NOTE | 2024-12-09 08:25 | EKG_ITS ---
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
[2024-12-09 08:37] LABS: Appearance Urine UA CLEAR; Bilirubin Urine UA NEGATIVE (NEGATIVE); Color Urine UA YELLOW; Glucose Urine UA NEGATIVE (Negative); Ketones Urine UA NEGATIVE (NEGATIVE); Leukocyte Esterase Urine UA NEGATIVE (NEGATIVE); Nitrite Urine UA NEGATIVE (Negative); Occult Blood Urine UA NEGATIVE (Negative); Protein Urine UA NEGATIVE (Negative); Specific Gravity Urine UA 1.015 (1.000-1.035); Urobilinogen Urine UA 0.2 E.U./dL (0.2); pH Urine UA 5.5 (4.5-8.0)
[2024-12-09 08:49] LABS: Urine Volume 10mL (spun)
[2024-12-09 08:50] LABS: Bacteria Urine None Seen; Culture Indicated Urine Cult Not Indicated; RBC Urine None Seen (0-5/HPF); Squamous Epithelial Cell Urine None Seen (0-5/HPF); WBC Urine None Seen (0-5/HPF)
[2024-12-09 09:12] LABS: Lactate 2HR (Lactic Acid Rflx) 3.6 mmol/L (0.7-2.1)
[2024-12-09] MEDS: HYDROMORPHONE 0.5 MG INJ IV (09:59)
[2024-12-09] MEDS: KETOROLAC 30 MG/ML VIAL 15 MG IV (09:59)
[2024-12-09 10:06] LABS: Troponin I 0.023 ng/mL (0.01-0.034)
[2024-12-09 11:36] LABS: Lactate (Lactic Acid) 2.9 mmol/L (0.7-2.1)
[2024-12-09 13:03] LABS: Reflexed Lactate in 2 Hours Y
== END 2024-12-09 12:52 | disposition home or self-care (01) ==
PROVIDERS: Emergency Medicine; Emergency Provider Emergency Medicine; Family Provider Internal Medicine; PCP Internal Medicine
DX: F10.139 Alcohol abuse with withdrawal, unspecified (principal); M54.12 Radiculopathy, cervical region; R20.0 Anesthesia of skin
CPT/HCPCS: 0241U; 36415; 71045; 72125; 80053; 80320; 81001; 82550; 83605; 83690; 83880; 84484; 85025; 87040; 93005; 93010; 96361; 96365; 96375; 99284; J1171; J1885; J2543; J2560